=== PATIENT | male | born 1980 | race Caucasian/White ===

== ENCOUNTER → 2018-03-17 08:17 | Outpatient (CLI) | payer MEDICAID, SELFPAY ==
[2018-03-17 09:02] LABS: Abs Immature Grans 0.04 k/cumm (0.0-0.09); Absolute Basophil Count 0.03 k/cumm (0.0-0.2); Absolute Lymphocyte Count 2.23 k/cumm (1.2-3.4); Absolute Monocyte Count 0.67 k/cumm (0.11-0.7); Absolute Neutrophil Count 3.87 k/cumm (1.2-6.7); Basophils % 0.4; Eosinophils % 8.1; HCT 44.9 % (40.0-50.0); HGB 15.3 g/dL (13.5-17.5); Immature Grans % 0.5; Mean Corp. HGB Concentration 34.1 g/dL (32.0-36.0); Mean Corpuscular Hemoglobin 27.9 pg (27.0-33.0); Mean Corpuscular Volume 81.9 fL (80-95); Mean Platelet Volume 11.5 fL (8.0-11.0); Platelet Count 127 x1000/uL (130-400); RBC 5.48 m/cumm (4.50-6.00); RBC Distribution Width 13.6 % (11.8-14.1); White Blood Cell Count 7.44 k/cumm (4.4-10.8)
[2018-03-17 11:03] LABS: Anion Gap 11.8 mmol/L (3-11); BUN 9 mg/dL (7-18); CO2 25.2 mmol/L (21.0-32.0); CREATININE 0.91 mg/dL (0.70-1.30); Calcium 8.6 mg/dL (8.5-10.1); Chloride 106 mmol/L (98-107); Glucose 94 mg/dL (70-100); Potassium 4.1 mmol/L (3.5-5.1); Sodium 143 mmol/L (136-145); TSH (W/Ref FT4) 3.14 uIU/mL (0.358-3.74); Vitamin B12 523 pg/mL (193-986)
[2018-03-18 09:58] LABS: HIV-1/2 Ag & Ab Screen Negative (NEGAT)
[2018-03-18 10:40] LABS: Hepatitis C Ab w Rflx HCV PCR Negative (NEGAT)
== END ==
PROVIDERS: Nurse Practitioner Family; PCP Family Medicine; Visit Provider Family Medicine
DX: I11.0 Hypertensive heart disease with heart failure (principal); R73.09 Other abnormal glucose; E03.9 Hypothyroidism, unspecified; D69.6 Thrombocytopenia, unspecified; Z79.899 Other long term (current) drug therapy; Z11.4 Encounter for screening for human immunodeficiency virus [HIV]; Z11.59 Encounter for screening for other viral diseases
CPT/HCPCS: 36415; 80048; 86803; 87389; 82607; 84443; 85025

== ENCOUNTER 2018-04-19 01:39 | Outpatient (CLI) | payer MEDICAID, SELFPAY ==
[2018-04-19] MEDS: Inhaler, Assist Device 1 EACH MC (11:04)
[2018-04-19] MEDS: Albuterol HFA 18 GM 200 PUFF INH IH (11:05)
--- NOTE | 2018-04-19 11:11 | PFT_ITS ---
PULMONARY FUNCTION TEST REPORT DATE OF SERVICE: April 19, 2018 REQUESTING PROVIDER: Guille Garrett M.D. Spirometry shows no evidence of obstructive airways disease. There is some, but not significant, bronchodilator response. Lung volumes show no evidence of restriction. Diffusion capacity normal. Airways resistance normal. IMPRESSION: Overall normal pulmonary function study. There is some improvement after bronchodilator administration, but this is not considered significant. Clinical correlation recommended. CORY/gypsy SEE SCANNED DOCUMENT IN THE EMR FOR DATA AND GRAPHS
== END 2018-04-19 01:59 ==
PROVIDERS: PCP Family Medicine; Visit Provider Family Medicine
DX: R05 Cough (principal)
CPT/HCPCS: 94060; 94150; 94726; 94729

== ENCOUNTER 2019-05-09 15:20 | Outpatient (REF) | payer MEDICAID, SELFPAY ==
[2019-05-09 19:07] LABS: ALT 27 U/L (16-63); AST 19 U/L (15-37); Albumin 4.2 g/dL (3.4-5.0); Alkaline Phosphatase 88 U/L (46-116); Anion Gap 10.3 mmol/L (3-11); BUN 8 mg/dL (7-18); Bilirubin, Total 1.1 mg/dL (0.2-1.0); CO2 26.7 mmol/L (21.0-32.0); CREATININE 1.01 mg/dL (0.70-1.30); Calcium 8.8 mg/dL (8.5-10.1); Calculated LDL 66 mg/dL; Chloride 104 mmol/L (98-107); Cholesterol 126 mg/dL (50-200); Glucose 112 mg/dL (70-100); HDL Cholesterol 31 mg/dL (40-60); Potassium 3.8 mmol/L (3.5-5.1); Sodium 141 mmol/L (136-145); TSH (W/Ref FT4) 1.14 uIU/mL (0.36-3.74); Total Protein 6.8 g/dL (6.4-8.2); Triglyceride 149 mg/dL (30-150)
[2019-05-09 19:21] LABS: HCT 45.5 % (40.0-50.0); HGB 15.7 g/dL (13.5-17.5); Mean Corp. HGB Concentration 34.5 g/dL (32.0-36.0); Mean Corpuscular Volume 81.3 fL (80-95); Mean Platelet Volume 11.1 fL (8.0-11.0); Platelet Count 170 x1000/uL (130-400); RBC Distribution Width 13.8 % (11.8-14.1); White Blood Cell Count 7.06 k/cumm (4.4-10.8)
== END 2019-05-09 15:40 ==
LOC: NCHCN 15:20
PROVIDERS: PCP Family Medicine; Visit Provider Family Medicine
DX: E03.9 Hypothyroidism, unspecified (principal); D69.6 Thrombocytopenia, unspecified; I10 Essential (primary) hypertension; R73.09 Other abnormal glucose; E78.5 Hyperlipidemia, unspecified
CPT/HCPCS: 80053; 80061; 85027; 84443

== ENCOUNTER 2019-11-02 00:44 | Outpatient (CLI) | payer MEDICAID, SELFPAY ==
--- NOTE | 2019-11-02 13:19 | DI.RAD_ITS ---
EXAM: XR HUMERUS RT CLINICAL HISTORY: RT ARM PAIN,TENDERNESS MID UPPER ARM AFTER FALL ON ICE,M79.601. TECHNIQUE: 2D digital imaging was performed. COMPARISON: No exams were available for comparison FINDINGS: BONES: No acute fracture or old fracture is present. No bony destructive lesion is seen. Visualized p ortion of elbow and shoulder joints show mild degenerative changes. SOFT TISSUE: Normal. IMPRESSION: Unremarkable radiographs of the right humerus. DATA REPOSITORY: RADIATION DOSE DELIVERED:
== END 2019-11-02 01:04 ==
PROVIDERS: PCP Family Medicine; Visit Provider Family Medicine
DX: M79.621 Pain in right upper arm (principal)
CPT/HCPCS: 73060

== ENCOUNTER 2020-01-17 14:28 | Outpatient (CLI) | payer MEDICAID, SELFPAY ==
--- NOTE | 2020-01-17 13:25 | DI.RAD_ITS ---
EXAM: XR SHOULDER RT COMPLETE 2+V CLINICAL HISTORY: RIGHT SHOULDER PAIN. TECHNIQUE: 2D digital imaging was performed. COMPARISON: No exams were available for comparison FINDINGS: BONES: No acute fracture is present. No bony destructive lesion is seen. JOINTS: No dislocation present. Mild spurring at the glenoid. No significant AC joint spurring. SOFT TISSUE: Normal. IMPRESSION: Mild degenerative changes. DATA REPOSITORY: RADIATION DOSE DELIVERED:
== END 2020-01-17 14:48 ==
PROVIDERS: PCP Family Medicine; Referring Provider Family Medicine; Visit Provider Student in an Organized Health Care Education/Training Program
DX: M25.511 Pain in right shoulder (principal); M19.011 Primary osteoarthritis, right shoulder
CPT/HCPCS: 73030

== ENCOUNTER 2020-01-31 01:12 | Outpatient (CLI) | payer MEDICAID, SELFPAY ==
--- NOTE | 2020-01-31 14:30 | DI.MRI_ITS ---
EXAM: MR UPPER JOINT RT WO CLINICAL HISTORY: R SHOULDER PAIN, M75.51, bursitis, impingement syndrome, bicipital. TECHNIQUE: Multiplanar multisequence MRI was performed. COMPARISON: X-ray right shoulder 01/17/2020. FINDINGS: Examination technically limited due to patient body habitus. BONES: Mild hyperintense signal is seen in the subchondral bone in the lateral aspect of the humeral head which may represent a contusion. No evidence of an occult fracture. JOINTS: There is a small amount of fluid in the acromioclavicular joint. The glenohumeral joint is n ormal. TENDONS: Supraspinatus: There is hyperintense signal seen in the anterior aspect of the supraspinatus tendon c onsistent with a partial tear. Infraspinatus: Unremarkable. Subscapularis: There appears to be mild hyperintense signal seen in the superior aspect of the subsca pularis tendon suspicious for partial tear versus tendinosis. Teres Minor: Unremarkable. Biceps and Valencia: Hyperintense signal is seen in the biceps tendon which may represent tendinosis or partial tear. MUSCLES: There is very mild fatty atrophy of the teres minor muscle. The rotator cuff muscles otherw ise show normal signal and size. GLENOID LABRUM: Unremarkable on this noncontrast examination. SOFT TISSUES: Unremarkable. LIGAMENTS: Unremarkable. OTHER: Subacromial and subdeltoid bursae are unremarkable. IMPRESSION: 1. Partial tear of the anterior aspect of the supraspinatus tendon. 2. Partial tear versus tendinosis of the subscapularis and the biceps tendons. 3. Hyperintense signal in the subchondral bone in the lateral aspect of the humeral head which may re present a contusion. 4. Limited examination due to patient body habitus. DATA REPOSITORY:
== END 2020-01-31 01:32 ==
PROVIDERS: PCP Family Medicine; Visit Provider Student in an Organized Health Care Education/Training Program
DX: M25.511 Pain in right shoulder (principal); M75.101 Unspecified rotator cuff tear or rupture of right shoulder, not specified as traumatic; M75.81 Other shoulder lesions, right shoulder; M75.41 Impingement syndrome of right shoulder; M75.51 Bursitis of right shoulder
CPT/HCPCS: 73221

== ENCOUNTER 2020-03-09 12:35 | Outpatient (REF) | payer MEDICAID, SELFPAY ==
[2020-03-11 19:03] LABS: SARS-CoV-2 RNA Undetected (Undetected); SARS-CoV-2 Specimen Source Nasopharynx
== END 2020-03-09 12:55 ==
LOC: NCHCN 12:35
PROVIDERS: PCP Family Medicine; Visit Provider Nurse Practitioner Family
DX: Z11.59 Encounter for screening for other viral diseases (principal)
CPT/HCPCS: U0003

== ENCOUNTER 2020-03-28 03:40 | Outpatient (CLI) | payer MEDICAID, SELFPAY | END 2020-03-28 04:00 | PROVIDERS: PCP Family Medicine; Visit Provider Family Medicine | DX: R05 Cough (principal); R06.02 Shortness of breath ==

== ENCOUNTER 2020-05-22 07:42 | Outpatient (CLI) | payer MEDICAID, SELFPAY ==
[2020-05-24 02:09] LABS: COVID-19 RT-PCR Result NEGATIVE (Negative)
== END 2020-05-22 08:02 ==
PROVIDERS: PCP Family Medicine; Visit Provider Family Medicine
DX: Z11.59 Encounter for screening for other viral diseases (principal); Z01.811 Encounter for preprocedural respiratory examination
CPT/HCPCS: U0003

== ENCOUNTER 2020-05-24 12:56 | Outpatient (CLI) | payer MEDICAID, SELFPAY ==
[2020-05-24] MEDS: Inhaler, Assist Device 1 EACH MC (13:43)
[2020-05-24] MEDS: Albuterol HFA 18 GM 200 PUFF INH IH (13:43)
--- NOTE | 2020-05-28 09:27 | W.PFT ---
Date of service: 05/24/20 Time of Service: 01:01 Pulmonary Function Test Result Requesting Provider Guille Garrett Interpretation Spirometry: Is coming in this morning. Please have your office send us an official consult request. Thank you. Magalys Lung Volumes: Shows no evidence of restriction Diffusion Capacity: Normal Airway Pressure: Normal Impression Normal pulmonary function study, When compared to previous one from 04/19/2018, the patient has a 500 cc increase in FVC, FEV1 has increased by 200 cc, overall pulmonary function test has improved Clinical Correlation therefore is recommended.
== END 2020-05-24 13:16 ==
PROVIDERS: PCP Family Medicine; Visit Provider Family Medicine
DX: R05 Cough (principal); R06.02 Shortness of breath
CPT/HCPCS: 94060; 94726; 94729

== ENCOUNTER 2021-01-23 18:39 | Outpatient (REF) | payer MEDICAID, SELFPAY ==
[2021-01-23 20:23] LABS: HCT 46.2 % (40.0-50.0); HGB 15.3 g/dL (13.5-17.5); MCH 26.9 pg (27.0-33.0); MCHC 33.1 % (32.0-36.0); MCV 81.3 fL (80-95); MPV 11.8 fL (8.0-11.0); Platelet Count 127 10^3/uL (130-400); RBC 5.68 10^6/uL (4.36-5.78); RDW-SD 38.2 fL
[2021-01-23 20:39] LABS: ALT 23 U/L (16-63); AST 13 U/L (15-37); Albumin 4.2 g/dL (3.4-5.0); Alkaline Phosphatase 103 U/L (46-116); Anion Gap 11.9 mmol/L (3-11); BUN 9 mg/dL (7-18); Bilirubin, Total 0.9 mg/dL (0.2-1.0); CO2 24.1 mmol/L (21.0-32.0); CREATININE 1.1 mg/dL (0.70-1.30); Calcium 8.8 mg/dL (8.5-10.1); Chloride 107 mmol/L (98-107); Glucose 105 mg/dL (74-106); Potassium 4.1 mmol/L (3.5-5.1); Sodium 143 mmol/L (136-145); TSH (W/Ref FT4) 1.25 uIU/mL (0.36-3.74); Total Protein 6.6 g/dL (6.4-8.2)
== END 2021-01-23 18:40 | disposition home or self-care (01) ==
LOC: NCHCN 18:39
PROVIDERS: PCP Family Medicine; Visit Provider Family Medicine
DX: E03.9 Hypothyroidism, unspecified (principal); D69.6 Thrombocytopenia, unspecified; Z68.41 Body mass index [BMI] 40.0-44.9, adult; I10 Essential (primary) hypertension
CPT/HCPCS: 80053; 85027; 84443

== ENCOUNTER 2021-01-25 04:13 | Outpatient (CLI) | payer MEDICAID, SELFPAY ==
--- NOTE | 2021-01-25 | DI.RAD_ITS ---
Exam(s) XR HIP RT COMPLETE AP PELVIS EXAM: XR HIP RT COMPLETE AP PELVIS INDICATION: RT HIP PAIN, M25.551. COMPARISON: No exams were available for comparison TECHNIQUE: 2D digital imaging was performed. FINDINGS: Hip joint spaces are well maintained. There is spurring at acetabula bilaterally. The femoral heads appear intact. The visualized portions of the SI joints are unremarkable. IMPRESSION: Bilateral acetabular spurring. DATA REPOSITORY: RADIATION DOSE DELIVERED:
== END 2021-01-25 04:33 ==
PROVIDERS: PCP Family Medicine; Visit Provider Family Medicine
DX: M25.752 Osteophyte, left hip (principal); M25.751 Osteophyte, right hip
CPT/HCPCS: 73502

== ENCOUNTER 2021-12-10 09:50 | Outpatient (REF) | payer MEDICAID, SELFPAY ==
[2021-12-10 17:39] LABS: HCT 47.4 % (40.0-50.0); HGB 15.5 g/dL (13.5-17.5); MCH 26.5 pg (27.0-33.0); MCHC 32.7 % (32.0-36.0); MCV 81 fL (80-95); Platelet Count 61 10^3/uL (130-400); RBC 5.85 10^6/uL (4.36-5.78); RDW 13.2 % (11.8-14.1); RDW-SD 38.6 fL; WBC 8.14 10^3/uL (4.4-10.8)
[2021-12-10 19:56] LABS: ALT 29 U/L (16-63); AST 23 U/L (15-37); Albumin 4.3 g/dL (3.4-5.0); Alkaline Phosphatase 112 U/L (46-116); Anion Gap 10.9 mmol/L (3-11); BUN 7 mg/dL (7-18); Bilirubin, Total 1.6 mg/dL (0.2-1.0); CO2 24.1 mmol/L (21.0-32.0); Calcium 8.5 mg/dL (8.5-10.1); Chloride 103 mmol/L (98-107); Glucose 134 mg/dL (74-106); Potassium 3.6 mmol/L (3.5-5.1); Sodium 138 mmol/L (136-145); Total Protein 6.6 g/dL (6.4-8.2)
== END 2021-12-10 09:51 | disposition home or self-care (01) ==
LOC: NCHCN 09:50
PROVIDERS: PCP Family Medicine; Visit Provider Family Medicine
DX: R11.2 Nausea with vomiting, unspecified (principal)
CPT/HCPCS: 80053; 85027; 83735

== ENCOUNTER 2022-01-08 15:59 | Outpatient (REF) | payer MEDICAID, SELFPAY ==
[2022-01-08 21:14] LABS: Bilirubin, Direct 0.2 mg/dL (0.0-0.2)
== END 2022-01-08 16:00 | disposition home or self-care (01) ==
LOC: NCHCN 15:59
PROVIDERS: PCP Family Medicine; Visit Provider Family Medicine
DX: E80.6 Other disorders of bilirubin metabolism (principal)
CPT/HCPCS: 82247; 82248

== ENCOUNTER 2022-01-15 17:48 | Outpatient (REF) | payer MEDICAID, SELFPAY ==
[2022-01-18 18:54] LABS: Calprotectin <50.0 mcg/g
== END 2022-01-15 17:49 | disposition home or self-care (01) ==
LOC: NCHCN 17:48
PROVIDERS: PCP Family Medicine; Visit Provider Family Medicine
DX: K52.9 Noninfective gastroenteritis and colitis, unspecified (principal)
CPT/HCPCS: 87329; 83993

== ENCOUNTER → 2022-02-14 00:31 | Outpatient (CLI) | payer MEDICAID, SELFPAY ==
--- NOTE | 2022-02-14 | DI.US_ITS ---
Exam(s) US ABDOMEN EXAM: US ABDOMEN CLINICAL HISTORY: ELEVATED BILIRUBIN R17 NAUSEA LOW PLATELETS ? LIVER DISEASE OR LARGE SPLEEN TECHNIQUE: Ultrasound abdomen performed using standard protocol. COMPARISON: No exams were available for comparison FINDINGS: ABDOMINAL AORTA AND IVC: Visualized portions normal caliber. PANCREAS: Normal where visualized. LIVER: There is diffuse increased echogenicity of the liver consistent with fatty infiltration. Hepa tic evaluation is limited by patient body habitus. Hepatopedal flow in the Portal Vein. GALLBLADDER:Multiple stones are present. No evidence of wall thickening. No pericholecystic fluid id entified. BILIARY SYSTEM: Common bile duct measures < 7 mm. No intrahepatic biliary ductal dilation. KRISHNA'S SIGN: Negative. KIDNEYS: Kidneys are symmetric in size. No evidence of renal calculi. No evidence of hydronephrosis. No renal mass or cyst identified. SPLEEN: The spleen measures 14.4 cm. ASCITES: None seen. IMPRESSION: 1. Hepatic steatosis. 2. Cholelithiasis. No findings of acute cholecystitis. 3. Mild splenomegaly. DATA REPOSITORY:
== END ==
PROVIDERS: PCP Family Medicine; Visit Provider Family Medicine
DX: K76.0 Fatty (change of) liver, not elsewhere classified; K80.20 Calculus of gallbladder without cholecystitis without obstruction; R16.1 Splenomegaly, not elsewhere classified; D69.6 Thrombocytopenia, unspecified
CPT/HCPCS: 76700

== ENCOUNTER 2022-04-29 03:05 | Outpatient (CLI) | payer MEDICAID, SELFPAY ==
[2022-04-29 15:47] LABS: HCT 45.5 % (40.0-50.0); HGB 15.1 g/dL (13.5-17.5); MCH 26.1 pg (27.0-33.0); MCHC 33.2 % (32.0-36.0); MCV 79 fL (80-95); MPV 10.9 fL (8.0-11.0); Platelet Count 116 10^3/uL (130-400); RBC 5.78 10^6/uL (4.36-5.78); RDW 13.2 % (11.8-14.1); RDW-SD 37.7 fL; WBC 8.34 10^3/uL (4.4-10.8)
[2022-04-29 17:02] LABS: Absolute Neutrophil Count 4.84 10^3/uL (1.2-6.7)
[2022-04-29 17:03] LABS: Absolute Lymphocyte Count 2.67 10^3/uL (1.2-3.4); Absolute Monocyte Count 0.67 10^3/uL (0.1-0.8); Atypical Lymphocytes % 1; Diff Comment Manual Differential; Metamyelocytes % 1; RBC Morphology Normal
== END 2022-04-29 03:06 | disposition home or self-care (01) ==
LOC: LBO 03:06
PROVIDERS: PCP Family Medicine; Visit Provider Internal Medicine
DX: D69.3 Immune thrombocytopenic purpura (principal)
CPT/HCPCS: 36415; 85025

== ENCOUNTER 2022-08-01 22:24 | Emergency (ER) | payer MEDICAID, SELFPAY ==
--- OUTSIDE RECORDS SUMMARY | 2022-08-01 22:31 | XMS_ITS ---
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 35353176 skin Problem Obese abdomen E65 Active 194258 007 Problem Roque's esophagus K22.70 Active 747266303 without dysplasia Problem Gastroesophageal K21.9 Active 235 826933 reflux disease, unspecified whether esophagitis present Problem Dyspepsia R10.13 Active 010512083 Problem Gastric polyp K31.7 Active 842543 05 Problem Spondylosis of M47.816 Active 00919 000 lumbar region without myelopathy or radiculopathy Problem Lumbar spondylosis M47.816 Active ALLERGIES No Known Allergies ENCOUNTERS Encounter Location Date Diagnosis [facility] [address] [place] [address] Jan, Pyrosis R12 ; [address]yspe[address] R10.13 ; Vomitin g without [place], [place] nausea, unspecif ied [id number] vomiting type R1 1.11 ; Gastroesophageal reflux disease, unspeci fied whether esophagi tis present K21.9 ; Roque's esophagus withou t dysplasia K22.70 ; Diarrhea, unspec ified type R19.7 and Melena K92.1 [facility] [address] December, Road [place], [place] [id number] [address] Apr, Lumbar spon dylosis M47.[address] [place], [place] and Spondylos is of lumbar [id number] region without m yelopathy or radiculopathy M47.[address] Apr, [address] [place], [place] [id number] [address] Apr, Maggie mbar spondylosis M47.[address] and Spondylosis of lumbar [place], [place] region without m yelopathy [id number] or radiculopathy M47.[address] Apr, [address] [place], [place] [id number] [address] Mar, Lumbar spon dylosis M47.[address] [place], [place] and Spondylos is of lumbar [id number] region without m yelopathy or radiculopathy M47.[address] Jan, [address] [place], [place] [id number] [address] Jan, Maggie mbar spondylosis M47.[address] and Spondylosis of lumbar [place], [place] region without m yelopathy [id number] or radiculopathy M47.[address] Sep, [address] [place], [place] [id number] [facility] [address] [place] [address] Aug, Gastric polyp K31.[address] [place] [id number] [facility] [address] [place] [address] Jul, Road [address] [place] [id number] [facility] [address] Jun, [address] [place] [id number] [facility] [address] [place] [address] Jan, Road [address] [place] [id number] Jan, Gastric carolynn yp K31.[address] [place] Dyspepsia R10 .13 [id number] [facility] [address] [place] [address] December, Road [address] [place] [id number] [facility] [address] [place] [address] December, Dyspepsia R10 .[address] abdomen E65 [place], [place] [id number] [facility] [address] [facility] 10 Dec, [address] [place], [place] [id number] [address] Aug, Hypertrophi c scar of skin [facility], [address] [facility] [address] [place], [place] [id number] [address] Jul, Neoplasm of unspecified [facility], [address] godfrey ure of bone, [facility] [address] [facility] tissue, and skin 239.2 [place], [place] [id number] [address] Jul, [facility], [address] [facility] [address] [place], [place] [id number] IMMUNIZATIONS Vaccine Route Administration Date Status Td -Adult Unknown Apr 12, 2018 Administered Tdap - Adult Unknown Aug 22, 2008 Administered JOSSELYN - Flu VACC 6 MONTHS > Unknown Jun 21, 2015 Admini stered Tdap - Adult Unknown Aug 22, 2008 Administered SOCIAL HISTORY Never Assessed REASON FOR REFERRAL FUNCTIONAL STATUS PLAN OF CARE Activity Details Follow Up 2 Weeks after EGD and colono scopy Reason:follow up EGD and colonosocopy Future/Pending Procedure EGD [id number] Future/Pending Procedure COLONOSCOPY AND BIOPSY 701 VITAL SIGNS Height 70 in 2022-01-31 Height 70 in 2020-01-25 Height 70 in 2018-09-02 Height 70 in 2016-12-26 Height 70 in 2014-08-14 Weight 338 lbs 2022-01-31 Weight 331 lb 6 oz lbs 2020-01-25 Weight 330 lb 6 oz lbs 2018-09-02 Weight 351 lbs 2016-12-26 Weight 358 lbs 2014-08-14 Temperature 96.5 degrees Fahrenheit 2022-01-31 Heart Rate 112 /min 2022-01-31 Heart Rate 76 /min 2020-01-25 Heart Rate 85 /min 2018-09-02 Heart Rate 70 /min 2016-12-26 Oximetry 98 2022-01-31 Oximetry 97 2020-01-25 Oximetry 96 2018-09-02 Respiratory Rate 16 /min 2016-12-26 BMI 48.49 kg/m2 2022-01-31 BMI 47.54 kg/m2 2020-01-25 BMI 47.40 kg/m2 2018-09-02 BMI 50.36 kg/m2 2016-12-26 BMI 51.36 kg/m2 2014-08-14 Blood pressure systolic 140 mm Hg 2022-01-31 Blood pressure diastolic 86 mm Hg 2022-01-31 MEDICATIONS Medication Instructions Dosage Frequency Start End Duration Statu s Date Date Vraylar 6 MG Orally Once a 1 capsule 24h Unk nown day Benztropine Orally Twice a 1 tablet at 12h U nknown Mesylate 1 MG day bedtime Triamcinolone Externally Two 1 application Unknown Acetonide 0.5 % times a Week Cyclobenzaprine Orally Once a 1 tablet at 24h 30 day (s) Unknown HCl 10 MG day bedtime as needed Fluticasone Nasally Once a 1 spray in 24h 30 day(s) Unknown Propionate 50 day each nostril MCG/ACT Protonix 40 MG Orally twice a 1 tablet 12h U nknown day Nystatin 782763 Externally 1 application 12h Unknown UNIT/GM Twice a day Haloperidol 20 MG Orally Once a 0.5 tablet 24h 30 da y(s) Unknown day hydrOXYzine HCl as directed Unkn own 10 MG ZyrTEC Allergy 10 Orally Once a 1 tablet 24h 30 day( s) Unknown MG day Losartan Orally Once a 1 tablet 24h Unknown Potassium 25 MG day Simvastatin 20 MG Orally Once a 1 tablet in 24h Unknown day the evening MiraLax Orally as 1 packet Unknown needed mixed with 8 ounces of fluid Levothyroxine Orally Once a 1 tablet on 24h Unknown Sodium 50 MCG day an empty stomach in the morning Psyllium Fiber Orally Three 2 capsules 8h 30 day(s) Unknown 0.52 GM times a day with 8 ounces of liquid Symbicort 160-4.5 Inhalation 2 puffs 12h Unk nown MCG/ACT Twice a day Dexilant 60 MG Orally Once a 1 capsule 24h U nknown day ProAir HFA 108 Inhalation 1 puff as 4h Unkn own (90 Base) MCG/ACT every 4 hrs needed Haloperidol 5 MG Orally 5mg at 1 tablet Unknown noon, 25 mg at night Valsartan 160 MG Orally Once a 1 tablet 24h 30 day(s ) Unknown day Betamethasone Externally 1 application 24h U nknown Dipropionate 0.05 Once a day % Senexon-S 8.6-50 Orally Once a 1 tablet in 24h 30 da y(s) Unknown MG day the evening as needed PROCEDURES Procedure Date Ordered Result Body Site SHAVE TRUNK/EXT 0.6-1.0CM Jul 31, 2014 EGD WITH BIOPSYS January 08, 2017 ESOPHAGOGASTRODUODENOS Sep 20, 2018 EGD 2016-12-26 N/A RESULTS Name Result Date Reference Range CBC, WITH AUTO DIFF 2016-12-26 WBC 8.5 4.8-10.8 RBC 5.64 4.70-6.10 HGB 15.6 14.0-18.0 HCT 45.6 42.0-52.0 MCV 80.9 80.0-94.0 MCH 27.7 27.0-31.0 MCHC 34.2 32.0-37.0 RDW-CV 13.9 11.5-14.5 PLT 94 130-400 MPV 12.3 7.4-10.4 NE% 62.9 42.2-75.2 LY% 23.1 20.5-51.1 MO% 7.5 1.7-9.3 EO% 5.6 0.9-2.9 BA% 0.4 0.0-0.8 NE# 5.3 1.4-6.5 LY# 2.0 1.2-3.4 MO# 0.6 0.1-0.6 EO# 0.5 0.0-0.2 BA# 0.0 0.0-0.2 SMEAR COMMENT SEE COMMENTS SEE COMMENTS CELIAC DISEASE PANEL (celiac) ([id number]) 2016-12-02 6 Endomysial Antibody IgA Negative Negative t-Transglutaminase (tTG) IgA <2 0-3 Immunoglobulin A, Qn, Serum 28 90-3 86 COMPREHENSIVE METABOLIC PROFILE 2016-12-26 SODIUM 137 136-145 POTASSIUM 4.1 3.5-5.1 CHLORIDE 102 98-111 CO2 24 22-32 CALCIUM 9.2 8.9-10.3 BUN 10 8-26 CREATININE 0.80 0.61-1.24 TOTAL BILIRUBIN 0.8 0.3-1.2 TOTAL PROTEIN 7.0 6.5-8.1 ALBUMIN 4.7 3.5-5.0 ALKALINE PHOS 93 38-130 AST 20 15-41 ALT 22 17-63 A/GAP 11.0 3.0-12.0 B/CR 12.5 8.0-20.0 OSMOLARITY 273 275-295 GLOBULIN 2.3 2.3-3.5 A/G 2.0 1.0-2.5 LIPASE 2016-12-26 LIPASE 22 18-51 REASON FOR VISIT [facility]/EGD, GI- [facility]O EGD 2 WK F/U, GI- COLO EGD, GI-GERD, EGD, GI- GERD, discuss EGD, [facility]- L345 MBB , Appointment time adjustment, [facility] - 4 WEEK F/UP, ORDER NEEDED , [facility]- Bilateral L345 MBB , PROCEDURE SCHEDULE02/08 , [facility]- NEW PATIENT, [facility]- DDD, GI-EGD, GI gastric polyp, was found during his EGD with Dr Yung. here for f/u, GI gastric polyp r/s ill, ? instructions for tomorrow's appt, GIgastric polyp, pre-loading, biopsy results, dyspepsia, EGD, GI gerd, abd pain x 1 yr, not getting better, dry heaves, pre load, ENT lesion 2 week path results left anterior chest, ENT MOLD CHANGER lesion on chest, chart entry Insurance Providers [facility] Member Patient Patient Patient Patient Patient Subscriber Subscriber Subscriber Group Insurance Plan Plan Plan Plan ID Relationship Address Phone Name Date of ID Name Date of No Type Insurance Insurance Insurance Coverage to Subscriber Address Phone Name Dates [facility] [phone] [place] self Terry [id number] MEDICAID [place] 06 MEDICAID [facility] [id number] [facility] [facility] [address] [facility] - self Terry 1980 [address] [facility] DO Counts include 234 beds at the [facility] XAVIER (Write [place]DRO (Write Off) [place] [address] Off)
--- OUTSIDE RECORDS SUMMARY | 2022-08-01 22:31 | XMS_ITS | Continuity of Care Document ---
:1980 Author Organization [facility] e Address [address] [place] [address] Care Team Providers Name Role Phone MARV URBAN Primary Care Physician Encounter LTTL_IA FIN NBR [id number] Date(s): 06/02/22 - 06/02/[address] [address] Encounter Diagnosis Roque's esophagus (Discharge Diagnosis) - 06/02/22 Diarrhea (Discharge Diagnosis) - 06/02/22 Discharge Disposition: Home f/u External Provider Attending Physician: David Reardon MD Admitting Physician: David Reardon MD Allergies, Adverse Reactions, Alerts No Known Allergies Assessment and Plan [facility] Comprehensive LC 06/02/22 Functional Status 06/02/22 Other exposure to Infectious Disease None Medications benztropine 1 mg oral tablet 1 mg = 1 tab, Oral, BID, 1 Unknown, 0 Refill(s) Start Date: 05/01/22 Status: Orderedcyclobenzaprine 10 mg oral tablet 10 mg = 1 tab, Oral, BID, 1 Unknown, 0 Refill(s) Start Date: 05/01/22 Status: Orderedfluticasone 50 mcg/inh nasal spray 50 mcg, Subacromial, Daily, PRN congestion, 1 Unknown, 0 Refill(s) Start Date: 05/01/22 Status: Orderedhaloperidol 20 mg oral tablet 0.5 Unknown, 0 Refill(s) Start Date: 05/01/22 Status: OrderedhydrOXYzine hydrochloride 10 mg oral tablet 10 mg = 1 tab, Oral, TID, PRN as needed for anxiety, 0 Refill(s) Start Date: 05/01/22 Status: Orderedlevothyroxine 50 mcg (0.05 mg) oral tablet 50 mcg = 1 tab, Oral, Daily, 0 Refill(s) Start Date: 05/01/22 Status: OrderedMiraLax PRN constipation, 1 Unknown, 0 Refill(s) Start Date: 05/01/22 Status: Orderednystatin 100,000 units/mL oral suspension BID, 1 Unknown, 0 Refill(s) Start Date: 05/01/22 Status: OrderedProAir HFA 90 mcg/inh inhalation aerosol 2 puffs, Inhale, every 6 hr, PRN as needed for wheezing, 1 Unknown, 0 Refill(s) Start Date: 05/01/22 Status: OrderedProtonix 40 mg oral delayed release tablet 40 mg = 1 tab, Oral, BID, 1 Unknown, 0 Refill(s) Start Date: 05/01/22 Status: Orderedpsyllium TID, 2 Unknown, 0 Refill(s) Start Date: 05/01/22 Status: OrderedSenexon-S 50 mg-8.6 mg oral tablet 1 Unknown, 0 Refill(s) Start Date: 05/01/22 Status: Orderedsimvastatin 20 mg oral tablet 20 mg = 1 tab, Oral, every night at bedtime, 1 Unknown, 0 Refill(s) Start Date: 05/01/22 Status: OrderedSymbicort 160 mcg-4.5 mcg/inh inhalation aerosol 2 puffs, Inhale, BID, PRN wheezing, 2 Unknown, 0 Refill(s) Start Date: 05/01/22 Status: Orderedtriamcinolone 0.5% topical cream 1 Unknown, 0 Refill(s) Start Date: 05/01/22 Status: Orderedvalsartan 160 mg oral tablet 160 mg = 1 tab, Oral, Daily, 1 Unknown, 0 Refill(s) Start Date: 05/01/22 Status: OrderedVraylar 6 mg oral capsule 6 mg = 1 cap, Oral, Daily, 1 Unknown, 0 Refill(s) Start Date: 05/01/22 Status: Ordered Problem List Condition Confirmation Course Effective Dates Status Health I nformant Status Arthritis Confirmed Active Back pain Confirmed Active Roque's esophagus Confirmed Active Degenerative disc Confirmed Active disease Developmental delay Confirmed Active Diarrhea Confirmed Active Gastric polyp Confirmed Active Gastritis Confirmed Active Gastroesophageal Confirmed Active reflux disease Hemorrhoid Confirmed Active HLD - Hyperlipidemia Confirmed Active HTN - Hypertension Confirmed Active Hypertrophic scar Confirmed Active Indigestion Confirmed Active Lumbar spondylosis Confirmed Active Neoplastic disease Confirmed Active Obese abdomen Confirmed Active Schizoaffective Confirmed Active disorder Sleep apnea1 Confirmed Active Vomit2 Confirmed Active 1no qtdv1lsvy mornings per mom Procedures Procedure Date Related Diagnosis Body Site Status EGD AND COLONOSCOPY WITH BIOPSY1 06/02/22 Completed Colonoscopy Completed Cystoscopy Completed Upper gastrointestinal endoscopy Completed Urodynamics Completed Wrist repair Completed 1auto-populated from documented surgical case Vital Signs Most recent to oldest [Reference Range]: 1 2 Temperature Temporal Artery [36-38 Deg C] 36.5 Deg C (06/02/22 3:58 PM) Peripheral Pulse Rate [60-100 bpm] 74 bpm 73 bp m (06/02/22 4:00 PM) (06/02/22 3:58 PM) Blood Pressure [90-140/60-90 mmHg] 100/77 mmHg 104/7 8 mmHg (06/02/22 4:00 PM) (06/02/22 3:58 PM) Mean Arterial Pressure, Cuff [65-140 mmHg] 85 mmHg (06/02/22 4:00 PM) Mean Arterial Pressure Cuff 86 mmHg 86 mmHg (06/02/22 4:00 PM) (06/02/22 3:58 PM) Weight 150.000 kg (05/30/22 10:22 AM) Weight Dosing 150.000 kg (05/30/22 10:22 AM) Height 190.000 cm (05/30/22 10:22 AM) Height/Length Dosing 190.000 cm (05/30/22 10:22 AM) Social History Social History Type Response Tobacco Never tobacco user Tobacco U se:. Sex Hospital Discharge Instructions Patient Xifninnwa40/31/2022 15:01:57Upper Endoscopy, Adult, Care AfterUpper Endoscopy, Adult, Care After This sheet gives you information about how to care for yourself after your procedure. Your health care provider may also give you more specific instructions. If you have problems or questions, contact your health care provider. What can I expect after the procedure? After the procedure, it is common to have: ??? A sore throat. ??? Mild stomach pain or discomfort. ??? Bloating. ??? Nausea. Follow these instructions at home: ??? Follow instructions from your health care provider about what to eat or drink after your procedure. ??? Return to your normal activities as told by your health care provider. Ask your health care provider what activities are safe for you. ??? Take uivl-jin-jczuhsp and prescription medicines only as told by your health care provider. ??? If you were given a sedative during the procedure, it can affect you for several hours. Do not drive or operate machinery until your health care provider says that it is safe. ??? Keep all follow-up visits as told by your health care provider. This is important. Contact a health care provider if you have: ??? A sore throat that lasts longer than one day. ??? Trouble swallowing. Get help right away if: ??? You vomit blood or your vomit looks like coffee grounds. ??? You have: ??? A fever. ??? Bloody, black, or tarry stools. ??? A severe sore throat or you cannot swallow. ??? Difficulty breathing. ??? Severe pain in your chest or abdomen. Summary ??? After the procedure, it is common to have a sore throat, mild stomach discomfort, bloating, and nausea. ??? If you were given a sedative during the procedure, it can affect you for several hours. Do not drive or operate machinery until your health care provider says that it is safe. ??? Follow instructions from your health care provider about what to eat or drink after your procedure. ??? Return to your normal activities as told by your health care provider. This information is not intended to replace advice given to you by your health care provider. Make sure you discuss any questions you have with your health care provider. Document Revised: 07/17/2020 Document Reviewed: 12/20/2018 [employer] Patient Education ?? 2021 [employer] 06/02/2022 15:01:55DiverticulosisDiverticulosis Diverticulosis is a condition that develops when small pouches (diverticula) form in the wall of thelarge intestine (colon). The colon is where water is absorbed and stool (feces) is formed. The pouches form when the inside layer of the colon pushes through weak spots in the outer layers of the colon. You may have a few pouches or many of them. The pouches usually do not cause problems unless they become inflamed or infected. When this happens, the condition is called diverticulitis. What are the causes? The cause of this condition is not known. What increases the risk? The following factors may make you more likely to develop this condition: ??? Being older than age 60. Your risk for this condition increases with age. Diverticulosis is rareamong people younger than age 30. By age 80, many people have it. ??? Eating a low-fiber diet. ??? Having frequent constipation. ??? Being overweight. ??? Not getting enough exercise. ??? Smoking. ??? Taking eqgr-nbh-bxssarn pain medicines, like aspirin and ibuprofen. ??? Having a family history of diverticulosis. What are the signs or symptoms? In most people, there are no symptoms of this condition. If you do have symptoms, they may include: ??? Bloating. ??? Cramps in the abdomen. ??? Constipation or diarrhea. ??? Pain in the lower left side of the abdomen. How is this diagnosed? Because diverticulosis usually has no symptoms, it is most often diagnosed during an exam for other colon problems. The condition may be diagnosed by: ??? Using a flexible scope to examine the colon (colonoscopy). ??? Taking an X-ray of the colon after dye has been put into the colon (barium enema). ??? Having a CT scan. How is this treated? You may not need treatment for this condition. Your health care provider may recommend treatment to prevent problems. You may need treatment if you have symptoms or if you previously had diverticulitis. Treatment may include: ??? Eating a high-fiber diet. ??? Taking a fiber supplement. ??? Taking a live bacteria supplement (probiotic). ??? Taking medicine to relax your colon. Follow these instructions at home: Medicines ??? Take hmtb-bet-yokynjd and prescription medicines only as told by your health care provider. ??? If told by your health care provider, take a fiber supplement or probiotic. Constipation prevention Your condition may cause constipation. To prevent or treat constipation, you may need to: ??? Drink enough fluid to keep your urine pale yellow. ??? Take jucg-vuw-ehyxzgu or prescription medicines. ??? Eat foods that are high in fiber, such as beans, whole grains, and fresh fruits and vegetables. ??? Limit foods that are high in fat and processed sugars, such as fried or sweet foods. General instructions ??? Try not to strain when you have a bowel movement. ??? Keep all follow-up visits as told by your health care provider. This is important. Contact a health care provider if you: ??? Have pain in your abdomen. ??? Have bloating. ??? Have cramps. ??? Have not had a bowel movement in 3 days. Get help right away if: ??? Your pain gets worse. ??? Your bloating becomes very bad. ??? You have a fever or chills, and your symptoms suddenly get worse. ??? You vomit. ??? You have bowel movements that are bloody or black. ??? You have bleeding from your rectum. Summary ??? Diverticulosis is a condition that develops when small pouches (diverticula) form in the wall ofthe large intestine (colon). ??? You may have a few pouches or many of them. ??? This condition is most often diagnosed during an exam for other colon problems. ??? Treatment may include increasing the fiber in your diet, taking supplements, or taking medicines. This information is not intended to replace advice given to you by your health care provider. Make sure you discuss any questions you have with your health care provider. Document Revised: 02/16/2020 Document Reviewed: 02/16/2020 [employer] Patient Education ?? 2021 [employer]. 06/02/2022 15:01:54Colonoscopy, Adult, Care AfterColonoscopy, Adult, Care After This sheet gives you information about how to care for yourself after your procedure. Your health care provider may also give you more specific instructions. If you have problems or questions, contact your health care provider. What can I expect after the procedure? After the procedure, it is common to have: ??? A small amount of blood in your stool for 24 hours after the procedure. ??? Some gas. ??? Mild cramping or bloating of your abdomen. Follow these instructions at home: Eating and drinking ??? Drink enough fluid to keep your urine pale yellow. ??? Follow instructions from your health care provider about eating or drinking restrictions. ??? Resume your normal diet as instructed by your health care provider. Avoid heavy or fried foods that are hard to digest. Activity ??? Rest as told by your health care provider. ??? Avoid sitting for a long time without moving. Get up to take short walks every 1???2 hours. Thisis important to improve blood flow and breathing. Ask for help if you feel weak or unsteady. ??? Return to your normal activities as told by your health care provider. Ask your health care provider what activities are safe for you. Managing cramping and bloating ??? Try walking around when you have cramps or feel bloated. ??? Apply heat to your abdomen as told by your health care provider. Use the heat source that your health care provider recommends, such as a moist heat pack or a heating pad. ??? Place a towel between your skin and the heat source. ??? Leave the heat on for 20???30 minutes. ??? Remove the heat if your skin turns bright red. This is especially important if you are unable tofeel pain, heat, or cold. You may have a greater risk of getting burned. General instructions ??? If you were given a sedative during the procedure, it can affect you for several hours. Do not drive or operate machinery until your health care provider says that it is safe. ??? For the first 24 hours after the procedure: ??? Do not sign important documents. ??? Do not drink alcohol. ??? Do your regular daily activities at a slower pace than normal. ??? Eat soft foods that are easy to digest. ??? Take kncd-gdd-cvzxbtj and prescription medicines only as told by your health care provider. ??? Keep all follow-up visits as told by your health care provider. This is important. Contact a health care provider if: ??? You have blood in your stool 2???3 days after the procedure. Get help right away if you have: ??? More than a small spotting of blood in your stool. ??? Large blood clots in your stool. ??? Swelling of your abdomen. ??? Nausea or vomiting. ??? A fever. ??? Increasing pain in your abdomen that is not relieved with medicine. Summary ??? After the procedure, it is common to have a small amount of blood in your stool. You may also have mild cramping and bloating of your abdomen. ??? If you were given a sedative during the procedure, it can affect you for several hours. Do not drive or operate machinery until your health care provider says that it is safe. ??? Get help right away if you have a lot of blood in your stool, nausea or vomiting, a fever, or increased pain in your abdomen. This information is not intended to replace advice given to you by your health care provider. Make sure you discuss any questions you have with your health care provider. Document Revised: 07/13/2020 Document Reviewed: 02/13/2020 [employer] Patient Education ?? 2021 [employer]. 06/02/2022 15:01:53Colon PolypsColon Polyps Colon polyps are tissue growths inside the colon, which is part of the large intestine. They are oneof the types of polyps that can grow in the body. A polyp may be a round bump or a mushroom-shaped growth. You could have one polyp or more than one. Most colon polyps are noncancerous (benign). However, some colon polyps can become cancerous over time. Finding and removing the polyps early can help prevent this. What are the causes? The exact cause of colon polyps is not known. What increases the risk? The following factors may make you more likely to develop this condition: ??? Having a family history of colorectal cancer or colon polyps. ??? Being older than 45 years of age. ??? Being younger than 45 years of age and having a significant family history of colorectal cancer or colon polyps or a genetic condition that puts you at higher risk of getting colon polyps. ??? Having inflammatory bowel disease, such as ulcerative colitis or Crohn's disease. ??? Having certain conditions passed from parent to child (hereditary conditions), such as: ??? Familial adenomatous polyposis (FAP). ??? Perrin syndrome. ??? Turcot syndrome. ??? Peutz???Jeghers syndrome. ??? MUTYH-associated polyposis (MAP). ??? Being overweight. ??? Certain lifestyle factors. These include smoking cigarettes, drinking too much alcohol, not getting enough exercise, and eating a diet that is high in fat and red meat and low in fiber. ??? Having had childhood cancer that was treated with radiation of the abdomen. What are the signs or symptoms? Many times, there are no symptoms. If you have symptoms, they may include: ??? Blood coming from the rectum during a bowel movement. ??? Blood in the stool (feces). The blood may be bright red or very dark in color. ??? Pain in the abdomen. ??? A change in bowel habits, such as constipation or diarrhea. How is this diagnosed? This condition is diagnosed with a colonoscopy. This is a procedure in which a lighted, flexible scope is inserted into the opening between the buttocks (anus) and then passed into the colon to examinethe area. Polyps are sometimes found when a colonoscopy is done as part of routine cancer screening tests. How is this treated? This condition is treated by removing any polyps that are found. Most polyps can be removed during acolonoscopy. Those polyps will then be tested for cancer. Additional treatment may be needed depending on the results of testing. Follow these instructions at home: Eating and drinking ??? Eat foods that are high in fiber, such as fruits, vegetables, and whole grains. ??? Eat foods that are high in calcium and vitamin D, such as milk, cheese, yogurt, eggs, liver, fish, and broccoli. ??? Limit foods that are high in fat, such as fried foods and desserts. ??? Limit the amount of red meat, precooked or cured meat, or other processed meat that you eat, such as hot dogs, sausages, benites, or meat loaves. ??? Limit sugary drinks. Lifestyle ??? Maintain a healthy weight, or lose weight if recommended by your health care provider. ??? Exercise every day or as told by your health care provider. ??? Do not use any products that contain nicotine or tobacco, such as cigarettes, e-cigarettes, and chewing tobacco. If you need help quitting, ask your health care provider. ??? Do not drink alcohol if: ??? Your health care provider tells you not to drink. ??? You are , may be , or are planning to become . ??? If you drink alcohol: ??? Limit how much you use to: ??? 0???1 drink a day for women. ??? 0???2 drinks a day for men. ??? Know how much alcohol is in your drink. In the [place] one drink equals one 12 oz bottle of beer (355 mL), one 5 oz glass of wine (148 mL), or one 1?? oz glass of hard liquor (44 mL). General instructions ??? Take bwoy-vnt-otarycm and prescription medicines only as told by your health care provider. ??? Keep all follow-up visits. This is important. This includes having regularly scheduled colonoscopies. Talk to your health care provider about when you need a colonoscopy. Contact a health care provider if: ??? You have new or worsening bleeding during a bowel movement. ??? You have new or increased blood in your stool. ??? You have a change in bowel habits. ??? You lose weight for no known reason. Summary ??? Colon polyps are tissue growths inside the colon, which is part of the large intestine. They areone type of polyp that can grow in the body. ??? Most colon polyps are noncancerous (benign), but some can become cancerous over time. ??? This condition is diagnosed with a colonoscopy. ??? This condition is treated by removing any polyps that are found. Most polyps can be removed during a colonoscopy. This information is not intended to replace advice given to you by your health care provider. Make sure you discuss any questions you have with your health care provider. Document Revised: 11/07/2020 Document Reviewed: 11/07/2020 [employer] Patient Education ?? 2021 [employer] Follow Up Care05/16/2022 07:51:20With:Anay Rubio APRN Address: [address] [place] [id number] When:1 [facility] Patient Care team information PersonnelName: MARV URBAN Address: Address: [address] [place] [id number]
[2022-08-01 22:33] VITALS: BP 124/99; PULSE 104; RESP 19; TEMP 36.4; O2SAT 96
--- NOTE | 2022-08-01 23:28 | ED.GENADUL_ITS ---
Discharge Plan Disposition Patient Disposition: Home Condition: Stable Discharge Details Clinical Impression: Hallucinations, Abrasion of scrotum Primary Care Provider: Guille Garrtet ED Provider: Lucio Davenport Home Meds and New Rx's Prescriptions: New bacitracin 500 unit/gram ointment 1 applic topical TID Qty: 30 0RF Continued nystatin 100,000 unit/gram Cream 1 applic TOPICAL BID PRN benztropine 1 mg Tablet 1 mg PO BID albuterol sulfate [ProAir HFA] 90 mcg/actuation Hfa Aerosol Inhaler 2 puff INHALATION Q4H PRN valsartan 160 mg Tablet 160 mg PO DAILY Vraylar 6 mg Capsule 6 mg PO DAILY polyethylene glycol 3350 [Miralax] 17 GM powder in packet 17 gm PO DAILY PRN betamethasone, augmented 50 GM cream 50 gm Topical PRN PRN tizanidine 2 MG capsule 2 mg PO Q8H PRN simvastatin 10 MG tablet 20 mg PO QPM fluoxetine 20 mg capsule 20 cap PO DAILY Label Comments: TAKE ONE CAPSULE BY MOUTH EVERY MORNING, NEED APPOINTMENT FOR FURTHER REFILLS pantoprazole 40 mg tablet,delayed release (DR/EC) 40 tab PO DAILY Label Comments: TAKE ONE TABLET BY MOUTH EVERY DAY cetirizine 10 mg Tablet 10 mg PO DAILY PRN metformin 500 MG tablet 500 mg PO BID levothyroxine 50 MCG tablet 50 mcg PO DAILY haloperidol 20 MG tablet 20 mg PO HS docusate sodium [Colace] 100 MG capsule 100 mg PO DAILY Discharge Instructions Instructions: Schizophrenia (ED), Abrasion (ED) Additional Instructions: Please apply antibiotic ointment to your scrotal abrasion 3 times a day for the next 1 week. Please follow-up with your psychiatrist. Call tomorrow to schedule timely follow-up. Please take your psychiatric medications as prescribed. Please contact your primary care physician to arrange follow-up. Return to the ER immediately for any worsening or new concerning symptoms. Referrals: [facility] [Outside] Guille Garrett [Primary Care Provider] - Medical Decision Making 0 -- 42-year-old male with a history of morbid obesity, hypertension, hyperlipidemia, GERD, diabetes, obstructive sleep apnea, hypothyroidism, schizophrenia and developmental delay who presents from home for auditory hallucinations for several years, getting progressively worse. Vitals reassuring. He appears comfortable and nontoxic. He is oriented x3. He denies homicidal or suicidal ideation. Considering his age and history, will obtain screening labs for medical clearance. We will call [facility] for evaluation. 0100 -- Pt evaluated by Fariba with mental [facility] -- plan will be to seek inpatient voluntary admission. She reports that pt has not taken his meds for 2 weeks. Pt is unsure of his meds so we will need to reconcile these with his pharmacy. [facility] pharmacy will call in the am after they verify his meds with his pharmacy. 0800 --no events overnight. Case endorsed to Dr. Torres to continue to monitor while awaiting placement. Will need to order patient's regular meds once [facility] telemetry pharmacy can confirm his medication list. Medical Records Medical records reviewed: Yes I reviewed the patient's medical records. HPI General Mode of arrival: EMS . Date/Time Provider Initiated Documentation: 08/01/22 22:46 . Limitations to Documentation: no limitations . Information obtained by: patient . HPI Narrative: Patient is a 42-year-old male with a history of morbid obesity, hypertension, hyperlipidemia, diabetes, GERD, hypothyroidism, obstructive sleep apnea, schizophrenia and developmental delay who presents from home with a complaint of hearing voices which is getting progressively worse. Patient states he has been hearing voices since he was a little child. He states these voices are becoming more frequent. He states he has been hearing voices saying things that are sexual like telling him they are going to put their mouth around my thing . Patient denies any suicidal or homicidal ideation. He denies any alcohol or drug use. Patient states he has been in contact with [facility] human services but states have not been helpful. Related Data Home Medications Medication Instructions Recorded Confirmed simvastatin 10 mg tablet 20 mg PO QPM 08/09/13 08/02/22 docusate sodium 100 mg capsule 100 mg PO DAILY 07/31/16 08/02/22 (Colace) haloperidol 20 mg tablet 20 mg PO HS 07/31/16 08/02/22 levothyroxine 50 mcg tablet 50 mcg PO DAILY 07/31/16 08/02/22 metformin 500 mg tablet 500 mg PO BID 07/31/16 08/03/22 betamethasone, augmented 0.05 % 50 gm topical PRN PRN 03/10/17 08/03/22 topical cream polyethylene glycol 3350 17 gram 17 gm PO DAILY PRN 03/10/17 08/03/22 oral powder packet (Miralax) tizanidine 2 mg capsule 2 mg PO Q8H PRN 03/10/17 08/03/22 albuterol sulfate 90 mcg/actuation 2 puff inhalation Q4H PRN 12/09/19 08/03/22 aerosol inhaler (ProAir HFA) benztropine 1 mg tablet 1 mg PO BID 12/09/19 08/03/22 cariprazine 6 mg capsule (Vraylar) 6 mg PO DAILY 12/09/19 08/02/22 nystatin 100,000 unit/gram topical 1 applic topical BID PRN 12/09/19 08/03/22 cream valsartan 160 mg tablet 160 mg PO DAILY 12/09/19 08/02/22 fluoxetine 20 mg capsule 20 cap PO DAILY 08/02/22 08/02/22 pantoprazole 40 mg tablet,delayed 40 tab PO DAILY 08/02/22 08/02/22 release bacitracin 500 unit/gram topical 1 applic topical TID #30 grams 08/03/22 ointment cetirizine 10 mg tablet 10 mg PO DAILY PRN 08/03/22 08/03/22 Previous Rx's Medication Instructions Recorded bacitracin 500 unit/gram topical 1 applic topical TID #30 grams 08/03/22 ointment Allergies Allergy/AdvReac Type Severity Reaction Status Date / Time bee venom protein (honey bee) Allergy Severe Anaphylaxsi Verified 03/06/20 13:17 s hornet venom Allergy Severe Anaphylaxsi Verified 03/06/20 13:17 s General Stated Complaint: PsychEval KEVIN: 3 Review of Systems All systems reviewed & are unremarkable except as noted in HPI and below Constitutional Constitutional: Reports as per HPI, Denies chills and Denies fever(s) Eyes Eyes: Denies blurry vision ENT Ears, Nose, Mouth, and Throat: Denies dizziness, Denies sore throat and Denies throat swelling Cardiovascular Cardiovascular: Denies chest pain and Denies dyspnea Respiratory Respiratory: Denies cough and Denies dyspnea Gastrointestinal Gastrointestinal: Denies abdominal pain, Denies diarrhea and Denies vomiting Genitourinary Genitourinary: Denies hematuria and Denies dysuria Musculoskeletal Musculoskeletal: Denies back pain and Denies numbness Integumentary/Breasts Skin/Breast: Denies lesions and Denies rash Neurologic Neurologic: Denies dizziness, Denies localized weakness and Denies numbness Psychiatric Psychiatric: Reports auditory hallucinations Allergic/Immunologic Allergic/Immunologic: Denies throat swelling PFSH All Active Problems (Updated 08/03/22 @ 12:26 by Lucio Davenport MD) Hallucinations (Acute) Abrasion of scrotum (Acute) No-show for appointment (Acute) Bursitis of right shoulder (Acute) Impingement syndrome of right shoulder (Acute) Tendonitis of long head of biceps brachii of right shoulder (Acute) Medical History (Updated 08/03/22 @ 12:26 by Lucio Davenport MD) Chronic cough Chronic low back pain DDD (degenerative disc disease) Developmental delay, mild Diabetes GERD (gastroesophageal reflux disease) Hemorrhoids History of gastric polyp Hyperlipidemia Hypertension Hypothyroidism Keloid scar Morbid obesity Rectal bleeding Right arm pain Schizoaffective disorder Severe obstructive sleep apnea Shortness of breath Sinusitis Subclinical hypothyroidism Testicular pain, left Thrombocytopenia Tinea cruris Surgical History (Updated 12/14/19 @ 13:07 by Christine Mauricio) H/O endoscopy Social History (Updated 12/14/19 @ 13:08 by Christine Mauricio) Smoking/Tobacco Use Status: Never Smoking risk assessment performed?: Yes Alcohol Intake: never Drug use: Never Household members: family Housing: house Number of Children: 0 current occupation: Unemployed What type of physical activity do you participate in: walking, independent ambulation and bicycling Do you feel safe at home: Yes Do you feel safe in your relationship?: Yes Exam Const General: cooperative and no acute distress Nutritional Appearance: obese morbidly obese Orientation: alert, awake and oriented x3 HENMT Head: normal to inspection Ears: hearing grossly normal bilaterally and external ears normal Face and sinus: normal facial exam Mouth: oral mucosae normal Eyes General: appearance normal, both eyes and all related structures Pupils: PERRL EOM: EOM intact bilaterally Neck Neck: normal visual inspection and No submandibular swelling Lymphatic: no lymphadenopathy noted Chest Chest: normal inspection of the chest and no tenderness Resp Effort & Inspection: normal respiratory effort and able to speak in complete sentences Auscultation: clear to auscultation bilaterally Cardio Rate: regular rate Rhythm: regular rhythm GI Inspection: normal to inspection Palpation: soft, not firm, not rigid and nontender Auscultation: normal bowel sounds Skin General skin exam: no rashes or lesions noted Neuro General: patient alert, patient awake and patient oriented x3 Cognition: normal cognition Speech: speech normal Motor: muscle tone normal throughout Sensory Exam: no sensory deficits noted Extrem General: normal to inspection, full ROM, capillary refill normal, no calf tenderness bilaterally and no edema Psych Appearance: grossly normal Mental Status: mental status grossly normal Speech and Movement: speech and movement normal Affect: normal affect Course Vital Signs Vital signs: Vital Signs Temperature 97.5 F L 08/01/22 22:33 Pulse 104 H 08/01/22 22:33 Respiratory Rate 19 08/01/22 22:33 Blood Pressure 124/99 H 08/01/22 22:33 Pulse Oximetry 96 08/01/22 22:33 Temperature 97.5 F L 08/01/22 22:33 Temperature Source Tympanic 08/01/22 22:33 Pulse 104 H 08/01/22 22:33 Respiratory Rate 19 08/01/22 22:33 Respiratory Effort 08/01/22 22:35 Blood Pressure 124/99 H 08/01/22 22:33 Blood Pressure Position Sitting 08/01/22 22:33 Pulse Oximetry 96 08/01/22 22:33 Oxygen Delivery Method Room Air 08/01/22 22:33 Oxygen Flow Rate 0 08/01/22 22:33 Pain Level 0 08/01/22 22:33 Sign Out Sign Out Data: Sign Out Comment: Auditory hallucinations. Voluntary. Medically cleared. Awaiting placement. Will need to reconcile medications with [facility] telemetry pharmacy and will need to order his regularly scheduled meds. Last updated by Zina Rizo DO at 08/02/22 02:32 Sign Out Comment: SI, voluntary, awaiting placement Last updated by Graham Torres MD at 08/02/22 20:53 Sign Out Comment: No issues overnight Last updated by Tony Orozco MD at 08/03/22 07:32
[2022-08-01 23:49] LABS: Source Nasal/Nares
[2022-08-02] LABS: Abs Immature Grans 0.04 10^3/uL (0.0-0.06); Absolute Basophil Count 0.03 10^3/uL (0.0-0.2); Absolute Eosinophil Count 0.16 10^3/uL (0.0-0.7); Absolute Lymphocyte Count 0.82 10^3/uL (1.2-3.4); Absolute Monocyte Count 0.71 10^3/uL (0.1-0.8); Absolute Neutrophil Count 4.88 10^3/uL (1.2-6.7); Basophils % 0.5; Eosinophils % 2.4; HCT 47.4 % (40.0-50.0); HGB 15.9 g/dL (13.5-17.5); Immature Grans % 0.6; Lymphocytes % 12.3; MCHC 33.5 % (32.0-36.0); MCV 78 fL (80-95); MPV 10.2 fL (8.0-11.0); Monocytes % 10.7; Neutrophils % 73.5; Platelet Count 142 10^3/uL (130-400); RBC 6.12 10^6/uL (4.36-5.78); RDW 12.9 % (11.8-14.1); RDW-SD 35.8 fL; WBC 6.64 10^3/uL (4.4-10.8)
[2022-08-02 00:14] LABS: Bilirubin Negative (Negative); Blood Negative (Negative); Clarity Clear (Clear); Glucose Negative (Negative); Leukocyte Esterase Negative (Negative); Nitrite Negative (Negative); Specific Gravity >= 1.030 (1.005-1.025); Urobilinogen 0.2 EU/dL (Up TO 0.2); pH 5.5 (5-8)
[2022-08-02 00:17] LABS: ALT 26 U/L (16-63); AST 23 U/L (15-37); Albumin 4.3 g/dL (3.4-5.0); Alkaline Phosphatase 120 U/L (46-116); Anion Gap 9.5 mmol/L (3-11); BUN 8 mg/dL (7-18); Bilirubin, Total 1.3 mg/dL (0.2-1.0); CO2 25.5 mmol/L (21.0-32.0); CREATININE 0.9 mg/dL (0.70-1.30); Calcium 8.7 mg/dL (8.5-10.1); Chloride 103 mmol/L (98-107); Estimated GFR 108.68 (mL/min/1.73m2); Glucose 115 mg/dL (74-106); Potassium 3.2 mmol/L (3.5-5.1); Sodium 138 mmol/L (136-145); Total Protein 7.2 g/dL (6.4-8.2)
[2022-08-02 00:19] LABS: COVID-19 PCR Negative (Negative)
[2022-08-02 00:22] LABS: ETHANOL BLOOD < 3.0 mg/dL (<10)
--- NOTE | 2022-08-02 00:23 | TELEP.MEDR_ITS ---
Date of service: 08/02/22 Time of Service: 00:23 Telepharmacy Home Med Rec Allergies Allergies: bee venom protein (honey bee) Allergy (Severe, Verified 03/06/20 13:17) Anaphylaxsis hornet venom Allergy (Severe, Verified 03/06/20 13:17) Anaphylaxsis Interview Person Interviewed: * none Additional Notes Additional Notes: * Called ER and was informed that the facility had provided the medication list to the ER staff, therefore they don't need telepharmacy to do a med rec. Recommended Changes Attestation: The home medication list is now updated to the best of my knowledge and is ready to be reconciled by the provider. Please contact the TelePharmacy Medication Reconciliation Pharmacist at for any questions.
[2022-08-02 00:29] LABS: Ketones Negative (Negative)
[2022-08-02 00:32] LABS: *AMPHETAMINES SCREEN URINE Negative (Negative); *BARBITURATES SCREEN URINE Negative (Negative); *BENZODIAZEPINES SCREEN URINE Negative (Negative); Cannabinoids THC Negative (Negative); Cocaine Screen,Urine Negative (Negative); METHADONE URINE SCREEN Negative (Negative); OPIATES URINE SCREEN Negative (Negative); Tricyclic Antidepressants Negative (Negative)
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
[2022-08-02] MEDS: Potassium Chloride 20 MEQ TABCR 40 MEQ PO (07:09)
--- NOTE | 2022-08-02 12:19 | CMSP_ITS ---
- If Service Date Differs Date of service: 08/02/22 Time of Service: 12:35 Care Management Safety Plan Status: Voluntary - Reason for Wait Reason for Wait: Inpatient Admission VOLUNTARY FOR INPATIENT PSYCHIATRIC STABILIZATION. Patient is appropriate in all interactions since arriving at [facility]; Pt has demonstrated appropriate coping and communication skills, has articulated his needs and concerns and is fully engaged during staff interactions. Terry is communicating the command voices telling him he is being threatened by staff, he has responded well to reassurance from manager decision support. He has slept [facility] harvest worker faxed result sheet to ED stating [facility] is the only facility currently reviewing referral; other facilities have declined. Medications appear to have been discontinued at [facility] due to patient not following up with medication appointments. CM advocated for home medications to be re-started. Terry and his mother are advocating for [facility] medication appointment as soon as possible; due to holiday weekend, scheduling reportedly unavailable until 08/05/22. CM notified [facility] ES Director, [facility] ED director, and [facility] TOLL GATE KEEPER of barriers to patient stabilization in community. Safety plan has been established with patient, and care team, to adhere to patient goals, identify restrictions based on behavioral status, address nutrition, and determine allowed personal belongings, tools for hygiene and personal care. Determine level of activity including ambulation, level of supervision, visitors, and determine privileges based on behaviors and level of engagement by pt. SAFETY PLAN: 1. Will remain on suicide precautions. In Paper Clothes 2. Will remain in room under direct supervision of one-on-one staff at all times provided by [employer]; [place], AIRCRAFT POWERPLANT REPAIRER ironworker. 3. May have paper cups, plates, finger foods as well as a cardboard spoon with which to eat meals. 4. Follow [facility] Management of the Admitted Behavioral Health Patient policy. 5. Comfort bath system only, shower permitted with escort at RN discretion. 6. No personal belongings-soft items permitted at RN discretion. 7. Visitors-limited to family at this time at RN discretion. 8. Activities: soft cart items approved per RN discretion, television available in Room 9 in the ED. 9. Bathroom privileges with escort in the ED, available in room without limitation on M/S. 10. Phone: contact limited to family at this time, via cordless phone at RN discretion. 11. Due to VOLUNTARY status, if patient wishes to leave [facility], staff will contact [facility] Crisis Screener ([phone]) and On-Call Prestidigitator ([phone]) as soon as possible. In the event of elopement, notify [facility] Police ([phone]). Patient is currently voluntarily at [facility] and seeking inpatient admission when a bed becomes available. [facility] Frontline After School Tutor will continue seeking placement. Please contact the [employer] Thread Laster Prestidigitator ([phone]) and [facility] After School Tutor ([phone]) for any needed changes in the Safety Plan. Safety plan has been provided to interdepartmental care team.
[2022-08-02 19:32] VITALS: BP 136/86; PULSE 98; TEMP 36.9; O2SAT 96
[2022-08-02] MEDS: Haloperidol 5 MG TAB PO (20:30)
[2022-08-02] MEDS: Docusate Sodium 100 MG CAP PO (20:57)
--- NOTE | 2022-08-02 22:48 | NUR.NOTE ---
Nursing Note: Spoke to pt mom who confirmed meds/doses. Pt states she does not know ALL of his meds as she only knows the ones that he has had refilled recently. Mother states there are some meds that he is prescribed but has not refilled and is therefore not taking. Confirmed meds updated in EMR.
[2022-08-03] MEDS: Mylanta Suspension 30 ML CUP PO (07:18)
[2022-08-03] MEDS: FLUoxetine 10 MG TAB 20 MG PO (08:38)
[2022-08-03] MEDS: Haloperidol 5 MG TAB PO (08:38)
[2022-08-03] MEDS: metFORMIN 500 MG TAB PO (08:38)
[2022-08-03] MEDS: Pantoprazole 40 MG TABCR PO (08:39)
[2022-08-03] MEDS: Benztropine 1 MG TAB PO (09:04)
--- NOTE | 2022-08-03 11:44 | TELEP.MEDREC ---
Date of service: 08/03/22 Time of Service: 11:44 Telepharmacy Home Med Rec Allergies Allergies: bee venom protein (honey bee) Allergy (Severe, Verified 03/06/20 13:17) Anaphylaxsis hornet venom Allergy (Severe, Verified 03/06/20 13:17) Anaphylaxsis Interview Person Interviewed: Claudia- patient's mother Quality Quality of Interview/Accuracy of Medication List: Poor Sources Sources used to compile medication list: [employer] Medication List and SureScripts Changes made to Home Medication List: ADDITIONS: none DELETIONS: Amitriptyline Symbicort Dexlansoprazole Flonase Hydroxyzine Senna Triamcinolone cream CHANGES: Benztropine 1mg PO BID Additional Notes Additional Notes: Patient did not know his medications, he suggested I call his mother (Claudia). Claudia reported she gave Terry's medication list to ED staff a day or two ago, however the list is currently no where to be found. Despite Claudia having a hard time hearing me over the phone, we did go over the list in Terry's chart, although she was not sure of the doses without the list Bentropine: patient has not taken in ~2 weeks. A follow up appointment is required to get a new Rx, but Claudia reports Terry has been sick, back and forth to various hospitals recently and has not been able to get to an appointment Metformin: Claudia reports that Terry is still taking this, however it is not listed in the dispense report/surescripts. When asked, Claudia reports this gets [facility] in [place]. I was not able to speak with anyone at [facility] to confirm (placed on hold > 30min) Recommended Changes Recommended Changes(reason for recommendation): none Attestation: The home medication list is now updated to the best of my knowledge and is ready to be reconciled by the provider. Please contact the TelePharmacy Medication Reconciliation Pharmacist at for any questions.
--- NOTE | 2022-08-03 12:25 | W.EDPROG ---
Date of service: 08/03/22 Time of Service: 12:32 Medical Decision Making Care was signed out by Dr. Orozco with plan to follow-up with [facility] human services regarding ongoing treatment plan. Patient remained stable during the morning. I spoke with crisis screener DATA PROCESSING AUDITOR who evaluated the patient today and recommends discharge with close outpatient follow-up. Patient was previously established with Dr. Clemente and has not had recent visit. He will be scheduled to follow-up this week per DATA PROCESSING AUDITOR. Patient is agreeable with this plan as is his mother. Safety care plan was established as part of discharge. Patient did have some bleeding while in the bathroom and noted that he had a small open wound posterior scrotum. I examined the wound with superintendent measurement nurse present. Superficial 1 cm skin ulceration noted posterior scrotum/perineum with no signs of infection. Plan to initiate prophylactic coverage with bacitracin. Patient was instructed to follow-up with his PCP regarding this wound. Sign Out Sign Out Data: Sign Out Comment: Auditory hallucinations. Voluntary. Medically cleared. Awaiting placement. Will need to reconcile medications with [facility] telemetry pharmacy and will need to order his regularly scheduled meds. Last updated by Zina Rizo DO at 08/02/22 02:32 Sign Out Comment: SI, voluntary, awaiting placement Last updated by Graham Torres MD at 08/02/22 20:53 Sign Out Comment: No issues overnight Last updated by Tony Orozco MD at 08/03/22 07:32 Discharge Plan Disposition Patient Disposition: Home Condition: Stable Discharge Details Clinical Impression: Hallucinations, Abrasion of scrotum Primary Care Provider: Guille Garrett ED Provider: Lucio Davenport Home Meds and New Rx's Prescriptions: New bacitracin 500 unit/gram ointment 1 applic topical TID Qty: 30 0RF Continued nystatin 100,000 unit/gram Cream 1 applic TOPICAL BID PRN benztropine 1 mg Tablet 1 mg PO BID albuterol sulfate [ProAir HFA] 90 mcg/actuation Hfa Aerosol Inhaler 2 puff INHALATION Q4H PRN valsartan 160 mg Tablet 160 mg PO DAILY Vraylar 6 mg Capsule 6 mg PO DAILY polyethylene glycol 3350 [Miralax] 17 GM powder in packet 17 gm PO DAILY PRN betamethasone, augmented 50 GM cream 50 gm Topical PRN PRN tizanidine 2 MG capsule 2 mg PO Q8H PRN simvastatin 10 MG tablet 20 mg PO QPM fluoxetine 20 mg capsule 20 cap PO DAILY Label Comments: TAKE ONE CAPSULE BY MOUTH EVERY MORNING, NEED APPOINTMENT FOR FURTHER REFILLS pantoprazole 40 mg tablet,delayed release (DR/EC) 40 tab PO DAILY Label Comments: TAKE ONE TABLET BY MOUTH EVERY DAY cetirizine 10 mg Tablet 10 mg PO DAILY PRN metformin 500 MG tablet 500 mg PO BID levothyroxine 50 MCG tablet 50 mcg PO DAILY haloperidol 20 MG tablet 20 mg PO HS docusate sodium [Colace] 100 MG capsule 100 mg PO DAILY Discharge Instructions Instructions: Schizophrenia (ED), Abrasion (ED) Additional Instructions: Please apply antibiotic ointment to your scrotal abrasion 3 times a day for the next 1 week. Please follow-up with your psychiatrist. Call tomorrow to schedule timely follow-up. Please take your psychiatric medications as prescribed. Please contact your primary care physician to arrange follow-up. Return to the ER immediately for any worsening or new concerning symptoms. Referrals: [facility] [Outside] Guille Garrett [Primary Care Provider] -
[2022-08-03 13:46] VITALS: BP 132/84; PULSE 84; RESP 18; O2SAT 95
== END 2022-08-03 15:21 | disposition home or self-care (01) ==
PROVIDERS: Physician Assistant; Emergency Provider Student in an Organized Health Care Education/Training Program; PCP Family Medicine
DX: R44.0 Auditory hallucinations (principal); S30.813A Abrasion of scrotum and testes, initial encounter; I10 Essential (primary) hypertension; E11.9 Type 2 diabetes mellitus without complications; E03.9 Hypothyroidism, unspecified; E66.01 Morbid (severe) obesity due to excess calories; Z20.822 Contact with and (suspected) exposure to COVID-19; Z79.84 Long term (current) use of oral hypoglycemic drugs; X58.XXXA Exposure to other specified factors, initial encounter
CPT/HCPCS: 36415; 80053; 80307; 87635; 99285; 80320; 81003; 85025

== ENCOUNTER 2022-10-15 02:57 | Outpatient (CLI) | payer MEDICAID, SELFPAY ==
[2022-10-15 16:27] LABS: Abs Immature Grans 0.29 10^3/uL (0.0-0.06); Absolute Eosinophil Count 0.47 10^3/uL (0.0-0.7); Absolute Neutrophil Count 14.65 10^3/uL (1.2-6.7); Basophils % 0.3; Eosinophils % 2.4; HCT 47.3 % (40.0-50.0); HGB 15.6 g/dL (13.5-17.5); Immature Grans % 1.5; Lymphocytes % 13.5; MCH 25.9 pg (27.0-33.0); MCV 78 fL (80-95); MPV 9.8 fL (8.0-11.0); Monocytes % 7.2; Neutrophils % 75.1; Platelet Count 219 10^3/uL (130-400); RBC 6.03 10^6/uL (4.36-5.78); RDW 13.8 % (11.8-14.1); RDW-SD 38.8 fL; WBC 19.51 10^3/uL (4.4-10.8)
[2022-10-15 16:28] LABS: Absolute Basophil Count 0.06 10^3/uL (0.0-0.2); Absolute Lymphocyte Count 2.63 10^3/uL (1.2-3.4)
== END 2022-10-15 02:58 | disposition home or self-care (01) ==
LOC: LBO 02:57
PROVIDERS: PCP Family Medicine; Visit Provider Internal Medicine
DX: D69.3 Immune thrombocytopenic purpura (principal)
CPT/HCPCS: 36415; 85025

== ENCOUNTER 2023-07-23 17:28 | Outpatient (REF) | payer MEDICAID, SELFPAY ==
[2023-07-23 18:26] LABS: Abs Immature Grans 0.02 10^3/uL (0.0-0.06); Absolute Basophil Count 0.03 10^3/uL (0.0-0.2); Absolute Eosinophil Count 0.26 10^3/uL (0.0-0.7); Absolute Lymphocyte Count 1.06 10^3/uL (1.2-3.4); Absolute Monocyte Count 0.65 10^3/uL (0.1-0.8); Absolute Neutrophil Count 4.47 10^3/uL (1.2-6.7); Basophils % 0.5; HCT 46.9 % (40.0-50.0); HGB 15.8 g/dL (13.5-17.5); Immature Grans % 0.3; Lymphocytes % 16.3; MCH 26.6 pg (27.0-33.0); MCHC 33.7 % (32.0-36.0); MCV 79 fL (80-95); MPV 10.7 fL (8.0-11.0); Neutrophils % 68.9; Platelet Count 197 10^3/uL (130-400); RBC 5.93 10^6/uL (4.36-5.78); RDW 12.7 % (11.8-14.1); RDW-SD 36.3 fL; WBC 6.49 10^3/uL (4.4-10.8)
[2023-07-23 18:52] LABS: Prothrombin Time 10.2 sec (9.1-11.1)
[2023-07-23 19:10] LABS: Hemoglobin A1C 5.5 % (<5.7)
[2023-07-23 19:28] LABS: ALT 43 U/L (16-63); AST 31 U/L (15-37); Albumin 4.3 g/dL (3.4-5.0); Alkaline Phosphatase 117 U/L (46-116); Anion Gap 10.6 mmol/L (3-11); BUN 9 mg/dL (7-18); Bilirubin, Total 0.8 mg/dL (0.2-1.0); CO2 24.4 mmol/L (21.0-32.0); Calcium 9.2 mg/dL (8.5-10.1); Calculated LDL 156 mg/dL (<100); Chloride 105 mmol/L (98-107); Cholesterol 220 mg/dL (<200); Estimated GFR 95.18 (mL/min/1.73m2); Glucose 93 mg/dL (74-106); HDL Cholesterol 35 mg/dL (40-60); Potassium 4.2 mmol/L (3.5-5.1); Sodium 140 mmol/L (136-145); Total Protein 6.7 g/dL (6.4-8.2); Triglyceride 147 mg/dL (<150)
== END 2023-07-23 17:29 | disposition home or self-care (01) ==
LOC: NCHCN 17:28
PROVIDERS: PCP Family Medicine; Visit Provider Family Medicine
DX: E03.9 Hypothyroidism, unspecified (principal); R73.03 Prediabetes; E78.5 Hyperlipidemia, unspecified; K74.60 Unspecified cirrhosis of liver
CPT/HCPCS: 80053; 80061; 83036; 84443; 85025; 85610

== ENCOUNTER → 2023-08-25 03:09 | Outpatient (CLI) | payer MEDICAID, SELFPAY ==
--- NOTE | 2023-08-25 | DI.US_ITS ---
Exam(s) US ABDOMEN LIMITED EXAM: US ABDOMEN LIMITED CLINICAL HISTORY: CIRRHOSIS OF LIVER,K74.60,HCC SCREENING TECHNIQUE: Ultrasound abdomen performed using standard protocol. COMPARISON: US US ABDOMEN from 02/14/2022 FINDINGS: PANCREAS: Normal where visualized. LIVER: There is increased echogenicity of the liver which also has a coarsened echotexture. There is limited visualization secondary to patient body habitus. Hepatopetal flow in the Portal Vein. The l iver measures in 15.2 cm length. GALLBLADDER:Cholelithiasis. No evidence of wall thickening. No pericholecystic fluid identified. BILIARY SYSTEM: Common bile duct measures < 7 mm. No intrahepatic biliary ductal dilation. KRISHNA'S SIGN: Negative. RIGHT KIDNEY: Kidney is normal in size. No evidence of renal calculi. No evidence of hydronephrosis. No renal mass or cyst identified. ASCITES: None seen. IMPRESSION: 1. Examination limited by patient body habitus. 2. Fatty infiltration of the liver. No discrete mass is seen. 3. Cholelithiasis. No biliary ductal dilatation. DATA REPOSITORY:
== END ==
PROVIDERS: PCP Family Medicine; Visit Provider Family Medicine
DX: K76.0 Fatty (change of) liver, not elsewhere classified (principal); K80.00 Calculus of gallbladder with acute cholecystitis without obstruction
CPT/HCPCS: 76705

== ENCOUNTER 2024-01-20 21:29 | Outpatient (REF) | payer MEDICAID, SELFPAY ==
[2024-01-17 13:21] LABS: HSV 1 DNA Result Negative (Negative); HSV 2 DNA Result Negative (Negative); Varicella Zoster DNA Result Positive ((See Note))
== END 2024-01-20 21:30 | disposition home or self-care (01) ==
LOC: LBN 21:29
PROVIDERS: PCP Family Medicine; Visit Provider Physician Assistant Medical
DX: R21 Rash and other nonspecific skin eruption (principal)
CPT/HCPCS: 87077; 87529; 87798; 87070; 87186; 87205

== ENCOUNTER 2024-11-11 16:18 | Outpatient (REF) | payer MEDICAID, SELFPAY ==
[2024-11-11 21:19] LABS: Abs Immature Grans 0.04 10^3/uL (0.0-0.06); Absolute Basophil Count 0.03 10^3/uL (0.0-0.2); Absolute Eosinophil Count 0.28 10^3/uL (0.0-0.7); Absolute Monocyte Count 0.57 10^3/uL (0.1-0.8); Absolute Neutrophil Count 4.46 10^3/uL (1.2-6.7); Basophils % 0.5 %; Eosinophils % 4.5 %; HCT 45.8 % (40.0-50.0); HGB 14.5 g/dL (13.5-17.5); Immature Grans % 0.6 %; Lymphocytes % 14.3 %; MCHC 31.7 % (32.0-36.0); MCV 79 fL (80-95); MPV 11.1 fL (8.0-11.0); Monocytes % 9.1 %; RBC 5.81 10^6/uL (4.36-5.78); RDW 13.9 % (11.8-14.1); RDW-SD 39.8 fL; WBC 6.28 10^3/uL (4.4-10.8)
[2024-11-11 21:30] LABS: Diff Comment Diff Reviewed; RBC Morphology Normal
[2024-11-11 21:31] LABS: Platelet Count 77 10^3/uL (130-400)
[2024-11-11 21:40] LABS: Hemoglobin A1C 6.3 % (<5.7)
[2024-11-11 22:03] LABS: ALT 24 U/L (16-63); AST 19 U/L (15-37); Alkaline Phosphatase 127 U/L (46-116); Anion Gap 10.4 mmol/L (3-11); BUN 12 mg/dL (7-18); Bilirubin, Total 0.5 mg/dL (0.2-1.0); CO2 26.6 mmol/L (21.0-32.0); CREATININE 0.9 mg/dL (0.70-1.30); Calcium 8.8 mg/dL (8.5-10.1); Calculated LDL 116 mg/dL (<100); Chloride 106 mmol/L (98-107); Cholesterol 196 mg/dL (<200); Estimated GFR 107.33 (mL/min/1.73m2); Glucose 172 mg/dL (74-106); HDL Cholesterol 33 mg/dL (>or=40); Potassium 4.3 mmol/L (3.5-5.1); Sodium 143 mmol/L (136-145); TSH 1.25 uIU/mL (0.36-3.74); Total Protein 6.3 g/dL (6.4-8.2); Triglyceride 239 mg/dL (<150)
[2024-11-11 22:27] LABS: FREE T4 0.91 ng/dL (0.76-1.46)
== END 2024-11-11 16:19 | disposition home or self-care (01) ==
LOC: NCHCN 16:18
PROVIDERS: PCP Family Medicine; Visit Provider Student in an Organized Health Care Education/Training Program
DX: R73.03 Prediabetes (principal); I10 Essential (primary) hypertension; E78.5 Hyperlipidemia, unspecified; E03.9 Hypothyroidism, unspecified; D69.6 Thrombocytopenia, unspecified
CPT/HCPCS: 80053; 80061; 83036; 84439; 84443; 85025

== ENCOUNTER 2025-01-31 17:37 | Outpatient (REF) | payer MEDICAID, SELFPAY ==
[2025-01-31 19:10] LABS: Abs Immature Grans 0.07 10^3/uL (0.0-0.06); HCT 47.6 % (40.0-50.0); HGB 15.7 g/dL (13.5-17.5); Immature Grans % 0.9 %; MCH 25.6 pg (27.0-33.0); MCHC 33.0 % (32.0-36.0); MCV 78 fL (80-95); MPV 11.2 fL (8.0-11.0); Platelet Count 61 10^3/uL (130-400); RBC 6.13 10^6/uL (4.36-5.78); RDW 14.2 % (11.8-14.1); RDW-SD 38.9 fL; WBC 7.91 10^3/uL (4.4-10.8)
[2025-01-31 19:14] LABS: ALT 31 U/L (16-63); AST 20 U/L (15-37); Albumin 4.4 g/dL (3.4-5.0); Alkaline Phosphatase 130 U/L (46-116); Anion Gap 10.4 mmol/L (3-11); BUN 11 mg/dL (7-18); Bilirubin, Total 1.0 mg/dL (0.2-1.0); CO2 24.6 mmol/L (21.0-32.0); Calcium 9.1 mg/dL (8.5-10.1); Chloride 105 mmol/L (98-107); Estimated GFR 107.33 (mL/min/1.73m2); Glucose 100 mg/dL (74-106); Magnesium 2.1 mg/dL (1.8-2.4); Potassium 4.3 mmol/L (3.5-5.1); Sodium 140 mmol/L (136-145); Total Protein 6.8 g/dL (6.4-8.2)
== END 2025-01-31 17:38 | disposition home or self-care (01) ==
LOC: NCHCN 17:37
PROVIDERS: PCP Family Medicine; Visit Provider Student in an Organized Health Care Education/Training Program
DX: R11.2 Nausea with vomiting, unspecified (principal)
CPT/HCPCS: 80053; 83735; 85025

== ENCOUNTER 2025-03-27 20:51 | Emergency (ER) | payer MEDICAID, SELFPAY ==
[2025-03-27] VITALS (10 sets, daily range): BP systolic 102–145; BP diastolic 57–103; PULSE 121–145; RESP 20–25; TEMP 36.7; O2SAT 95–98
--- NOTE | 2025-03-27 20:45 | RT.EKG_ITS ---
APPROVED REPORT Exam: Resting ECG Reason for Exam: tachycardia Patient Location: E HR:136 bpm ECG Measurements Heart Rate 136 AXIS NV 135 P 47 QRSd 87 QRS -3 QT 301 T 19 QTc 454 Conclusion Sinus tachycardia, rate [address] segment I, II, without elevation No STEMI No interval abnormalities No priors available for comparison
[2025-03-27] MEDS: Normal Saline - Diluent 50 ML VIAL IJ (21:28)
[2025-03-27] MEDS: Normal Saline Flush 10 ML SYR IVP (21:28)
[2025-03-27] MEDS: Omnipaque 350 MG/ML 100 ML BTL IJ (21:28)
[2025-03-27 21:44] LABS: Abs Immature Grans 0.18 10^3/uL (0.0-0.06); HCT 40.1 % (40.0-50.0); HGB 13.3 g/dL (13.5-17.5); Immature Grans % 1.2 %; MCH 26.5 pg (27.0-33.0); MCHC 33.2 % (32.0-36.0); MCV 80 fL (80-95); MPV 10.4 fL (8.0-11.0); Platelet Count 196 10^3/uL (130-400); RBC 5.01 10^6/uL (4.36-5.78); RDW 14.6 % (11.8-14.1); RDW-SD 42.3 fL; WBC 14.92 10^3/uL (4.4-10.8)
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
[2025-03-27 22:07] LABS: ALT 26 U/L (16-63); AST 26 U/L (15-37); Albumin 4.1 g/dL (3.4-5.0); Alkaline Phosphatase 110 U/L (46-116); Anion Gap 16.4 mmol/L (3-11); BUN 12 mg/dL (7-18); Bilirubin, Total 1.5 mg/dL (0.2-1.0); CO2 19.6 mmol/L (21.0-32.0); Calcium 8.8 mg/dL (8.5-10.1); Chloride 104 mmol/L (98-107); Estimated GFR 68.61 (mL/min/1.73m2); Glucose 195 mg/dL (74-106); INR 1.1 (0.9-1.1); Lipase 15 U/L (<78); PTT Activated 22.1 sec (20.6-30.2); Potassium 3.7 mmol/L (3.5-5.1); Prothrombin Time 11.2 sec (9.1-11.1); Sodium 140 mmol/L (136-145); Total Protein 6.4 g/dL (6.4-8.2); Troponin I 4 ng/L (<or=76)
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
[2025-03-27] MEDS: oxyCODONE 5 MG TAB PO (23:01)
[2025-03-27] MEDS: Acetaminophen 500 MG TAB 1000 MG PO (23:01)
[2025-03-27] MEDS: Normal Saline 500 ML IV (23:17)
--- NOTE | 2025-03-28 00:12 | W.ED.FU ---
Date of service: 03/28/25 Time of Service: 00:12 Follow Up Plan: Spoke with Dr. Workman from [facility] heme/onc after patient had been discharged and left department. Dr. Workman states that patient is known to them and has had similar imaging findings in the past; they have been attempting to reach out to patient to arrange biopsy without success. They have a different phone number for patient contact than [facility] currently has listed in the chart; I provided the contact information we have and they will reach out him, also provided Dr. Workman with patient's CBC/dif/metabolic panel results. We will also pass this information regarding need for biopsy on to pt's PCP. I did not see or evaluate this patient while he was in the department.
[2025-03-28 00:29] VITALS: PULSE 121; O2SAT 97
== END 2025-03-28 00:29 | disposition home or self-care (01) ==
LOC: ER 23:06
PROVIDERS: Emergency Provider Physician Assistant; PCP Student in an Organized Health Care Education/Training Program
DX: S70.11XA Contusion of right thigh, initial encounter (principal); Y03.0XXA Assault by being hit or run over by motor vehicle, initial encounter; R16.1 Splenomegaly, not elsewhere classified; R59.1 Generalized enlarged lymph nodes
CPT/HCPCS: 99285; 99284; 73552; 73562; 74177; 80053; 83690; 86850; 86900; 86901; 93005; 96360; 70450; 71260; 72125; 73130; 80320; 83605; 84484; 85025; 85610; 85730; 86870; 93010; J3490

== ENCOUNTER 2025-04-17 16:31 | Outpatient (REF) | payer MEDICAID, SELFPAY ==
[2025-04-17 21:25] LABS: Abs Immature Grans 0.05 10^3/uL (0.0-0.06); HCT 35.5 % (40.0-50.0); HGB 11.1 g/dL (13.5-17.5); Immature Grans % 1.3 %; MCH 26.6 pg (27.0-33.0); MCHC 31.3 % (32.0-36.0); MCV 85 fL (80-95); MPV 10.0 fL (8.0-11.0); Platelet Count 179 10^3/uL (130-400); RBC 4.18 10^6/uL (4.36-5.78); RDW 15.1 % (11.8-14.1); RDW-SD 46.8 fL; WBC 3.84 10^3/uL (4.4-10.8)
[2025-04-17 21:34] LABS: ALT 18 U/L (16-63); AST 25 U/L (15-37); Albumin 3.7 g/dL (3.4-5.0); Alkaline Phosphatase 115 U/L (46-116); Anion Gap 11.6 mmol/L (3-11); BUN 11 mg/dL (7-18); Bilirubin, Total 1.9 mg/dL (0.2-1.0); CO2 24.4 mmol/L (21.0-32.0); Calcium 8.2 mg/dL (8.5-10.1); Chloride 101 mmol/L (98-107); Estimated GFR 94.00 (mL/min/1.73m2); Glucose 120 mg/dL (74-106); Potassium 3.9 mmol/L (3.5-5.1); Sodium 137 mmol/L (136-145); Total Protein 5.7 g/dL (6.4-8.2)
== END 2025-04-17 16:32 | disposition home or self-care (01) ==
LOC: NCHCN 16:31
PROVIDERS: PCP Student in an Organized Health Care Education/Training Program; Visit Provider Student in an Organized Health Care Education/Training Program
DX: R59.0 Localized enlarged lymph nodes (principal)
CPT/HCPCS: 80053; 85025

== ENCOUNTER 2025-05-04 12:10 | Emergency (ER) | payer MEDICAID, SELFPAY ==
[2025-05-04 12:16] VITALS: BP 154/108; PULSE 124; RESP 18; TEMP 36.8; O2SAT 94
--- NOTE | 2025-05-04 13:00 | RT.EKG_ITS ---
APPROVED REPORT Exam: Resting ECG Reason for Exam: epigastric pain Patient Location: E HR:100 bpm ECG Measurements Heart Rate 100 AXIS TN 143 P 36 QRSd 89 QRS 13 QT 344 T -6 QTc 444 Conclusion Sinus tachycardia...rate> 99
--- NOTE | 2025-05-04 13:02 | DI.CT_ITS ---
Exam(s) CT ABDOMEN PELVIS W EXAM: CT ABDOMEN PELVIS W CLINICAL HISTORY: epigastric pain. TECHNIQUE: Imaging Protocol: Axial computed tomography images with coronal and sagittal reformatted images were created and reviewed CONTRAST MATERIAL: Intravenous: Omnipaque-350 100cc Oral: None COMPARISON: CT CT CHEST/ABD/PEL W from 03/27/2025 FINDINGS: VISUALIZED LUNG BASES: The uppermost images of this abdominal study reveal small bilateral pleural effusions which were not previously present on CT scan of 03/27/2025.. ABDOMEN: There is now mild amount of ascites in the lower abdomen and dependent pelvis in this male patient, not previously present. LIVER: There are no focal hepatic lesions evident. No dilated intrahepatic ducts. GALLBLADDER/BILIARY: Cholelithiasis is again noted. The gallbladder wall is mildly indistinct but this may be due to some motion artifact here. The CBD is not dilated. PANCREAS: No evidence of distinct pancreatic mass nor dilatation of the pancreatic duct. LYMPH NODES:There is a large amount of retroperitoneal and bilateral para-aortic adenopathy, this also extending beyond the aortic bifurcation into the pelvis. There is also retrocrural adenopathy. The amount of adenopathy has further increased when compared to the CT scan of 03/27/2025. There is no inguinal adenopathy. SPLEEN: There is splenomegaly again noted. Size of the spleen has also slightly increased further when compared to 03/27/2025. There are no intrasplenic lesions evident. Splenic and portal veins are patent. ADRENALS: There are no significant adrenal masses. KIDNEYS:No cysts evident. No solid renal masses. No calculi nor hydronephrosis.. ABDOMINAL AORTA: Abdominal aorta is not enlarged. However, the abdominal aorta is encased by the gross abnormal lymphadenopathy, as is the aortic bifurcation. ABDOMINAL WALL: No evidence of significant anterior abdominal wall nor inguinal hernia. GI: There is no evidence of bowel obstruction, free air, nor abscess. PELVIS: GI: There is some dense material in the appendix and base of the cecum but no evidence of acute appendicitis.No evidence of sigmoid diverticulitis. LYMPH NODES: As above REPRODUCTIVE: Prostate not enlarged. URINARY BLADDER: No calculi nor obvious masses evident OSSEOUS: No fractures and no significant osseous lesions. IMPRESSION: 1. Compared to the prior CT scan of 03/27/2025 there is again noted abnormal gross retroperitoneal and para-aortic and intrapelvic adenopathy as well as splenomegaly. These findings have slightly further progressed when compared to the prior CT scan. Findings are highly suspicious for lymphoma. 2. There is small bilateral pleural effusions now evident as well as a small amount of ascites, both not previously present on 03/27/2025. 3. Cholelithiasis again noted without evidence of obvious acute cholecystitis. Findings called by myself to ER physician 05/04/2025 at 2:10 p.m. RADIATION DOSE DELIVERED: 2,081.61mGy.cm Total DLP DATA REPOSITORY: All CT scans at this facility are submitted to the National Radiology Data Registry (NRDR) Dose Index Registry (DIR) with the [employer] (ACR). RADIATION OPTIMIZATION: All CT scans at this facility use at least one of these dose optimization techniques: automated exposure control; mA and/or kV adjustment per patient size (includes targeted exams where dose is matched to clinical indication); or iterative reconstruction.
[2025-05-04 13:27] LABS: Abs Immature Grans 0.06 10^3/uL (0.0-0.06); HCT 38.9 % (40.0-50.0); HGB 12.3 g/dL (13.5-17.5); Immature Grans % 1.5 %; MCH 25.8 pg (27.0-33.0); MCHC 31.6 % (32.0-36.0); MCV 82 fL (80-95); MPV 10.3 fL (8.0-11.0); Platelet Count 189 10^3/uL (130-400); RBC 4.77 10^6/uL (4.36-5.78); RDW 14.3 % (11.8-14.1); RDW-SD 42.7 fL; WBC 3.95 10^3/uL (4.4-10.8)
[2025-05-04] MEDS: Omnipaque 350 MG/ML 100 ML BTL IJ (13:41)
[2025-05-04] MEDS: Normal Saline Flush 10 ML SYR IVP (13:41)
[2025-05-04] MEDS: Normal Saline - Diluent 50 ML VIAL IJ (13:42)
[2025-05-04 13:50] LABS: Lipase 19 U/L (<78); Troponin I 5 ng/L (<or=76)
[2025-05-04 14:24] LABS: Glucose Negative (Negative)
--- NOTE | 2025-05-04 14:36 | NUR.NOTE ---
Jesse Chang [phone] manager of case management; [facility] Nursing Note:
[2025-05-04 14:41] LABS: RBC Negative HPF (0-2); WBC Negative HPF (0-5)
[2025-05-04 14:42] LABS: C & S Indicated? No
[2025-05-04 14:59] LABS: INR 1.2 (0.9-1.1); Prothrombin Time 11.8 sec (9.1-11.1)
[2025-05-04 15:12] LABS: Troponin I 6 ng/L (<or=76)
--- NOTE | 2025-05-04 15:36 | CMPROGNOTE_ITS ---
Date of service: 05/04/25 Time of Service: 15:36 Care Management Progress Note Progress Note Text Progress Note Text: CM was consulted to meet with Terry in the ED regarding his housing status and recent diagnosis of lymphoma. Terry was lying in bed when CM met with him. He was alert and engaged well in conversation. He stated that he has been living in his car and staying at rest stops for about a year now, although he was housed using the [email or web address] voucher during winter months. He stated that he has support from [facility], and that his new pillowcase maker, Jesse Bernardo was here with him earlier and had to step out; he was agreeable to CM talking with Jesse about his plan of care. CM offered to send a referral to [facility] for additional community support/resources. CM later spoke with Jesse ([phone]), who stated that she Terry's new pillowcase maker, and is still gathering information about him in order to help support him. Jesse stated that Terry spoke to his sister, who stated that he can stay with her tonight, at least. Jesse reported that he also has a brother who is local, and she is working on getting a release of information so she can discuss care coordination with them both. CM informed Jesse of Terry's upcoming appt at [facility] on 05/08/25 at 13:30; CM suggested that someone support him with that appointment (either a professional or natural support), as he may have difficulty navigating [facility]'s campus, as well as processing all of the information he is provided at the appt. Jesse stated she will help to coordinate someone going with him, and she also reported that she would look into him going to the care bed, if it is available, for a short time. CM reached out to [facility] and provided additional info that was gathered after the referal was sent. CM will continue to follow. Social Determinants of Health Screening Will the Patient Participate in the Screening?: Unable to obtain
[2025-05-04 15:58] VITALS: BP 124/79; PULSE 101; RESP 16; O2SAT 94
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
== END 2025-05-04 16:00 | disposition home or self-care (01) ==
PROVIDERS: Emergency Provider Physician Assistant; PCP Student in an Organized Health Care Education/Training Program
DX: R59.1 Generalized enlarged lymph nodes; R18.8 Other ascites; R11.2 Nausea with vomiting, unspecified; X58.XXXA Exposure to other specified factors, initial encounter; S70.11XA Contusion of right thigh, initial encounter
CPT/HCPCS: 99284; 99285; 36415; 83690; 87040; 93005; 74177; 81003; 81015; 83605; 84484; 85025; 85610; 93010; J3490

== ENCOUNTER 2025-05-15 20:44 | Outpatient (REF) | payer MEDICAID, SELFPAY ==
[2025-05-15 18:53] LABS: COMMENT (LAB VIEW ONLY) 145.86 mg/dL; Microalb ug/mg Crea 53.2 ug/mg Cr
== END 2025-05-15 20:45 | disposition home or self-care (01) ==
LOC: NCHCN 20:44
PROVIDERS: PCP Student in an Organized Health Care Education/Training Program; Visit Provider Student in an Organized Health Care Education/Training Program
DX: I10 Essential (primary) hypertension (principal)
CPT/HCPCS: 82043; 82570

== ENCOUNTER 2025-07-12 15:37 | Inpatient (IN) | payer MEDICAID, SELFPAY ==
[2025-07-12] VITALS (48 sets, daily range): BP systolic 93–173; BP diastolic 57–138; PULSE 113–162; RESP 20–45; TEMP 36.8–37; O2SAT 88–99
--- NOTE | 2025-07-12 15:30 | RT.EKG_ITS ---
APPROVED REPORT Exam: Resting ECG Reason for Exam: SOB Patient Location: E HR:151 bpm ECG Measurements Heart Rate 151 AXIS UT 106 P 22 QRSd 85 QRS 13 QT 280 T 35 QTc 445 Conclusion Sinus tachycardia...rate> 99 Low voltage, precordial leads...precordial leads <1.0mV No Occlusion NE
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
--- NOTE | 2025-07-12 16:00 | DI.RAD_ITS ---
Exam(s) XR PORTABLE CHEST AP EXAM: XR PORTABLE CHEST AP CLINICAL HISTORY: Shortness of breath TECHNIQUE: 2D digital imaging was performed. COMPARISON: CT CT CHEST/ABD/PEL W from 03/27/[address] ABDOMEN PELVIS W from 05/04/2025 US POCUS EXAM from 07/12/2025 FINDINGS: Exam is limited by patient body habitus and under penetration. LUNGS: There is a moderate to large size left pleural effusion. This has increased significantly when compared with prior abdomen pelvic CT. There is no visible right pleural effusion. The right lung appears clear. HEART: The heart is partially obscured by the pleural effusion. AORTA: Normal diameter. BONES: Unremarkable for age. Soft tissues: Unremarkable. IMPRESSION: Moderate to large size left pleural effusion. DATA REPOSITORY: RADIATION DOSE DELIVERED:
--- NOTE | 2025-07-12 16:15 | DI.CT_ITS ---
Exam(s) CT CHEST PE ABD PELVIS W EXAM: CT CHEST PE ABD PELVIS W CLINICAL HISTORY: SOB w/left. TECHNIQUE: Imaging Protocol: Axial computed tomography images with coronal and sagittal reformatted images were created and reviewed. Computer aided detection (CAD) was utilized. CONTRAST MATERIAL: Intravenous: Omnipaque 350 Contrast volume:100 ml Oral: no COMPARISON: CT CT CHEST/ABD/PEL W from 03/27/[address] ABDOMEN PELVIS W from 05/04/2025 CR XR PORTABLE CHEST AP from 07/12/2025 FINDINGS: CHEST: Pulmonary parenchyma: Significant left lung atelectasis secondary to pleural effusion. Mild right basilar atelectasis. No dominant measurable mass or consolidation. Tracheobronchial tree: No bronchiectasis. No mucous plugging.No bronchial wall thickening. Pleura: Large left pleural effusion occupying approximately 2/3 of the chest volume. No pneumothorax. Small right pleural effusion. Both effusions have increased in size significantly since the prior scan. Mediastinum: Lymph nodes are again noted in the superior mediastinum, right paratracheal region, subcarinal region and in the anterior pericardial fat. There has been significant progression since the prior exam of March 27, 2025. Pulmonary arteries: No visible emboli. Cardiovascular: No pericardial effusion. Thoracic aorta non-dilated. Bones: Unremarkable for age. No lytic or blastic lesions. No compression fractures. Soft tissues: Unremarkable. ABDOMEN and PELVIS: The exam is limited by motion and patient body habitus. Liver: Normal density. No suspicious mass. Gallbladder and biliary tract: Gallstones are again noted no evidence of wall thickening. No biliary dilatation. Pancreas: Somewhat obscured by motion and adjacent adenopathy. No gross abnormality. Spleen: Normal. Kidneys: Normal size, contour and axis. No radiodense stones. No obstructive uropathy. No suspicious masses seen. Adrenal glands: No masses seen. Aorta: Abdominal portion non-dilated. Lymph nodes: There are multiple abnormally enlarged lymph nodes in the retroperitoneum in bilateral para-aortic region. The appear roughly similar in size. Soft tissues: Anasarca is now present. Bladder: Nearly empty but unremarkable. Bowel: No obstruction or bowel wall thickening. Normal quantity of stool. Peritoneal cavity: Arm the amount of ascites has significantly enlarged compared with the prior exam, now is seen around the liver extending along the paracolic gutters into the pelvis. Previously there is a small amount of ascites in the pelvis. No focal collection. No mesenteric inflammatory response. No free air. Bones: Degenerative changes in the spine. Mild scoliosis. Reproductive organs: Unremarkable for age. IMPRESSION: Large left and small right pleural effusion. Adjacent atelectasis. No evidence of pulmonary emboli. Significantly increased adenopathy in the chest. Increasing ascites in the abdomen and pelvis as well as anasarca. Stable significant retroperitoneal adenopathy. Findings called to Dr. Mae of the emergency department. RADIATION DOSE DELIVERED: Total DLP DATA REPOSITORY: All CT scans at this facility are submitted to the National Radiology Data Registry (NRDR) Dose Index Registry (DIR) with the [employer] (A[employer]). RADIATION OPTIMIZATION: All CT scans at this facility use at least one of these dose optimization techniques: automated exposure control; mA and/or kV adjustment per patient size (includes targeted exams where dose is matched to clinical indication); or iterative reconstruction.
[2025-07-12] MEDS: nitroGLYcerin 0.4 MG TAB SL ×2 (16:18→16:24)
[2025-07-12] MEDS: CEFEPIME 2 GM in Normal Saline 100 ML IVPB (16:22)
[2025-07-12 16:27] LABS: BE (Venous) -2 mmol/L (-2-3); HCO3 (Venous) 23 mmol/L (23-28); O2 Sat (Venous) 84 %; TCO2 (Venous) 21 mmol/L (24-29); pCO2 (Venous) 36 mmHg (41-51); pO2 (Venous) 50 mmHg
[2025-07-12 16:30] LABS: Abs Immature Grans 0.20 10^3/uL (0.0-0.06); HCT 30.8 % (40.0-50.0); HGB 9.7 g/dL (13.5-17.5); Immature Grans % 4.2 %; MCH 24.6 pg (27.0-33.0); MCHC 31.5 % (32.0-36.0); MCV 78 fL (80-95); MPV 9.3 fL (8.0-11.0); Platelet Count 243 10^3/uL (130-400); RBC 3.95 10^6/uL (4.36-5.78); RDW 19.2 % (11.8-14.1); RDW-SD 54.2 fL; WBC 4.79 10^3/uL (4.4-10.8)
[2025-07-12] MEDS: Normal Saline 500 ML IV ×2 (16:32→18:10)
[2025-07-12 16:45] LABS: INR 1.4 (0.9-1.1); Prothrombin Time 13.5 sec (9.1-11.1)
[2025-07-12 17:03] LABS: Creatine Kinase 28 U/L (46-171); Magnesium 1.6 mg/dL (1.6-2.6)
[2025-07-12 17:05] LABS: ALT 16 U/L (10-49); AST 49 U/L (<34); Albumin 3.3 g/dL (3.2-5.0); Alkaline Phosphatase 93 U/L (46-116); Anion Gap 16.9 mmol/L (3-11); BUN 17 mg/dL (9-23); Bilirubin, Total 1.9 mg/dL (0.2-1.2); CO2 22.4 mmol/L (20.0-31.0); Calcium 8.0 mg/dL (8.3-10.6); Chloride 94 mmol/L (98-107); Glucose 138 mg/dL (74-106); Potassium 4.0 mmol/L (3.5-5.1); Sodium 133 mmol/L (136-145); TSH (W/Ref FT4) 2.14 uIU/mL (0.55-4.78); Total Protein 5.1 g/dL (5.7-8.2)
[2025-07-12] MEDS: Normal Saline Flush 10 ML SYR IVP (17:08)
[2025-07-12] MEDS: Omnipaque 350 MG/ML 100 ML BTL IJ (17:08)
[2025-07-12] MEDS: Normal Saline - Diluent 50 ML VIAL IJ (17:08)
[2025-07-12 17:10] LABS: Troponin I < 3 ng/L (<54)
[2025-07-12] MEDS: VANCOMYCIN/WATER (PEG) 2 GM/400 ML BAG IVPB (17:34)
[2025-07-12 18:08] LABS: Troponin I 4 ng/L (<54)
[2025-07-12 18:23] LABS: COVID-19 PCR Negative (Negative); RSV PCR Negative (Negative)
[2025-07-12 19:07] LABS: Glucose Negative (Negative)
[2025-07-12 19:21] LABS: Lab Add On Test DONE
[2025-07-12 19:21] LABS: Lab Add On Test DONE
[2025-07-12 19:28] LABS: RBC 0-2 HPF (0-2); WBC 0-2 HPF (0-5)
[2025-07-12 19:29] LABS: C & S Indicated? No
[2025-07-12 19:33] LABS: Uric Acid 4.6 mg/dL (3.7-9.2)
[2025-07-12 19:35] LABS: LDH 350 U/L (120-246)
[2025-07-12 20:00] LABS: D-Dimer > 7500 ng/mlFEU (<500)
[2025-07-12 20:01] LABS: PTT Activated 37.3 sec (20.6-30.2)
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
[2025-07-12] MEDS: Haloperidol 5 MG TAB 20 MG PO (22:57)
[2025-07-12] MEDS: Senna TAB 1 TAB PO (22:57)
--- NOTE | 2025-07-12 23:16 | W.PC.ACHO ---
Registration Status: ADM CASSIE Primary Language: Preferred Language: Ukrainian ED Information & Data Chief Complaint GenMedical 07/12/25 15:40 Chief Complaint GenMedical 07/12/25 15:39 Triage Note Shortness of breath and 07/12/25 15:39 weakness for 2 weeks. Feels unsteady on his feet. Nausea and vomiting. No apparent cause to symptoms. Medical / Surgical History (Last Reviewed 12/14/19 @ 13:06 by Christine Mauricio) Sinusitis Right arm pain Chronic cough Keloid scar Tinea cruris Hemorrhoids Hypothyroidism GERD (gastroesophageal reflux disease) DDD (degenerative disc disease) Hypertension Testicular pain, left Rectal bleeding Thrombocytopenia Schizoaffective disorder Hyperlipidemia History of gastric polyp Developmental delay, mild Chronic low back pain Morbid obesity Diabetes Shortness of breath Severe obstructive sleep apnea Subclinical hypothyroidism (Last Updated 12/14/19 @ 13:07 by Christine Mauricio) H/O endoscopy Most Recent Vital Signs Temperature 36.8 C 07/12/25 21:45 Temperature Source Temporal Artery Scan 07/12/25 21:45 Pulse 125 H 07/12/25 21:01 Pulse 127 H 07/12/25 21:01 Respiratory Rate 30 H 07/12/25 21:01 Respiratory Effort Short of Breath 07/12/25 21:45 Respiratory Depth Normal 07/12/25 21:45 Respiratory Pattern Tachypnea 07/12/25 21:45 Blood Pressure 129/80 07/12/25 21:01 Blood Pressure Mean 92 07/12/25 21:01 Blood Pressure Position Sitting 07/12/25 15:39 Pulse Oximetry 96 07/12/25 21:45 Oxygen Delivery Method Nasal Cannula 07/12/25 21:45 Oxygen Flow Rate 4 07/12/25 21:45 Fraction of Inspired Oxygen (FIO2) 40 07/12/25 18:10 Allergies bee venom protein (honey bee) Allergy (Severe, Verified 07/12/25 15:41) Anaphylaxsis hornet venom Allergy (Severe, Verified 07/12/25 15:41) Anaphylaxsis Active Medications Generic Name Dose Route Start Last Admin Trade Name Freq PRN Reason Stop Dose Admin Haloperidol 20 mg 07/12/25 22:30 07/12/25 22:57 Haloperidol 5 Mg Tab PO 20 mg HS GLORIA Administration Iohexol 100 ml 07/12/25 17:00 07/12/25 17:08 Omnipaque 350 Mg/Ml 100 Ml Btl IJ 08/11/25 23:59 100 ml DIRECTED GLORIA Administration Sodium Chloride 0 ml 07/12/25 16:47 07/12/25 17:08 Normal Saline Flush 10 Ml Syr IVP 10 ml PRN PRN Administration Sodium Chloride 50 ml 07/12/25 17:00 07/12/25 17:08 Normal Saline - Diluent 50 Ml Vial IJ 50 ml DIRECTED GLORIA Administration IV IV Catheter Type [Left Forearm Diffusics ] IV Catheter Type [Right Wrist] Saline Lock IV Catheter Type [Right Saline Lock Antecubital] IV Catheter Gauge [Left 20 Forearm] IV Catheter Gauge [Right Wrist 20 ] IV Catheter Gauge [Right 18 Antecubital] Diet Orders Category Date Time Status Heart Healthy Eating [DIET] Nutrition 07/13/25 Breakfast Ordered Diagnostics 07/12/25 07/12/25 07/12/25 Range/Units 21:04 19:23 19:08 WBC (4.4-10.8) 10^3/uL RBC (4.36-5.78) 10^6/uL Hgb (13.5-17.5) g/dL Hct (40.0-50.0) % MCV (80-95) fL MCH (27.0-33.0) pg MCHC (32.0-36.0) % RDW (11.8-14.1) % Plt Count (130-400) 10^3/uL MPV (8.0-11.0) fL Immature Gran % % Neutrophils % % Lymphocytes % % Monocytes % % Eosinophils % % Basophils % % Nucleated RBC % (0.0-0.3) % Absolute Neutrophils (1.2-6.7) 10^3/uL Absolute Lymphocytes (1.2-3.4) 10^3/uL Absolute Monocytes (0.1-0.8) 10^3/uL Absolute Eosinophils (0.0-0.7) 10^3/uL Absolute Basophils (0.0-0.2) 10^3/uL PT (9.1-11.1) sec INR (0.9-1.1) APTT 37.3 H (20.6-30.2) sec Fibrinogen Pending D-Dimer > 7500 H (<500) ng/mlFEU VBG pH (7.31-7.41) VBG pCO2 (41-51) mmHg VBG pO2 mmHg VBG HCO3 (23-28) mmol/L VBG Total CO2 (24-29) mmol/L VBG O2 Saturation % VBG Base Excess (-2-3) mmol/L VBG Lactate 5.1 H* (<or=2.0) mmol/L Sodium (136-145) mmol/L Potassium (3.5-5.1) mmol/L Chloride (98-107) mmol/L Carbon Dioxide (20.0-31.0) mmol/L Anion Gap (3-11) mmol/L BUN (9-23) mg/dL Creatinine (0.73-1.18) mg/dL Est GFR (CKD-EPI 2020) (mL/min/1.73m2) Glucose (74-106) mg/dL Uric Acid (3.7-9.2) mg/dL Calcium (8.3-10.6) mg/dL Magnesium (1.6-2.6) mg/dL Total Bilirubin (0.2-1.2) mg/dL AST (<34) U/L ALT (10-49) U/L Alkaline Phosphatase (46-116) U/L Lactate Dehydrogenase (120-246) U/L Creatine Kinase (46-171) U/L Troponin I (<54) ng/L NT-Pro-B Natriuret Pep (<300) pg/mL Total Protein (5.7-8.2) g/dL Albumin (3.2-5.0) g/dL TSH (0.55-4.78) uIU/mL Urine Color (Yellow) Urine Clarity (Clear) Urine pH (5-8) Ur Specific [place] (1.005-1.025) Urine Protein (Neg-Trace) mg/dL Urine Ketones (Negative) mg/dL Urine Blood (Negative) Urine Nitrite (Negative) Urine Bilirubin (Negative) Urine Urobilinogen (Up to 0.2) mg/dL Ur Leukocyte Esterase (Negative) Urine RBC (0-2) HPF Urine WBC (0-5) HPF Ur Epithelial Cells (Negative) HPF Urine Crystals (Negative) HPF Urine Bacteria (Negative) HPF Urine Casts (Negative) LPF Urine Mucus (Negative) Urine Other (Negative) Ur Culture Indicated? Urine Glucose (Negative) mg/dL COVID-19 Source SARS-CoV-2 (PCR) (Negative) Influenza Type A (PCR) (Negative) Influenza Type B (PCR) (Negative) RSV (PCR) (Negative) Add-On Test Request DONE ABO/Rh Antibody Screen 07/12/25 07/12/25 07/12/25 Range/Units 19:07 18:50 17:25 WBC (4.4-10.8) 10^3/uL RBC (4.36-5.78) 10^6/uL Hgb (13.5-17.5) g/dL Hct (40.0-50.0) % MCV (80-95) fL MCH (27.0-33.0) pg MCHC (32.0-36.0) % RDW (11.8-14.1) % Plt Count (130-400) 10^3/uL MPV (8.0-11.0) fL Immature Gran % % Neutrophils % % Lymphocytes % % Monocytes % % Eosinophils % % Basophils % % Nucleated RBC % (0.0-0.3) % Absolute Neutrophils (1.2-6.7) 10^3/uL Absolute Lymphocytes (1.2-3.4) 10^3/uL Absolute Monocytes (0.1-0.8) 10^3/uL Absolute Eosinophils (0.0-0.7) 10^3/uL Absolute Basophils (0.0-0.2) 10^3/uL PT (9.1-11.1) sec INR (0.9-1.1) APTT (20.6-30.2) sec Fibrinogen D-Dimer (<500) ng/mlFEU VBG pH (7.31-7.41) VBG pCO2 (41-51) mmHg VBG pO2 mmHg VBG HCO3 (23-28) mmol/L VBG Total CO2 (24-29) mmol/L VBG O2 Saturation % VBG Base Excess (-2-3) mmol/L VBG Lactate 5.4 H* 7.1 H* (<or=2.0) mmol/L Sodium (136-145) mmol/L Potassium (3.5-5.1) mmol/L Chloride (98-107) mmol/L Carbon Dioxide (20.0-31.0) mmol/L Anion Gap (3-11) mmol/L BUN (9-23) mg/dL Creatinine (0.73-1.18) mg/dL Est GFR (CKD-EPI 2020) (mL/min/1.73m2) Glucose (74-106) mg/dL Uric Acid (3.7-9.2) mg/dL Calcium (8.3-10.6) mg/dL Magnesium (1.6-2.6) mg/dL Total Bilirubin (0.2-1.2) mg/dL AST (<34) U/L ALT (10-49) U/L Alkaline Phosphatase (46-116) U/L Lactate Dehydrogenase (120-246) U/L Creatine Kinase (46-171) U/L Troponin I 4 (<54) ng/L NT-Pro-B Natriuret Pep (<300) pg/mL Total Protein (5.7-8.2) g/dL Albumin (3.2-5.0) g/dL TSH (0.55-4.78) uIU/mL Urine Color Yellow (Yellow) Urine Clarity Clear (Clear) Urine pH 6.0 (5-8) Ur Specific [place] <= 1.005 (1.005-1.025) Urine Protein >=300 H (Neg-Trace) mg/dL Urine Ketones Negative (Negative) mg/dL Urine Blood Trace-intact H (Negative) Urine Nitrite Negative (Negative) Urine Bilirubin Negative (Negative) Urine Urobilinogen 1.0 H (Up to 0.2) mg/dL Ur Leukocyte Esterase Negative (Negative) Urine RBC 0-2 (0-2) HPF Urine WBC 0-2 (0-5) HPF Ur Epithelial Cells Rare (Negative) HPF Urine Crystals Negative (Negative) HPF Urine Bacteria Few (Negative) HPF Urine Casts 3-5 Fine Granular (Negative) LPF Urine Mucus Negative (Negative) Urine Other Rare Transitional (Negative) Ur Culture Indicated? No Urine Glucose Negative (Negative) mg/dL COVID-19 Source SARS-CoV-2 (PCR) (Negative) Influenza Type A (PCR) (Negative) Influenza Type B (PCR) (Negative) RSV (PCR) (Negative) Add-On Test Request DONE ABO/Rh Antibody Screen 07/12/25 07/12/25 07/12/25 Range/Units 17:23 16:28 16:00 WBC (4.4-10.8) 10^3/uL RBC (4.36-5.78) 10^6/uL Hgb (13.5-17.5) g/dL Hct (40.0-50.0) % MCV (80-95) fL MCH (27.0-33.0) pg MCHC (32.0-36.0) % RDW (11.8-14.1) % Plt Count (130-400) 10^3/uL MPV (8.0-11.0) fL Immature Gran % % Neutrophils % % Lymphocytes % % Monocytes % % Eosinophils % % Basophils % % Nucleated RBC % (0.0-0.3) % Absolute Neutrophils (1.2-6.7) 10^3/uL Absolute Lymphocytes (1.2-3.4) 10^3/uL Absolute Monocytes (0.1-0.8) 10^3/uL Absolute Eosinophils (0.0-0.7) 10^3/uL Absolute Basophils (0.0-0.2) 10^3/uL PT (9.1-11.1) sec INR (0.9-1.1) APTT (20.6-30.2) sec Fibrinogen D-Dimer (<500) ng/mlFEU VBG pH 7.41 (7.31-7.41) VBG pCO2 36 L (41-51) mmHg VBG pO2 50 mmHg VBG HCO3 23 (23-28) mmol/L VBG Total CO2 21 L (24-29) mmol/L VBG O2 Saturation 84 % VBG Base Excess -2 (-2-3) mmol/L VBG Lactate 9.1 H* (<or=2.0) mmol/L Sodium (136-145) mmol/L Potassium (3.5-5.1) mmol/L Chloride (98-107) mmol/L Carbon Dioxide (20.0-31.0) mmol/L Anion Gap (3-11) mmol/L BUN (9-23) mg/dL Creatinine (0.73-1.18) mg/dL Est GFR (CKD-EPI 2020) (mL/min/1.73m2) Glucose (74-106) mg/dL Uric Acid (3.7-9.2) mg/dL Calcium (8.3-10.6) mg/dL Magnesium (1.6-2.6) mg/dL Total Bilirubin (0.2-1.2) mg/dL AST (<34) U/L ALT (10-49) U/L Alkaline Phosphatase (46-116) U/L Lactate Dehydrogenase (120-246) U/L Creatine Kinase (46-171) U/L Troponin I (<54) ng/L NT-Pro-B Natriuret Pep (<300) pg/mL Total Protein (5.7-8.2) g/dL Albumin (3.2-5.0) g/dL TSH (0.55-4.78) uIU/mL Urine Color (Yellow) Urine Clarity (Clear) Urine pH (5-8) Ur Specific [place] (1.005-1.025) Urine Protein (Neg-Trace) mg/dL Urine Ketones (Negative) mg/dL Urine Blood (Negative) Urine Nitrite (Negative) Urine Bilirubin (Negative) Urine Urobilinogen (Up to 0.2) mg/dL Ur Leukocyte Esterase (Negative) Urine RBC (0-2) HPF Urine WBC (0-5) HPF Ur Epithelial Cells (Negative) HPF Urine Crystals (Negative) HPF Urine Bacteria (Negative) HPF Urine Casts (Negative) LPF Urine Mucus (Negative) Urine Other (Negative) Ur Culture Indicated? Urine Glucose (Negative) mg/dL COVID-19 Source Nasopharynx SARS-CoV-2 (PCR) Negative (Negative) Influenza Type A (PCR) Negative (Negative) Influenza Type B (PCR) Negative (Negative) RSV (PCR) Negative (Negative) Add-On Test Request ABO/Rh Pending Antibody Screen Pending 07/12/25 Range/Units 15:55 WBC 4.79 (4.4-10.8) 10^3/uL RBC 3.95 L (4.36-5.78) 10^6/uL Hgb 9.7 L (13.5-17.5) g/dL Hct 30.8 L (40.0-50.0) % MCV 78 L (80-95) fL MCH 24.6 L (27.0-33.0) pg MCHC 31.5 L (32.0-36.0) % RDW 19.2 H (11.8-14.1) % Plt Count 243 (130-400) 10^3/uL MPV 9.3 (8.0-11.0) fL Immature Gran % 4.2 % Neutrophils % 77.9 % Lymphocytes % 5.6 % Monocytes % 11.7 % Eosinophils % 0.0 % Basophils % 0.6 % Nucleated RBC % 0.0 (0.0-0.3) % Absolute Neutrophils 3.73 (1.2-6.7) 10^3/uL Absolute Lymphocytes 0.27 L (1.2-3.4) 10^3/uL Absolute Monocytes 0.56 (0.1-0.8) 10^3/uL Absolute Eosinophils 0.00 (0.0-0.7) 10^3/uL Absolute Basophils 0.03 (0.0-0.2) 10^3/uL PT 13.5 H (9.1-11.1) sec INR 1.4 H (0.9-1.1) APTT (20.6-30.2) sec Fibrinogen D-Dimer (<500) ng/mlFEU VBG pH (7.31-7.41) VBG pCO2 (41-51) mmHg VBG pO2 mmHg VBG HCO3 (23-28) mmol/L VBG Total CO2 (24-29) mmol/L VBG O2 Saturation % VBG Base Excess (-2-3) mmol/L VBG Lactate (<or=2.0) mmol/L Sodium 133 L (136-145) mmol/L Potassium 4.0 (3.5-5.1) mmol/L Chloride 94 L (98-107) mmol/L Carbon Dioxide 22.4 (20.0-31.0) mmol/L Anion Gap 16.9 H (3-11) mmol/L BUN 17 (9-23) mg/dL Creatinine 0.88 (0.73-1.18) mg/dL Est GFR (CKD-EPI 2020) 93.11 (mL/min/1.73m2) Glucose 138 H (74-106) mg/dL Uric Acid 4.6 (3.7-9.2) mg/dL Calcium 8.0 L (8.3-10.6) mg/dL Magnesium 1.6 (1.6-2.6) mg/dL Total Bilirubin 1.9 H (0.2-1.2) mg/dL AST 49 H (<34) U/L ALT 16 (10-49) U/L Alkaline Phosphatase 93 (46-116) U/L Lactate Dehydrogenase 350 H (120-246) U/L Creatine Kinase 28 L (46-171) U/L Troponin I < 3 (<54) ng/L NT-Pro-B Natriuret Pep 114 (<300) pg/mL Total Protein 5.1 L (5.7-8.2) g/dL Albumin 3.3 (3.2-5.0) g/dL TSH 2.14 (0.55-4.78) uIU/mL Urine Color (Yellow) Urine Clarity (Clear) Urine pH (5-8) Ur Specific [place] (1.005-1.025) Urine Protein (Neg-Trace) mg/dL Urine Ketones (Negative) mg/dL Urine Blood (Negative) Urine Nitrite (Negative) Urine Bilirubin (Negative) Urine Urobilinogen (Up to 0.2) mg/dL Ur Leukocyte Esterase (Negative) Urine RBC (0-2) HPF Urine WBC (0-5) HPF Ur Epithelial Cells (Negative) HPF Urine Crystals (Negative) HPF Urine Bacteria (Negative) HPF Urine Casts (Negative) LPF Urine Mucus (Negative) Urine Other (Negative) Ur Culture Indicated? Urine Glucose (Negative) mg/dL COVID-19 Source SARS-CoV-2 (PCR) (Negative) Influenza Type A (PCR) (Negative) Influenza Type B (PCR) (Negative) RSV (PCR) (Negative) Add-On Test Request ABO/Rh Antibody Screen 07/12/25 16:28 Blood Culture - Pending Blood 07/12/25 15:55 Blood Culture - Pending Blood [id number] Documentation Fingerstick Glucose Start: 07/12/25 21:47 Freq: Status: Active Protocol: Activity Type Activity Date Activity User E-sign Co-sign Detail Recorded Client Recorded Date Recorded By Document 07/12/25 21:46 BKG DAEMON(10) [id number] 07/12/25 21:47 BKG DAEMON(10) Intake and Output - 24 Hour Total 07/12/25 15:37 thru 07/12/25 22:15 Intake Total 1546.667 Balance 1546.667 Weight 142.5 kg Intake: IV 1546.667 Other: Comment Occasional hesitancy Falls Risk Assessment History of Falls Previous History 07/12/25 21:45 Contributing Factors Medications 07/12/25 21:45 Ambulatory Aids Independent 07/12/25 21:45 Tubes/Lines With any additional score 07/12/25 21:45 Gait Evaluation No gait disturbance 07/12/25 21:45 Cognition No cognitive impairment 07/12/25 21:45 Fall Total Score 38 07/12/25 21:45 Level of Risk Moderate Risk 07/12/25 21:45 Problems (Last Reviewed 12/14/19 @ 13:06 by Christine Mauricio) Hyperbilirubinemia (Acute) Elevated INR (Acute) Acute lactic acidosis (Acute) Pleural effusion on left (Acute) Sinus tachycardia (Acute) Microcytic anemia (Acute) Left leg swelling (Acute) Mediastinal lymphadenopathy (Acute) Acute hypoxic respiratory failure (Acute) Attestation Statement: By documenting the first initial, last name, and credentials of the reporting nurse below, both parties acknowledge that all relevant information regarding the patient handoff has been communicated, and that all questions have been addressed to ensure continuity and safety of care. Additional Patient Information/Comments: Report Received From: Jolene Rodriguez RN
[2025-07-13] VITALS (24 sets, daily range): BP systolic 92–150; BP diastolic 61–132; PULSE 99–136; RESP 21–40; O2SAT 83–96
--- NOTE | 2025-07-13 | DI.US_ITS ---
Exam(s) US EXTREMITY VENOUS BI EXAM: US EXTREMITY VENOUS BI CLINICAL HISTORY: bilateral LE edema. TECHNIQUE: Bilateral lower extremity venous ultrasound performed using grayscale, color-flow, and spectral Doppler analysis. COMPARISON: No exams were available for comparison FINDINGS: The bilateral common femoral, femoral and popliteal veins demonstrate normal compressibility, augmentation, and color Doppler. The posterior tibial and peroneal veins are patent. There is subcutaneous edema in the lower leg bilaterally. IMPRESSION: Right: Negative for DVT Left: Negative for DVT DATA REPOSITORY:
[2025-07-13] MEDS: Allopurinol 300 MG TAB PO ×2 (00:58→20:39)
[2025-07-13] MEDS: LORazepam 1 MG TAB PO (00:58)
[2025-07-13] MEDS: Metoprolol 5 MG/5 ML VIAL IVP (05:33)
[2025-07-13] MEDS: Normal Saline Flush 10 ML SYR IVP (05:33)
[2025-07-13 07:07] LABS: Hemoglobin A1C 4.9 % (<5.7)
[2025-07-13] MEDS: Polyethylene Glycol 3350 17 GM PACKET PO (07:50)
[2025-07-13] MEDS: Docusate Sodium 100 MG CAP PO ×2 (07:50→20:41)
--- NOTE | 2025-07-13 07:55 | W.PULMCON ---
General Date Of Service Date of service: 07/13/25 Time of Service: 08:00 Requesting physician: Bolivar Dimas Reason for Consult: Pleural effusion Recommendations: Assessment: 1. Bilateral pleural effusions - has been present since his PET-CT last month at [facility]. Given underlying lymphoma, malignant effusion is a concern. Cardiogenic effusions are also possible. Unlikely infectious. S/P left thoracentesis with 1.8 L removed on 07/13. Pleural fluid analysis is pending 2. Acute hypoxemic respiratory failure - improved post-thoracentesis. On room air currently 3. Lymphoma - workup is ongoing. Recent bone marrow biopsy was suspicious for lymphoma. Had chest/abd/pelvic FDG avid lymph nodes on PET-CT in 06/2025 4. Mediastinal lymphadenopathy - likely related to underlying lymphoma Recommendations - follow up on pleural fluid analysis. Sent off for cytopathology, flow cytometry, cultures, and chemistries. There is a good chance his pleural effusion will re-accumulate. If so, may require repeat thoracentesis - recommend echo to evaluate cardiac function Assessment and Plan Assessment and plan (1) Bilateral pleural effusion: Status: Acute (2) Acute hypoxic respiratory failure: Status: Acute (3) Mediastinal lymphadenopathy: Status: Acute (4) Lymphoma: Status: Inactive History of Present Illness Narrative: Patient is a 45 yo with a history of schizoaffective disorder and lymphoma who was admitted on 07/12/25 for worsening dyspnea and acute hypoxemic respiratory failure He reported worsening dyspnea and LE swelling since 06/2025. CXR in the ED showed a large left pleural effusion. Was initially placed on BiPAP due to respiratory distress. Work of breathing improved and has been on 3-4 L O2 overnight. He denies significant cough or chest pain. Has dyspnea with mild exertion. Denied fevers. PET-CT at [facility] 06/23/25 noted moderate left and small right pleural effusions. Mutiple FDG avid lymph nodes were noted in the mediastinal, hilar, retroperitoneal, and iliac regions. He underwent bone marrow biopsy at [facility] on 07/05/25, which showed abnormal lymphohistiocytic aggregates, suspicious for lymphoma. ROS: 10 pt ROS negative except as above Sx: Tobacco use: none Alcohol use: none PFSH All Active Problems (Updated 07/13/25 @ 09:33 by Edwin Flanagan MD) Bilateral pleural effusion (Acute) Tumor lysis syndrome (Acute) Lower extremity edema (Acute) Hyperbilirubinemia (Acute) Elevated INR (Acute) Acute lactic acidosis (Acute) Pleural effusion on left (Acute) Sinus tachycardia (Acute) Microcytic anemia (Acute) Left leg swelling (Acute) Mediastinal lymphadenopathy (Acute) Acute hypoxic respiratory failure (Acute) No-show for appointment (Acute) Bursitis of right shoulder (Acute) Impingement syndrome of right shoulder (Acute) Tendonitis of long head of biceps brachii of right shoulder (Acute) Medical History (Updated 07/13/25 @ 09:33 by Edwin Flanagan MD) Sinusitis Right arm pain Chronic cough Keloid scar Tinea cruris Hemorrhoids Hypothyroidism GERD (gastroesophageal reflux disease) DDD (degenerative disc disease) Hypertension Testicular pain, left Rectal bleeding Thrombocytopenia Schizoaffective disorder Hyperlipidemia History of gastric polyp Developmental delay, mild Chronic low back pain Morbid obesity Diabetes Shortness of breath Severe obstructive sleep apnea Subclinical hypothyroidism Surgical History (Updated 12/14/19 @ 13:07 by Christine Mauricio) H/O endoscopy Social History (Updated 12/14/19 @ 13:08 by Christine Mauricio) Smoking/Tobacco Use Status: Never Smoking risk assessment performed?: Yes Alcohol Intake: never Drug use: Never Household members: family Housing: other Number of Children: 0 current occupation: Unemployed What type of physical activity do you participate in: walking, independent ambulation and bicycling Do you feel safe at home: Yes Do you feel safe in your relationship?: Yes Visit Medication and Allergies Active Medications Generic Name Dose Route Start Last Admin Trade Name Freq PRN Reason Stop Dose Admin Allopurinol 300 mg 07/13/25 20:00 Allopurinol 300 Mg Tab PO HS GLORIA Bisacodyl 10 mg 07/12/25 22:29 Bisacodyl 10 Mg Supp MO DAILY PRN PRN Docusate Sodium 100 mg 07/13/25 08:30 07/13/25 07:50 Docusate Sodium 100 Mg Cap PO 100 mg BID GLORIA Administration Haloperidol 20 mg 07/12/25 22:30 07/12/25 22:57 Haloperidol 5 Mg Tab PO 20 mg HS GLORIA Administration Polyethylene Glycol 17 gm 07/13/25 08:30 07/13/25 07:50 Polyethylene Glycol 3350 17 Gm Packet PO 17 gm BID GLORIA Administration Sennosides 1 tab 07/12/25 22:29 Senna Tab PO BID PRN PRN Sodium Chloride 0 ml 07/12/25 16:47 07/13/25 05:33 Normal Saline Flush 10 Ml Syr IVP 20 ml PRN PRN Administration Allergies bee venom protein (honey bee) Allergy (Severe, Verified 07/12/25 15:41) Anaphylaxsis hornet venom Allergy (Severe, Verified 07/12/25 15:41) Anaphylaxsis Exam Narrative Exam Narrative: General: alert, no acute distress Head: normocephalic ENT: no stridor, trachea midline CV: tachyardic, regular rhythm Respiratory: no wheezing, no crackles, no rhonchi, no prolonged expiration GI: abd soft, non-tender, non-distended Skin: no rashes Extremities: +2 edema, no digital clubbing Psych: normal affect Results Last Vital Signs Temp 36.8 C 07/12/25 21:45 Pulse 105 H 07/13/25 06:01 Resp 27 H 07/13/25 05:29 BP 108/71 07/13/25 06:01 Pulse Ox 94 07/13/25 06:01 Labs 07/12/25 15:55 07/12/25 15:55 Labs: Laboratory Results - last 24 hr 07/12/25 07/12/25 07/12/25 15:55 16:00 16:28 WBC 4.79 RBC 3.95 L Hgb 9.7 L Hct 30.8 L MCV 78 L MCH 24.6 L MCHC 31.5 L RDW 19.2 H Plt Count 243 MPV 9.3 Immature Gran % 4.2 Neutrophils % 77.9 Lymphocytes % 5.6 Monocytes % 11.7 Eosinophils % 0.0 Basophils % 0.6 Nucleated RBC % 0.0 Absolute Neutrophils 3.73 Absolute Lymphocytes 0.27 L Absolute Monocytes 0.56 Absolute Eosinophils 0.00 Absolute Basophils 0.03 PT 13.5 H INR 1.4 H APTT D-Dimer VBG pH 7.41 VBG pCO2 36 L VBG pO2 50 VBG HCO3 23 VBG Total CO2 21 L VBG O2 Saturation 84 VBG Base Excess -2 VBG Lactate 9.1 H* Sodium 133 L Potassium 4.0 Chloride 94 L Carbon Dioxide 22.4 Anion Gap 16.9 H BUN 17 Creatinine 0.88 Est GFR (CKD-EPI 2020) 93.11 Glucose 138 H Hemoglobin A1c Uric Acid 4.6 Calcium 8.0 L Phosphorus Magnesium 1.6 Total Bilirubin 1.9 H AST 49 H ALT 16 Alkaline Phosphatase 93 Lactate Dehydrogenase 350 H Creatine Kinase 28 L Troponin I < 3 NT-Pro-B Natriuret Pep 114 Total Protein 5.1 L Albumin 3.3 TSH 2.14 Urine Color Urine Clarity Urine pH Ur Specific [place] Urine Protein Urine Ketones Urine Blood Urine Nitrite Urine Bilirubin Urine Urobilinogen Ur Leukocyte Esterase Urine RBC Urine WBC Ur Epithelial Cells Urine Crystals Urine Bacteria Urine Casts Urine Mucus Urine Other Ur Culture Indicated? Urine Glucose COVID-19 Source SARS-CoV-2 (PCR) Influenza Type A (PCR) Influenza Type B (PCR) RSV (PCR) Add-On Test Request ABO/Rh A Positive Antibody Screen NEGATIVE 07/12/25 07/12/25 07/12/25 17:23 17:25 18:50 WBC RBC Hgb Hct MCV MCH MCHC RDW Plt Count MPV Immature Gran % Neutrophils % Lymphocytes % Monocytes % Eosinophils % Basophils % Nucleated RBC % Absolute Neutrophils Absolute Lymphocytes Absolute Monocytes Absolute Eosinophils Absolute Basophils PT INR APTT D-Dimer VBG pH VBG pCO2 VBG pO2 VBG HCO3 VBG Total CO2 VBG O2 Saturation VBG Base Excess VBG Lactate 7.1 H* 5.4 H* Sodium Potassium Chloride Carbon Dioxide Anion Gap BUN Creatinine Est GFR (CKD-EPI 2020) Glucose Hemoglobin A1c Uric Acid Calcium Phosphorus Magnesium Total Bilirubin AST ALT Alkaline Phosphatase Lactate Dehydrogenase Creatine Kinase Troponin I 4 NT-Pro-B Natriuret Pep Total Protein Albumin TSH Urine Color Yellow Urine Clarity Clear Urine pH 6.0 Ur Specific [place] <= 1.005 Urine Protein >=300 H Urine Ketones Negative Urine Blood Trace-intact H Urine Nitrite Negative Urine Bilirubin Negative Urine Urobilinogen 1.0 H Ur Leukocyte Esterase Negative Urine RBC 0-2 Urine WBC 0-2 Ur Epithelial Cells Rare Urine Crystals Negative Urine Bacteria Few Urine Casts 3-5 Fine Granular Urine Mucus Negative Urine Other Rare Transitional Ur Culture Indicated? No Urine Glucose Negative COVID-19 Source Nasopharynx SARS-CoV-2 (PCR) Negative Influenza Type A (PCR) Negative Influenza Type B (PCR) Negative RSV (PCR) Negative Add-On Test Request ABO/Rh Antibody Screen 07/12/25 07/12/25 07/12/25 19:07 19:08 19:23 WBC RBC Hgb Hct MCV MCH MCHC RDW Plt Count MPV Immature Gran % Neutrophils % Lymphocytes % Monocytes % Eosinophils % Basophils % Nucleated RBC % Absolute Neutrophils Absolute Lymphocytes Absolute Monocytes Absolute Eosinophils Absolute Basophils PT INR APTT 37.3 H D-Dimer > 7500 H VBG pH VBG pCO2 VBG pO2 VBG HCO3 VBG Total CO2 VBG O2 Saturation VBG Base Excess VBG Lactate Sodium Potassium Chloride Carbon Dioxide Anion Gap BUN Creatinine Est GFR (CKD-EPI 2020) Glucose Hemoglobin A1c Uric Acid Calcium Phosphorus Magnesium Total Bilirubin AST ALT Alkaline Phosphatase Lactate Dehydrogenase Creatine Kinase Troponin I NT-Pro-B Natriuret Pep Total Protein Albumin TSH Urine Color Urine Clarity Urine pH Ur Specific [place] Urine Protein Urine Ketones Urine Blood Urine Nitrite Urine Bilirubin Urine Urobilinogen Ur Leukocyte Esterase Urine RBC Urine WBC Ur Epithelial Cells Urine Crystals Urine Bacteria Urine Casts Urine Mucus Urine Other Ur Culture Indicated? Urine Glucose COVID-19 Source SARS-CoV-2 (PCR) Influenza Type A (PCR) Influenza Type B (PCR) RSV (PCR) Add-On Test Request DONE DONE ABO/Rh Antibody Screen 07/12/25 07/13/25 21:04 05:52 WBC RBC Hgb Hct MCV MCH MCHC RDW Plt Count MPV Immature Gran % Neutrophils % Lymphocytes % Monocytes % Eosinophils % Basophils % Nucleated RBC % Absolute Neutrophils Absolute Lymphocytes Absolute Monocytes Absolute Eosinophils Absolute Basophils PT INR APTT D-Dimer VBG pH VBG pCO2 VBG pO2 VBG HCO3 VBG Total CO2 VBG O2 Saturation VBG Base Excess VBG Lactate 5.1 H* Sodium Potassium Chloride Carbon Dioxide Anion Gap BUN Creatinine Est GFR (CKD-EPI 2020) Glucose Hemoglobin A1c 4.9 Uric Acid Calcium Phosphorus 4.1 Magnesium Total Bilirubin AST ALT Alkaline Phosphatase Lactate Dehydrogenase Creatine Kinase Troponin I NT-Pro-B Natriuret Pep Total Protein Albumin TSH Urine Color Urine Clarity Urine pH Ur Specific [place] Urine Protein Urine Ketones Urine Blood Urine Nitrite Urine Bilirubin Urine Urobilinogen Ur Leukocyte Esterase Urine RBC Urine WBC Ur Epithelial Cells Urine Crystals Urine Bacteria Urine Casts Urine Mucus Urine Other Ur Culture Indicated? Urine Glucose COVID-19 Source SARS-CoV-2 (PCR) Influenza Type A (PCR) Influenza Type B (PCR) RSV (PCR) Add-On Test Request ABO/Rh Antibody Screen Imaging Chest x-ray: report reviewed and image reviewed CT scan - chest: report reviewed and image reviewed
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
--- NOTE | 2025-07-13 08:30 | PAPNONF_PTH ---
PATIENT: Terry Figueroa LOC: U#:[id number] AGE/SX: 45/M ROOM: 211 RE07/12/[address]: Bolivar Dimas : 1980 BED: A DIS: 07/23/2025 SPEC #: [id number] RECD: 07/13/25 12:55 STATUS: DAVE RECamille #: [id number] MASSIMO: 07/13/25 08:[address]: Edwin Flanagan DEPT: [facility] Cytology RECD BY: Nadeen Mix ENTERED: 07/13/25 12:56 SP TYPE: GAGANDEEP LONGORIA DR: oBl[address] Tissues: 1 - BODY FLUID CYTO(NOT S/U/N/EM)[facility] Procedures: BODY FLUID CYTO(NOT SPU/UR/NIP/ENDOM)[facility] Comments: [id number] (FLOW CYTOMETRY [id number]- ) (REFRIGERATED)
--- NOTE | 2025-07-13 09:00 | DI.RAD_ITS ---
Exam(s) XR PORTABLE CHEST AP EXAM: XR PORTABLE CHEST AP CLINICAL HISTORY: post left thoracentesis TECHNIQUE: 2D digital imaging was performed. Portable semi upright COMPARISON: CR XR PORTABLE CHEST AP from 07/12/[address] CHEST PE ABD PELVIS W from 07/12/2025 FINDINGS: Exam is limited by under penetration, semi upright positioning and poor pulmonary inflation. LUNGS: There has been significant interval decrease in size of previously noted left pleural effusion, now small. There is no visible right pleural effusion. There are mildly increased densities at the left lung base consistent with atelectasis. HEART: Normal size. AORTA: Normal diameter. BONES: Unremarkable for age. Soft tissues: Unremarkable. IMPRESSION: No decreased size of left pleural effusion status post thoracentesis. No pneumothorax. DATA REPOSITORY: RADIATION DOSE DELIVERED:
--- NOTE | 2025-07-13 09:09 | W.PM.PROGNOT ---
Date of Service Date of service: 07/13/25 Time of Service: 09:00 Assessment and Plan Assessment and plan (1) Acute hypoxic respiratory failure: Status: Acute Assessment and plan: -Maintaining SpO2 93-94% on 2L NC -Chronic dyspnea with chronic cough per the medical record, L pleural effusion likely contributory -Dr Flanagan, pulmonology performed L sided thoracentesis 07/13, drained 2L glenna colored fluid. Pt tolerated procedure well (2) Pleural effusion on left: Status: Acute Assessment and plan: -Thoracentesis performed by Dr Flanagan (as noted above), fluid analysis results notable for moderate WBCs, no bacteria. -Very concerning for malignant effusion, though cardiogenic also in differential -echo ordered -[place]ed by [facility], currently being worked up for lymphoma, substantial mediastinal and retroperitoneal lymphadenopathy -VTE chemoprophylaxis held prior to thoracentesis, lovenox ordered (pt with high risk of VTE, Srikanth score 5) (3) Tumor lysis syndrome: Status: Acute Assessment and plan: -Dr Mae discussed case with Dr Infante, [facility] filler spreader on 07/12; she did not believe labs were clearly c/w TLS, recommended LDH, uric acid (if >4, allopurinol advised), and labs to r/o DIC -Elevated LDH 350. Uric acid 4.6, Allopurinol started 300 mg PO QHS (4) Acute lactic acidosis: Status: Acute Assessment and plan: -Severe lactic acidosis on presentation, improved with fluid resuscitation (9.1 >5.1) -Sepsis vs tumor lysis vs active malignancy -Antibiotics given in ED, will hold pending thoracentesis (5) Sinus tachycardia: Status: Acute Assessment and plan: -Tachycardic in the 120's - 140's on prior ED visits -Improving s/p thoracentesis, HR this AM in 140s and has decreased to 110s-130s -one time dose of metoprolol given to reduce rate for echo Home medication list not available but previously he was on haldol, one dose given 07/12. Pharmacy performing med reconcilitation -Some improvement with PO ativan 1 mg one time dose given 07/12 -Continue telemetry (6) Lower extremity edema: Status: Acute Assessment and plan: -Left significantly worse than right, concerning for VTE vs lymphatic obstruction -awaiting US BLE doppler in AM (7) Mediastinal lymphadenopathy: Status: Acute Assessment and plan: -Noted on imaging back to March 2025, currently being worked up at [facility] for probable lymphoma -Likely needing social support -Palliative care consult (8) Schizoaffective disorder: Assessment and plan: -Per medical record -Home medications not available - per patient he gets all of his meds from [facility], pharmacy performing med reconcilation (9) Diabetes: Assessment and plan: -history of T2DM, not currently on any medicaitons. A1C 4.9 performed 07/13 (10) Hypothyroidism: Assessment and plan: -Noted history, unclear if he is on any meds, waiting for med rec -TSH done in ED, unremarkable (11) Hypertension: Assessment and plan: -Noted history, unclear if he is on any meds, waiting for med rec -normotensive since admission, will continue to monitor (12) Hemorrhoids: Assessment and plan: -Patient reports that he defecates about once per week and has bleeding with defecation, has h/o hemorrhoids -Bowel regimen ordered -will continue to monitor for signs of active lower GI bleeding Subjective Subjective Interval history since last seen: No acute events overnight, Terry was able to be weaned off NC O2 with SpO2 maintained at 93-94%. Dr Flanagan performed L sided thoracentesis at 0845, drained approx 2 L dark glenna colored fluid. Terry reports his breathing is feeling more comfortable after the thoracentesis. Reports mild cough. Denies fever/chills, chest pain, sputum production, nausea/vomiting, change in bowel/bladder function. Exam Narrative Exam Narrative: General: alert, no acute distress Head: normocephalic ENT: no stridor, trachea midline CV: tachyardic, regular rhythm Respiratory: no wheezing, no crackles, no rhonchi, no prolonged expiration GI: abd soft, non-tender, non-distended Skin: no rashes Extremities: +2 edema, no digital clubbing Psych: normal affect Const General: cooperative, comfortable and not in acute distress Nutritional Appearance: obese Orientation: alert and oriented x3 Resp Effort & Inspection: normal respiratory effort and able to speak in complete sentences Auscultation: other (course lung sounds throughout, occasional cough) Cardio Rate: tachycardic Rhythm: regular rhythm Skin General skin exam: no rashes or lesions noted Trauma: no lacerations or abrasions Neuro General: patient alert, patient oriented x3, tone normal and moves all extremities Motor: muscle tone normal throughout Extrem General: edema (L>R Lower extremities, pitting) Objective Last Vital Signs Temp 98.2 F 07/12/25 21:45 Pulse 129 H 07/13/25 08:02 Resp 27 H 07/13/25 05:29 BP 143/113 H 07/13/25 08:02 Pulse Ox 93 07/13/25 08:55 Laboratory Results - last 24 hr 07/12/25 07/12/25 07/12/25 15:55 16:00 16:28 WBC 4.79 RBC 3.95 L Hgb 9.7 L Hct 30.8 L MCV 78 L MCH 24.6 L MCHC 31.5 L RDW 19.2 H Plt Count 243 MPV 9.3 Immature Gran % 4.2 Neutrophils % 77.9 Lymphocytes % 5.6 Monocytes % 11.7 Eosinophils % 0.0 Basophils % 0.6 Nucleated RBC % 0.0 Absolute Neutrophils 3.73 Absolute Lymphocytes 0.27 L Absolute Monocytes 0.56 Absolute Eosinophils 0.00 Absolute Basophils 0.03 PT 13.5 H INR 1.4 H APTT D-Dimer VBG pH 7.41 VBG pCO2 36 L VBG pO2 50 VBG HCO3 23 VBG Total CO2 21 L VBG O2 Saturation 84 VBG Base Excess -2 VBG Lactate 9.1 H* Sodium 133 L Potassium 4.0 Chloride 94 L Carbon Dioxide 22.4 Anion Gap 16.9 H BUN 17 Creatinine 0.88 Est GFR (CKD-EPI 2020) 93.11 Glucose 138 H Hemoglobin A1c Uric Acid 4.6 Calcium 8.0 L Phosphorus Magnesium 1.6 Total Bilirubin 1.9 H AST 49 H ALT 16 Alkaline Phosphatase 93 Lactate Dehydrogenase 350 H Creatine Kinase 28 L Troponin I < 3 NT-Pro-B Natriuret Pep 114 Total Protein 5.1 L Albumin 3.3 TSH 2.14 Urine Color Urine Clarity Urine pH Ur Specific Wayan Urine Protein Urine Ketones Urine Blood Urine Nitrite Urine Bilirubin Urine Urobilinogen Ur Leukocyte Esterase Urine RBC Urine WBC Ur Epithelial Cells Urine Crystals Urine Bacteria Urine Casts Urine Mucus Urine Other Ur Culture Indicated? Urine Glucose COVID-19 Source SARS-CoV-2 (PCR) Influenza Type A (PCR) Influenza Type B (PCR) RSV (PCR) Add-On Test Request ABO/Rh A Positive Antibody Screen NEGATIVE 07/12/25 07/12/25 07/12/25 17:23 17:25 18:50 WBC RBC Hgb Hct MCV MCH MCHC RDW Plt Count MPV Immature Gran % Neutrophils % Lymphocytes % Monocytes % Eosinophils % Basophils % Nucleated RBC % Absolute Neutrophils Absolute Lymphocytes Absolute Monocytes Absolute Eosinophils Absolute Basophils PT INR APTT D-Dimer VBG pH VBG pCO2 VBG pO2 VBG HCO3 VBG Total CO2 VBG O2 Saturation VBG Base Excess VBG Lactate 7.1 H* 5.4 H* Sodium Potassium Chloride Carbon Dioxide Anion Gap BUN Creatinine Est GFR (CKD-EPI 2020) Glucose Hemoglobin A1c Uric Acid Calcium Phosphorus Magnesium Total Bilirubin AST ALT Alkaline Phosphatase Lactate Dehydrogenase Creatine Kinase Troponin I 4 NT-Pro-B Natriuret Pep Total Protein Albumin TSH Urine Color Yellow Urine Clarity Clear Urine pH 6.0 Ur Specific Wayan <= 1.005 Urine Protein >=300 H Urine Ketones Negative Urine Blood Trace-intact H Urine Nitrite Negative Urine Bilirubin Negative Urine Urobilinogen 1.0 H Ur Leukocyte Esterase Negative Urine RBC 0-2 Urine WBC 0-2 Ur Epithelial Cells Rare Urine Crystals Negative Urine Bacteria Few Urine Casts 3-5 Fine Granular Urine Mucus Negative Urine Other Rare Transitional Ur Culture Indicated? No Urine Glucose Negative COVID-19 Source Nasopharynx SARS-CoV-2 (PCR) Negative Influenza Type A (PCR) Negative Influenza Type B (PCR) Negative RSV (PCR) Negative Add-On Test Request ABO/Rh Antibody Screen 07/12/25 07/12/25 07/12/25 19:07 19:08 19:23 WBC RBC Hgb Hct MCV MCH MCHC RDW Plt Count MPV Immature Gran % Neutrophils % Lymphocytes % Monocytes % Eosinophils % Basophils % Nucleated RBC % Absolute Neutrophils Absolute Lymphocytes Absolute Monocytes Absolute Eosinophils Absolute Basophils PT INR APTT 37.3 H D-Dimer > 7500 H VBG pH VBG pCO2 VBG pO2 VBG HCO3 VBG Total CO2 VBG O2 Saturation VBG Base Excess VBG Lactate Sodium Potassium Chloride Carbon Dioxide Anion Gap BUN Creatinine Est GFR (CKD-EPI 2020) Glucose Hemoglobin A1c Uric Acid Calcium Phosphorus Magnesium Total Bilirubin AST ALT Alkaline Phosphatase Lactate Dehydrogenase Creatine Kinase Troponin I NT-Pro-B Natriuret Pep Total Protein Albumin TSH Urine Color Urine Clarity Urine pH Ur Specific Wayan Urine Protein Urine Ketones Urine Blood Urine Nitrite Urine Bilirubin Urine Urobilinogen Ur Leukocyte Esterase Urine RBC Urine WBC Ur Epithelial Cells Urine Crystals Urine Bacteria Urine Casts Urine Mucus Urine Other Ur Culture Indicated? Urine Glucose COVID-19 Source SARS-CoV-2 (PCR) Influenza Type A (PCR) Influenza Type B (PCR) RSV (PCR) Add-On Test Request DONE DONE ABO/Rh Antibody Screen 07/12/25 07/13/25 21:04 05:52 WBC RBC Hgb Hct MCV MCH MCHC RDW Plt Count MPV Immature Gran % Neutrophils % Lymphocytes % Monocytes % Eosinophils % Basophils % Nucleated RBC % Absolute Neutrophils Absolute Lymphocytes Absolute Monocytes Absolute Eosinophils Absolute Basophils PT INR APTT D-Dimer VBG pH VBG pCO2 VBG pO2 VBG HCO3 VBG Total CO2 VBG O2 Saturation VBG Base Excess VBG Lactate 5.1 H* Sodium Potassium Chloride Carbon Dioxide Anion Gap BUN Creatinine Est GFR (CKD-EPI 2020) Glucose Hemoglobin A1c 4.9 Uric Acid Calcium Phosphorus 4.1 Magnesium Total Bilirubin AST ALT Alkaline Phosphatase Lactate Dehydrogenase Creatine Kinase Troponin I NT-Pro-B Natriuret Pep Total Protein Albumin TSH Urine Color Urine Clarity Urine pH Ur Specific Wayan Urine Protein Urine Ketones Urine Blood Urine Nitrite Urine Bilirubin Urine Urobilinogen Ur Leukocyte Esterase Urine RBC Urine WBC Ur Epithelial Cells Urine Crystals Urine Bacteria Urine Casts Urine Mucus Urine Other Ur Culture Indicated? Urine Glucose COVID-19 Source SARS-CoV-2 (PCR) Influenza Type A (PCR) Influenza Type B (PCR) RSV (PCR) Add-On Test Request ABO/Rh Antibody Screen VTE Prohylaxis Risk Level: Moderate/High Risk Contraindications: Active bleed/high bleed risk (thoracentesis likely in the morning) Prophylaxis: Mechanical Time Spent with Patient Time Spent with Patient: >50 minutes Time was spent: preparing to see the patient(eg.review tests), obtaining and/or reviewing separately otained hiistory, ordering medications,tests, procedures, referring, communicating with other health manager wound care, indepentently interpreting results, counseling the patient and care coordination
--- NOTE | 2025-07-13 09:24 | W.PM.OP ---
Operative Note Operative Note PRE-OP DIAGNOSIS: Pleural effusion PROCEDURE: Left thoracentesis SURGEON: Edwin Flanagan ANESTHESIA TYPE: Local By Surgeon ESTIMATED BLOOD LOSS: 2 (ml) PATHOLOGY: other COMPLICATIONS: None Indications: Dysppnea, large left pleural effusion Procedure Description: The procedure risks, benefits, and alternatives were discussed with Mr. Figueroa, who understood and informed consent was obtained. Laboratory studies and radiographs were reviewed. A time-out was performed.? Bedside ultrasound was used to identify an appropriate site for thoracentesis.? The site was marked on the left postero-lateral chest wall.? Sterile technique was used throughout the procedure.? The site was cleaned and draped in a sterile fashion.? Using a 10 cc syringe and 22 Ga needle, the skin and tract to the pleural cavity were anesthetized with 10 mL of 1% lidocaine.? Pleural fluid was obtained in the 10 cc syringe without difficulty. ?A small 2-3 mm skin incision was made at the marked site.? An 8 Fr catheter over a needle was advanced until positive fluid return.? The catheter was then advanced into the pleural space and the needle was removed.? Pleural fluid was drained without difficulty.? Post-procedure bedside ultrasound demonstrated good lung sliding.? There was a small amount of residual fluid remaining. 1800 mL of glenna, hazy pleural fluid were removed. Samples were sent for chemistries, cell count, bacterial/fungal/afb cultures, flow cytometry and cytopathology. Follow-up: A chest radiograph was ordered and is pending Follow-up on pleural fluid analysis Date of Procedure: 07/13/25 POCUS Pulmonology Limited thoracic lung Exam DATE OF EXAM: 07/13/25 TIME OF EXAM: 08:18 PROVIDER THAT PERFORMED THE STUDY: Edwin Flanagan IS THIS A REPEAT STUDY: No REASON FOR EXAM: Pleural Effusion Visualized structures: left lateral and left posterior PERTINENT FINDINGS/IMPRESSION: Present Left pleural effusion Exam complete
[2025-07-13] MEDS: Enoxaparin 40 MG/0.4 ML SYR SC (09:57)
[2025-07-13] MEDS: Metoprolol 25 MG TAB PO (11:36)
[2025-07-13] MEDS: FLUoxetine 20 MG CAP 40 MG PO (11:47)
[2025-07-13 12:05] LABS: Polynuclear Cells 19 %
[2025-07-13] MEDS: HALOPERIDOL DECANOATE 100 MG/1 ML IM (12:16)
--- NOTE | 2025-07-13 12:20 | PHACLINREV_ITS ---
Pharmacy Admission Review Admission Clinical Review Admission Pharmacy Review: Bilateral pleural effusion (Acute) Tumor lysis syndrome (Acute) Lower extremity edema (Acute) Hyperbilirubinemia (Acute) Elevated INR (Acute) Acute lactic acidosis (Acute) Pleural effusion on left (Acute) Sinus tachycardia (Acute) Microcytic anemia (Acute) Left leg swelling (Acute) Mediastinal lymphadenopathy (Acute) Acute hypoxic respiratory failure (Acute) bee venom protein (honey bee) Allergy (Severe, Verified 07/12/25 15:41) Anaphylaxsis hornet venom Allergy (Severe, Verified 07/12/25 15:41) Anaphylaxsis Resuscitation Status Full Code Height 6 ft 4 in Weight 142.5 kg Comments Comments/Follow Ups: blood/pleural fluid cultures pending POD#0 Left thoracentesis Pharmacy Admission Review Renal Dosing Renal Dosing: BUN 17 mg/dL (9-23) 07/12/25 15:55 Creatinine 0.88 mg/dL (0.73-1.18) 07/12/25 15:55 Medications needing adjustments: Reviewed (CrCl 161 mL/min) List of meds needing interventions: Current medications are okay Anticoagulation Anticoagulation: Hgb 9.7 g/dL (13.5-17.5) L 07/12/25 15:55 Hct 30.8 % (40.0-50.0) L 07/12/25 15:55 Plt Count 243 10^3/uL (130-400) 07/12/25 15:55 INR 1.4 (0.9-1.1) H 07/12/25 15:55 Creatinine 0.88 mg/dL (0.73-1.18) 07/12/25 15:55 DVT Prophylaxis: Reviewed Medications: Enoxaparin (40mg daily) Relevant Labs Relevant Labs: Sodium 133 mmol/L (136-145) L 07/12/25 15:55 Potassium 4.0 mmol/L (3.5-5.1) 07/12/25 15:55 Chloride 94 mmol/L (98-107) L 07/12/25 15:55 Phosphorus 4.1 mg/dL (2.4-5.1) 07/13/25 05:52 Magnesium 1.6 mg/dL (1.6-2.6) 07/12/25 15:55 Electrolytes, C-Reactive P, ESR: Reviewed (A1c 4.9, no other new labs for today) Cardiac Review Cardiac Review: Troponin I 4 ng/L (<54) 07/12/25 17:25 NT-Pro-B Natriuret Pep 114 pg/mL (<300) 07/12/25 15:55 Blood Pressure : Heart Rate 116/94 : 115 1001 Blood Pressure : Heart Rate 119/94 : 124 0849 Blood Pressure : Heart Rate 143/113 : 129 0802 Blood Pressure : Heart Rate 108/71 : 105 0601 Blood Pressure : Heart Rate 120/82 : 118 0529 BP, HR, EF%: Reviewed (RR 27, Ox 91 and oxygen flow rate = 2) List meds needing interventions: Received metoprolol 5mg IVP at 0533 and 25mg PO at 1136 (now one orders) QTc Review QTc: Reviewed (445 from 07/12/25) IV to PO Switch IV Medications: Reviewed Home Meds Home Med List reviewed: Intervened Relevent Home Meds Not ordered & why?: Per patient gets medications through [facility]. Called [facility] employee to verify what pharmacy patient uses, per [facility] patient fills at [facility]. Called [facility] to fax over med list. Using [facility] med list updated home med list and made the following changes: removed: albuterol, bacitracin, betamethasone cream, Vraylar, levothyroxine, metformin, nystatin cream, simvastatin, tizanidine and valsartan changed: fluoxetine from 20mg to 40mg and haloperidol from 20mg daily to 1mg TID PRN added: haloperidol decanoate 100mg monthly injection (per med rec from pharmacy patient due today), paliperidone ER 3mg, ondansetron PRN and trazodone 200mg Informed provider of the above changes to home med list On home med list but not ordered: benztropine, cetirizine (PRN), docusate, ondansetron (PRN) and Miralax (PRN) Reached out to provider regarding benztropine. Per provider holding for now. Current Meds Current Medication Order Review: Intervened Comments: Discontinued haloperidol 20mg HS order (provider aware) - replaced with IM injection and PRN order from updated home med list Pharmacy Antibiotic Review Relevant Labs: Relevant Labs 07/12/25 15:55 Lactate Dehydrogenase 350 H Comments Comments/Follow Ups: blood/pleural fluid cultures pending POD#0 Left thoracentesis
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
[2025-07-13 17:08] LABS: Glucose, Fluid 94 mg/dL (See Note)
[2025-07-13 17:53] LABS: Fibrinogen 355 mg/dL (171-384)
[2025-07-13] MEDS: [UNRECOGNIZED DRUG - OTHER] 3 MG PO (20:39)
[2025-07-13] MEDS: traZODone 100 MG TAB 200 MG PO (20:41)
[2025-07-14] VITALS (31 sets, daily range): BP systolic 107–137; BP diastolic 87–115; PULSE 71–140; RESP 11–34; TEMP 37.2–38.8; O2SAT 78–96
[2025-07-14 06:29] LABS: Abs Immature Grans 0.18 10^3/uL (0.0-0.06); HCT 25.2 % (40.0-50.0); HGB 8.0 g/dL (13.5-17.5); MCH 24.7 pg (27.0-33.0); MCHC 31.7 % (32.0-36.0); MCV 78 fL (80-95); MPV 9.3 fL (8.0-11.0); Platelet Count 194 10^3/uL (130-400); RBC 3.24 10^6/uL (4.36-5.78); RDW 19.1 % (11.8-14.1); RDW-SD 53.9 fL; WBC 3.32 10^3/uL (4.4-10.8)
[2025-07-14 07:02] LABS: ALT 14 U/L (10-49); AST 45 U/L (<34); Albumin 2.9 g/dL (3.2-5.0); Alkaline Phosphatase 78 U/L (46-116); Anion Gap 10.6 mmol/L (3-11); BUN 15 mg/dL (9-23); Bilirubin, Total 1.4 mg/dL (0.2-1.2); CO2 28.0 mmol/L (20.0-31.0); Calcium 8.0 mg/dL (8.3-10.6); Chloride 95 mmol/L (98-107); Glucose 93 mg/dL (74-106); Magnesium 1.6 mg/dL (1.6-2.6); Potassium 4.0 mmol/L (3.5-5.1); Sodium 134 mmol/L (136-145); Total Protein 4.4 g/dL (5.7-8.2)
[2025-07-14 07:35] LABS: Anisocytosis 2+; Hypochromasia 1+; Immature Grans % 0.0 %; Microcytosis 2+
[2025-07-14 07:36] LABS: Polychromasia Present
--- NOTE | 2025-07-14 07:36 | PGE_ITS ---
Date of Service Date of service: 07/14/25 Time of Service: 16:23 Assessment and Plan Assessment and plan (1) Acute hypoxic respiratory failure: Status: Acute Assessment and plan: -Maintaining SpO2 93-94% on 2L NC -Chronic dyspnea with chronic cough per the medical record, L pleural effusion likely contributory -Dr Flanagan, pulmonology performed L sided thoracentesis 07/13, drained 2L glenna colored fluid. Pt tolerated procedure well (2) Pleural effusion on left: Status: Acute Assessment and plan: -Thoracentesis performed by Dr Flanagan (as noted above), fluid analysis results notable for moderate WBCs, no bacteria. Still awaiting protein and LDH results -Very concerning for malignant effusion, though cardiogenic also in differential -echo ordered -Followed by [facility], currently being worked up for lymphoma, substantial mediastinal and retroperitoneal lymphadenopathy -VTE chemoprophylaxis held prior to thoracentesis, lovenox ordered (pt with high risk of VTE, Srikanth score 5) (3) Tumor lysis syndrome: Status: Acute Assessment and plan: -Dr Mae discussed case with Dr Infante, [facility] sueding and buffing machine operator on 07/12; she did not believe labs were clearly c/w TLS, recommended LDH, uric acid (if >4, allopurinol advised), and labs to r/o DIC -Elevated LDH 350. Uric acid 4.6, Allopurinol started 300 mg PO QHS (4) Acute lactic acidosis: Status: Acute Assessment and plan: -Severe lactic acidosis on presentation, improved with fluid resuscitation (9.1 >5.1) -Sepsis vs tumor lysis vs active malignancy -Antibiotics given in ED, will hold pending thoracentesis (5) Sinus tachycardia: Status: Acute Assessment and plan: -Tachycardic in the 120's - 140's on prior ED visits -continues to remain tachycardic with HR 120s-130s at rest, up to 160s with movement -metoprolol 25 mg PO BID for rate control -echo ordered, waiting for rate control to perform Home medication list not available but previously he was on haldol, one dose given 07/12. Pharmacy performing med reconcilitation -Some improvement with PO ativan 1 mg one time dose given 07/12 -Continue telemetry (6) Lower extremity edema: Status: Acute Assessment and plan: -Left significantly worse than right, concerning for VTE vs lymphatic obstruction -US BLE doppler performed 07/13, no DVT (7) Mediastinal lymphadenopathy: Status: Acute Assessment and plan: -Noted on imaging back to March 2025, currently being worked up at [facility] for probable lymphoma -Likely needing social support -Palliative care consult (8) Schizoaffective disorder: Assessment and plan: -Per medical record -Home medications not available - per patient he gets all of his meds from [facility], pharmacy performing med reconcilation (9) Diabetes: Assessment and plan: -history of T2DM, not currently on any medicaitons. A1C 4.9 performed 07/13 (10) Hypothyroidism: Assessment and plan: -Noted history, unclear if he is on any meds, waiting for med rec -TSH done in ED, unremarkable (11) Hypertension: Assessment and plan: -Noted history, unclear if he is on any meds, waiting for med rec -normotensive since admission, will continue to monitor (12) Hemorrhoids: Assessment and plan: -Patient reports that he defecates about once per week and has bleeding with defecation, has h/o hemorrhoids -Bowel regimen ordered -will continue to monitor for signs of active lower GI bleeding Subjective Subjective Interval history since last seen: No acute events overnight. Terry reports he is feeling ok this morning, admits to a bit of a scratchy throat with some post-nasal drip. Denies difficulty swallowing, hoarse voice, chest pain, change in shortness of breath, n/v, abdominal pain, change in bowel or bladder function, leg pain or numbness. Exam Narrative Exam Narrative: General: alert, no acute distress Head: normocephalic ENT: no stridor, trachea midline CV: tachyardic, regular rhythm Respiratory: no wheezing, no crackles, no rhonchi, no prolonged expiration GI: abd soft, non-tender, non-distended Skin: no rashes Extremities: +2 edema, no digital clubbing Psych: normal affect Const General: cooperative, comfortable and not in acute distress Nutritional Appearance: obese Orientation: alert and oriented x3 HENMT Head: normal to inspection and atraumatic Ears: hearing grossly normal bilaterally General nose exam: external nose normal Face and sinus: normal facial exam Mouth: oral mucosae normal, lip normal, tongue normal, oropharynx normal, moist mucous membranes and no muffled voice Throat: posterior oropharynx normal, tonsils normal, uvula midline and postnasal drainage Resp Effort & Inspection: normal respiratory effort and able to speak in complete sentences Auscultation: clear to auscultation bilaterally and other Cardio Rate: tachycardic Rhythm: regular rhythm Skin General skin exam: no rashes or lesions noted Trauma: no lacerations or abrasions Neuro General: patient alert, patient oriented x3, tone normal and moves all extremities Motor: muscle tone normal throughout Extrem General: edema (L>R Lower extremities, pitting) Objective Last Vital Signs Temp 98.2 F 07/12/25 21:45 Pulse 116 H 07/14/25 06:00 Resp 28 H 07/14/25 06:00 BP 133/115 H 07/14/25 04:01 Pulse Ox 91 L 07/14/25 06:00 Laboratory Results - last 24 hr 07/12/25 07/13/25 07/14/25 19:23 08:30 05:30 Fibrinogen 355 Sodium 134 L Potassium 4.0 Chloride 95 L Carbon Dioxide 28.0 Anion Gap 10.6 BUN 15 Creatinine 0.72 L Est GFR (CKD-EPI 2020) 117.37 Glucose 93 Calcium 8.0 L Magnesium 1.6 Total Bilirubin 1.4 H AST 45 H ALT 14 Alkaline Phosphatase 78 Total Protein 4.4 L Albumin 2.9 L Fluid Source Pleural Fluid Color Other Fluid Clarity Cloudy Fluid WBC 470 Fld Polynuclear WBCs % 19 Fluid Mononuclear Cell 81 Fluid Glucose 94 Path Cons Comment SEE COMMENT VTE Prohylaxis Risk Level: Moderate/High Risk Contraindications: Active bleed/high bleed risk (thoracentesis likely in the morning) Prophylaxis: Mechanical Time Spent with Patient Time Spent with Patient: >50 minutes Time was spent: preparing to see the patient(eg.review tests), obtaining and/or reviewing separately otained hiistory, ordering medications,tests, procedures, referring, communicating with other health care management assistant, indepentently interpreting results, counseling the patient and care coordination
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
[2025-07-14] MEDS: Docusate Sodium 100 MG CAP PO ×2 (09:14→20:30)
[2025-07-14] MEDS: Enoxaparin 40 MG/0.4 ML SYR SC (09:14)
[2025-07-14] MEDS: FLUoxetine 20 MG CAP 40 MG PO (09:14)
[2025-07-14] MEDS: Polyethylene Glycol 3350 17 GM PACKET PO ×2 (09:14→20:30)
[2025-07-14] MEDS: Normal Saline Flush 10 ML SYR IVP ×2 (09:15→22:21)
--- NOTE | 2025-07-14 10:30 | DI.US_ITS ---
APPROVED REPORT EXAM: Comprehensive 2D, Doppler, and color-flow Echocardiogram Patient Location: In-Patient Room/Bed: 219 Seat Cover Maker: Fransisco Sanchez RDCS (AE) Indications: Suspect lymphoma, bilateral LE edema Echo Enhancing Agent Indication: Endocardial border delineation Agent(s) / Amount(s) Used: Definity 2.0 cc Comments: Contrast study was performed with 1 IV injection of 2cc of diluted definity. Other Information Study Quality: Poor. Technically limited study due to body habitus, inability to position patient, elevated heart rate. Conclusion Technically difficult and suboptimal study Normal left ventricular wall thickness chamber size and systolic function. EF is 60%. Wall motion is grossly normal Normal right ventricular size and function Both atria are normal in size Within the limits of the study no significant valvular disease is identified Wall motion Left Ventricle The left ventricle is normal size. The left ventricular systolic function is normal. The left ventricular ejection fraction is within the normal range. There is normal left ventricular wall thickness. There is normal LV segmental wall motion. There is no ventricular septal defect visualized. LVEF is 60%. Right Ventricle The right ventricle is normal size. Right ventricular systolic function is grossly normal. Atria The left atrium size is normal. The right atrium size is normal. The interatrial septum is intact with no evidence for an atrial septal defect. Aortic Valve Aortic valve is grossly normal in structure. There is no aortic valvular stenosis. No aortic regurgitation is present. Mitral Valve The mitral valve is grossly normal in structure. No evidence of mitral valve stenosis. There is no mitral valve regurgitation noted. Tricuspid Valve The tricuspid valve is normal in structure. There is no tricuspid valve stenosis. Trace tricuspid regurgitation. Pulmonic Valve The pulmonary valve is grossly normal in structure. There is no pulmonic valvular stenosis. There is no pulmonic valvular regurgitation. Great Vessels Aortic root is mildly dilated. The ascending aorta is normal in size. The IVC was not visualized. Pericardium There is no pericardial effusion. 2D Dimensions IVSD d PLAX 0.80 cm M: 0.6-1.2 Ao Root d 3.81 cm M: 3.1 - 3.7 LVPW d PLAX 0.81 cm M: 0.6 - 1.2 Ao Asc Diam d 3.36 cm M: 2.6 - 3.4 LVID d PLAX 4.61 cm M: 4.2 - 5.8 LVDs 3.15 cm M: 2.5 - 4.0 LV EF Teichholz 59.7 % FS 31.64 % LV EDV (Teich) 97.9 mL LV ESV (Teich) 39.5 mL Stroke Vol Index (Teich) 21.80 LV Volumes - Method of Disks (Cohen's) Single Plane 2D LV Volumes Biplane 2D LV Volumes LV EDV A4C 71.5 mL LV EDV BP 78.68 mL M: 62 - 150 LV ESV A4C 29.5 mL LV ESV BP 33.7 mL LVEF(%) A4C 58.8 % LVEF(%) BP 57.19 % M: 52 - 72 LV EDV A2C 85.2 mL LV EDV BP Index 29.24 mL/m2 M: 34 - 74 LV ESV A2C 35.4 mL SV BP LVEF(%) A2C 58.4 % SV Index LA Volume LA Length A4C 4.3 cm LA Length A2C 4.2 cm LA Area A4C s 10.21 cm2 LA Area A2C s 11.17 cm2 LA Vol A4C A-L 20.76 mL LA Vol A2C A-L 25.24 mL LA Vol Biplane A-L 23.1 mL LA Vol/BSA A4C A-L LA Vol/BSA A2C A-L LA Vol/BSA BP A-L 8.6 mL/m2 LA Vol A4C MOD 19.0 mL LA Vol A2C MOD 24.5 mL LA Vol BP MOD 21.7 mL LV Diastology MV E' medial 0.139 (>0.07 m/s) MV E Vmax 0.76 (0.4-1.3 m/s) MV E/E' MED 5.51 (<14) MV A Vmax 0.85 (0.4-1.3 m/s) MV E' lateral 0.092 (>0.1 m/s) E/A Ratio 0.9 MV E/E' LAT 8.30 (<14) MV E' Average 0.115 m/s MV E/E'(average) 6.62 Aortic Valve AoV Vmax 1.34 m/s LVOT Vmax 1.15 m/s AoV Peak Grad 7.2 mmHg LVOT Peak Grad 5.3 mmHg AoV Area (Vmax) 3.75 cm2 LVOT VTI 0.168 m AoV VTI 0.195 m LVOT Mean Grad 3.2 mmHg AoV Mean Lalo. 0.90 m/s LVOT SV 73.12 mL AoV Mean Grad 3.7 mmHg LVOT Diam s 2.35 cm AoV Area (VTI) 3.75 cm2 AV Regurg Peak Gr. 7.19 mmHg Velocity Ratio 0.86 Pulmonary Valve RVOT Vmax 0.90 m/s RVOT Peak Gr. 3.3 mmHg RVOT VTI 0.101 m RVOT Mean Gr. 1.3 mmHg
[2025-07-14] MEDS: Metoprolol 25 MG TAB PO ×2 (11:48→20:30)
[2025-07-14] MEDS: Acetaminophen 325 MG TAB 650 MG PO (13:03)
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
[2025-07-14] MEDS: traZODone 100 MG TAB 200 MG PO (20:30)
[2025-07-14] MEDS: Allopurinol 300 MG TAB PO (20:30)
[2025-07-14] MEDS: [UNRECOGNIZED DRUG - OTHER] 3 MG PO (20:30)
[2025-07-15] VITALS (48 sets, daily range): BP systolic 109–129; BP diastolic 78–97; PULSE 83–119; RESP 14–40; TEMP 36.6–37.1; O2SAT 82–95
[2025-07-15 07:11] LABS: Abs Immature Grans 0.22 10^3/uL (0.0-0.06); HCT 27.6 % (40.0-50.0); HGB 8.8 g/dL (13.5-17.5); Immature Grans % 7.0 %; MCH 25.6 pg (27.0-33.0); MCHC 31.9 % (32.0-36.0); MCV 80 fL (80-95); MPV 9.6 fL (8.0-11.0); Platelet Count 218 10^3/uL (130-400); RBC 3.44 10^6/uL (4.36-5.78); RDW 19.5 % (11.8-14.1); RDW-SD 56.0 fL; WBC 3.14 10^3/uL (4.4-10.8)
[2025-07-15 07:24] LABS: ALT 16 U/L (10-49); AST 54 U/L (<34); Albumin 2.9 g/dL (3.2-5.0); Alkaline Phosphatase 83 U/L (46-116); Anion Gap 8.4 mmol/L (3-11); BUN 14 mg/dL (9-23); Bilirubin, Total 1.4 mg/dL (0.2-1.2); CO2 31.4 mmol/L (20.0-31.0); Calcium 8.4 mg/dL (8.3-10.6); Chloride 98 mmol/L (98-107); Glucose 78 mg/dL (74-106); Potassium 4.9 mmol/L (3.5-5.1); Sodium 138 mmol/L (136-145); Total Protein 4.5 g/dL (5.7-8.2)
[2025-07-15] MEDS: FLUoxetine 20 MG CAP 40 MG PO (07:47)
[2025-07-15] MEDS: Metoprolol 25 MG TAB PO (07:47)
[2025-07-15] MEDS: Enoxaparin 40 MG/0.4 ML SYR SC (07:47)
[2025-07-15] MEDS: Docusate Sodium 100 MG CAP PO ×2 (07:47→20:40)
[2025-07-15] MEDS: Polyethylene Glycol 3350 17 GM PACKET PO ×2 (07:47→21:15)
--- NOTE | 2025-07-15 10:26 | DI.RAD_ITS ---
Exam(s) XR PORTABLE CHEST AP EXAM: XR PORTABLE CHEST AP CLINICAL HISTORY: post thoracentesis, dyspneic TECHNIQUE: 2D digital imaging was performed. COMPARISON: CR XR PORTABLE CHEST AP from 07/12/2025 CR XR PORTABLE CHEST AP from 07/13/2025 FINDINGS: Limited exam due to patient body habitus and poor pulmonary inflation. Overlying monitoring leads. LUNGS: Increase in size of right pleural effusion. Status post left thoracentesis. Decrease in size of left pleural effusion. Significantly increased bibasilar densities compared to prior exams. Findings could represent pulmonary edema or basilar pneumonia in combination with atelectasis. HEART: Somewhat obscured due to expiratory changes. AORTA: Normal diameter. BONES: Unremarkable for age. Soft tissues: Unremarkable. IMPRESSION: Limited exam. Decreased size of left pleural effusion status post thoracentesis. New no pneumothorax. Increased size of right pleural effusion. Markedly increased bibasilar densities could not indicate combination of atelectasis and pulmonary edema or pneumonia. The preliminary [facility] report was reviewed. DATA REPOSITORY: RADIATION DOSE DELIVERED:
--- NOTE | 2025-07-15 10:36 | DI.[facility]_ITS ---
PROCEDURE INFORMATION: Exam: XR Chest Exam date and time: 07/15/2025 10:17 AM Age: 45 years old Clinical indication: Condition or disease; Other: Post thoracentesis, dyspneic TECHNIQUE: Imaging protocol: Radiologic exam of the chest. Views: 1 view. COMPARISON: CR XR PORTABLE CHEST AP 07/13/2025 9:15 AM FINDINGS: Lungs: There is poor ventilation of the lungs, accounting for mild diffuse increase in pulmonary parenchymal density. Pleural spaces: Small bilateral pleural effusions with bilateral lower lobe consolidation/collapse. Heart/Mediastinum: Unremarkable. No cardiomegaly. Bones/joints: Unremarkable. IMPRESSION: Bilateral pleural effusions with lower lobe consolidation/collapse, slightly increased on the right side. Dictated and Authenticated by: Joaquin Lin MD. Orderin Wing Lutz MD
[2025-07-15 11:16] LABS: Lactate Dehydrogenase (LD), BF 177 U/L
[2025-07-15 11:20] LABS: Protein,Total, BF 2.6 g/dL
--- NOTE | 2025-07-15 13:47 | PGE_ITS ---
Date of Service Date of service: 07/15/25 Time of Service: 08:00 Assessment and Plan Assessment and plan (1) Acute hypoxic respiratory failure: Status: Acute Assessment and plan: Hypoxemic while flat in bed to SpO2 mid-80's Otherwise SpO2 88-92 on NC 1-2L More comfortable after thoracentesis Likely will need O2 at discharge (2) Pleural effusion on left: Status: Acute Assessment and plan: Jul [address] Flanagan, pulmonology, 2L out with moderate WBCs, no bacteria Pleural fluid protein, LDH, cytology, cultures, pathology pending Given recent lymphoma diagnosis, likely malignant effusion, also consider cardiogenesis May need additional pleural drainage as fluid is likely to re-accumulate Echocardiogram done, suboptimal study, EF 60% [place]ed by [facility], currently being worked up for lymphoma, substantial mediastinal and retroperitoneal lymphadenopathy VTE chemoprophylaxis held prior to thoracentesis, lovenox ordered (pt with high risk of VTE, Srikanth score 5) Jul 15 CXR showing improvement in left effusion, larger right effusion, marked increase in bibasilar densities (3) Tumor lysis syndrome: Status: Acute Assessment and plan: -Dr Mae discussed case with Dr Infante, [facility] subassemblies wirer on 07/12; she did not believe labs were clearly c/w TLS, recommended LDH, uric acid (if >4, allopurinol advised), and labs to r/o DIC -Elevated LDH 350. Uric acid 4.6, Allopurinol started 300 mg PO QHS (4) Acute lactic acidosis: Status: Acute Assessment and plan: -Severe lactic acidosis on presentation, improved with fluid resuscitation (9.1 >5.1) -Sepsis vs tumor lysis vs active malignancy -Antibiotics given in ED, discontinued (5) Sinus tachycardia: Status: Acute Assessment and plan: -Tachycardic in the 120's - 140's on prior ED visits -continues to remain tachycardic with HR 120s-130s at rest, up to 160s with movement -metoprolol 25 mg PO BID for rate control, increased to 37.5 BID on Jul 15 -echo ordered, waiting for rate control to perform Home medication list not available but previously he was on haldol, one dose given 07/12. Pharmacy performing med reconcilitation -Some improvement with PO ativan 1 mg one time dose given 07/12 -Continue telemetry (6) Lower extremity edema: Status: Acute Assessment and plan: -Left significantly worse than right, concerning for VTE vs lymphatic obstruction -US BLE doppler performed 07/13, no DVT (7) Mediastinal lymphadenopathy: Status: Acute Assessment and plan: -Noted on imaging back to March 2025, currently being worked up at [facility] [place] probable [place] -Likely needing social support -Palliative care consult (8) Schizoaffective disorder: Assessment and plan: -Per medical record -Home medications not available - per patient he gets all of his meds from [facility], pharmacy performing med reconcilation (9) Diabetes: Assessment and plan: -history of T2DM, not currently on any medicaitons. A1C 4.9 performed 07/13 (10) Hypothyroidism: Assessment and plan: -Noted history, unclear if he is on any meds, waiting for med rec -TSH done in ED, unremarkable (11) Hypertension: Assessment and plan: -Noted history, unclear if he is on any meds, waiting for med rec -normotensive since admission, will continue to monitor (12) Hemorrhoids: Assessment and plan: -Patient reports that he defecates about once per week and has bleeding with defecation, has h/o hemorrhoids -Bowel regimen ordered -will continue to monitor for signs of active lower GI bleeding Subjective Subjective Interval history since last seen: Mr. Figueroa is up in a chair this morning. While lying flat, earlier, he was desatting into the mid 80's. The head of his bed is now elevated. Exam Narrative Exam Narrative: General: This is a pleasant, obese man in mild distress on bipap HEENT: Normocephalic, atraumatic CV: tachycardia, regular rhythm. BLE 2+ pitting edema to the knee Resp: Diminished bibasilar breath sounds, left worse than right. Dullness to percussion LLL. Thoracentesis site c/d/i. Abd: NTND +NBS MSK: voluntary motion x4 Neuro: awake, alert, no focal deficits Objective Last Vital Signs Temp 36.6 C 07/15/25 00:00 Pulse 106 H 07/15/25 11:00 Resp 36 H 07/15/25 11:00 BP 109/83 07/15/25 08:01 Pulse Ox 88 L 07/15/25 11:00 Laboratory Results - last 24 hr 07/15/25 05:53 WBC 3.14 L RBC 3.44 L Hgb 8.8 L Hct 27.6 L MCV 80 MCH 25.6 L MCHC 31.9 L RDW 19.5 H Plt Count 218 MPV 9.6 Immature Gran % 7.0 Neutrophils % 77.4 Lymphocytes % 7.3 Monocytes % 8.3 Eosinophils % 0.0 Basophils % 0.0 Nucleated RBC % 0.0 Absolute Neutrophils 2.43 Absolute Lymphocytes 0.23 L Absolute Monocytes 0.26 Absolute Eosinophils 0.00 Absolute Basophils 0.00 Sodium 138 Potassium 4.9 Chloride 98 Carbon Dioxide 31.4 H Anion Gap 8.4 BUN 14 Creatinine 0.68 L Est GFR (CKD-EPI 2020) 125.37 Glucose 78 Calcium 8.4 Total Bilirubin 1.4 H AST 54 H ALT 16 Alkaline Phosphatase 83 Total Protein 4.5 L Albumin 2.9 L VTE Prohylaxis Risk Level: Moderate/High Risk Contraindications: Active bleed/high bleed risk (thoracentesis likely in the morning) Prophylaxis: Mechanical Time Spent with Patient Time Spent with Patient: 25-34 minutes Time was spent: preparing to see the patient(eg.review tests), obtaining and/or reviewing separately otained hiistory, ordering medications,tests, procedures, referring, communicating with other health care giver, indepentently interpreting results, counseling the patient and care coordination
[2025-07-15] MEDS: Metoprolol 12.5 MG TAB PO (15:34)
[2025-07-15] MEDS: Metoprolol 25 MG TAB 37.5 MG PO (20:40)
[2025-07-15] MEDS: Allopurinol 300 MG TAB PO (20:40)
[2025-07-15] MEDS: traZODone 100 MG TAB 200 MG PO (20:41)
[2025-07-15] MEDS: [UNRECOGNIZED DRUG - OTHER] 3 MG PO (20:41)
[2025-07-16] VITALS (34 sets, daily range): BP systolic 77–138; BP diastolic 58–122; PULSE 79–123; RESP 22–32; TEMP 36.6–36.9; O2SAT 82–95
--- NOTE | 2025-07-16 | DI.RAD_ITS ---
Exam(s) XR CHEST 2V PA LATERAL EXAM: XR CHEST 2V PA LATERAL CLINICAL HISTORY: query status of effusions TECHNIQUE: 2D digital imaging was performed. Two views. COMPARISON: CR,XR XR PORTABLE CHEST AP from 07/15/2025 FINDINGS: HEART: Obscured by pleural effusions. Aorta: Not dilated. PULMONARY VASCULATURE: Normal. MEDIASTINUM: Partially obscured by pleural effusions. LUNGS: Bilateral infiltrates versus atelectasis are grossly stable. PLEURAL SPACE: Some interval increase in size of bilateral pleural effusions, moderate in size. BONE:Unremarkable for age. SOFT TISSUES: Unremarkable. IMPRESSION: Increased size of bilateral pleural effusions, moderate. The preliminary [facility] report was reviewed. DATA REPOSITORY: RADIATION DOSE DELIVERED:
[2025-07-16 06:52] LABS: Abs Immature Grans 0.17 10^3/uL (0.0-0.06); HCT 26.9 % (40.0-50.0); HGB 8.7 g/dL (13.5-17.5); Immature Grans % 5.0 %; MCH 25.5 pg (27.0-33.0); MCHC 32.3 % (32.0-36.0); MCV 79 fL (80-95); MPV 9.4 fL (8.0-11.0); Platelet Count 203 10^3/uL (130-400); RBC 3.41 10^6/uL (4.36-5.78); RDW 19.3 % (11.8-14.1); RDW-SD 55.0 fL; WBC 3.40 10^3/uL (4.4-10.8)
[2025-07-16] MEDS: Docusate Sodium 100 MG CAP PO ×2 (08:06→19:49)
[2025-07-16] MEDS: Polyethylene Glycol 3350 17 GM PACKET PO ×2 (08:06→19:49)
[2025-07-16] MEDS: Enoxaparin 40 MG/0.4 ML SYR SC (08:06)
[2025-07-16] MEDS: FLUoxetine 20 MG CAP 40 MG PO (08:06)
[2025-07-16] MEDS: Metoprolol 25 MG TAB 37.5 MG PO ×2 (08:07→19:49)
--- NOTE | 2025-07-16 17:05 | W.PM.PROGNOT ---
Date of Service Date of service: 07/16/25 Time of Service: 08:00 Assessment and Plan Assessment and plan (1) Acute hypoxic respiratory failure: Status: Acute Assessment and plan: Hypoxemic while flat in bed to SpO2 mid-80's Otherwise SpO2 88-92 on NC 1-2L More comfortable after thoracentesis Anticipating need for home O2 at discharge Repeat CXR Jul 16 evening Pulm update Jul 17 (2) Pleural effusion on left: Status: Acute Assessment and plan: Jul [address] Flanagan, pulmonology, 2L out with moderate WBCs, no bacteria Pleural fluid protein, LDH, cytology, cultures, pathology pending Given recent lymphoma diagnosis, likely malignant effusion, also consider cardiogenesis May need additional pleural drainage as fluid is likely to re-accumulate Echocardiogram done, suboptimal study, EF 60% Followed by [facility], currently being worked up for lymphoma, substantial mediastinal and retroperitoneal lymphadenopathy VTE chemoprophylaxis held prior to thoracentesis, lovenox ordered (pt with high risk of VTE, Srikanth score 5) Jul 15 CXR showing improvement in left effusion, larger right effusion, marked increase in bibasilar densities Jul 16 CXR pending. (3) Tumor lysis syndrome: Status: Acute Assessment and plan: -Dr Mae discussed case with Dr Infante, [facility] die sinking machine operator on 07/12; she did not believe labs were clearly c/w TLS, recommended LDH, uric acid (if >4, allopurinol advised), and labs to r/o DIC -Elevated LDH 350. Uric acid 4.6, Allopurinol started 300 mg PO QHS Jul 16: Repeat LDH & uric acid in the AM. (4) Acute lactic acidosis: Status: Acute Assessment and plan: -Severe lactic acidosis on presentation, improved with fluid resuscitation (9.1 >5.1) -Sepsis vs tumor lysis vs active malignancy -Antibiotics given in ED, discontinued (5) Sinus tachycardia: Status: Acute Assessment and plan: -Tachycardic in the 120's - 140's on prior ED visits -continues to remain tachycardic with HR 120s-130s at rest, up to 160s with movement -metoprolol 25 mg PO BID for rate control, increased to 37.5 BID on Jul 15 -echo ordered, waiting for rate control to perform Home medication list not available but previously he was on haldol, one dose given 07/12. Pharmacy performing med reconcilitation -Some improvement with PO ativan 1 mg one time dose given 07/12 Increased metoprolol to 37.5 BID Off telemetry, still monitoring SpO2 and HR (6) Lower extremity edema: Status: Acute Assessment and plan: -Left significantly worse than right, concerning for VTE vs lymphatic obstruction -US BLE doppler performed 07/13, no DVT (7) Mediastinal lymphadenopathy: Status: Acute Assessment and plan: -Noted on imaging back to March 2025, currently being worked up at [facility] for probable lymphoma -Likely needing social support -Palliative care consult (8) Schizoaffective disorder: Assessment and plan: -Per medical record -Home medications not available - per patient he gets all of his meds from [facility], pharmacy performing med reconcilation (9) Diabetes: Assessment and plan: -history of T2DM, not currently on any medicaitons. A1C 4.9 performed 07/13 (10) Hypothyroidism: Assessment and plan: -Noted history, unclear if he is on any meds, waiting for med rec -TSH done in ED, unremarkable (11) Hypertension: Assessment and plan: -Noted history, unclear if he is on any meds, waiting for med rec -normotensive since admission, will continue to monitor (12) Hemorrhoids: Assessment and plan: -Patient reports that he defecates about once per week and has bleeding with defecation, has h/o hemorrhoids -Bowel regimen ordered -will continue to monitor for signs of active lower GI bleeding Subjective Subjective Interval history since last seen: Mr. Figueroa is comfortable, up in a chair this morning. HR improved with medication changes. Maintaining adequate SpO2 on NC1-2L. Exam Narrative Exam Narrative: General: This is a pleasant, obese man in mild distress on bipap HEENT: Normocephalic, atraumatic CV: tachycardia, regular rhythm. BLE 2+ pitting edema to the knee Resp: Diminished bibasilar breath sounds, left worse than right. Dullness to percussion LLL. Thoracentesis site c/d/i. Abd: NTND +NBS MSK: voluntary motion x4 Neuro: awake, alert, no focal deficits Objective Last Vital Signs Temp 36.9 C 07/16/25 12:15 Pulse 97 H 07/16/25 14:32 Resp 24 07/16/25 09:30 BP 102/65 07/16/25 14:32 Pulse Ox 93 07/16/25 15:10 Laboratory Results - last 24 hr 07/16/25 05:22 WBC 3.40 L RBC 3.41 L Hgb 8.7 L Hct 26.9 L MCV 79 L MCH 25.5 L MCHC 32.3 RDW 19.3 H Plt Count 203 MPV 9.4 Immature Gran % 5.0 Neutrophils % 78.8 Lymphocytes % 6.8 Monocytes % 9.1 Eosinophils % 0.0 Basophils % 0.3 Nucleated RBC % 0.0 Absolute Neutrophils 2.68 Absolute Lymphocytes 0.23 L Absolute Monocytes 0.31 Absolute Eosinophils 0.00 Absolute Basophils 0.01 VTE Prohylaxis Risk Level: Moderate/High Risk Contraindications: Active bleed/high bleed risk (thoracentesis likely in the morning) Prophylaxis: Mechanical Time Spent with Patient Time Spent with Patient: 25-34 minutes Time was spent: preparing to see the patient(eg.review tests), obtaining and/or reviewing separately otained hiistory, ordering medications,tests, procedures, referring, communicating with other health hearing care practitioner, indepentently interpreting results, counseling the patient and care coordination
--- NOTE | 2025-07-16 18:09 | DI.VRAD_ITS ---
PROCEDURE INFORMATION: Exam: XR Chest Exam date and time: 07/16/2025 5:44 PM Age: 45 years old Clinical indication: Screening exam; Other screening; Query status of effusions TECHNIQUE: Imaging protocol: Radiologic exam of the chest. Views: 2 views. COMPARISON: CR XR PORTABLE CHEST AP 07/15/2025 10:17 AM FINDINGS: Lungs: There is streaky and platelike opacity in the mid lung zones. Atelectasis is suspected although infection would be difficult to exclude on such a background. Pleural spaces: Moderate-sized bilateral pleural effusions appear grossly stable compared with the prior exam from yesterday. No pneumothorax is seen. Heart/Mediastinum: The cardiac silhouette is largely obscured and not well evaluated but does not appear to be grossly enlarged. Bones/joints: The bony structures are largely obscured but appear grossly intact, as seen. Osteophytes are noted along the margin of the thoracic spine. IMPRESSION: Moderate-sized bilateral pleural effusions relatively stable compared with the prior exam from yesterday. Dictated and Authenticated by: Ezio Padron MD. Orderin Wing Lutz MD
[2025-07-16] MEDS: [UNRECOGNIZED DRUG - OTHER] 3 MG PO (19:48)
[2025-07-16] MEDS: traZODone 100 MG TAB 200 MG PO (19:49)
[2025-07-16] MEDS: Allopurinol 300 MG TAB PO (19:49)
[2025-07-17] VITALS (8 sets, daily range): BP systolic 101–126; BP diastolic 66–83; PULSE 94–113; RESP 16–20; TEMP 36.5–38.1; O2SAT 91–95
[2025-07-17] MEDS: Senna TAB 1 TAB PO (01:33)
[2025-07-17] MEDS: Acetaminophen 325 MG TAB 650 MG PO ×2 (01:33→20:17)
[2025-07-17] MEDS: Haloperidol 1 MG TAB PO (01:33)
[2025-07-17 06:58] LABS: Uric Acid 2.5 mg/dL (3.7-9.2)
[2025-07-17 07:00] LABS: LDH 303 U/L (120-246)
--- NOTE | 2025-07-17 08:28 | PDOC.CMPRO ---
Care Management Progress Note Progress Note Text Progress Note Text: Terry was awake and lying in bed when CM met with him to discuss current and ongoing discharge planning needs. Patient has complex medical issues in the setting of unstable housing and will require New home O2 upon discharge. PT consult is pending, recommendations to follow. In addition, CM spoke with Terry's Community CM, Lynn, at [facility], who reports that he is meeting with the housing board tomorrow at 9am on behalf of Terry. At this time it is unclear what specific issues will be addressed during the hearing. Following that meeting, Lynn is planning to reach out to [employer] to determine whether the patients housing voucher can be reinstated, however due to his complex medical needs Lynn expresses discomfort with him living alone in a hotel, especially with new home O2. Lynn's preference is for the patient to discharge to [facility] or the [facility], and is planning to outreach to these facilities to discuss his oncology needs assuming that cancer treatment will be a barrier to placement. Patient agrees with this plan, and signed the authorization to disclose health records forms sent over from [facility]. In addition, Lynn confirmed that [facility] has already been contracted to provide transportation to medical appointment for 1 year. Discharge Potential Discharge Needs: PCP F/U Appt Anticipated Barriers to Discharge: SDOH Patient/Family Education Needs: Review discharge instructions, discuss [facility] [employer] Transportation: Other Plan: PT consult is pending. Terry's discharge plan is unclear at this time. He has been staying at the [facility] with a voucher from [employer] for about the past year. He lost his housing when he became hospitalized. It is unknown if he will require transfer to a tertiary care center for further workup and treatment or if he will return to the community. CM will follow and continue to support discharge planning efforts. Social Determinants of Health Screening Will the Patient Participate in the Screening?: Unable to obtain Comments: Patient has some mild unreliability with history.
[2025-07-17] MEDS: Enoxaparin 40 MG/0.4 ML SYR SC (08:50)
[2025-07-17] MEDS: Docusate Sodium 100 MG CAP PO ×2 (08:50→20:17)
[2025-07-17] MEDS: Metoprolol 25 MG TAB 37.5 MG PO ×2 (08:50→20:18)
[2025-07-17] MEDS: Polyethylene Glycol 3350 17 GM PACKET PO ×2 (08:50→20:19)
[2025-07-17] MEDS: FLUoxetine 20 MG CAP 40 MG PO (08:51)
--- NOTE | 2025-07-17 09:47 | PGE_ITS ---
General Date Of Service Date of service: 07/13/25 Time of Service: 08:00 Requesting physician: Bolivar Dimas Reason for Consult: Pleural effusion Recommendations: Assessment: 1. Bilateral pleural effusions - present since his PET-CT in 06/2025 at [facility]. Given underlying lymphoma, malignant effusion is a concern. Cardiogenic effusions are also possible, although, echo was unremarkable Unlikely infectious. S/P left thoracentesis with 1.8 L removed on 07/13. Pleural fluid analysis is still pending. POCUS exam today showed moderate bilateral pleural effusions 2. Acute hypoxemic respiratory failure - improved post-thoracentesis. Intermittently on oxygen 3. Lymphoma - workup is ongoing. Recent bone marrow biopsy was suspicious for lymphoma. Had chest/abd/pelvic FDG avid lymph nodes on PET-CT in 06/2025 4. Mediastinal lymphadenopathy - likely related to underlying lymphoma Recommendations - follow up on pleural fluid analysis - given his intermittent hypoxia, discussed repeat thoracentesis. He declined this AM, but is willing to consider later in the day. Will visit with him later to re-evaluate Discussed with Dr. Dimas Subjective Note Note: Patient is a 45 yo with a history of schizoaffective disorder and lymphoma who was admitted on 07/12/25 for worsening dyspnea and acute hypoxemic respiratory failure He was admitted for worsening dyspnea and LE swelling since 06/2025. CXR in the ED showed a large left pleural effusion. Was initially placed on BiPAP due to respiratory distress. Thoracentesis was completed 07/13 with 1.8 L removed from the left pleural space. Fluid analysis is still pending. PET-CT at [facility] 06/23/25 noted moderate left and small right pleural effusions. Mutiple FDG avid lymph nodes were noted in the mediastinal, hilar, retroperitoneal, and iliac regions. He underwent bone marrow biopsy at [facility] on 07/05/25, which showed abnormal lymphohistiocytic aggregates, suspicious for lymphoma. This AM, he denies significant cough or chest pain. Had fevers on 07/14, but afebrile over the past few days. ROS: 6 pt ROS negative except as above Sx: Tobacco use: none Alcohol use: none Exam Narrative Exam Narrative: General: alert, no acute distress Head: normocephalic ENT: no stridor, trachea midline CV: tachyardic, regular rhythm Respiratory: no wheezing, no crackles, no rhonchi, no prolonged expiration GI: abd soft, non-tender, non-distended Skin: no rashes Extremities: +1 edema, no digital clubbing Psych: normal affect Objective Last Vital Signs Temp 36.6 C 07/17/25 08:16 Pulse 101 H 07/17/25 08:16 Resp 16 07/17/25 08:16 BP 110/81 07/17/25 08:16 Pulse Ox 93 07/17/25 08:16 Laboratory Results - last 24 hr 07/13/25 07/17/25 08:30 06:20 Uric Acid 2.5 L Lactate Dehydrogenase 303 H Fluid Type Pleural Fluid Total Protein 2.6 Fluid LDH 177 Results Medications Medications: Active Medications Generic Name Dose Route Start Last Admin Trade Name Freq PRN Reason Stop Dose Admin Acetaminophen 650 mg 07/14/25 12:16 07/17/25 01:33 Acetaminophen 325 Mg Tab PO 650 mg Q6H PRN PRN Administration Allopurinol 300 mg 07/13/25 20:00 07/16/25 19:49 Allopurinol 300 Mg Tab PO 300 mg HS GLORIA Administration Bisacodyl 10 mg 07/12/25 22:29 Bisacodyl 10 Mg Supp IA DAILY PRN PRN Docusate Sodium 100 mg 07/13/25 08:30 07/17/25 08:50 Docusate Sodium 100 Mg Cap PO 100 mg BID GLORIA Administration Enoxaparin Sodium 40 mg 07/13/25 09:50 07/17/25 08:50 Enoxaparin 40 Mg/0.4 Ml Syr SC 40 mg DAILY GLORIA Administration Fluoxetine HCl 40 mg 07/13/25 11:30 07/17/25 08:51 Fluoxetine 20 Mg Cap PO 40 mg DAILY GLORIA Administration Haloperidol 1 mg 07/13/25 11:31 07/17/25 01:33 Haloperidol 1 Mg Tab PO 1 mg TID PRN PRN Administration Metoprolol Tartrate 37.5 mg 07/15/25 20:00 07/17/25 08:50 Metoprolol 25 Mg Tab PO 37.5 mg BID GLORIA Administration Paliperidone 3 mg 07/13/25 20:00 07/16/25 19:48 Paliperidone E.R. 1.5 Mg Tab PO 3 mg HS GLORIA Administration Polyethylene Glycol 17 gm 07/13/25 08:30 07/17/25 08:50 Polyethylene Glycol 3350 17 Gm Packet PO 17 gm BID GLORIA Administration Sennosides 1 tab 07/12/25 22:29 07/17/25 01:33 Senna Tab PO 1 tab BID PRN PRN Administration Sodium Chloride 0 ml 07/12/25 16:47 07/14/25 22:21 Normal Saline Flush 10 Ml Syr IVP 10 ml PRN PRN Administration Trazodone HCl 200 mg 07/13/25 20:00 07/16/25 19:49 Trazodone 100 Mg Tab PO 200 mg HS GLORIA Administration Allergies bee venom protein (honey bee) Allergy (Severe, Verified 07/12/25 15:41) Anaphylaxsis hornet venom Allergy (Severe, Verified 07/12/25 15:41) Anaphylaxsis Labs 07/16/25 05:22 07/15/25 05:53 Labs: 07/12/25 16:28 Blood Blood Culture - Preliminary NO GROWTH 96 HOURS 07/12/25 15:55 Blood Blood Culture - Preliminary NO GROWTH 96 HOURS 07/13/25 08:30 Pleural - Left Body Fluid Culture - Preliminary 07/13/25 08:30 Pleural - Left Gram Stain - Final 07/13/25 08:30 Pleural - Left Anaerobic Culture - Preliminary Laboratory Tests Range/Units 07/12/25 07/12/25 07/12/25 15:55 16:00 16:28 WBC (4.4-10.8) 10^3/uL 4.79 RBC (4.36-5.78) 10^6/uL 3.95 L Hgb (13.5-17.5) g/dL 9.7 L Hct (40.0-50.0) % 30.8 L MCV (80-95) fL 78 L MCH (27.0-33.0) pg 24.6 L MCHC (32.0-36.0) % 31.5 L RDW (11.8-14.1) % 19.2 H Plt Count (130-400) 10^3/uL 243 MPV (8.0-11.0) fL 9.3 Immature Gran % % 4.2 Neutrophils % % 77.9 Band Neutrophils % % Lymphocytes % % 5.6 Atypical Lymphs % % Monocytes % % 11.7 Eosinophils % % 0.0 Basophils % % 0.6 Metamyelocytes % Myelocytes % Nucleated RBC % (0.0-0.3) % 0.0 Absolute Neutrophils (1.2-6.7) 10^3/uL 3.73 Absolute Lymphocytes (1.2-3.4) 10^3/uL 0.27 L Absolute Monocytes (0.1-0.8) 10^3/uL 0.56 Absolute Eosinophils (0.0-0.7) 10^3/uL 0.00 Absolute Basophils (0.0-0.2) 10^3/uL 0.03 RBC Morphology Polychromasia Hypochromasia Anisocytosis Microcytosis PT (9.1-11.1) sec 13.5 H INR (0.9-1.1) 1.4 H APTT (20.6-30.2) sec Fibrinogen (171-384) mg/dL D-Dimer (<500) ng/mlFEU VBG pH (7.31-7.41) 7.41 VBG pCO2 (41-51) mmHg 36 L VBG pO2 mmHg 50 VBG HCO3 (23-28) mmol/L 23 VBG Total CO2 (24-29) mmol/L 21 L VBG O2 Saturation % 84 VBG Base Excess (-2-3) mmol/L -2 VBG Lactate (<or=2.0) mmol/L 9.1 H* Sodium (136-145) mmol/L 133 L Potassium (3.5-5.1) mmol/L 4.0 Chloride (98-107) mmol/L 94 L Carbon Dioxide (20.0-31.0) mmol/L 22.4 Anion Gap (3-11) mmol/L 16.9 H BUN (9-23) mg/dL 17 Creatinine (0.73-1.18) mg/dL 0.88 Est GFR (CKD-EPI 2020) (mL/min/1.73m2) 93.11 Glucose (74-106) mg/dL 138 H Hemoglobin A1c (<5.7) % Uric Acid (3.7-9.2) mg/dL 4.6 Calcium (8.3-10.6) mg/dL 8.0 L Phosphorus (2.4-5.1) mg/dL Magnesium (1.6-2.6) mg/dL 1.6 Total Bilirubin (0.2-1.2) mg/dL 1.9 H AST (<34) U/L 49 H ALT (10-49) U/L 16 Alkaline Phosphatase (46-116) U/L 93 Lactate Dehydrogenase (120-246) U/L 350 H Creatine Kinase (46-171) U/L 28 L Troponin I (<54) ng/L < 3 NT-Pro-B Natriuret Pep (<300) pg/mL 114 Total Protein (5.7-8.2) g/dL 5.1 L Albumin (3.2-5.0) g/dL 3.3 TSH (0.55-4.78) uIU/mL 2.14 Urine Color (Yellow) Urine Clarity (Clear) Urine pH (5-8) Ur Specific [place] (1.005-1.025) Urine Protein (Neg-Trace) mg/dL Urine Ketones (Negative) mg/dL Urine Blood (Negative) Urine Nitrite (Negative) Urine Bilirubin (Negative) Urine Urobilinogen (Up to 0.2) mg/dL Ur Leukocyte Esterase (Negative) Urine RBC (0-2) HPF Urine WBC (0-5) HPF Ur Epithelial Cells (Negative) HPF Urine Crystals (Negative) HPF Urine Bacteria (Negative) HPF Urine Casts (Negative) LPF Urine Mucus (Negative) Urine Other (Negative) Ur Culture Indicated? Urine Glucose (Negative) mg/dL Fluid Type Fluid Source Fluid Color Fluid Clarity Fluid WBC (0) uL Fld Polynuclear WBCs % % Fluid Mononuclear Cell % Fluid Glucose (See Note) mg/dL Fluid Total Protein g/dL Fluid LDH U/L COVID-19 Source SARS-CoV-2 (PCR) (Negative) Influenza Type A (PCR) (Negative) Influenza Type B (PCR) (Negative) RSV (PCR) (Negative) Path Cons Comment Add-On Test Request ABO/Rh A Positive Antibody Screen NEGATIVE Range/Units 07/12/25 07/12/25 07/12/25 17:23 17:25 18:50 WBC (4.4-10.8) 10^3/uL RBC (4.36-5.78) 10^6/uL Hgb (13.5-17.5) g/dL Hct (40.0-50.0) % MCV (80-95) fL MCH (27.0-33.0) pg MCHC (32.0-36.0) % RDW (11.8-14.1) % Plt Count (130-400) 10^3/uL MPV (8.0-11.0) fL Immature Gran % % Neutrophils % % Band Neutrophils % % Lymphocytes % % Atypical Lymphs % % Monocytes % % Eosinophils % % Basophils % % Metamyelocytes % Myelocytes % Nucleated RBC % (0.0-0.3) % Absolute Neutrophils (1.2-6.7) 10^3/uL Absolute Lymphocytes (1.2-3.4) 10^3/uL Absolute Monocytes (0.1-0.8) 10^3/uL Absolute Eosinophils (0.0-0.7) 10^3/uL Absolute Basophils (0.0-0.2) 10^3/uL RBC Morphology Polychromasia Hypochromasia Anisocytosis Microcytosis PT (9.1-11.1) sec INR (0.9-1.1) APTT (20.6-30.2) sec Fibrinogen (171-384) mg/dL D-Dimer (<500) ng/mlFEU VBG pH (7.31-7.41) VBG pCO2 (41-51) mmHg VBG pO2 mmHg VBG HCO3 (23-28) mmol/L VBG Total CO2 (24-29) mmol/L VBG O2 Saturation % VBG Base Excess (-2-3) mmol/L VBG Lactate (<or=2.0) mmol/L 7.1 H* 5.4 H* Sodium (136-145) mmol/L Potassium (3.5-5.1) mmol/L Chloride (98-107) mmol/L Carbon Dioxide (20.0-31.0) mmol/L Anion Gap (3-11) mmol/L BUN (9-23) mg/dL Creatinine (0.73-1.18) mg/dL Est GFR (CKD-EPI 2020) (mL/min/1.73m2) Glucose (74-106) mg/dL Hemoglobin A1c (<5.7) % Uric Acid (3.7-9.2) mg/dL Calcium (8.3-10.6) mg/dL Phosphorus (2.4-5.1) mg/dL Magnesium (1.6-2.6) mg/dL Total Bilirubin (0.2-1.2) mg/dL AST (<34) U/L ALT (10-49) U/L Alkaline Phosphatase (46-116) U/L Lactate Dehydrogenase (120-246) U/L Creatine Kinase (46-171) U/L Troponin I (<54) ng/L 4 NT-Pro-B Natriuret Pep (<300) pg/mL Total Protein (5.7-8.2) g/dL Albumin (3.2-5.0) g/dL TSH (0.55-4.78) uIU/mL Urine Color (Yellow) Yellow Urine Clarity (Clear) Clear Urine pH (5-8) 6.0 Ur Specific [place] (1.005-1.025) <= 1.005 Urine Protein (Neg-Trace) mg/dL >=300 H Urine Ketones (Negative) mg/dL Negative Urine Blood (Negative) Trace-intact H Urine Nitrite (Negative) Negative Urine Bilirubin (Negative) Negative Urine Urobilinogen (Up to 0.2) mg/dL 1.0 H Ur Leukocyte Esterase (Negative) Negative Urine RBC (0-2) HPF 0-2 Urine WBC (0-5) HPF 0-2 Ur Epithelial Cells (Negative) HPF Rare Urine Crystals (Negative) HPF Negative Urine Bacteria (Negative) HPF Few Urine Casts (Negative) LPF 3-5 Fine Granular Urine Mucus (Negative) Negative Urine Other (Negative) Rare Transitional Ur Culture Indicated? No Urine Glucose (Negative) mg/dL Negative Fluid Type Fluid Source Fluid Color Fluid Clarity Fluid WBC (0) uL Fld Polynuclear WBCs % % Fluid Mononuclear Cell % Fluid Glucose (See Note) mg/dL Fluid Total Protein g/dL Fluid LDH U/L COVID-19 Source Nasopharynx SARS-CoV-2 (PCR) (Negative) Negative Influenza Type A (PCR) (Negative) Negative Influenza Type B (PCR) (Negative) Negative RSV (PCR) (Negative) Negative Path Cons Comment Add-On Test Request ABO/Rh Antibody Screen Range/Units 07/12/25 07/12/25 07/12/25 19:07 19:08 19:23 WBC (4.4-10.8) 10^3/uL RBC (4.36-5.78) 10^6/uL Hgb (13.5-17.5) g/dL Hct (40.0-50.0) % MCV (80-95) fL MCH (27.0-33.0) pg MCHC (32.0-36.0) % RDW (11.8-14.1) % Plt Count (130-400) 10^3/uL MPV (8.0-11.0) fL Immature Gran % % Neutrophils % % Band Neutrophils % % Lymphocytes % % Atypical Lymphs % % Monocytes % % Eosinophils % % Basophils % % Metamyelocytes % Myelocytes % Nucleated RBC % (0.0-0.3) % Absolute Neutrophils (1.2-6.7) 10^3/uL Absolute Lymphocytes (1.2-3.4) 10^3/uL Absolute Monocytes (0.1-0.8) 10^3/uL Absolute Eosinophils (0.0-0.7) 10^3/uL Absolute Basophils (0.0-0.2) 10^3/uL RBC Morphology Polychromasia Hypochromasia Anisocytosis Microcytosis PT (9.1-11.1) sec INR (0.9-1.1) APTT (20.6-30.2) sec 37.3 H Fibrinogen (171-384) mg/dL 355 D-Dimer (<500) ng/mlFEU > 7500 H VBG pH (7.31-7.41) VBG pCO2 (41-51) mmHg VBG pO2 mmHg VBG HCO3 (23-28) mmol/L VBG Total CO2 (24-29) mmol/L VBG O2 Saturation % VBG Base Excess (-2-3) mmol/L VBG Lactate (<or=2.0) mmol/L Sodium (136-145) mmol/L Potassium (3.5-5.1) mmol/L Chloride (98-107) mmol/L Carbon Dioxide (20.0-31.0) mmol/L Anion Gap (3-11) mmol/L BUN (9-23) mg/dL Creatinine (0.73-1.18) mg/dL Est GFR (CKD-EPI 2020) (mL/min/1.73m2) Glucose (74-106) mg/dL Hemoglobin A1c (<5.7) % Uric Acid (3.7-9.2) mg/dL Calcium (8.3-10.6) mg/dL Phosphorus (2.4-5.1) mg/dL Magnesium (1.6-2.6) mg/dL Total Bilirubin (0.2-1.2) mg/dL AST (<34) U/L ALT (10-49) U/L Alkaline Phosphatase (46-116) U/L Lactate Dehydrogenase (120-246) U/L Creatine Kinase (46-171) U/L Troponin I (<54) ng/L NT-Pro-B Natriuret Pep (<300) pg/mL Total Protein (5.7-8.2) g/dL Albumin (3.2-5.0) g/dL TSH (0.55-4.78) uIU/mL Urine Color (Yellow) Urine Clarity (Clear) Urine pH (5-8) Ur Specific [place] (1.005-1.025) Urine Protein (Neg-Trace) mg/dL Urine Ketones (Negative) mg/dL Urine Blood (Negative) Urine Nitrite (Negative) Urine Bilirubin (Negative) Urine Urobilinogen (Up to 0.2) mg/dL Ur Leukocyte Esterase (Negative) Urine RBC (0-2) HPF Urine WBC (0-5) HPF Ur Epithelial Cells (Negative) HPF Urine Crystals (Negative) HPF Urine Bacteria (Negative) HPF Urine Casts (Negative) LPF Urine Mucus (Negative) Urine Other (Negative) Ur Culture Indicated? Urine Glucose (Negative) mg/dL Fluid Type Fluid Source Fluid Color Fluid Clarity Fluid WBC (0) uL Fld Polynuclear WBCs % % Fluid Mononuclear Cell % Fluid Glucose (See Note) mg/dL Fluid Total Protein g/dL Fluid LDH U/L COVID-19 Source SARS-CoV-2 (PCR) (Negative) Influenza Type A (PCR) (Negative) Influenza Type B (PCR) (Negative) RSV (PCR) (Negative) Path Cons Comment Add-On Test Request DONE DONE ABO/Rh Antibody Screen Range/Units 07/12/25 07/13/25 07/13/25 21:04 05:52 08:30 WBC (4.4-10.8) 10^3/uL RBC (4.36-5.78) 10^6/uL Hgb (13.5-17.5) g/dL Hct (40.0-50.0) % MCV (80-95) fL MCH (27.0-33.0) pg MCHC (32.0-36.0) % RDW (11.8-14.1) % Plt Count (130-400) 10^3/uL MPV (8.0-11.0) fL Immature Gran % % Neutrophils % % Band Neutrophils % % Lymphocytes % % Atypical Lymphs % % Monocytes % % Eosinophils % % Basophils % % Metamyelocytes % Myelocytes % Nucleated RBC % (0.0-0.3) % Absolute Neutrophils (1.2-6.7) 10^3/uL Absolute Lymphocytes (1.2-3.4) 10^3/uL Absolute Monocytes (0.1-0.8) 10^3/uL Absolute Eosinophils (0.0-0.7) 10^3/uL Absolute Basophils (0.0-0.2) 10^3/uL RBC Morphology Polychromasia Hypochromasia Anisocytosis Microcytosis PT (9.1-11.1) sec INR (0.9-1.1) APTT (20.6-30.2) sec Fibrinogen (171-384) mg/dL D-Dimer (<500) ng/mlFEU VBG pH (7.31-7.41) VBG pCO2 (41-51) mmHg VBG pO2 mmHg VBG HCO3 (23-28) mmol/L VBG Total CO2 (24-29) mmol/L VBG O2 Saturation % VBG Base Excess (-2-3) mmol/L VBG Lactate (<or=2.0) mmol/L 5.1 H* Sodium (136-145) mmol/L Potassium (3.5-5.1) mmol/L Chloride (98-107) mmol/L Carbon Dioxide (20.0-31.0) mmol/L Anion Gap (3-11) mmol/L BUN (9-23) mg/dL Creatinine (0.73-1.18) mg/dL Est GFR (CKD-EPI 2020) (mL/min/1.73m2) Glucose (74-106) mg/dL Hemoglobin A1c (<5.7) % 4.9 Uric Acid (3.7-9.2) mg/dL Calcium (8.3-10.6) mg/dL Phosphorus (2.4-5.1) mg/dL 4.1 Magnesium (1.6-2.6) mg/dL Total Bilirubin (0.2-1.2) mg/dL AST (<34) U/L ALT (10-49) U/L Alkaline Phosphatase (46-116) U/L Lactate Dehydrogenase (120-246) U/L Creatine Kinase (46-171) U/L Troponin I (<54) ng/L NT-Pro-B Natriuret Pep (<300) pg/mL Total Protein (5.7-8.2) g/dL Albumin (3.2-5.0) g/dL TSH (0.55-4.78) uIU/mL Urine Color (Yellow) Urine Clarity (Clear) Urine pH (5-8) Ur Specific [place] (1.005-1.025) Urine Protein (Neg-Trace) mg/dL Urine Ketones (Negative) mg/dL Urine Blood (Negative) Urine Nitrite (Negative) Urine Bilirubin (Negative) Urine Urobilinogen (Up to 0.2) mg/dL Ur Leukocyte Esterase (Negative) Urine RBC (0-2) HPF Urine WBC (0-5) HPF Ur Epithelial Cells (Negative) HPF Urine Crystals (Negative) HPF Urine Bacteria (Negative) HPF Urine Casts (Negative) LPF Urine Mucus (Negative) Urine Other (Negative) Ur Culture Indicated? Urine Glucose (Negative) mg/dL Fluid Type Pleural Fluid Source Pleural Fluid Color Other Fluid Clarity Cloudy Fluid WBC (0) uL 470 Fld Polynuclear WBCs % % 19 Fluid Mononuclear Cell % 81 Fluid Glucose (See Note) mg/dL 94 Fluid Total Protein g/dL 2.6 Fluid LDH U/L 177 COVID-19 Source SARS-CoV-2 (PCR) (Negative) Influenza Type A (PCR) (Negative) Influenza Type B (PCR) (Negative) RSV (PCR) (Negative) Path Cons Comment SEE COMMENT Add-On Test Request ABO/Rh Antibody Screen Range/Units 07/14/25 07/15/25 07/16/25 05:30 05:53 05:22 WBC (4.4-10.8) 10^3/uL 3.32 L 3.14 L 3.40 L RBC (4.36-5.78) 10^6/uL 3.24 L 3.44 L 3.41 L Hgb (13.5-17.5) g/dL 8.0 L 8.8 L 8.7 L Hct (40.0-50.0) % 25.2 L 27.6 L 26.9 L MCV (80-95) fL 78 L 80 79 L MCH (27.0-33.0) pg 24.7 L 25.6 L 25.5 L MCHC (32.0-36.0) % 31.7 L 31.9 L 32.3 RDW (11.8-14.1) % 19.1 H 19.5 H 19.3 H Plt Count (130-400) 10^3/uL 194 218 203 MPV (8.0-11.0) fL 9.3 9.6 9.4 Immature Gran % % 0.0 7.0 5.0 Neutrophils % % 70.0 77.4 78.8 Band Neutrophils % % 5 Lymphocytes % % 4.0 7.3 6.8 Atypical Lymphs % % 4 Monocytes % % 13.0 8.3 9.1 Eosinophils % % 0.0 0.0 0.0 Basophils % % 0.0 0.0 0.3 Metamyelocytes % 3 Myelocytes % 1 Nucleated RBC % (0.0-0.3) % 0.0 0.0 0.0 Absolute Neutrophils (1.2-6.7) 10^3/uL 2.49 2.43 2.68 Absolute Lymphocytes (1.2-3.4) 10^3/uL 0.27 L 0.23 L 0.23 L Absolute Monocytes (0.1-0.8) 10^3/uL 0.43 0.26 0.31 Absolute Eosinophils (0.0-0.7) 10^3/uL 0.00 0.00 0.00 Absolute Basophils (0.0-0.2) 10^3/uL 0.00 0.00 0.01 RBC Morphology See Below Polychromasia Present Hypochromasia 1+ Anisocytosis 2+ Microcytosis 2+ PT (9.1-11.1) sec INR (0.9-1.1) APTT (20.6-30.2) sec Fibrinogen (171-384) mg/dL D-Dimer (<500) ng/mlFEU VBG pH (7.31-7.41) VBG pCO2 (41-51) mmHg VBG pO2 mmHg VBG HCO3 (23-28) mmol/L VBG Total CO2 (24-29) mmol/L VBG O2 Saturation % VBG Base Excess (-2-3) mmol/L VBG Lactate (<or=2.0) mmol/L Sodium (136-145) mmol/L 134 L 138 Potassium (3.5-5.1) mmol/L 4.0 4.9 Chloride (98-107) mmol/L 95 L 98 Carbon Dioxide (20.0-31.0) mmol/L 28.0 31.4 H Anion Gap (3-11) mmol/L 10.6 8.4 BUN (9-23) mg/dL 15 14 Creatinine (0.73-1.18) mg/dL 0.72 L 0.68 L Est GFR (CKD-EPI 2020) (mL/min/1.73m2) 117.37 125.37 Glucose (74-106) mg/dL 93 78 Hemoglobin A1c (<5.7) % Uric Acid (3.7-9.2) mg/dL Calcium (8.3-10.6) mg/dL 8.0 L 8.4 Phosphorus (2.4-5.1) mg/dL Magnesium (1.6-2.6) mg/dL 1.6 Total Bilirubin (0.2-1.2) mg/dL 1.4 H 1.4 H AST (<34) U/L 45 H 54 H ALT (10-49) U/L 14 16 Alkaline Phosphatase (46-116) U/L 78 83 Lactate Dehydrogenase (120-246) U/L Creatine Kinase (46-171) U/L Troponin I (<54) ng/L NT-Pro-B Natriuret Pep (<300) pg/mL Total Protein (5.7-8.2) g/dL 4.4 L 4.5 L Albumin (3.2-5.0) g/dL 2.9 L 2.9 L TSH (0.55-4.78) uIU/mL Urine Color (Yellow) Urine Clarity (Clear) Urine pH (5-8) Ur Specific [place] (1.005-1.025) Urine Protein (Neg-Trace) mg/dL Urine Ketones (Negative) mg/dL Urine Blood (Negative) Urine Nitrite (Negative) Urine Bilirubin (Negative) Urine Urobilinogen (Up to 0.2) mg/dL Ur Leukocyte Esterase (Negative) Urine RBC (0-2) HPF Urine WBC (0-5) HPF Ur Epithelial Cells (Negative) HPF Urine Crystals (Negative) HPF Urine Bacteria (Negative) HPF Urine Casts (Negative) LPF Urine Mucus (Negative) Urine Other (Negative) Ur Culture Indicated? Urine Glucose (Negative) mg/dL Fluid Type Fluid Source Fluid Color Fluid Clarity Fluid WBC (0) uL Fld Polynuclear WBCs % % Fluid Mononuclear Cell % Fluid Glucose (See Note) mg/dL Fluid Total Protein g/dL Fluid LDH U/L COVID-19 Source SARS-CoV-2 (PCR) (Negative) Influenza Type A (PCR) (Negative) Influenza Type B (PCR) (Negative) RSV (PCR) (Negative) Path Cons Comment Add-On Test Request ABO/Rh Antibody Screen Range/Units 07/17/25 06:20 WBC (4.4-10.8) 10^3/uL RBC (4.36-5.78) 10^6/uL Hgb (13.5-17.5) g/dL Hct (40.0-50.0) % MCV (80-95) fL MCH (27.0-33.0) pg MCHC (32.0-36.0) % RDW (11.8-14.1) % Plt Count (130-400) 10^3/uL MPV (8.0-11.0) fL Immature Gran % % Neutrophils % % Band Neutrophils % % Lymphocytes % % Atypical Lymphs % % Monocytes % % Eosinophils % % Basophils % % Metamyelocytes % Myelocytes % Nucleated RBC % (0.0-0.3) % Absolute Neutrophils (1.2-6.7) 10^3/uL Absolute Lymphocytes (1.2-3.4) 10^3/uL Absolute Monocytes (0.1-0.8) 10^3/uL Absolute Eosinophils (0.0-0.7) 10^3/uL Absolute Basophils (0.0-0.2) 10^3/uL RBC Morphology Polychromasia Hypochromasia Anisocytosis Microcytosis PT (9.1-11.1) sec INR (0.9-1.1) APTT (20.6-30.2) sec Fibrinogen (171-384) mg/dL D-Dimer (<500) ng/mlFEU VBG pH (7.31-7.41) VBG pCO2 (41-51) mmHg VBG pO2 mmHg VBG HCO3 (23-28) mmol/L VBG Total CO2 (24-29) mmol/L VBG O2 Saturation % VBG Base Excess (-2-3) mmol/L VBG Lactate (<or=2.0) mmol/L Sodium (136-145) mmol/L Potassium (3.5-5.1) mmol/L Chloride (98-107) mmol/L Carbon Dioxide (20.0-31.0) mmol/L Anion Gap (3-11) mmol/L BUN (9-23) mg/dL Creatinine (0.73-1.18) mg/dL Est GFR (CKD-EPI 2020) (mL/min/1.73m2) Glucose (74-106) mg/dL Hemoglobin A1c (<5.7) % Uric Acid (3.7-9.2) mg/dL 2.5 L Calcium (8.3-10.6) mg/dL Phosphorus (2.4-5.1) mg/dL Magnesium (1.6-2.6) mg/dL Total Bilirubin (0.2-1.2) mg/dL AST (<34) U/L ALT (10-49) U/L Alkaline Phosphatase (46-116) U/L Lactate Dehydrogenase (120-246) U/L 303 H Creatine Kinase (46-171) U/L Troponin I (<54) ng/L NT-Pro-B Natriuret Pep (<300) pg/mL Total Protein (5.7-8.2) g/dL Albumin (3.2-5.0) g/dL TSH (0.55-4.78) uIU/mL Urine Color (Yellow) Urine Clarity (Clear) Urine pH (5-8) Ur Specific [place] (1.005-1.025) Urine Protein (Neg-Trace) mg/dL Urine Ketones (Negative) mg/dL Urine Blood (Negative) Urine Nitrite (Negative) Urine Bilirubin (Negative) Urine Urobilinogen (Up to 0.2) mg/dL Ur Leukocyte Esterase (Negative) Urine RBC (0-2) HPF Urine WBC (0-5) HPF Ur Epithelial Cells (Negative) HPF Urine Crystals (Negative) HPF Urine Bacteria (Negative) HPF Urine Casts (Negative) LPF Urine Mucus (Negative) Urine Other (Negative) Ur Culture Indicated? Urine Glucose (Negative) mg/dL Fluid Type Fluid Source Fluid Color Fluid Clarity Fluid WBC (0) uL Fld Polynuclear WBCs % % Fluid Mononuclear Cell % Fluid Glucose (See Note) mg/dL Fluid Total Protein g/dL Fluid LDH U/L COVID-19 Source SARS-CoV-2 (PCR) (Negative) Influenza Type A (PCR) (Negative) Influenza Type B (PCR) (Negative) RSV (PCR) (Negative) Path Cons Comment Add-On Test Request ABO/Rh Antibody Screen Imaging Chest x-ray: report reviewed and image reviewed
--- NOTE | 2025-07-17 15:17 | PGE_ITS ---
Date of Service Date of service: 07/17/25 Time of Service: 08:00 Assessment and Plan Assessment and plan (1) Acute hypoxic respiratory failure: Status: Acute Assessment and plan: Hypoxemic while flat in bed to SpO2 mid-80's Otherwise SpO2 88-92 on NC 1-2L More comfortable after thoracentesis Anticipating need for home O2 at discharge Repeat CXR Jul 16 evening Pulm update Jul 17: patient would benefit from repeat thoracentesis but at this time he defers (2) Pleural effusion on left: Status: Acute Assessment and plan: Jul [address] Flanagan, pulmonology, 2L out with moderate WBCs, no bacteria Pleural fluid protein, LDH, cytology, cultures, pathology pending Given recent lymphoma diagnosis, likely malignant effusion, also consider cardiogenesis May need additional pleural drainage as fluid is likely to re-accumulate Echocardiogram done, suboptimal study, EF 60% Followed by [facility] [place], currently being worked up for lymphoma, substantial mediastinal and retroperitoneal lymphadenopathy VTE chemoprophylaxis held prior to thoracentesis, lovenox ordered (pt with high risk of VTE, Srikanth score 5) Jul 15 CXR showing improvement in left effusion, larger right effusion, marked increase in bibasilar densities Jul 16 CXR with worsening effusions. Will repeat CXR for Jul 18 (3) Tumor lysis syndrome: Status: Acute Assessment and plan: -Dr Mae discussed case with Dr Infante, [facility] mammalogist on 07/12; she did not believe labs were clearly c/w TLS, recommended LDH, uric acid (if >4, allopurinol advised), and labs to r/o DIC -Elevated LDH 350. Uric acid 4.6, Allopurinol started 300 mg PO QHS Jul 16: Repeat LDH & uric acid in the AM. Jul 17: LDH and uric acid lower. Continue allopurinol. (4) Acute lactic acidosis: Status: Resolved Assessment and plan: -Severe lactic acidosis on presentation, improved with fluid resuscitation (9.1 >5.1) -Sepsis vs tumor lysis vs active malignancy -Antibiotics given in ED, discontinued (5) Sinus tachycardia: Status: Acute Assessment and plan: -Tachycardic in the 120's - 140's on prior ED visits -continues to remain tachycardic with HR 120s-130s at rest, up to 160s with movement -metoprolol 25 mg PO BID for rate control, increased to 37.5 BID on Jul 15 -echo ordered, waiting for rate control to perform Home medication list not available but previously he was on haldol, one dose given 07/12. Pharmacy performing med reconcilitation -Some improvement with PO ativan 1 mg one time dose given 07/12 Increased metoprolol to 37.5 BID Off telemetry, still monitoring SpO2 and HR Jul 17: improved, HR < 110 today. Continue medical management. (6) Lower extremity edema: Status: Chronic Assessment and plan: -Left significantly worse than right, concerning for VTE vs lymphatic obstruction -US BLE doppler performed 07/13, no DVT (7) Mediastinal lymphadenopathy: Status: Chronic Assessment and plan: -Noted on imaging back to March 2025, currently being worked up at [facility] for probable lymphoma -Likely needing social support -Palliative care consult (8) Schizoaffective disorder: Assessment and plan: -Per medical record -Home medications not available - per patient he gets all of his meds from [facility], pharmacy performing med reconcilation (9) Diabetes: Assessment and plan: -history of T2DM, not currently on any medicaitons. A1C 4.9 performed 07/13 (10) Hypothyroidism: Assessment and plan: -Noted history, unclear if he is on any meds, waiting for med rec -TSH done in ED, unremarkable (11) Hypertension: Assessment and plan: -Noted history, unclear if he is on any meds, waiting for med rec -normotensive since admission, will continue to monitor (12) Hemorrhoids: Assessment and plan: -Patient reports that he defecates about once per week and has bleeding with defecation, has h/o hemorrhoids -Bowel regimen ordered -will continue to monitor for signs of active lower GI bleeding Subjective Subjective Interval history since last seen: Mr. Figueroa is comfortable, up in a chair. Continuing dyspnea. Exam Narrative Exam Narrative: General: This is a pleasant, obese man in mild distress on bipap HEENT: Normocephalic, atraumatic CV: tachycardia, regular rhythm. BLE 2+ pitting edema to the knee Resp: Diminished bibasilar breath sounds, left worse than right. Dullness to percussion LLL. Thoracentesis site c/d/i. Abd: NTND +NBS MSK: voluntary motion x4 Neuro: awake, alert, no focal deficits Objective Last Vital Signs Temp 36.8 C 07/17/25 15:10 Pulse 95 H 07/17/25 15:10 Resp 16 07/17/25 15:10 BP 109/66 07/17/25 15:10 Pulse Ox 91 L 07/17/25 15:10 Laboratory Results - last 24 hr 07/13/25 07/17/25 08:30 06:20 Uric Acid 2.5 L Lactate Dehydrogenase 303 H Fluid Type Pleural Fluid Total Protein 2.6 Fluid LDH 177 VTE Prohylaxis Risk Level: Moderate/High Risk Contraindications: Active bleed/high bleed risk (thoracentesis likely in the morning) Prophylaxis: Mechanical Time Spent with Patient Time Spent with Patient: 25-34 minutes Time was spent: preparing to see the patient(eg.review tests), obtaining and/or reviewing separately otained hiistory, ordering medications,tests, procedures, referring, communicating with other health neonatal intensive care unit nurse, indepentently interpreting results, counseling the patient and care coordination
--- NOTE | 2025-07-17 15:18 | IN_ITS ---
PT Notes Visit Reasons: Failure to thrive Physical Therapy Inpatient Initial Evaluation Date: 07/17/2025 Referring Doctor: Bolivar Dimas MD PT Orders: PT CONSULT: Safety COnsult for D/C Precautions: Fall. Standard. Activity as tolerated. Patient Profile/Admitting Diagnosis: Miriam is a 45-year-old male patient who presented to the ED due to worsening dyspnea and LE swelling with fever that started on 07/14/2025. Patient is admitted to acute level of care for management of moderate B pleural effusion S/P thoracentesis with 1.8 L of fluid removed on 07/13/2025, acute hypoxemic respiratory failure, lymphoma, mediastinal lymphadenopathy, and sinus tachycardia. PMHx: Refer Below All Active Problems (Updated 07/13/25 @ 00:40 by Bolivar Dimas MD) Tumor lysis syndrome (Acute) Lower extremity edema (Acute) Hyperbilirubinemia (Acute) Elevated INR (Acute) Acute lactic acidosis (Acute) Pleural effusion on left (Acute) Sinus tachycardia (Acute) Microcytic anemia (Acute) Left leg swelling (Acute) Mediastinal lymphadenopathy (Acute) Acute hypoxic respiratory failure (Acute) No-show for appointment (Acute) Bursitis of right shoulder (Acute) Impingement syndrome of right shoulder (Acute) Tendonitis of long head of biceps brachii of right shoulder (Acute) Medical History (Updated 07/13/25 @ 00:40 by Bolivar Dimas MD) Sinusitis Right arm pain Chronic cough Keloid scar Tinea cruris Hemorrhoids Hypothyroidism GERD (gastroesophageal reflux disease) DDD (degenerative disc disease) Hypertension Testicular pain, left Rectal bleeding Thrombocytopenia Schizoaffective disorder Hyperlipidemia History of gastric polyp Developmental delay, mild Chronic low back pain Morbid obesity Diabetes Shortness of breath Severe obstructive sleep apnea Subclinical hypothyroidism Surgical History (Updated 12/14/19 @ 13:07 by Christine Mauricio) H/O endoscopy Social History/Home Situation: Temporarily experiencing homelessness. Lived with sister in a local hotel here in town for a year now. Equipment Owned/DME: None Subjective: Agreeable to consult. Denied headache, chest pain, shortness of breath, and lightheadedness throughout session. Objective: General Observation: Resting in bed. O2 supp via NC. Swelling in B legs and feet. Mental Status: Alert and oriented as to person, place, time, and purpose. Able to pay attention, focus, and respond appropriately. Pain: None reported Vital Signs: Closely monitored by nursing staff ROM: Right Upper Extremity: Shoulder Flexion WFL. Shoulder abduction WFL. Elbow flexion WFL. Wrist flexion WFL. Functional opening and closing of hand WFL. Left Upper Extremity: Shoulder Flexion WFL. Shoulder abduction WFL. Elbow flexion WFL. Wrist flexion WFL. Functional opening and closing of hand WFL. Right Lower Extremity: Hip flexion WFL. Hip abduction WFL. Knee flexion WFL. Ankle dorsiflexion WFL. Ankle plantarflexion WFL. Left Lower Extremity: Hip flexion WFL. Hip abduction WFL. Knee flexion WFL. Ankle dorsiflexion WFL. Ankle plantarflexion WFL. Strength: Right Upper Extremity: Shoulder flexors 4/5. Shoulder abductors 4/5. Elbow flexors 5/5. Elbow extensors 5/5. Caretaker Grounds strong. Left Upper Extremity: Shoulder flexors 4/5. Shoulder abductors 4/5. Elbow flexors 5/5. Elbow extensors 5/5. Caretaker Grounds strong. Right Lower Extremity: Hip flexors 4/5. Hip abductors 4/5. Knee flexors 5/5. Knee extensors 5/5. Ankle dorsiflexors 4/5. Ankle plantarflexors 4/5. Left Lower Extremity: Hip flexors 4/5. Hip abductors 4/5. Knee flexors 5/5. Knee extensors 5/5. Ankle dorsiflexors 4/5. Ankle plantarflexors 4/5. Bed Mobility/Transfers: Rolling independent Supine to sit independent Sit to supine independent Sit to stand independent Stand to sit independent Gait: 300 feet without an assstive device. Supervision only. 0.5 L of O2/minute via NC. Balance: Static Sitting: Normal Dynamic Sitting: Normal Static Standing: Good Dynamic Standing: Good Special Tests: Mobility Limitations Standardized Measure [facility] AM-PAC 6 clicks Basic Mobility Inpatient Short Form: Raw Score: 23 CMS Score: 11% deficit Informed Consent/Education: Patient was instructed in purpose of PT consult and was agreebale to mobility assessment and PT plan of care. Assessment: Patient presents with clinical signs and symptoms consistent with current/admitting diagnoses that have resulted to mobility limitations as demonstrated by the following impairment level findings: 1. Minimal shortness of breath 2. Acute swelling in B legs and feet Impairments are contributing to the following functional limitations: 1. Increased completion time for mobility ADL performance Patient is [place] 76130 low complexity based on the following: History: 45-year-old male with past medical history as indicated above Examination: Demonstrable impairment in strength, balance, and mobility level with underlying impairments and functional limitations as exhibited above as well as deficit score of 23% utilizing the [facility] Mobility Inpatient Short Form Presentation: Evolving Decision Makin low complexity Goals: After 1-2 sessions 1. Patient will be independent with level surface ambulation using no assistive device. 2. Patient will be independent with HEP performance to maintain independent functional level. Plan of Care/Treatment Plan: Patient will be seen 1-2 more sessions for HEP instruction and stairs training. DISCHARGE RECOMMENDATIONS: Home with no services. No equipment needs. TREATMENT CODE/TIME: 27652 x 27 minutes for 1 unit (15:18-15:55). Thank you for the opportunity to participate in the care of this patient. Wendy Montano PT, DPT, CLT [facility] [place], [place]
--- NOTE | 2025-07-17 17:46 | W.PC.ACHO ---
Registration Status: ADM IN Primary Language: Preferred Language: Danish ED Information & Data Chief Complaint GenMedical 07/12/25 15:40 Chief Complaint GenMedical 07/12/25 15:39 Triage Note Shortness of breath and 07/12/25 15:39 weakness for 2 weeks. Feels unsteady on his feet. Nausea and vomiting. No apparent cause to symptoms. Medical / Surgical History (Last Reviewed 12/14/19 @ 13:06 by Christine Mauricio) Sinusitis Right arm pain Chronic cough Keloid scar Tinea cruris Hemorrhoids Hypothyroidism GERD (gastroesophageal reflux disease) DDD (degenerative disc disease) Hypertension Testicular pain, left Rectal bleeding Thrombocytopenia Schizoaffective disorder Hyperlipidemia History of gastric polyp Developmental delay, mild Chronic low back pain Morbid obesity Diabetes Shortness of breath Severe obstructive sleep apnea Subclinical hypothyroidism (Last Updated 12/14/19 @ 13:07 by Christine Mauricio) H/O endoscopy Most Recent Vital Signs Temperature 36.8 C 07/17/25 15:10 Temperature Source Temporal Artery Scan 07/17/25 15:10 Pulse 95 H 07/17/25 15:10 Pulse Rhythm Regular 07/16/25 19:23 Pulse 94 H 07/17/25 00:30 Respiratory Rate 16 07/17/25 15:10 Respiratory Effort Short of Breath, Incrsd Work of Breathing 07/16/25 19:23 Respiratory Depth Shallow 07/16/25 19:23 Respiratory Pattern Tachypnea 07/16/25 19:23 Blood Pressure 109/66 07/17/25 15:10 Blood Pressure Mean 80 07/17/25 15:10 Blood Pressure Position Sitting 07/12/25 15:39 Pulse Oximetry 91 L 07/17/25 15:10 Oxygen Delivery Method Room Air 07/17/25 15:10 Oxygen Flow Rate 0 07/17/25 15:10 Fraction of Inspired Oxygen (FIO2) 30 07/16/25 07:50 Pain Level 0 07/17/25 15:10 Comment pt asleep at this time 07/16/25 23:32 Allergies bee venom protein (honey bee) Allergy (Severe, Verified 07/12/25 15:41) Anaphylaxsis hornet venom Allergy (Severe, Verified 07/12/25 15:41) Anaphylaxsis Active Medications Generic Name Dose Route Start Last Admin Trade Name Freq PRN Reason Stop Dose Admin Acetaminophen 650 mg 07/14/25 12:16 07/17/25 01:33 Acetaminophen 325 Mg Tab PO 650 mg Q6H PRN PRN Administration Allopurinol 300 mg 07/13/25 20:00 07/16/25 19:49 Allopurinol 300 Mg Tab PO 300 mg HS GLORIA Administration Docusate Sodium 100 mg 07/13/25 08:30 07/17/25 08:50 Docusate Sodium 100 Mg Cap PO 100 mg BID GLORIA Administration Enoxaparin Sodium 40 mg 07/13/25 09:50 07/17/25 08:50 Enoxaparin 40 Mg/0.4 Ml Syr SC 40 mg DAILY GLORIA Administration Fluoxetine HCl 40 mg 07/13/25 11:30 07/17/25 08:51 Fluoxetine 20 Mg Cap PO 40 mg DAILY GLORIA Administration Haloperidol 1 mg 07/13/25 11:31 07/17/25 01:33 Haloperidol 1 Mg Tab PO 1 mg TID PRN PRN Administration Metoprolol Tartrate 37.5 mg 07/15/25 20:00 07/17/25 08:50 Metoprolol 25 Mg Tab PO 37.5 mg BID GLORIA Administration Paliperidone 3 mg 07/13/25 20:00 07/16/25 19:48 Paliperidone E.R. 1.5 Mg Tab PO 3 mg HS GLORIA Administration Polyethylene Glycol 17 gm 07/13/25 08:30 07/17/25 08:50 Polyethylene Glycol 3350 17 Gm Packet PO 17 gm BID GLORIA Administration Sennosides 1 tab 07/12/25 22:29 07/17/25 01:33 Senna Tab PO 1 tab BID PRN PRN Administration Sodium Chloride 0 ml 07/12/25 16:47 07/14/25 22:21 Normal Saline Flush 10 Ml Syr IVP 10 ml PRN PRN Administration Trazodone HCl 200 mg 07/13/25 20:00 07/16/25 19:49 Trazodone 100 Mg Tab PO 200 mg HS GLORIA Administration IV IV Catheter Type [Left Forearm Saline Lock ] IV Catheter Type [Right Wrist] Saline Lock IV Catheter Type [Right Saline Lock Antecubital] IV Catheter Gauge [Left 20 Forearm] IV Catheter Gauge [Right Wrist 20 ] IV Catheter Gauge [Right 20 Antecubital] Diagnostics 07/17/25 07/13/25 Range/Units 06:20 08:30 Uric Acid 2.5 L (3.7-9.2) mg/dL Lactate Dehydrogenase 303 H (120-246) U/L Fluid Type Pleural Fluid Total Protein 2.6 g/dL Fluid LDH 177 U/L 07/13/25 08:30 Anaerobic Culture - Preliminary Pleural - Left 07/13/25 08:30 Body Fluid Culture - Preliminary Pleural - Left Gram Stain - Final 07/12/25 16:28 Blood Culture - Preliminary Blood NO GROWTH 96 HOURS 07/12/25 15:55 Blood Culture - Preliminary Blood NO GROWTH 96 HOURS [id number] Documentation Fingerstick Glucose Start: 07/12/25 21:47 Freq: Status: Cancelled Protocol: Activity Type Activity Date Activity User E-sign Co-sign Detail Recorded Client Recorded Date Recorded By Document 07/12/25 21:46 BKG DAEMON(3) [id number] 07/12/25 21:47 BKG DAEMON(4) Intake and Output - 24 Hour Total 07/12/25 15:37 thru 07/17/25 13:07 Intake Total 8396.667 Output Total 4535 Balance 3861.667 Weight 143.6 kg Intake: IV 1546.667 Oral 6850 Output: Urine 4535 Other: Urine Color Yellow Urine Appearance Clear Urine Odor Normal Comment pt voided on the floor/trash can Stool Size Small Stool Characteristics Soft Formed Falls Risk Assessment History of Falls Admit Due to Fall 07/16/25 19:23 Contributing Factors Confusion,Unstable, 07/16/25 19:23 Incontinence Ambulatory Aids Independent 07/16/25 19:23 Tubes/Lines None 07/16/25 19:23 Gait Evaluation W/any additional score 07/16/25 19:23 Cognition No cognitive impairment 07/16/25 19:23 Fall Total Score 54 07/16/25 19:23 Level of Risk High Risk 07/16/25 19:23 Problems (Last Reviewed 12/14/19 @ 13:06 by Christine Mauricio) Bilateral pleural effusion (Acute) Tumor lysis syndrome (Acute) Lower extremity edema (Acute) Hyperbilirubinemia (Acute) Elevated INR (Acute) Acute lactic acidosis (Acute) Pleural effusion on left (Acute) Sinus tachycardia (Acute) Microcytic anemia (Acute) Left leg swelling (Acute) Mediastinal lymphadenopathy (Acute) Acute hypoxic respiratory failure (Acute) Attestation Statement: By documenting the first initial, last name, and credentials of the reporting nurse below, both parties acknowledge that all relevant information regarding the patient handoff has been communicated, and that all questions have been addressed to ensure continuity and safety of care. Additional Patient Information/Comments: Report Received From: received report and started care in ICU. pt and this RN moved to [place] together
[2025-07-17] MEDS: [UNRECOGNIZED DRUG - OTHER] 3 MG PO (20:16)
[2025-07-17] MEDS: traZODone 100 MG TAB 200 MG PO (20:16)
[2025-07-17] MEDS: Allopurinol 300 MG TAB PO (20:18)
[2025-07-17] MEDS: Normal Saline Flush 10 ML SYR IVP (20:20)
[2025-07-18] VITALS (11 sets, daily range): BP systolic 104–114; BP diastolic 73–87; PULSE 98–107; RESP 18–20; TEMP 36.9–38.3; O2SAT 64–95
--- NOTE | 2025-07-18 | DI.RAD_ITS ---
Exam(s) XR PORTABLE CHEST AP EXAM: XR PORTABLE CHEST AP CLINICAL HISTORY: post-thoracentesis on left TECHNIQUE: 2D digital imaging was performed of the chest. One image was obtained. An AP view was obtained. COMPARISON: CR,XR XR PORTABLE CHEST AP from 07/15/2025 CR,XR XR CHEST 2V PA LATERAL from 07/16/2025 FINDINGS: MEDIASTINUM: Normal. HEART: Cardiomegaly. PULMONARY VASCULATURE: Normal. LUNGS: The bilateral infiltrates show some improvement compared to the prior examination. PLEURAL SPACE: There is again seen a right pleural effusion. No significant left pleural effusion is seen. There is no pneumothorax. BONE:Within normal limits for the patient's age. OTHER FINDINGS:Normal. IMPRESSION: Overall, there has been an improvement in the appearance of the chest x-ray, specifically concerning the pulmonary infiltrates and the left pleural effusion. DATA REPOSITORY: RADIATION DOSE DELIVERED:
--- NOTE | 2025-07-18 06:31 | PGE_ITS ---
Assessment and Plan Assessment and plan (1) Acute hypoxic respiratory failure: Status: Acute (2) Bilateral pleural effusion: Status: Acute (3) Mediastinal lymphadenopathy: Status: Chronic General Date Of Service Date of service: 07/18/25 Time of Service: 07:45 Requesting physician: Bolivar Dimas Reason for Consult: Pleural effusion Recommendations: Assessment: 1. Bilateral pleural effusions - present since his PET-CT in 06/2025 at [facility] [place]. Given underlying lymphoma, malignant effusion is a concern. Cardiogenic effusions are also possible, although, echo was unremarkable Unlikely infectious. S/P left thoracentesis with 1.8 L removed on 07/13 and 1.6 L removed on 07/18. Pleural fluid analysis showed a borderline exudate (protein ratio > 0.5). LDH pleural fluid was only 177. 2. Acute hypoxemic respiratory failure - improved post-thoracentesis. Intermittently on oxygen 3. Lymphoma - workup is ongoing. Recent bone marrow biopsy was suspicious for lymphoma. Had chest/abd/pelvic FDG avid lymph nodes on PET-CT in 06/2025. Pleural fluid cytopathology is pending 4. Mediastinal lymphadenopathy - likely related to underlying lymphoma Recommendations - follow up on pleural fluid flow cytometry and cytopathology - given borderline exudative analysis in the pleural fluid and hypervolemia on exam, will give lasix 40 mg IV BID today - BMP in the AM Discussed with Dr. Dimas Subjective Note Note: Patient is a 45 yo with a history of schizoaffective disorder and lymphoma who was admitted on 07/12/25 for worsening dyspnea and acute hypoxemic respiratory failure He was admitted for worsening dyspnea and LE swelling since 06/2025. CXR in the ED showed a large left pleural effusion. Was initially placed on BiPAP due to respiratory distress. Thoracentesis was completed 07/13 with 1.8 L removed from the left pleural space. Fluid analysis showed a borderline exudate. Repeat left thoracentesis was completed on 07/18 with 1.6 L removed PET-CT at [facility] 06/23/25 noted moderate left and small right pleural effusions. Mutiple FDG avid lymph nodes were noted in the mediastinal, hilar, retroperitoneal, and iliac regions. He underwent bone marrow biopsy at [facility] on 07/05/25, which showed abnormal lymphohistiocytic aggregates, suspicious for lymphoma. He has intermittently been on oxygen. Did well most of the night without O2. Denied cough, chest pain, or dyspnea at rest. ROS: 6 pt ROS negative except as above Sx: Tobacco use: none Alcohol use: none Exam Narrative Exam Narrative: General: alert, no acute distress Head: normocephalic ENT: no stridor, trachea midline CV: tachyardic, regular rhythm Respiratory: no wheezing, no crackles, no rhonchi, no prolonged expiration GI: abd soft, non-tender, non-distended Skin: no rashes Extremities: +2 edema, no digital clubbing Psych: flat affect Objective Last Vital Signs Temp 37.2 C 07/18/25 03:58 Pulse 113 H 07/17/25 20:05 Resp 20 07/17/25 20:05 BP 126/83 07/17/25 20:05 Pulse Ox 94 07/18/25 03:58 Laboratory Results - last 24 hr 07/13/25 07/17/25 08:30 06:20 Uric Acid 2.5 L Lactate Dehydrogenase 303 H Fluid Type Pleural Fluid Total Protein 2.6 Fluid LDH 177 Results Medications Medications: Active Medications Generic Name Dose Route Start Last Admin Trade Name Freq PRN Reason Stop Dose Admin Acetaminophen 650 mg 07/14/25 12:16 07/17/25 20:17 Acetaminophen 325 Mg Tab PO 650 mg Q6H PRN PRN Administration Allopurinol 300 mg 07/13/25 20:00 07/17/25 20:18 Allopurinol 300 Mg Tab PO 300 mg HS GLORIA Administration Bisacodyl 10 mg 07/12/25 22:29 Bisacodyl 10 Mg Supp AK DAILY PRN PRN Docusate Sodium 100 mg 07/13/25 08:30 07/17/25 20:17 Docusate Sodium 100 Mg Cap PO 100 mg BID GLORIA Administration Enoxaparin Sodium 40 mg 07/13/25 09:50 07/17/25 08:50 Enoxaparin 40 Mg/0.4 Ml Syr SC 40 mg DAILY GLORIA Administration Fluoxetine HCl 40 mg 07/13/25 11:30 07/17/25 08:51 Fluoxetine 20 Mg Cap PO 40 mg DAILY GLORIA Administration Haloperidol 1 mg 07/13/25 11:31 07/17/25 01:33 Haloperidol 1 Mg Tab PO 1 mg TID PRN PRN Administration Metoprolol Tartrate 37.5 mg 07/15/25 20:00 07/17/25 20:18 Metoprolol 25 Mg Tab PO 37.5 mg BID GLORIA Administration Paliperidone 3 mg 07/13/25 20:00 07/17/25 20:16 Paliperidone E.R. 1.5 Mg Tab PO 3 mg HS GLORIA Administration Polyethylene Glycol 17 gm 07/13/25 08:30 07/17/25 20:19 Polyethylene Glycol 3350 17 Gm Packet PO 17 gm BID GLORIA Administration Sennosides 1 tab 07/12/25 22:29 07/17/25 01:33 Senna Tab PO 1 tab BID PRN PRN Administration Sodium Chloride 0 ml 07/12/25 16:47 07/17/25 20:20 Normal Saline Flush 10 Ml Syr IVP 40 ml PRN PRN Administration Trazodone HCl 200 mg 07/13/25 20:00 07/17/25 20:16 Trazodone 100 Mg Tab PO 200 mg HS GLORIA Administration Allergies bee venom protein (honey bee) Allergy (Severe, Verified 07/12/25 15:41) Anaphylaxsis hornet venom Allergy (Severe, Verified 07/12/25 15:41) Anaphylaxsis Labs 07/16/25 05:22 07/15/25 05:53 Labs: 07/12/25 16:28 Blood Blood Culture - Final NO GROWTH 120 HOURS 07/12/25 15:55 Blood Blood Culture - Final NO GROWTH 120 HOURS 07/13/25 08:30 Pleural - Left Anaerobic Culture - Preliminary 07/13/25 08:30 Pleural - Left Body Fluid Culture - Preliminary 07/13/25 08:30 Pleural - Left Gram Stain - Final Laboratory Tests Range/Units 07/12/25 07/12/25 07/12/25 15:55 16:00 16:28 WBC (4.4-10.8) 10^3/uL 4.79 RBC (4.36-5.78) 10^6/uL 3.95 L Hgb (13.5-17.5) g/dL 9.7 L Hct (40.0-50.0) % 30.8 L MCV (80-95) fL 78 L MCH (27.0-33.0) pg 24.6 L MCHC (32.0-36.0) % 31.5 L RDW (11.8-14.1) % 19.2 H Plt Count (130-400) 10^3/uL 243 MPV (8.0-11.0) fL 9.3 Immature Gran % % 4.2 Neutrophils % % 77.9 Band Neutrophils % % Lymphocytes % % 5.6 Atypical Lymphs % % Monocytes % % 11.7 Eosinophils % % 0.0 Basophils % % 0.6 Metamyelocytes % Myelocytes % Nucleated RBC % (0.0-0.3) % 0.0 Absolute Neutrophils (1.2-6.7) 10^3/uL 3.73 Absolute Lymphocytes (1.2-3.4) 10^3/uL 0.27 L Absolute Monocytes (0.1-0.8) 10^3/uL 0.56 Absolute Eosinophils (0.0-0.7) 10^3/uL 0.00 Absolute Basophils (0.0-0.2) 10^3/uL 0.03 RBC Morphology Polychromasia Hypochromasia Anisocytosis Microcytosis PT (9.1-11.1) sec 13.5 H INR (0.9-1.1) 1.4 H APTT (20.6-30.2) sec Fibrinogen (171-384) mg/dL D-Dimer (<500) ng/mlFEU VBG pH (7.31-7.41) 7.41 VBG pCO2 (41-51) mmHg 36 L VBG pO2 mmHg 50 VBG HCO3 (23-28) mmol/L 23 VBG Total CO2 (24-29) mmol/L 21 L VBG O2 Saturation % 84 VBG Base Excess (-2-3) mmol/L -2 VBG Lactate (<or=2.0) mmol/L 9.1 H* Sodium (136-145) mmol/L 133 L Potassium (3.5-5.1) mmol/L 4.0 Chloride (98-107) mmol/L 94 L Carbon Dioxide (20.0-31.0) mmol/L 22.4 Anion Gap (3-11) mmol/L 16.9 H BUN (9-23) mg/dL 17 Creatinine (0.73-1.18) mg/dL 0.88 Est GFR (CKD-EPI 2020) (mL/min/1.73m2) 93.11 Glucose (74-106) mg/dL 138 H Hemoglobin A1c (<5.7) % Uric Acid (3.7-9.2) mg/dL 4.6 Calcium (8.3-10.6) mg/dL 8.0 L Phosphorus (2.4-5.1) mg/dL Magnesium (1.6-2.6) mg/dL 1.6 Total Bilirubin (0.2-1.2) mg/dL 1.9 H AST (<34) U/L 49 H ALT (10-49) U/L 16 Alkaline Phosphatase (46-116) U/L 93 Lactate Dehydrogenase (120-246) U/L 350 H Creatine Kinase (46-171) U/L 28 L Troponin I (<54) ng/L < 3 NT-Pro-B Natriuret Pep (<300) pg/mL 114 Total Protein (5.7-8.2) g/dL 5.1 L Albumin (3.2-5.0) g/dL 3.3 TSH (0.55-4.78) uIU/mL 2.14 Urine Color (Yellow) Urine Clarity (Clear) Urine pH (5-8) Ur Specific [place] (1.005-1.025) Urine Protein (Neg-Trace) mg/dL Urine Ketones (Negative) mg/dL Urine Blood (Negative) Urine Nitrite (Negative) Urine Bilirubin (Negative) Urine Urobilinogen (Up to 0.2) mg/dL Ur Leukocyte Esterase (Negative) Urine RBC (0-2) HPF Urine WBC (0-5) HPF Ur Epithelial Cells (Negative) HPF Urine Crystals (Negative) HPF Urine Bacteria (Negative) HPF Urine Casts (Negative) LPF Urine Mucus (Negative) Urine Other (Negative) Ur Culture Indicated? Urine Glucose (Negative) mg/dL Fluid Type Fluid Source Fluid Color Fluid Clarity Fluid WBC (0) uL Fld Polynuclear WBCs % % Fluid Mononuclear Cell % Fluid Glucose (See Note) mg/dL Fluid Total Protein g/dL Fluid LDH U/L COVID-19 Source SARS-CoV-2 (PCR) (Negative) Influenza Type A (PCR) (Negative) Influenza Type B (PCR) (Negative) RSV (PCR) (Negative) Path Cons Comment Add-On Test Request ABO/Rh A Positive Antibody Screen NEGATIVE Range/Units 07/12/25 07/12/25 07/12/25 17:23 17:25 18:50 WBC (4.4-10.8) 10^3/uL RBC (4.36-5.78) 10^6/uL Hgb (13.5-17.5) g/dL Hct (40.0-50.0) % MCV (80-95) fL MCH (27.0-33.0) pg MCHC (32.0-36.0) % RDW (11.8-14.1) % Plt Count (130-400) 10^3/uL MPV (8.0-11.0) fL Immature Gran % % Neutrophils % % Band Neutrophils % % Lymphocytes % % Atypical Lymphs % % Monocytes % % Eosinophils % % Basophils % % Metamyelocytes % Myelocytes % Nucleated RBC % (0.0-0.3) % Absolute Neutrophils (1.2-6.7) 10^3/uL Absolute Lymphocytes (1.2-3.4) 10^3/uL Absolute Monocytes (0.1-0.8) 10^3/uL Absolute Eosinophils (0.0-0.7) 10^3/uL Absolute Basophils (0.0-0.2) 10^3/uL RBC Morphology Polychromasia Hypochromasia Anisocytosis Microcytosis PT (9.1-11.1) sec INR (0.9-1.1) APTT (20.6-30.2) sec Fibrinogen (171-384) mg/dL D-Dimer (<500) ng/mlFEU VBG pH (7.31-7.41) VBG pCO2 (41-51) mmHg VBG pO2 mmHg VBG HCO3 (23-28) mmol/L VBG Total CO2 (24-29) mmol/L VBG O2 Saturation % VBG Base Excess (-2-3) mmol/L VBG Lactate (<or=2.0) mmol/L 7.1 H* 5.4 H* Sodium (136-145) mmol/L Potassium (3.5-5.1) mmol/L Chloride (98-107) mmol/L Carbon Dioxide (20.0-31.0) mmol/L Anion Gap (3-11) mmol/L BUN (9-23) mg/dL Creatinine (0.73-1.18) mg/dL Est GFR (CKD-EPI 2020) (mL/min/1.73m2) Glucose (74-106) mg/dL Hemoglobin A1c (<5.7) % Uric Acid (3.7-9.2) mg/dL Calcium (8.3-10.6) mg/dL Phosphorus (2.4-5.1) mg/dL Magnesium (1.6-2.6) mg/dL Total Bilirubin (0.2-1.2) mg/dL AST (<34) U/L ALT (10-49) U/L Alkaline Phosphatase (46-116) U/L Lactate Dehydrogenase (120-246) U/L Creatine Kinase (46-171) U/L Troponin I (<54) ng/L 4 NT-Pro-B Natriuret Pep (<300) pg/mL Total Protein (5.7-8.2) g/dL Albumin (3.2-5.0) g/dL TSH (0.55-4.78) uIU/mL Urine Color (Yellow) Yellow Urine Clarity (Clear) Clear Urine pH (5-8) 6.0 Ur Specific [place] (1.005-1.025) <= 1.005 Urine Protein (Neg-Trace) mg/dL >=300 H Urine Ketones (Negative) mg/dL Negative Urine Blood (Negative) Trace-intact H Urine Nitrite (Negative) Negative Urine Bilirubin (Negative) Negative Urine Urobilinogen (Up to 0.2) mg/dL 1.0 H Ur Leukocyte Esterase (Negative) Negative Urine RBC (0-2) HPF 0-2 Urine WBC (0-5) HPF 0-2 Ur Epithelial Cells (Negative) HPF Rare Urine Crystals (Negative) HPF Negative Urine Bacteria (Negative) HPF Few Urine Casts (Negative) LPF 3-5 Fine Granular Urine Mucus (Negative) Negative Urine Other (Negative) Rare Transitional Ur Culture Indicated? No Urine Glucose (Negative) mg/dL Negative Fluid Type Fluid Source Fluid Color Fluid Clarity Fluid WBC (0) uL Fld Polynuclear WBCs % % Fluid Mononuclear Cell % Fluid Glucose (See Note) mg/dL Fluid Total Protein g/dL Fluid LDH U/L COVID-19 Source Nasopharynx SARS-CoV-2 (PCR) (Negative) Negative Influenza Type A (PCR) (Negative) Negative Influenza Type B (PCR) (Negative) Negative RSV (PCR) (Negative) Negative Path Cons Comment Add-On Test Request ABO/Rh Antibody Screen Range/Units 07/12/25 07/12/25 07/12/25 19:07 19:08 19:23 WBC (4.4-10.8) 10^3/uL RBC (4.36-5.78) 10^6/uL Hgb (13.5-17.5) g/dL Hct (40.0-50.0) % MCV (80-95) fL MCH (27.0-33.0) pg MCHC (32.0-36.0) % RDW (11.8-14.1) % Plt Count (130-400) 10^3/uL MPV (8.0-11.0) fL Immature Gran % % Neutrophils % % Band Neutrophils % % Lymphocytes % % Atypical Lymphs % % Monocytes % % Eosinophils % % Basophils % % Metamyelocytes % Myelocytes % Nucleated RBC % (0.0-0.3) % Absolute Neutrophils (1.2-6.7) 10^3/uL Absolute Lymphocytes (1.2-3.4) 10^3/uL Absolute Monocytes (0.1-0.8) 10^3/uL Absolute Eosinophils (0.0-0.7) 10^3/uL Absolute Basophils (0.0-0.2) 10^3/uL RBC Morphology Polychromasia Hypochromasia Anisocytosis Microcytosis PT (9.1-11.1) sec INR (0.9-1.1) APTT (20.6-30.2) sec 37.3 H Fibrinogen (171-384) mg/dL 355 D-Dimer (<500) ng/mlFEU > 7500 H VBG pH (7.31-7.41) VBG pCO2 (41-51) mmHg VBG pO2 mmHg VBG HCO3 (23-28) mmol/L VBG Total CO2 (24-29) mmol/L VBG O2 Saturation % VBG Base Excess (-2-3) mmol/L VBG Lactate (<or=2.0) mmol/L Sodium (136-145) mmol/L Potassium (3.5-5.1) mmol/L Chloride (98-107) mmol/L Carbon Dioxide (20.0-31.0) mmol/L Anion Gap (3-11) mmol/L BUN (9-23) mg/dL Creatinine (0.73-1.18) mg/dL Est GFR (CKD-EPI 2020) (mL/min/1.73m2) Glucose (74-106) mg/dL Hemoglobin A1c (<5.7) % Uric Acid (3.7-9.2) mg/dL Calcium (8.3-10.6) mg/dL Phosphorus (2.4-5.1) mg/dL Magnesium (1.6-2.6) mg/dL Total Bilirubin (0.2-1.2) mg/dL AST (<34) U/L ALT (10-49) U/L Alkaline Phosphatase (46-116) U/L Lactate Dehydrogenase (120-246) U/L Creatine Kinase (46-171) U/L Troponin I (<54) ng/L NT-Pro-B Natriuret Pep (<300) pg/mL Total Protein (5.7-8.2) g/dL Albumin (3.2-5.0) g/dL TSH (0.55-4.78) uIU/mL Urine Color (Yellow) Urine Clarity (Clear) Urine pH (5-8) Ur Specific [place] (1.005-1.025) Urine Protein (Neg-Trace) mg/dL Urine Ketones (Negative) mg/dL Urine Blood (Negative) Urine Nitrite (Negative) Urine Bilirubin (Negative) Urine Urobilinogen (Up to 0.2) mg/dL Ur Leukocyte Esterase (Negative) Urine RBC (0-2) HPF Urine WBC (0-5) HPF Ur Epithelial Cells (Negative) HPF Urine Crystals (Negative) HPF Urine Bacteria (Negative) HPF Urine Casts (Negative) LPF Urine Mucus (Negative) Urine Other (Negative) Ur Culture Indicated? Urine Glucose (Negative) mg/dL Fluid Type Fluid Source Fluid Color Fluid Clarity Fluid WBC (0) uL Fld Polynuclear WBCs % % Fluid Mononuclear Cell % Fluid Glucose (See Note) mg/dL Fluid Total Protein g/dL Fluid LDH U/L COVID-19 Source SARS-CoV-2 (PCR) (Negative) Influenza Type A (PCR) (Negative) Influenza Type B (PCR) (Negative) RSV (PCR) (Negative) Path Cons Comment Add-On Test Request DONE DONE ABO/Rh Antibody Screen Range/Units 07/12/25 07/13/25 07/13/25 21:04 05:52 08:30 WBC (4.4-10.8) 10^3/uL RBC (4.36-5.78) 10^6/uL Hgb (13.5-17.5) g/dL Hct (40.0-50.0) % MCV (80-95) fL MCH (27.0-33.0) pg MCHC (32.0-36.0) % RDW (11.8-14.1) % Plt Count (130-400) 10^3/uL MPV (8.0-11.0) fL Immature Gran % % Neutrophils % % Band Neutrophils % % Lymphocytes % % Atypical Lymphs % % Monocytes % % Eosinophils % % Basophils % % Metamyelocytes % Myelocytes % Nucleated RBC % (0.0-0.3) % Absolute Neutrophils (1.2-6.7) 10^3/uL Absolute Lymphocytes (1.2-3.4) 10^3/uL Absolute Monocytes (0.1-0.8) 10^3/uL Absolute Eosinophils (0.0-0.7) 10^3/uL Absolute Basophils (0.0-0.2) 10^3/uL RBC Morphology Polychromasia Hypochromasia Anisocytosis Microcytosis PT (9.1-11.1) sec INR (0.9-1.1) APTT (20.6-30.2) sec Fibrinogen (171-384) mg/dL D-Dimer (<500) ng/mlFEU VBG pH (7.31-7.41) VBG pCO2 (41-51) mmHg VBG pO2 mmHg VBG HCO3 (23-28) mmol/L VBG Total CO2 (24-29) mmol/L VBG O2 Saturation % VBG Base Excess (-2-3) mmol/L VBG Lactate (<or=2.0) mmol/L 5.1 H* Sodium (136-145) mmol/L Potassium (3.5-5.1) mmol/L Chloride (98-107) mmol/L Carbon Dioxide (20.0-31.0) mmol/L Anion Gap (3-11) mmol/L BUN (9-23) mg/dL Creatinine (0.73-1.18) mg/dL Est GFR (CKD-EPI 2020) (mL/min/1.73m2) Glucose (74-106) mg/dL Hemoglobin A1c (<5.7) % 4.9 Uric Acid (3.7-9.2) mg/dL Calcium (8.3-10.6) mg/dL Phosphorus (2.4-5.1) mg/dL 4.1 Magnesium (1.6-2.6) mg/dL Total Bilirubin (0.2-1.2) mg/dL AST (<34) U/L ALT (10-49) U/L Alkaline Phosphatase (46-116) U/L Lactate Dehydrogenase (120-246) U/L Creatine Kinase (46-171) U/L Troponin I (<54) ng/L NT-Pro-B Natriuret Pep (<300) pg/mL Total Protein (5.7-8.2) g/dL Albumin (3.2-5.0) g/dL TSH (0.55-4.78) uIU/mL Urine Color (Yellow) Urine Clarity (Clear) Urine pH (5-8) Ur Specific [place] (1.005-1.025) Urine Protein (Neg-Trace) mg/dL Urine Ketones (Negative) mg/dL Urine Blood (Negative) Urine Nitrite (Negative) Urine Bilirubin (Negative) Urine Urobilinogen (Up to 0.2) mg/dL Ur Leukocyte Esterase (Negative) Urine RBC (0-2) HPF Urine WBC (0-5) HPF Ur Epithelial Cells (Negative) HPF Urine Crystals (Negative) HPF Urine Bacteria (Negative) HPF Urine Casts (Negative) LPF Urine Mucus (Negative) Urine Other (Negative) Ur Culture Indicated? Urine Glucose (Negative) mg/dL Fluid Type Pleural Fluid Source Pleural Fluid Color Other Fluid Clarity Cloudy Fluid WBC (0) uL 470 Fld Polynuclear WBCs % % 19 Fluid Mononuclear Cell % 81 Fluid Glucose (See Note) mg/dL 94 Fluid Total Protein g/dL 2.6 Fluid LDH U/L 177 COVID-19 Source SARS-CoV-2 (PCR) (Negative) Influenza Type A (PCR) (Negative) Influenza Type B (PCR) (Negative) RSV (PCR) (Negative) Path Cons Comment SEE COMMENT Add-On Test Request ABO/Rh Antibody Screen Range/Units 07/14/25 07/15/25 07/16/25 05:30 05:53 05:22 WBC (4.4-10.8) 10^3/uL 3.32 L 3.14 L 3.40 L RBC (4.36-5.78) 10^6/uL 3.24 L 3.44 L 3.41 L Hgb (13.5-17.5) g/dL 8.0 L 8.8 L 8.7 L Hct (40.0-50.0) % 25.2 L 27.6 L 26.9 L MCV (80-95) fL 78 L 80 79 L MCH (27.0-33.0) pg 24.7 L 25.6 L 25.5 L MCHC (32.0-36.0) % 31.7 L 31.9 L 32.3 RDW (11.8-14.1) % 19.1 H 19.5 H 19.3 H Plt Count (130-400) 10^3/uL 194 218 203 MPV (8.0-11.0) fL 9.3 9.6 9.4 Immature Gran % % 0.0 7.0 5.0 Neutrophils % % 70.0 77.4 78.8 Band Neutrophils % % 5 Lymphocytes % % 4.0 7.3 6.8 Atypical Lymphs % % 4 Monocytes % % 13.0 8.3 9.1 Eosinophils % % 0.0 0.0 0.0 Basophils % % 0.0 0.0 0.3 Metamyelocytes % 3 Myelocytes % 1 Nucleated RBC % (0.0-0.3) % 0.0 0.0 0.0 Absolute Neutrophils (1.2-6.7) 10^3/uL 2.49 2.43 2.68 Absolute Lymphocytes (1.2-3.4) 10^3/uL 0.27 L 0.23 L 0.23 L Absolute Monocytes (0.1-0.8) 10^3/uL 0.43 0.26 0.31 Absolute Eosinophils (0.0-0.7) 10^3/uL 0.00 0.00 0.00 Absolute Basophils (0.0-0.2) 10^3/uL 0.00 0.00 0.01 RBC Morphology See Below Polychromasia Present Hypochromasia 1+ Anisocytosis 2+ Microcytosis 2+ PT (9.1-11.1) sec INR (0.9-1.1) APTT (20.6-30.2) sec Fibrinogen (171-384) mg/dL D-Dimer (<500) ng/mlFEU VBG pH (7.31-7.41) VBG pCO2 (41-51) mmHg VBG pO2 mmHg VBG HCO3 (23-28) mmol/L VBG Total CO2 (24-29) mmol/L VBG O2 Saturation % VBG Base Excess (-2-3) mmol/L VBG Lactate (<or=2.0) mmol/L Sodium (136-145) mmol/L 134 L 138 Potassium (3.5-5.1) mmol/L 4.0 4.9 Chloride (98-107) mmol/L 95 L 98 Carbon Dioxide (20.0-31.0) mmol/L 28.0 31.4 H Anion Gap (3-11) mmol/L 10.6 8.4 BUN (9-23) mg/dL 15 14 Creatinine (0.73-1.18) mg/dL 0.72 L 0.68 L Est GFR (CKD-EPI 2020) (mL/min/1.73m2) 117.37 125.37 Glucose (74-106) mg/dL 93 78 Hemoglobin A1c (<5.7) % Uric Acid (3.7-9.2) mg/dL Calcium (8.3-10.6) mg/dL 8.0 L 8.4 Phosphorus (2.4-5.1) mg/dL Magnesium (1.6-2.6) mg/dL 1.6 Total Bilirubin (0.2-1.2) mg/dL 1.4 H 1.4 H AST (<34) U/L 45 H 54 H ALT (10-49) U/L 14 16 Alkaline Phosphatase (46-116) U/L 78 83 Lactate Dehydrogenase (120-246) U/L Creatine Kinase (46-171) U/L Troponin I (<54) ng/L NT-Pro-B Natriuret Pep (<300) pg/mL Total Protein (5.7-8.2) g/dL 4.4 L 4.5 L Albumin (3.2-5.0) g/dL 2.9 L 2.9 L TSH (0.55-4.78) uIU/mL Urine Color (Yellow) Urine Clarity (Clear) Urine pH (5-8) Ur Specific [place] (1.005-1.025) Urine Protein (Neg-Trace) mg/dL Urine Ketones (Negative) mg/dL Urine Blood (Negative) Urine Nitrite (Negative) Urine Bilirubin (Negative) Urine Urobilinogen (Up to 0.2) mg/dL Ur Leukocyte Esterase (Negative) Urine RBC (0-2) HPF Urine WBC (0-5) HPF Ur Epithelial Cells (Negative) HPF Urine Crystals (Negative) HPF Urine Bacteria (Negative) HPF Urine Casts (Negative) LPF Urine Mucus (Negative) Urine Other (Negative) Ur Culture Indicated? Urine Glucose (Negative) mg/dL Fluid Type Fluid Source Fluid Color Fluid Clarity Fluid WBC (0) uL Fld Polynuclear WBCs % % Fluid Mononuclear Cell % Fluid Glucose (See Note) mg/dL Fluid Total Protein g/dL Fluid LDH U/L COVID-19 Source SARS-CoV-2 (PCR) (Negative) Influenza Type A (PCR) (Negative) Influenza Type B (PCR) (Negative) RSV (PCR) (Negative) Path Cons Comment Add-On Test Request ABO/Rh Antibody Screen Range/Units 07/17/25 06:20 WBC (4.4-10.8) 10^3/uL RBC (4.36-5.78) 10^6/uL Hgb (13.5-17.5) g/dL Hct (40.0-50.0) % MCV (80-95) fL MCH (27.0-33.0) pg MCHC (32.0-36.0) % RDW (11.8-14.1) % Plt Count (130-400) 10^3/uL MPV (8.0-11.0) fL Immature Gran % % Neutrophils % % Band Neutrophils % % Lymphocytes % % Atypical Lymphs % % Monocytes % % Eosinophils % % Basophils % % Metamyelocytes % Myelocytes % Nucleated RBC % (0.0-0.3) % Absolute Neutrophils (1.2-6.7) 10^3/uL Absolute Lymphocytes (1.2-3.4) 10^3/uL Absolute Monocytes (0.1-0.8) 10^3/uL Absolute Eosinophils (0.0-0.7) 10^3/uL Absolute Basophils (0.0-0.2) 10^3/uL RBC Morphology Polychromasia Hypochromasia Anisocytosis Microcytosis PT (9.1-11.1) sec INR (0.9-1.1) APTT (20.6-30.2) sec Fibrinogen (171-384) mg/dL D-Dimer (<500) ng/mlFEU VBG pH (7.31-7.41) VBG pCO2 (41-51) mmHg VBG pO2 mmHg VBG HCO3 (23-28) mmol/L VBG Total CO2 (24-29) mmol/L VBG O2 Saturation % VBG Base Excess (-2-3) mmol/L VBG Lactate (<or=2.0) mmol/L Sodium (136-145) mmol/L Potassium (3.5-5.1) mmol/L Chloride (98-107) mmol/L Carbon Dioxide (20.0-31.0) mmol/L Anion Gap (3-11) mmol/L BUN (9-23) mg/dL Creatinine (0.73-1.18) mg/dL Est GFR (CKD-EPI 2020) (mL/min/1.73m2) Glucose (74-106) mg/dL Hemoglobin A1c (<5.7) % Uric Acid (3.7-9.2) mg/dL 2.5 L Calcium (8.3-10.6) mg/dL Phosphorus (2.4-5.1) mg/dL Magnesium (1.6-2.6) mg/dL Total Bilirubin (0.2-1.2) mg/dL AST (<34) U/L ALT (10-49) U/L Alkaline Phosphatase (46-116) U/L Lactate Dehydrogenase (120-246) U/L 303 H Creatine Kinase (46-171) U/L Troponin I (<54) ng/L NT-Pro-B Natriuret Pep (<300) pg/mL Total Protein (5.7-8.2) g/dL Albumin (3.2-5.0) g/dL TSH (0.55-4.78) uIU/mL Urine Color (Yellow) Urine Clarity (Clear) Urine pH (5-8) Ur Specific [place] (1.005-1.025) Urine Protein (Neg-Trace) mg/dL Urine Ketones (Negative) mg/dL Urine Blood (Negative) Urine Nitrite (Negative) Urine Bilirubin (Negative) Urine Urobilinogen (Up to 0.2) mg/dL Ur Leukocyte Esterase (Negative) Urine RBC (0-2) HPF Urine WBC (0-5) HPF Ur Epithelial Cells (Negative) HPF Urine Crystals (Negative) HPF Urine Bacteria (Negative) HPF Urine Casts (Negative) LPF Urine Mucus (Negative) Urine Other (Negative) Ur Culture Indicated? Urine Glucose (Negative) mg/dL Fluid Type Fluid Source Fluid Color Fluid Clarity Fluid WBC (0) uL Fld Polynuclear WBCs % % Fluid Mononuclear Cell % Fluid Glucose (See Note) mg/dL Fluid Total Protein g/dL Fluid LDH U/L COVID-19 Source SARS-CoV-2 (PCR) (Negative) Influenza Type A (PCR) (Negative) Influenza Type B (PCR) (Negative) RSV (PCR) (Negative) Path Cons Comment Add-On Test Request ABO/Rh Antibody Screen Imaging Chest x-ray: report reviewed and image reviewed
--- NOTE | 2025-07-18 07:21 | W.PM.OP ---
Operative Note Operative Note PRE-OP DIAGNOSIS: Pleural effusion PROCEDURE: Left thoracentesis SURGEON: Edwin Flanagan ANESTHESIA TYPE: Local By Surgeon ESTIMATED BLOOD LOSS: 2 (ml) PATHOLOGY: other Implants: Left thoracentesis Indications: Relief of large left pleural effusion Procedure Description: The procedure risks, benefits, and alternatives were discussed with Mr. Figueroa, who understood and informed consent was obtained. Laboratory studies and radiographs were reviewed. A time-out was performed.? Bedside ultrasound was used to identify an appropriate site for thoracentesis.? The site was marked on the left posterolateral chest wall.? Sterile technique was used throughout the procedure.? The site was cleaned and draped in a sterile fashion.? Using a 10 cc syringe and 22 Ga needle, the skin and tract to the pleural cavity were anesthetized with 10 mL of 1% lidocaine.? Pleural fluid was obtained in the 10 cc syringe without difficulty. ?A small 2-3 mm skin incision was made at the marked site.? An 8 Fr catheter over a needle was advanced until positive fluid return.? The catheter was then advanced into the pleural space and the needle was removed.? Pleural fluid was drained without difficulty.? Post-procedure bedside ultrasound demonstrated good lung sliding.? There was minimal residual fluid remaining. 1600 mL of glenna colored pleural fluid was removed. No samples were sent Follow-up: A chest radiograph was ordered and is pending Follow-up on prior pleural fluid analysis Date of Procedure: 07/18/25 POCUS Pulmonology Limited thoracic lung Exam DATE OF EXAM: 07/18/25 TIME OF EXAM: 07:00 PROVIDER THAT PERFORMED THE STUDY: Edwin Flanagan IS THIS A REPEAT STUDY: No REASON FOR EXAM: Pleural Effusion Visualized structures: right lateral, left lateral, right posterior and left posterior PERTINENT FINDINGS/IMPRESSION: Present Left pleural effusion and Right pleural effusion Exam complete
[2025-07-18] MEDS: Metoprolol 25 MG TAB 37.5 MG PO ×2 (09:25→20:44)
[2025-07-18] MEDS: Enoxaparin 40 MG/0.4 ML SYR SC (09:26)
[2025-07-18] MEDS: FLUoxetine 20 MG CAP 40 MG PO (09:26)
[2025-07-18] MEDS: Furosemide 40 MG/4 ML VIAL IVP ×2 (10:15→16:58)
[2025-07-18] MEDS: Normal Saline Flush 10 ML SYR IVP ×4 (10:15→20:45)
[2025-07-18] MEDS: Acetaminophen 325 MG TAB 650 MG PO (12:09)
--- NOTE | 2025-07-18 15:11 | PT.INTREAT ---
PT Notes Visit Reasons: Failure to thrive Date: 07/18/2025 PRECAUTIONS: Fall. standard Activity as tolerated. SUBJECTIVE: Pt in bed when approached for therapy this morning, pt agreed to participate with therapy intervention. OBJECTIVE: ? PAIN: denies VITALS: Monitored via telemetry Therapeutic Activities 06895: Direct one-on-one instruction in dynamic activities to improve functional performance. ?? BED MOBILITY/TRANSFERS? Rolling L/R: independent Supine-sit: ? independent? Sit-supine: ? ?independent ? Sit-stand: ? ?independent ? Stand-sit: ?? independent? Bed-Chair:? ?independent ? Chair-bed: independent Provided skilled cues and instruction on performance and technique throughout. Gait Training 81609: Direct one-on-one instruction and skilled instruction in: Movement sequencing Turning and movement with proper form Provided instruction in gait pattern Patient education regarding pacing and breathing techniques to maximize activity tolerance? GAIT? Assistive Device: ?? no AD ? Weight bearing: FWB Assist: ? ?supervision ? Distance:?? ?300' x2 ? Deviation: ? ?slow nancy speed, stoop forward posture ? STAIRS:? ?6 steps, x10 up/down, bilateral handrail, step over step pattern Supervision ? ASSESSMENT:?Pt tolerated activity well, required rest break in between distances covered to avoid fatigue. PLAN: Continue with balance training, global strengthening and general conditioning for improved safety, mobility and activity tolerance until pt is ready for DC. TREATMENT CODE/TIME: [id number] 30mins (12:30-1:00pm)
--- NOTE | 2025-07-18 15:20 | CMPROGNOTE_ITS ---
Date of service: 07/18/25 Time of Service: 15:21 Care Management Progress Note Progress Note Text Progress Note Text: Terry was lying in bed when CM met with him. He stated that he feels better today, and feels that he may be able to return to the community. Per MD, he is not medically ready at this time. Terry stated that his [facility] corrections caseworker, Jesse, has been helping him with housing resources, but that his plan will be to contact [address] on the day of discharge, in order to coordinate emergency correction utilizing the voucher program. CM reached out to his corrections caseworker today and left a message requesting a return call; her number is [phone]. Per report, he is now on room air. CM will continue to follow. Discharge Potential Discharge Needs: PCP F/U Appt Anticipated Barriers to Discharge: SDOH Patient/Family Education Needs: Review discharge instructions, discuss [facility] Me Three Transportation: RCT RCT Transportation: Private vechicle Plan: Terry will return to the community once he is medically stable. He will need to contact [address] for emergency correction on day of discharge, if permanent housing has not been secured by his community mental health social worker prior to discharge. He may benefit from new HH RN upon discharge. He will follow up with his PCP and discharge plan of care. CM will continue to follow. Social Determinants of Health Screening Will the Patient Participate in the Screening?: Unable to obtain Comments: Patient has some mild unreliability with history.
--- NOTE | 2025-07-18 16:46 | PGE_ITS ---
Date of Service Date of service: 07/18/25 Time of Service: 08:00 Assessment and Plan Assessment and plan (1) Acute hypoxic respiratory failure: Status: Acute Assessment and plan: Hypoxemic while flat in bed to SpO2 mid-80's Otherwise SpO2 88-92 on NC 1-2L More comfortable after thoracentesis Anticipating need for home O2 at discharge Repeat CXR Jul 16 evening Pulm update Jul 17: patient would benefit from repeat thoracentesis but at this time he defers Jul 18: repeat thoracentesis, 2L removed. Cytology reports are returning, equivocal. Will continue workup for non-malignant causes. 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 Jul 18 CXR with improvement. (3) Tumor lysis syndrome: Status: Acute Assessment and plan: -Dr Mae discussed case with Dr Infante, [facility] [place] operation manager on 07[place]12; she did not believe labs were clearly c/w TLS, recommended LDH, uric acid (if >4, allopurinol advised), and labs to r/o DIC -Elevated LDH 350. Uric acid 4.6, Allopurinol started 300 mg PO QHS Jul 16: Repeat LDH & uric acid in the AM. Jul 15: LDH and uric acid lower. Continue allopurinol. (4) Acute lactic acidosis: Status: Resolved Assessment and plan: -Severe lactic acidosis on presentation, improved with fluid resuscitation (9.1 >5.1) -Sepsis vs tumor lysis vs active malignancy -Antibiotics given in ED, discontinued (5) Sinus tachycardia: Status: Acute Assessment and plan: -Tachycardic in the 120's - 140's on prior ED visits -continues to remain tachycardic with HR 120s-130s at rest, up to 160s with movement -metoprolol 25 mg PO BID for rate control, increased to 37.5 BID on Jul 15 -echo ordered, waiting for rate control to perform Home medication list not available but previously he was on haldol, one dose given 07/12. Pharmacy performing med reconcilitation -Some improvement with PO ativan 1 mg one time dose given 07/12 Increased metoprolol to 37.5 BID Off telemetry, still monitoring SpO2 and HR Jul 17: improved, HR < 110 today. Continue medical management. (6) Lower extremity edema: Status: Chronic Assessment and plan: -Left significantly worse than right, concerning for VTE vs lymphatic obstruction -US BLE doppler performed 07/13, no DVT (7) Mediastinal lymphadenopathy: Status: Chronic Assessment and plan: -Noted on imaging back to March 2025, currently being [place] [facility] [place] probable [place] -Likely needing social support -Palliative care consult (8) Schizoaffective disorder: Assessment and plan: -Per medical record -Home medications not available - per patient he gets all of his meds from [facility], pharmacy performing med reconcilation (9) Diabetes: Assessment and plan: -history of T2DM, not currently on any medicaitons. A1C 4.9 performed 07/13 (10) Hypothyroidism: Assessment and plan: -Noted history, unclear if he is on any meds, waiting for med rec -TSH done in ED, unremarkable (11) Hypertension: Assessment and plan: -Noted history, unclear if he is on any meds, waiting for med rec -normotensive since admission, will continue to monitor (12) Hemorrhoids: Assessment and plan: -Patient reports that he defecates about once per week and has bleeding with defecation, has h/o hemorrhoids -Bowel regimen ordered -will continue to monitor for signs of active lower GI bleeding Subjective Subjective Interval history since last seen: Mr. Figueroa had repeat thoracentesis this morning with again nearly 2L removed. He is pleasant but expresses frustration at his extended hospitalization. Exam Narrative Exam Narrative: General: This is a pleasant, obese man in no distress HEENT: Normocephalic, atraumatic CV: RRR. BLE 2+ pitting edema to the knee Resp: Diminished bibasilar breath sounds, left worse than right. Dullness to percussion BLL. Thoracentesis site c/d/i. On room air Abd: NTND +NBS MSK: voluntary motion x4 Neuro: awake, alert, no focal deficits Objective Last Vital Signs Temp 37.3 C 07/18/25 13:09 Pulse 98 H 07/18/25 11:36 Resp 18 07/18/25 11:36 BP 104/73 07/18/25 11:36 Pulse Ox 92 07/18/25 11:36 VTE Prohylaxis Risk Level: Moderate/High Risk Contraindications: Active bleed/high bleed risk (thoracentesis likely in the morning) Prophylaxis: Mechanical Time Spent with Patient Time Spent with Patient: 35-49 minutes Time was spent: preparing to see the patient(eg.review tests), obtaining and/or reviewing separately otained hiistory, ordering medications,tests, procedures, referring, communicating with other health medicare contact specialist, indepentently interpreting results, counseling the patient and care coordination
[2025-07-18] MEDS: [UNRECOGNIZED DRUG - OTHER] 3 MG PO (20:43)
[2025-07-18] MEDS: Allopurinol 300 MG TAB PO (20:43)
[2025-07-18] MEDS: traZODone 100 MG TAB 200 MG PO (20:44)
[2025-07-19] VITALS (8 sets, daily range): BP systolic 87–110; BP diastolic 58–73; PULSE 89–113; RESP 18–22; TEMP 36–38.3; O2SAT 90–97
[2025-07-19] MEDS: Furosemide 40 MG/4 ML VIAL IVP ×2 (04:45→09:04)
--- NOTE | 2025-07-19 06:00 | DI.RAD_ITS ---
Exam(s) XR PORTABLE CHEST AP EXAM: XR PORTABLE CHEST AP CLINICAL HISTORY: post-thoracentesis, query effusion changes TECHNIQUE: 2D digital imaging was performed. COMPARISON: CR XR PORTABLE CHEST AP from 07/18/2025 FINDINGS: LUNGS: Suboptimal pulmonary inflation. Status post right thoracentesis. Slight decrease in size of right pleural effusion. Mild right basilar atelectasis. No pneumothorax. Trace left pleural effusion. The upper lobes are clear. HEART: Partially obscured by effusion. AORTA: Normal diameter. BONES: Unremarkable for age. Soft tissues: Unremarkable. IMPRESSION: Slight decrease in size of right pleural effusion status post thoracentesis. No pneumothorax. The preliminary [facility] report was reviewed. DATA REPOSITORY: RADIATION DOSE DELIVERED:
--- NOTE | 2025-07-19 07:05 | RESPIRATORY ---
Pt refusing the cpap for noc use. Bipap at bedside and was not in use for over 5 days. Bipap order complete and machine taken out.
--- NOTE | 2025-07-19 07:17 | PGE_ITS ---
Assessment and Plan Assessment and plan (1) Bilateral pleural effusion: Status: Acute (2) Acute hypoxic respiratory failure: Status: Acute (3) Mediastinal lymphadenopathy: Status: Chronic General Date Of Service Date of service: 07/18/25 Time of Service: 07:15 Requesting physician: Bolivar Dimas Reason for Consult: Pleural effusion Recommendations: Assessment: 1. Bilateral pleural effusions - [place] [facility] [place] Given underlying lymphoma and atypical cells in pleural fluid, malignant effusion is a concern. Cardiogenic effusions are also possible, although, echo was unremarkable. Fluid analysis not consistent with parapneumonic effusion. S/P left thoracentesis with 1.8 L removed on 07/13 and 1.6 L removed on 07/18. Pleural fluid analysis showed a borderline exudate (protein ratio > 0.5). LDH pleural fluid was only 177. Pleural fluid cytopathology showed atypical cells, flow cytometry pending. 2. Acute hypoxemic respiratory failure - improved post-thoracentesis. Intermittently on oxygen 3. Lymphoma - workup is ongoing. Recent bone marrow biopsy was suspicious for lymphoma. Had chest/abd/pelvic FDG avid lymph nodes on PET-CT in 06/2025. Pleural fluid flow cytometry is pending 4. Mediastinal lymphadenopathy - likely related to underlying lymphoma Recommendations - follow up on pleural fluid flow cytometry - continue IV diuresis - his social situation is very complicated. I suspect his pleural effusions will re-accumuate to some degree. Would not advise Pleural catheter placement, as I would be concerned for improper care of it. Can continue with serial thoracentesis should his respiratory status decline Discussed with Dr. Dimas Subjective Note Note: Patient is a 45 yo with a history of schizoaffective disorder and lymphoma who was admitted on 07/12/25 for worsening dyspnea and acute hypoxemic respiratory failure He was admitted for worsening dyspnea and LE swelling since 06/2025. CXR in the ED showed a large left pleural effusion. Was initially placed on BiPAP due to respiratory distress. Thoracentesis was completed 07/13 with 1.8 L removed from the left pleural space. Fluid analysis showed a borderline exudate. Repeat left thoracentesis was completed on 07/18 with 1.6 L [place] [facility] [place] noted moderate left and small right pleural effusions. Mutiple FDG avid lymph nodes were noted in the mediastinal, hilar, retroperitoneal, and iliac regions. He [place] [facility] [place], which showed abnormal lymphohistiocytic aggregates, suspicious for lymphoma. He has a history of ISATU, but has been intolerant to home NIV in the past. His dyspnea improved following thoracentesis yesterday. Denies chest pain or cough. ROS: 6 pt ROS negative except as above Sx: Tobacco use: none Alcohol use: none Objective Last Vital Signs Temp 36 C L 07/19/25 02:05 Pulse 89 07/19/25 02:05 Resp 18 07/19/25 02:05 BP 87/58 L 07/19/25 02:05 Pulse Ox 97 07/19/25 02:05 Results Medications Medications: Active Medications Generic Name Dose Route Start Last Admin Trade Name Freq PRN Reason Stop Dose Admin Acetaminophen 650 mg 07/14/25 12:16 07/18/25 12:09 Acetaminophen 325 Mg Tab PO 650 mg Q6H PRN PRN Administration Allopurinol 300 mg 07/13/25 20:00 07/18/25 20:43 Allopurinol 300 Mg Tab PO 300 mg HS GLORIA Administration Bisacodyl 10 mg 07/12/25 22:29 Bisacodyl 10 Mg Supp VA DAILY PRN PRN Docusate Sodium 100 mg 07/13/25 08:30 07/18/25 20:44 Docusate Sodium 100 Mg Cap PO Not Given BID GLORIA Enoxaparin Sodium 40 mg 07/13/25 09:50 07/18/25 09:26 Enoxaparin 40 Mg/0.4 Ml Syr SC 40 mg DAILY GLORIA Administration Fluoxetine HCl 40 mg 07/13/25 11:30 07/18/25 09:26 Fluoxetine 20 Mg Cap PO 40 mg DAILY GLORIA Administration Furosemide 40 mg 07/18/25 08:00 07/18/25 16:58 Furosemide 40 Mg/4 Ml Vial IVP 40 mg BID@0800,1600 GLORIA Administration Haloperidol 1 mg 07/13/25 11:31 07/17/25 01:33 Haloperidol 1 Mg Tab PO 1 mg TID PRN PRN Administration Metoprolol Tartrate 37.5 mg 07/15/25 20:00 07/18/25 20:44 Metoprolol 25 Mg Tab PO 37.5 mg BID GLORIA Administration Paliperidone 3 mg 07/13/25 20:00 07/18/25 20:43 Paliperidone E.R. 1.5 Mg Tab PO 3 mg HS GLORIA Administration Polyethylene Glycol 17 gm 07/13/25 08:30 07/18/25 20:44 Polyethylene Glycol 3350 17 Gm Packet PO Not Given BID GLORIA Sennosides 1 tab 07/12/25 22:29 07/17/25 01:33 Senna Tab PO 1 tab BID PRN PRN Administration Sodium Chloride 0 ml 07/12/25 16:47 07/18/25 20:45 Normal Saline Flush 10 Ml Syr IVP 10 ml PRN PRN Administration Trazodone HCl 200 mg 07/13/25 20:00 07/18/25 20:44 Trazodone 100 Mg Tab PO 200 mg HS GLORIA Administration Allergies bee venom protein (honey bee) Allergy (Severe, Verified 07/12/25 15:41) Anaphylaxsis hornet venom Allergy (Severe, Verified 07/12/25 15:41) Anaphylaxsis Labs 07/16/25 05:22 07/19/25 06:29 Labs: 07/13/25 08:30 Pleural - Left Body Fluid Culture - Preliminary 07/13/25 08:30 Pleural - Left Gram Stain - Final 07/12/25 16:28 Blood Blood Culture - Final NO GROWTH 120 HOURS 07/12/25 15:55 Blood Blood Culture - Final NO GROWTH 120 HOURS 07/13/25 08:30 Pleural - Left Anaerobic Culture - Preliminary Laboratory Tests Range/Units 07/12/25 07/12/25 07/12/25 15:55 16:00 16:28 WBC (4.4-10.8) 10^3/uL 4.79 RBC (4.36-5.78) 10^6/uL 3.95 L Hgb (13.5-17.5) g/dL 9.7 L Hct (40.0-50.0) % 30.8 L MCV (80-95) fL 78 L MCH (27.0-33.0) pg 24.6 L MCHC (32.0-36.0) % 31.5 L RDW (11.8-14.1) % 19.2 H Plt Count (130-400) 10^3/uL 243 MPV (8.0-11.0) fL 9.3 Immature Gran % % 4.2 Neutrophils % % 77.9 Band Neutrophils % % Lymphocytes % % 5.6 Atypical Lymphs % % Monocytes % % 11.7 Eosinophils % % 0.0 Basophils % % 0.6 Metamyelocytes % Myelocytes % Nucleated RBC % (0.0-0.3) % 0.0 Absolute Neutrophils (1.2-6.7) 10^3/uL 3.73 Absolute Lymphocytes (1.2-3.4) 10^3/uL 0.27 L Absolute Monocytes (0.1-0.8) 10^3/uL 0.56 Absolute Eosinophils (0.0-0.7) 10^3/uL 0.00 Absolute Basophils (0.0-0.2) 10^3/uL 0.03 RBC Morphology Polychromasia Hypochromasia Anisocytosis Microcytosis PT (9.1-11.1) sec 13.5 H INR (0.9-1.1) 1.4 H APTT (20.6-30.2) sec Fibrinogen (171-384) mg/dL D-Dimer (<500) ng/mlFEU VBG pH (7.31-7.41) 7.41 VBG pCO2 (41-51) mmHg 36 L VBG pO2 mmHg 50 VBG HCO3 (23-28) mmol/L 23 VBG Total CO2 (24-29) mmol/L 21 L VBG O2 Saturation % 84 VBG Base Excess (-2-3) mmol/L -2 VBG Lactate (<or=2.0) mmol/L 9.1 H* Sodium (136-145) mmol/L 133 L Potassium (3.5-5.1) mmol/L 4.0 Chloride (98-107) mmol/L 94 L Carbon Dioxide (20.0-31.0) mmol/L 22.4 Anion Gap (3-11) mmol/L 16.9 H BUN (9-23) mg/dL 17 Creatinine (0.73-1.18) mg/dL 0.88 Est GFR (CKD-EPI 2020) (mL/min/1.73m2) 93.11 Glucose (74-106) mg/dL 138 H Hemoglobin A1c (<5.7) % Uric Acid (3.7-9.2) mg/dL 4.6 Calcium (8.3-10.6) mg/dL 8.0 L Phosphorus (2.4-5.1) mg/dL Magnesium (1.6-2.6) mg/dL 1.6 Total Bilirubin (0.2-1.2) mg/dL 1.9 H AST (<34) U/L 49 H ALT (10-49) U/L 16 Alkaline Phosphatase (46-116) U/L 93 Lactate Dehydrogenase (120-246) U/L 350 H Creatine Kinase (46-171) U/L 28 L Troponin I (<54) ng/L < 3 NT-Pro-B Natriuret Pep (<300) pg/mL 114 Total Protein (5.7-8.2) g/dL 5.1 L Albumin (3.2-5.0) g/dL 3.3 TSH (0.55-4.78) uIU/mL 2.14 Urine Color (Yellow) Urine Clarity (Clear) Urine pH (5-8) Ur Specific [place] (1.005-1.025) Urine Protein (Neg-Trace) mg/dL Urine Ketones (Negative) mg/dL Urine Blood (Negative) Urine Nitrite (Negative) Urine Bilirubin (Negative) Urine Urobilinogen (Up to 0.2) mg/dL Ur Leukocyte Esterase (Negative) Urine RBC (0-2) HPF Urine WBC (0-5) HPF Ur Epithelial Cells (Negative) HPF Urine Crystals (Negative) HPF Urine Bacteria (Negative) HPF Urine Casts (Negative) LPF Urine Mucus (Negative) Urine Other (Negative) Ur Culture Indicated? Urine Glucose (Negative) mg/dL Fluid Type Fluid Source Fluid Color Fluid Clarity Fluid WBC (0) uL Fld Polynuclear WBCs % % Fluid Mononuclear Cell % Fluid Glucose (See Note) mg/dL Fluid Total Protein g/dL Fluid LDH U/L COVID-19 Source SARS-CoV-2 (PCR) (Negative) Influenza Type A (PCR) (Negative) Influenza Type B (PCR) (Negative) RSV (PCR) (Negative) Path Cons Comment Add-On Test Request ABO/Rh A Positive Antibody Screen NEGATIVE Range/Units 07/12/25 07/12/25 07/12/25 17:23 17:25 18:50 WBC (4.4-10.8) 10^3/uL RBC (4.36-5.78) 10^6/uL Hgb (13.5-17.5) g/dL Hct (40.0-50.0) % MCV (80-95) fL MCH (27.0-33.0) pg MCHC (32.0-36.0) % RDW (11.8-14.1) % Plt Count (130-400) 10^3/uL MPV (8.0-11.0) fL Immature Gran % % Neutrophils % % Band Neutrophils % % Lymphocytes % % Atypical Lymphs % % Monocytes % % Eosinophils % % Basophils % % Metamyelocytes % Myelocytes % Nucleated RBC % (0.0-0.3) % Absolute Neutrophils (1.2-6.7) 10^3/uL Absolute Lymphocytes (1.2-3.4) 10^3/uL Absolute Monocytes (0.1-0.8) 10^3/uL Absolute Eosinophils (0.0-0.7) 10^3/uL Absolute Basophils (0.0-0.2) 10^3/uL RBC Morphology Polychromasia Hypochromasia Anisocytosis Microcytosis PT (9.1-11.1) sec INR (0.9-1.1) APTT (20.6-30.2) sec Fibrinogen (171-384) mg/dL D-Dimer (<500) ng/mlFEU VBG pH (7.31-7.41) VBG pCO2 (41-51) mmHg VBG pO2 mmHg VBG HCO3 (23-28) mmol/L VBG Total CO2 (24-29) mmol/L VBG O2 Saturation % VBG Base Excess (-2-3) mmol/L VBG Lactate (<or=2.0) mmol/L 7.1 H* 5.4 H* Sodium (136-145) mmol/L Potassium (3.5-5.1) mmol/L Chloride (98-107) mmol/L Carbon Dioxide (20.0-31.0) mmol/L Anion Gap (3-11) mmol/L BUN (9-23) mg/dL Creatinine (0.73-1.18) mg/dL Est GFR (CKD-EPI 2020) (mL/min/1.73m2) Glucose (74-106) mg/dL Hemoglobin A1c (<5.7) % Uric Acid (3.7-9.2) mg/dL Calcium (8.3-10.6) mg/dL Phosphorus (2.4-5.1) mg/dL Magnesium (1.6-2.6) mg/dL Total Bilirubin (0.2-1.2) mg/dL AST (<34) U/L ALT (10-49) U/L Alkaline Phosphatase (46-116) U/L Lactate Dehydrogenase (120-246) U/L Creatine Kinase (46-171) U/L Troponin I (<54) ng/L 4 NT-Pro-B Natriuret Pep (<300) pg/mL Total Protein (5.7-8.2) g/dL Albumin (3.2-5.0) g/dL TSH (0.55-4.78) uIU/mL Urine Color (Yellow) Yellow Urine Clarity (Clear) Clear Urine pH (5-8) 6.0 Ur Specific [place] (1.005-1.025) <= 1.005 Urine Protein (Neg-Trace) mg/dL >=300 H Urine Ketones (Negative) mg/dL Negative Urine Blood (Negative) Trace-intact H Urine Nitrite (Negative) Negative Urine Bilirubin (Negative) Negative Urine Urobilinogen (Up to 0.2) mg/dL 1.0 H Ur Leukocyte Esterase (Negative) Negative Urine RBC (0-2) HPF 0-2 Urine WBC (0-5) HPF 0-2 Ur Epithelial Cells (Negative) HPF Rare Urine Crystals (Negative) HPF Negative Urine Bacteria (Negative) HPF Few Urine Casts (Negative) LPF 3-5 Fine Granular Urine Mucus (Negative) Negative Urine Other (Negative) Rare Transitional Ur Culture Indicated? No Urine Glucose (Negative) mg/dL Negative Fluid Type Fluid Source Fluid Color Fluid Clarity Fluid WBC (0) uL Fld Polynuclear WBCs % % Fluid Mononuclear Cell % Fluid Glucose (See Note) mg/dL Fluid Total Protein g/dL Fluid LDH U/L COVID-19 Source Nasopharynx SARS-CoV-2 (PCR) (Negative) Negative Influenza Type A (PCR) (Negative) Negative Influenza Type B (PCR) (Negative) Negative RSV (PCR) (Negative) Negative Path Cons Comment Add-On Test Request ABO/Rh Antibody Screen Range/Units 07/12/25 07/12/25 07/12/25 19:07 19:08 19:23 WBC (4.4-10.8) 10^3/uL RBC (4.36-5.78) 10^6/uL Hgb (13.5-17.5) g/dL Hct (40.0-50.0) % MCV (80-95) fL MCH (27.0-33.0) pg MCHC (32.0-36.0) % RDW (11.8-14.1) % Plt Count (130-400) 10^3/uL MPV (8.0-11.0) fL Immature Gran % % Neutrophils % % Band Neutrophils % % Lymphocytes % % Atypical Lymphs % % Monocytes % % Eosinophils % % Basophils % % Metamyelocytes % Myelocytes % Nucleated RBC % (0.0-0.3) % Absolute Neutrophils (1.2-6.7) 10^3/uL Absolute Lymphocytes (1.2-3.4) 10^3/uL Absolute Monocytes (0.1-0.8) 10^3/uL Absolute Eosinophils (0.0-0.7) 10^3/uL Absolute Basophils (0.0-0.2) 10^3/uL RBC Morphology Polychromasia Hypochromasia Anisocytosis Microcytosis PT (9.1-11.1) sec INR (0.9-1.1) APTT (20.6-30.2) sec 37.3 H Fibrinogen (171-384) mg/dL 355 D-Dimer (<500) ng/mlFEU > 7500 H VBG pH (7.31-7.41) VBG pCO2 (41-51) mmHg VBG pO2 mmHg VBG HCO3 (23-28) mmol/L VBG Total CO2 (24-29) mmol/L VBG O2 Saturation % VBG Base Excess (-2-3) mmol/L VBG Lactate (<or=2.0) mmol/L Sodium (136-145) mmol/L Potassium (3.5-5.1) mmol/L Chloride (98-107) mmol/L Carbon Dioxide (20.0-31.0) mmol/L Anion Gap (3-11) mmol/L BUN (9-23) mg/dL Creatinine (0.73-1.18) mg/dL Est GFR (CKD-EPI 2020) (mL/min/1.73m2) Glucose (74-106) mg/dL Hemoglobin A1c (<5.7) % Uric Acid (3.7-9.2) mg/dL Calcium (8.3-10.6) mg/dL Phosphorus (2.4-5.1) mg/dL Magnesium (1.6-2.6) mg/dL Total Bilirubin (0.2-1.2) mg/dL AST (<34) U/L ALT (10-49) U/L Alkaline Phosphatase (46-116) U/L Lactate Dehydrogenase (120-246) U/L Creatine Kinase (46-171) U/L Troponin I (<54) ng/L NT-Pro-B Natriuret Pep (<300) pg/mL Total Protein (5.7-8.2) g/dL Albumin (3.2-5.0) g/dL TSH (0.55-4.78) uIU/mL Urine Color (Yellow) Urine Clarity (Clear) Urine pH (5-8) Ur Specific [place] (1.005-1.025) Urine Protein (Neg-Trace) mg/dL Urine Ketones (Negative) mg/dL Urine Blood (Negative) Urine Nitrite (Negative) Urine Bilirubin (Negative) Urine Urobilinogen (Up to 0.2) mg/dL Ur Leukocyte Esterase (Negative) Urine RBC (0-2) HPF Urine WBC (0-5) HPF Ur Epithelial Cells (Negative) HPF Urine Crystals (Negative) HPF Urine Bacteria (Negative) HPF Urine Casts (Negative) LPF Urine Mucus (Negative) Urine Other (Negative) Ur Culture Indicated? Urine Glucose (Negative) mg/dL Fluid Type Fluid Source Fluid Color Fluid Clarity Fluid WBC (0) uL Fld Polynuclear WBCs % % Fluid Mononuclear Cell % Fluid Glucose (See Note) mg/dL Fluid Total Protein g/dL Fluid LDH U/L COVID-19 Source SARS-CoV-2 (PCR) (Negative) Influenza Type A (PCR) (Negative) Influenza Type B (PCR) (Negative) RSV (PCR) (Negative) Path Cons Comment Add-On Test Request DONE DONE ABO/Rh Antibody Screen Range/Units 07/12/25 07/13/25 07/13/25 21:04 05:52 08:30 WBC (4.4-10.8) 10^3/uL RBC (4.36-5.78) 10^6/uL Hgb (13.5-17.5) g/dL Hct (40.0-50.0) % MCV (80-95) fL MCH (27.0-33.0) pg MCHC (32.0-36.0) % RDW (11.8-14.1) % Plt Count (130-400) 10^3/uL MPV (8.0-11.0) fL Immature Gran % % Neutrophils % % Band Neutrophils % % Lymphocytes % % Atypical Lymphs % % Monocytes % % Eosinophils % % Basophils % % Metamyelocytes % Myelocytes % Nucleated RBC % (0.0-0.3) % Absolute Neutrophils (1.2-6.7) 10^3/uL Absolute Lymphocytes (1.2-3.4) 10^3/uL Absolute Monocytes (0.1-0.8) 10^3/uL Absolute Eosinophils (0.0-0.7) 10^3/uL Absolute Basophils (0.0-0.2) 10^3/uL RBC Morphology Polychromasia Hypochromasia Anisocytosis Microcytosis PT (9.1-11.1) sec INR (0.9-1.1) APTT (20.6-30.2) sec Fibrinogen (171-384) mg/dL D-Dimer (<500) ng/mlFEU VBG pH (7.31-7.41) VBG pCO2 (41-51) mmHg VBG pO2 mmHg VBG HCO3 (23-28) mmol/L VBG Total CO2 (24-29) mmol/L VBG O2 Saturation % VBG Base Excess (-2-3) mmol/L VBG Lactate (<or=2.0) mmol/L 5.1 H* Sodium (136-145) mmol/L Potassium (3.5-5.1) mmol/L Chloride (98-107) mmol/L Carbon Dioxide (20.0-31.0) mmol/L Anion Gap (3-11) mmol/L BUN (9-23) mg/dL Creatinine (0.73-1.18) mg/dL Est GFR (CKD-EPI 2020) (mL/min/1.73m2) Glucose (74-106) mg/dL Hemoglobin A1c (<5.7) % 4.9 Uric Acid (3.7-9.2) mg/dL Calcium (8.3-10.6) mg/dL Phosphorus (2.4-5.1) mg/dL 4.1 Magnesium (1.6-2.6) mg/dL Total Bilirubin (0.2-1.2) mg/dL AST (<34) U/L ALT (10-49) U/L Alkaline Phosphatase (46-116) U/L Lactate Dehydrogenase (120-246) U/L Creatine Kinase (46-171) U/L Troponin I (<54) ng/L NT-Pro-B Natriuret Pep (<300) pg/mL Total Protein (5.7-8.2) g/dL Albumin (3.2-5.0) g/dL TSH (0.55-4.78) uIU/mL Urine Color (Yellow) Urine Clarity (Clear) Urine pH (5-8) Ur Specific [place] (1.005-1.025) Urine Protein (Neg-Trace) mg/dL Urine Ketones (Negative) mg/dL Urine Blood (Negative) Urine Nitrite (Negative) Urine Bilirubin (Negative) Urine Urobilinogen (Up to 0.2) mg/dL Ur Leukocyte Esterase (Negative) Urine RBC (0-2) HPF Urine WBC (0-5) HPF Ur Epithelial Cells (Negative) HPF Urine Crystals (Negative) HPF Urine Bacteria (Negative) HPF Urine Casts (Negative) LPF Urine Mucus (Negative) Urine Other (Negative) Ur Culture Indicated? Urine Glucose (Negative) mg/dL Fluid Type Pleural Fluid Source Pleural Fluid Color Other Fluid Clarity Cloudy Fluid WBC (0) uL 470 Fld Polynuclear WBCs % % 19 Fluid Mononuclear Cell % 81 Fluid Glucose (See Note) mg/dL 94 Fluid Total Protein g/dL 2.6 Fluid LDH U/L 177 COVID-19 Source SARS-CoV-2 (PCR) (Negative) Influenza Type A (PCR) (Negative) Influenza Type B (PCR) (Negative) RSV (PCR) (Negative) Path Cons Comment SEE COMMENT Add-On Test Request ABO/Rh Antibody Screen Range/Units 07/14/25 07/15/25 07/16/25 05:30 05:53 05:22 WBC (4.4-10.8) 10^3/uL 3.32 L 3.14 L 3.40 L RBC (4.36-5.78) 10^6/uL 3.24 L 3.44 L 3.41 L Hgb (13.5-17.5) g/dL 8.0 L 8.8 L 8.7 L Hct (40.0-50.0) % 25.2 L 27.6 L 26.9 L MCV (80-95) fL 78 L 80 79 L MCH (27.0-33.0) pg 24.7 L 25.6 L 25.5 L MCHC (32.0-36.0) % 31.7 L 31.9 L 32.3 RDW (11.8-14.1) % 19.1 H 19.5 H 19.3 H Plt Count (130-400) 10^3/uL 194 218 203 MPV (8.0-11.0) fL 9.3 9.6 9.4 Immature Gran % % 0.0 7.0 5.0 Neutrophils % % 70.0 77.4 78.8 Band Neutrophils % % 5 Lymphocytes % % 4.0 7.3 6.8 Atypical Lymphs % % 4 Monocytes % % 13.0 8.3 9.1 Eosinophils % % 0.0 0.0 0.0 Basophils % % 0.0 0.0 0.3 Metamyelocytes % 3 Myelocytes % 1 Nucleated RBC % (0.0-0.3) % 0.0 0.0 0.0 Absolute Neutrophils (1.2-6.7) 10^3/uL 2.49 2.43 2.68 Absolute Lymphocytes (1.2-3.4) 10^3/uL 0.27 L 0.23 L 0.23 L Absolute Monocytes (0.1-0.8) 10^3/uL 0.43 0.26 0.31 Absolute Eosinophils (0.0-0.7) 10^3/uL 0.00 0.00 0.00 Absolute Basophils (0.0-0.2) 10^3/uL 0.00 0.00 0.01 RBC Morphology See Below Polychromasia Present Hypochromasia 1+ Anisocytosis 2+ Microcytosis 2+ PT (9.1-11.1) sec INR (0.9-1.1) APTT (20.6-30.2) sec Fibrinogen (171-384) mg/dL D-Dimer (<500) ng/mlFEU VBG pH (7.31-7.41) VBG pCO2 (41-51) mmHg VBG pO2 mmHg VBG HCO3 (23-28) mmol/L VBG Total CO2 (24-29) mmol/L VBG O2 Saturation % VBG Base Excess (-2-3) mmol/L VBG Lactate (<or=2.0) mmol/L Sodium (136-145) mmol/L 134 L 138 Potassium (3.5-5.1) mmol/L 4.0 4.9 Chloride (98-107) mmol/L 95 L 98 Carbon Dioxide (20.0-31.0) mmol/L 28.0 31.4 H Anion Gap (3-11) mmol/L 10.6 8.4 BUN (9-23) mg/dL 15 14 Creatinine (0.73-1.18) mg/dL 0.72 L 0.68 L Est GFR (CKD-EPI 2020) (mL/min/1.73m2) 117.37 125.37 Glucose (74-106) mg/dL 93 78 Hemoglobin A1c (<5.7) % Uric Acid (3.7-9.2) mg/dL Calcium (8.3-10.6) mg/dL 8.0 L 8.4 Phosphorus (2.4-5.1) mg/dL Magnesium (1.6-2.6) mg/dL 1.6 Total Bilirubin (0.2-1.2) mg/dL 1.4 H 1.4 H AST (<34) U/L 45 H 54 H ALT (10-49) U/L 14 16 Alkaline Phosphatase (46-116) U/L 78 83 Lactate Dehydrogenase (120-246) U/L Creatine Kinase (46-171) U/L Troponin I (<54) ng/L NT-Pro-B Natriuret Pep (<300) pg/mL Total Protein (5.7-8.2) g/dL 4.4 L 4.5 L Albumin (3.2-5.0) g/dL 2.9 L 2.9 L TSH (0.55-4.78) uIU/mL Urine Color (Yellow) Urine Clarity (Clear) Urine pH (5-8) Ur Specific [place] (1.005-1.025) Urine Protein (Neg-Trace) mg/dL Urine Ketones (Negative) mg/dL Urine Blood (Negative) Urine Nitrite (Negative) Urine Bilirubin (Negative) Urine Urobilinogen (Up to 0.2) mg/dL Ur Leukocyte Esterase (Negative) Urine RBC (0-2) HPF Urine WBC (0-5) HPF Ur Epithelial Cells (Negative) HPF Urine Crystals (Negative) HPF Urine Bacteria (Negative) HPF Urine Casts (Negative) LPF Urine Mucus (Negative) Urine Other (Negative) Ur Culture Indicated? Urine Glucose (Negative) mg/dL Fluid Type Fluid Source Fluid Color Fluid Clarity Fluid WBC (0) uL Fld Polynuclear WBCs % % Fluid Mononuclear Cell % Fluid Glucose (See Note) mg/dL Fluid Total Protein g/dL Fluid LDH U/L COVID-19 Source SARS-CoV-2 (PCR) (Negative) Influenza Type A (PCR) (Negative) Influenza Type B (PCR) (Negative) RSV (PCR) (Negative) Path Cons Comment Add-On Test Request ABO/Rh Antibody Screen Range/Units 07/17/25 06:20 WBC (4.4-10.8) 10^3/uL RBC (4.36-5.78) 10^6/uL Hgb (13.5-17.5) g/dL Hct (40.0-50.0) % MCV (80-95) fL MCH (27.0-33.0) pg MCHC (32.0-36.0) % RDW (11.8-14.1) % Plt Count (130-400) 10^3/uL MPV (8.0-11.0) fL Immature Gran % % Neutrophils % % Band Neutrophils % % Lymphocytes % % Atypical Lymphs % % Monocytes % % Eosinophils % % Basophils % % Metamyelocytes % Myelocytes % Nucleated RBC % (0.0-0.3) % Absolute Neutrophils (1.2-6.7) 10^3/uL Absolute Lymphocytes (1.2-3.4) 10^3/uL Absolute Monocytes (0.1-0.8) 10^3/uL Absolute Eosinophils (0.0-0.7) 10^3/uL Absolute Basophils (0.0-0.2) 10^3/uL RBC Morphology Polychromasia Hypochromasia Anisocytosis Microcytosis PT (9.1-11.1) sec INR (0.9-1.1) APTT (20.6-30.2) sec Fibrinogen (171-384) mg/dL D-Dimer (<500) ng/mlFEU VBG pH (7.31-7.41) VBG pCO2 (41-51) mmHg VBG pO2 mmHg VBG HCO3 (23-28) mmol/L VBG Total CO2 (24-29) mmol/L VBG O2 Saturation % VBG Base Excess (-2-3) mmol/L VBG Lactate (<or=2.0) mmol/L Sodium (136-145) mmol/L Potassium (3.5-5.1) mmol/L Chloride (98-107) mmol/L Carbon Dioxide (20.0-31.0) mmol/L Anion Gap (3-11) mmol/L BUN (9-23) mg/dL Creatinine (0.73-1.18) mg/dL Est GFR (CKD-EPI 2020) (mL/min/1.73m2) Glucose (74-106) mg/dL Hemoglobin A1c (<5.7) % Uric Acid (3.7-9.2) mg/dL 2.5 L Calcium (8.3-10.6) mg/dL Phosphorus (2.4-5.1) mg/dL Magnesium (1.6-2.6) mg/dL Total Bilirubin (0.2-1.2) mg/dL AST (<34) U/L ALT (10-49) U/L Alkaline Phosphatase (46-116) U/L Lactate Dehydrogenase (120-246) U/L 303 H Creatine Kinase (46-171) U/L Troponin I (<54) ng/L NT-Pro-B Natriuret Pep (<300) pg/mL Total Protein (5.7-8.2) g/dL Albumin (3.2-5.0) g/dL TSH (0.55-4.78) uIU/mL Urine Color (Yellow) Urine Clarity (Clear) Urine pH (5-8) Ur Specific [place] (1.005-1.025) Urine Protein (Neg-Trace) mg/dL Urine Ketones (Negative) mg/dL Urine Blood (Negative) Urine Nitrite (Negative) Urine Bilirubin (Negative) Urine Urobilinogen (Up to 0.2) mg/dL Ur Leukocyte Esterase (Negative) Urine RBC (0-2) HPF Urine WBC (0-5) HPF Ur Epithelial Cells (Negative) HPF Urine Crystals (Negative) HPF Urine Bacteria (Negative) HPF Urine Casts (Negative) LPF Urine Mucus (Negative) Urine Other (Negative) Ur Culture Indicated? Urine Glucose (Negative) mg/dL Fluid Type Fluid Source Fluid Color Fluid Clarity Fluid WBC (0) uL Fld Polynuclear WBCs % % Fluid Mononuclear Cell % Fluid Glucose (See Note) mg/dL Fluid Total Protein g/dL Fluid LDH U/L COVID-19 Source SARS-CoV-2 (PCR) (Negative) Influenza Type A (PCR) (Negative) Influenza Type B (PCR) (Negative) RSV (PCR) (Negative) Path Cons Comment Add-On Test Request ABO/Rh Antibody Screen Imaging Chest x-ray: report reviewed and image reviewed
[2025-07-19 07:18] LABS: Abs Immature Grans 0.23 10^3/uL (0.0-0.06); HCT 28.4 % (40.0-50.0); HGB 8.9 g/dL (13.5-17.5); MCH 25.5 pg (27.0-33.0); MCHC 31.3 % (32.0-36.0); MCV 81 fL (80-95); MPV 9.9 fL (8.0-11.0); Platelet Count 201 10^3/uL (130-400); RBC 3.49 10^6/uL (4.36-5.78); RDW 20.3 % (11.8-14.1); RDW-SD 58.5 fL; WBC 3.62 10^3/uL (4.4-10.8)
[2025-07-19 07:52] LABS: ALT 21 U/L (10-49); AST 61 U/L (<34); Albumin 3.0 g/dL (3.2-5.0); Alkaline Phosphatase 95 U/L (46-116); Anion Gap 12.8 mmol/L (3-11); BUN 20 mg/dL (9-23); Bilirubin, Total 1.1 mg/dL (0.2-1.2); CO2 28.6 mmol/L (20.0-31.0); Calcium 8.4 mg/dL (8.3-10.6); Chloride 98 mmol/L (98-107); Glucose 86 mg/dL (74-106); Potassium 4.0 mmol/L (3.5-5.1); Sodium 139 mmol/L (136-145); Total Protein 4.7 g/dL (5.7-8.2)
[2025-07-19 07:54] LABS: Magnesium 1.8 mg/dL (1.6-2.6)
--- NOTE | 2025-07-19 07:55 | DI.VRAD_ITS ---
PROCEDURE INFORMATION: Exam: XR Chest Exam date and time: 07/19/2025 6:12 AM Age: 45 years old Clinical indication: Other: Post-thoracentesis, query effusion changes TECHNIQUE: Imaging protocol: Radiologic exam of the chest. Views: 1 view. COMPARISON: CR XR PORTABLE CHEST AP 07/18/2025 7:43 AM FINDINGS: Lungs: Low lung volumes. Mild atelectasis at the lung bases. Pleural spaces: Small right pleural effusion has not significantly changed. No pneumothorax. Question of tiny left pleural effusion. Heart/Mediastinum: Unremarkable. No cardiomegaly. Bones/joints: Age related osseous changes. IMPRESSION: Stable mild atelectatic changes at the lung bases and small right pleural effusion. Dictated and Authenticated by: Meera Cordero MD. Orderin Wing Lutz MD
[2025-07-19 08:45] LABS: Anisocytosis 2+; Polychromasia Present
[2025-07-19] MEDS: Docusate Sodium 100 MG CAP PO ×2 (09:04→20:13)
[2025-07-19] MEDS: FLUoxetine 20 MG CAP 40 MG PO (09:04)
[2025-07-19] MEDS: Enoxaparin 40 MG/0.4 ML SYR SC (09:04)
[2025-07-19] MEDS: Metoprolol 25 MG TAB 37.5 MG PO ×2 (09:05→20:11)
--- NOTE | 2025-07-19 09:12 | PDOC.CMPRO ---
Date of service: 07/19/25 Time of Service: 09:12 Care Management Progress Note Progress Note Text Progress Note Text: Terry was reclining in bed when CM met with him. He had been dozing and did not fully engage with CM. CM noted that Terry was not wearing his nasal cannula in his nose and made the necessary adjustments. Terry was aware it was not positioned properly but did not explain why he did not fix it. Terry is nearing discharge readiness. He will likely require new home oxygen but does not have a place to stay. His plan is to call [employer] on the day of discharge to hopefully receive a hotel voucher. CM will again attempt to contact his manager community outreach tomorrow to discuss Terry's housing situation. Discharge Potential Discharge Needs: PCP F/U Appt Anticipated Barriers to Discharge: None Identified Patient/Family Education Needs: Review discharge instructions, discuss Ask Me Three Transportation: Private vehicle Plan: Terry will return to the community once he is medically stable. He will need to contact [facility] for emergency chcf on day of discharge, if permanent housing has not been secured by his manager community outreach prior to discharge. At this time Terry continues to require 1-2 L/min of nasal oxygen. He may benefit from new HH RN upon discharge. He will follow up with his PCP and discharge plan of care. CM will continue to follow. Social Determinants of Health Screening Will the Patient Participate in the Screening?: Unable to obtain Comments: Patient has some mild unreliability with history.
--- NOTE | 2025-07-19 11:18 | PT.INTREAT ---
PT Notes Visit Reasons: Failure to thrive Date: 07/19/2025 PRECAUTIONS: Fall. standard Activity as tolerated. SUBJECTIVE: Pt in recliner when approached for therapy this morning, pt agreed to participate with therapy intervention. OBJECTIVE: ? PAIN: denies VITALS: Monitored via telemetry Therapeutic Activities 54286: Direct one-on-one instruction in dynamic activities to improve functional performance. ?? BED MOBILITY/TRANSFERS? Rolling L/R: independent Supine-sit: ? independent? Sit-supine: ? ?independent ? Sit-stand: ? ?independent ? Stand-sit: ?? independent? Bed-Chair:? ?independent ? Chair-bed: independent Provided skilled cues and instruction on performance and technique throughout. Therapeutic procedures [id number]: Instruction in therapeutic exercises to develop strength and endurance, range of motion and flexibility. HEP instruction and review: Provided skilled instruction in proper exercise performance: Provided skilled manual cues to facilitate proper muscle recruitment and/or movement pattern: ? ? Access Code: [email or web address] URL: [email or web address] Date: 07/19/2025 Prepared by: Miguel Montano Exercises - Supine Gluteal Sets - 1 x daily - 7 x weekly - 3 sets - 10 reps - Supine Quad Set - 1 x daily - 7 x weekly - 3 sets - 10 reps - Supine Ankle Pumps - 1 x daily - 7 x weekly - 3 sets - 10 reps - Supine Heel Slides - 1 x daily - 7 x weekly - 3 sets - 10 reps - Seated Long Arc Quad - 1 x daily - 7 x weekly - 3 sets - 10 reps - Seated March - 1 x daily - 7 x weekly - 3 sets - 10 reps Patient Education - Check for Safety ? ASSESSMENT:?Pt provided with paper copy for HEP, pt reports understanding and will try to comply with HEP. PLAN: Continue with balance training, global strengthening and general conditioning for improved safety, mobility and activity tolerance until pt is ready for DC. TREATMENT CODE/TIME: [id number] 15mins (11:30-11:45am)
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
--- NOTE | 2025-07-19 16:37 | PGE_ITS ---
Date of Service Date of service: 07/19/25 Time of Service: 08:00 Assessment and Plan Assessment and plan (1) Acute hypoxic respiratory failure: Status: Acute Assessment and plan: Hypoxemic while flat in bed to SpO2 mid-80's Otherwise SpO2 88-92 on NC 1-2L More comfortable after thoracentesis Anticipating need for home O2 at discharge Repeat CXR Jul 16 evening Pulm update Jul 17: patient would benefit from repeat thoracentesis but at this time he defers Jul 18: repeat thoracentesis, 2L removed. Cytology reports are returning, equivocal. Will continue workup for non-malignant causes. Jul 19: anticipate ongoing care for re-accumulation of pleural effusions, challenging placement. Not an NIV candidate due to resistance in the past. Appreciate Dr Flanagan consult. (2) Pleural effusion on left: Status: Acute Assessment and plan: Jul [address] Flanagan, pulmonology, 2L out with moderate WBCs, no bacteria Pleural fluid protein, LDH, cytology, cultures, pathology pending Given recent lymphoma diagnosis, likely malignant effusion, also consider card iogenesis May need additional pleural drainage as fluid is likely to re-accumulate Echocardiogram done, suboptimal study, EF 60% Followed by [facility], currently being worked up for lymphoma, substantial m ediastinal and retroperitoneal lymphadenopathy VTE chemoprophylaxis held prior to thoracentesis, lovenox ordered (pt with high risk of VTE, Srikanth score 5) Continuing imaging to support decisions for additional thoracentesis. (3) Tumor lysis syndrome: Status: Acute Assessment and plan: -Dr Mae discussed case with Dr Infante, [facility] forder operator on 07/12; she did not believe labs were clearly c/w TLS, recommended LDH, uric acid (if >4, allopurinol advised), and labs to r/o DIC -Elevated LDH 350. Uric acid 4.6, Allopurinol started 300 mg PO QHS LDH and uric acid lower on Jul 17, will continue allopurinol Oncology followup for long term care phlebotomist care (4) Acute lactic acidosis: Status: Resolved Assessment and plan: -Severe lactic acidosis on presentation, improved with fluid resuscitation (9.1 >5.1) -Sepsis vs tumor lysis vs active malignancy -Antibiotics given in ED, discontinued (5) Sinus tachycardia: Status: Acute Assessment and plan: -Tachycardic in the 120's - 140's on prior ED visits -continues to remain tachycardic with HR 120s-130s at rest, up to 160s with mo vement -metoprolol 25 mg PO BID for rate control, increased to 37.5 BID on Jul 15 -echo ordered, waiting for rate control to perform Home medication list not available but previously he was on haldol, one dose given 07/12. Pharmacy performing med reconcilitation -Some improvement with PO ativan 1 mg one time dose given 07/12 Increased metoprolol to 37.5 BID Off telemetry, still monitoring SpO2 and HR Heart rates well below 120, largely within normal range (6) Lower extremity edema: Status: Chronic Assessment and plan: -Left significantly worse than right, concerning for VTE vs lymphatic obstruction -US BLE doppler performed 07/13, no DVT (7) Mediastinal lymphadenopathy: Status: Chronic Assessment and plan: -Noted on imaging back to March 2025, currently being worked up at [facility] for probable lymphoma -Likely needing social support -Palliative care consult (8) Schizoaffective disorder: Assessment and plan: -Per medical record -Home medications not available - per patient he gets all of his meds from [facility], pharmacy performing med reconcilation (9) Diabetes: Assessment and plan: -history of T2DM, not currently on any medicaitons. A1C 4.9 performed 07/13 (10) Hypothyroidism: Assessment and plan: -Noted history, unclear if he is on any meds, waiting for med rec -TSH done in ED, unremarkable (11) Hypertension: Assessment and plan: -Noted history, unclear if he is on any meds, waiting for med rec -normotensive since admission, will continue to monitor (12) Hemorrhoids: Assessment and plan: -Patient reports that he defecates about once per week and has bleeding with defecation, has h/o hemorrhoids -Bowel regimen ordered -will continue to monitor for signs of active lower GI bleeding Subjective Subjective Interval history since last seen: Mr. Figueroa is comfortable, ambulating in the hallway with staff. Exam Narrative Exam Narrative: General: This is a pleasant, obese man in no distress HEENT: Normocephalic, atraumatic CV: RRR. BLE 2+ pitting edema to the knee Resp: Diminished bibasilar breath sounds, left worse than right. Dullness to percussion BLL. Thoracentesis site c/d/i. On room air Abd: NTND +NBS MSK: voluntary motion x4 Neuro: awake, alert, no focal deficits Objective Last Vital Signs Temp 38.3 C H 07/19/25 10:24 Pulse 113 H 07/19/25 10:24 Resp 22 07/19/25 10:24 BP 110/73 07/19/25 10:24 Pulse Ox 94 07/19/25 10:24 Laboratory Results - last 24 hr 07/19/25 06:29 WBC 3.62 L RBC 3.49 L Hgb 8.9 L Hct 28.4 L MCV 81 MCH 25.5 L MCHC 31.3 L RDW 20.3 H Plt Count 201 MPV 9.9 Immature Gran % See Differential Neutrophils % 85.0 Band Neutrophils % 3 Lymphocytes % 4.0 Monocytes % 6.0 Eosinophils % 0.0 Basophils % 0.0 Metamyelocytes % 2 Nucleated RBC % 0.0 Absolute Neutrophils 3.19 Absolute Lymphocytes 0.14 L Absolute Monocytes 0.22 Absolute Eosinophils 0.00 Absolute Basophils 0.00 RBC Morphology See Below Polychromasia Present Anisocytosis 2+ Sodium 139 Potassium 4.0 Chloride 98 Carbon Dioxide 28.6 Anion Gap 12.8 H BUN 20 Creatinine 0.71 L Est GFR (CKD-EPI 2020) 119.27 Glucose 86 Calcium 8.4 Magnesium 1.8 Total Bilirubin 1.1 AST 61 H ALT 21 Alkaline Phosphatase 95 Total Protein 4.7 L Albumin 3.0 L VTE Prohylaxis Risk Level: Moderate/High Risk Contraindications: Active bleed/high bleed risk (thoracentesis likely in the morning) Prophylaxis: Mechanical Time Spent with Patient Time Spent with Patient: 25-34 minutes Time was spent: preparing to see the patient(eg.review tests), obtaining and/or reviewing separately otained hiistory, ordering medications,tests, procedures, referring, communicating with other health care associate, indepentently interpreting results, counseling the patient and care coordination
[2025-07-19] MEDS: Normal Saline Flush 10 ML SYR IVP (17:09)
[2025-07-19] MEDS: [UNRECOGNIZED DRUG - OTHER] 3 MG PO (20:11)
[2025-07-19] MEDS: traZODone 100 MG TAB 200 MG PO (20:12)
[2025-07-19] MEDS: Allopurinol 300 MG TAB PO (20:13)
[2025-07-19] MEDS: Polyethylene Glycol 3350 17 GM PACKET PO (20:13)
[2025-07-20] VITALS (12 sets, daily range): BP systolic 94–116; BP diastolic 47–93; PULSE 96–121; RESP 16–27; TEMP 35.7–38; O2SAT 80–96
--- NOTE | 2025-07-20 06:00 | DI.RAD_ITS ---
Exam(s) XR PORTABLE CHEST AP EXAM: XR PORTABLE CHEST AP CLINICAL HISTORY: status effusions TECHNIQUE: 2D digital imaging was performed of the chest. One image was obtained. An AP view was obtained. COMPARISON: CR,XR XR PORTABLE CHEST AP from 07/19/2025 FINDINGS: There are low lung volumes. MEDIASTINUM: Normal. HEART: Normal. PULMONARY VASCULATURE: Normal. LUNGS: The left lung is clear. Atelectatic changes are seen in the right lower lobe. PLEURAL SPACE: There is a persistent right pleural effusion. There is blunting of the left costophrenic angle suggesting a tiny left pleural effusion. There is no pneumothorax. BONE:Within normal limits for the patient's age. OTHER FINDINGS:Normal. IMPRESSION: 1. Stable small right pleural effusion and right basilar atelectasis. 2. The preliminary [facility] report was reviewed. DATA REPOSITORY: RADIATION DOSE DELIVERED:
[2025-07-20] MEDS: Acetaminophen 325 MG TAB 650 MG PO ×2 (06:09→15:46)
--- NOTE | 2025-07-20 07:48 | DI.[facility]_ITS ---
PROCEDURE INFORMATION: Exam: XR Chest Exam date and time: 07/20/2025 6:29 AM Age: 45 years old Clinical indication: Other: Status effusions TECHNIQUE: Imaging protocol: Radiologic exam of the chest. Views: 1 view. COMPARISON: CR XR PORTABLE CHEST AP 07/19/2025 6:12 AM FINDINGS: Limitations: Low lung volumes. Portable technique. Patient body habitus. Lungs: Low lung volumes, with vascular crowding. New mild perihilar interstitial infiltrates. Airspace opacity at right lung base. Pleural spaces: Small right pleural effusion. Heart/Mediastinum: Stable cardiomediastinal silhouette. Bones/joints: Unremarkable. IMPRESSION: 1. New interstitial edema. 2. Stable small right pleural effusion with subjacent atelectasis and/or pneumonic infiltrate at the right lung base. Dictated and Authenticated by: Erendira Figueroa MD. Orderin Wing Lutz MD
--- NOTE | 2025-07-20 07:56 | PGE_ITS ---
Assessment and Plan Assessment and plan (1) Acute hypoxic respiratory failure: Status: Acute (2) Bilateral pleural effusion: Status: Acute (3) Mediastinal lymphadenopathy: Status: Chronic (4) Severe obstructive sleep apnea: General Date Of Service Date of service: 07/20/25 Time of Service: 06:45 Requesting physician: Bolivar Dimas Reason for Consult: Pleural effusion Recommendations: Assessment: 1. Bilateral pleural effusions - present since his PET-CT in 06/2025 at [facility] [place]. Given underlying lymphoma and atypical cells in pleural fluid, malignant effusion is a concern. Cardiogenic effusions are also possible, although, echo was unremarkable. Fluid analysis not consistent with parapneumonic effusion. S/P left thoracentesis with 1.8 L removed on 07/13 and 1.6 L removed on 07/18. Pleural fluid analysis showed a borderline exudate (protein ratio > 0.5). LDH pleural fluid was only 177. Pleural fluid cytopathology showed atypical cells, flow cytometry pending. 2. Acute hypoxemic respiratory failure - improved post-thoracentesis. Intermittently on oxygen 3. Lymphoma - workup is ongoing. Recent bone marrow biopsy was suspicious for lymphoma. Had chest/abd/pelvic FDG avid lymph nodes on PET-CT in 06/2025. Pleural fluid flow cytometry is pending 4. Mediastinal lymphadenopathy - likely related to underlying lymphoma Recommendations - follow up on pleural fluid flow cytometry - continue IV diuresis, provided his Cr has remained stable. I/O not accurate due to incontinence - his social situation is complicated. His pleural effusions will likely re- accumuate to some degree. Would not advise Pleural catheter placement, as I would be concerned for improper care of it/infection risk. Can continue with serial thoracentesis should his respiratory status decline. CXR is stable and oxygen requirements have overall improved. No need for repeat thoracentesis at this time - will see in clinic in 2 weeks for re-evaluation Discussed with Dr. Dimas Subjective Note Note: Patient is a 45 yo with a history of schizoaffective disorder and lymphoma who was admitted on 07/12/25 for worsening dyspnea and acute hypoxemic respiratory failure He was admitted for worsening dyspnea and LE swelling since 06/2025. CXR in the ED showed a large left pleural effusion. Was initially placed on BiPAP due to respiratory distress. Thoracentesis was completed 07/13 with 1.8 L removed from the left pleural space. Fluid analysis showed a borderline exudate. Repeat left thoracentesis was completed on 07/18 with 1.6 L removed PET-CT at [facility] [place] 06/23/25 noted moderate left and small right pleural effusions. Mutiple FDG avid lymph nodes were noted in the mediastinal, hilar, retroperitoneal, and iliac regions. He underwent bone marrow biopsy at [facility] [place] on 07/05/25, which showed abnormal lymphohistiocytic aggregates, suspicious for lymphoma. He has a history of ISATU, but has been intolerant to home NIV in the past. He denies any complaints this AM. On room air during my examination. Denied chest pain or significant cough. ROS: 6 pt ROS negative except as above Sx: Tobacco use: none Alcohol use: none Exam Narrative Exam Narrative: General: alert, no acute distress Head: normocephalic ENT: no stridor, trachea midline CV: tachyardic, regular rhythm Respiratory: no wheezing, no crackles, no rhonchi, no prolonged expiration GI: abd soft, non-tender, non-distended Skin: no rashes Extremities: +2 edema, no digital clubbing Psych: flat affect Objective Last Vital Signs Temp 37.2 C 07/20/25 00:51 Pulse 103 H 07/20/25 00:51 Resp 19 07/20/25 00:51 BP 116/93 H 07/20/25 00:51 Pulse Ox 90 L 07/20/25 02:06 Laboratory Results - last 24 hr 07/19/25 06:29 WBC 3.62 L RBC 3.49 L Hgb 8.9 L Hct 28.4 L MCV 81 MCH 25.5 L MCHC 31.3 L RDW 20.3 H Plt Count 201 MPV 9.9 Immature Gran % See Differential Neutrophils % 85.0 Band Neutrophils % 3 Lymphocytes % 4.0 Monocytes % 6.0 Eosinophils % 0.0 Basophils % 0.0 Metamyelocytes % 2 Nucleated RBC % 0.0 Absolute Neutrophils 3.19 Absolute Lymphocytes 0.14 L Absolute Monocytes 0.22 Absolute Eosinophils 0.00 Absolute Basophils 0.00 RBC Morphology See Below Polychromasia Present Anisocytosis 2+ Results Medications Medications: Active Medications Generic Name Dose Route Start Last Admin Trade Name Freq PRN Reason Stop Dose Admin Acetaminophen 650 mg 07/14/25 12:16 07/18/25 12:09 Acetaminophen 325 Mg Tab PO 650 mg Q6H PRN PRN Administration Allopurinol 300 mg 07/13/25 20:00 07/19/25 20:13 Allopurinol 300 Mg Tab PO 300 mg HS GLORIA Administration Bisacodyl 10 mg 07/12/25 22:29 Bisacodyl 10 Mg Supp TX DAILY PRN PRN Docusate Sodium 100 mg 07/13/25 08:30 07/19/25 20:13 Docusate Sodium 100 Mg Cap PO 100 mg BID GLORIA Administration Enoxaparin Sodium 40 mg 07/13/25 09:50 07/19/25 09:04 Enoxaparin 40 Mg/0.4 Ml Syr SC 40 mg DAILY GLORIA Administration Fluoxetine HCl 40 mg 07/13/25 11:30 07/19/25 09:04 Fluoxetine 20 Mg Cap PO 40 mg DAILY GLORIA Administration Furosemide 40 mg 07/18/25 08:00 07/19/25 09:04 Furosemide 40 Mg/4 Ml Vial IVP 40 mg BID@0800,1600 GLORIA Administration Haloperidol 1 mg 07/13/25 11:31 07/17/25 01:33 Haloperidol 1 Mg Tab PO 1 mg TID PRN PRN Administration Metoprolol Tartrate 37.5 mg 07/15/25 20:00 07/19/25 20:11 Metoprolol 25 Mg Tab PO 37.5 mg BID GLORIA Administration Paliperidone 3 mg 07/13/25 20:00 07/19/25 20:11 Paliperidone E.R. 1.5 Mg Tab PO 3 mg HS GLORIA Administration Polyethylene Glycol 17 gm 07/13/25 08:30 07/19/25 20:13 Polyethylene Glycol 3350 17 Gm Packet PO 17 gm BID GLORIA Administration Sennosides 1 tab 07/12/25 22:29 07/17/25 01:33 Senna Tab PO 1 tab BID PRN PRN Administration Sodium Chloride 0 ml 07/12/25 16:47 07/19/25 17:09 Normal Saline Flush 10 Ml Syr IVP 40 ml PRN PRN Administration Trazodone HCl 200 mg 07/13/25 20:00 07/19/25 20:12 Trazodone 100 Mg Tab PO 200 mg HS GLORIA Administration Allergies bee venom protein (honey bee) Allergy (Severe, Verified 07/12/25 15:41) Anaphylaxsis hornet venom Allergy (Severe, Verified 07/12/25 15:41) Anaphylaxsis Labs 07/19/25 06:29 07/19/25 06:29 Labs: 07/13/25 08:30 Pleural - Left Body Fluid Culture - Final 07/13/25 08:30 Pleural - Left Gram Stain - Final 07/13/25 08:30 Pleural - Left Anaerobic Culture - Final 07/12/25 16:28 Blood Blood Culture - Final NO GROWTH 120 HOURS 07/12/25 15:55 Blood Blood Culture - Final NO GROWTH 120 HOURS Laboratory Tests Range/Units 07/12/25 07/12/25 07/12/25 15:55 16:00 16:28 WBC (4.4-10.8) 10^3/uL 4.79 RBC (4.36-5.78) 10^6/uL 3.95 L Hgb (13.5-17.5) g/dL 9.7 L Hct (40.0-50.0) % 30.8 L MCV (80-95) fL 78 L MCH (27.0-33.0) pg 24.6 L MCHC (32.0-36.0) % 31.5 L RDW (11.8-14.1) % 19.2 H Plt Count (130-400) 10^3/uL 243 MPV (8.0-11.0) fL 9.3 Immature Gran % % 4.2 Neutrophils % % 77.9 Band Neutrophils % % Lymphocytes % % 5.6 Atypical Lymphs % % Monocytes % % 11.7 Eosinophils % % 0.0 Basophils % % 0.6 Metamyelocytes % Myelocytes % Nucleated RBC % (0.0-0.3) % 0.0 Absolute Neutrophils (1.2-6.7) 10^3/uL 3.73 Absolute Lymphocytes (1.2-3.4) 10^3/uL 0.27 L Absolute Monocytes (0.1-0.8) 10^3/uL 0.56 Absolute Eosinophils (0.0-0.7) 10^3/uL 0.00 Absolute Basophils (0.0-0.2) 10^3/uL 0.03 RBC Morphology Polychromasia Hypochromasia Anisocytosis Microcytosis PT (9.1-11.1) sec 13.5 H INR (0.9-1.1) 1.4 H APTT (20.6-30.2) sec Fibrinogen (171-384) mg/dL D-Dimer (<500) ng/mlFEU VBG pH (7.31-7.41) 7.41 VBG pCO2 (41-51) mmHg 36 L VBG pO2 mmHg 50 VBG HCO3 (23-28) mmol/L 23 VBG Total CO2 (24-29) mmol/L 21 L VBG O2 Saturation % 84 VBG Base Excess (-2-3) mmol/L -2 VBG Lactate (<or=2.0) mmol/L 9.1 H* Sodium (136-145) mmol/L 133 L Potassium (3.5-5.1) mmol/L 4.0 Chloride (98-107) mmol/L 94 L Carbon Dioxide (20.0-31.0) mmol/L 22.4 Anion Gap (3-11) mmol/L 16.9 H BUN (9-23) mg/dL 17 Creatinine (0.73-1.18) mg/dL 0.88 Est GFR (CKD-EPI 2020) (mL/min/1.73m2) 93.11 Glucose (74-106) mg/dL 138 H Hemoglobin A1c (<5.7) % Uric Acid (3.7-9.2) mg/dL 4.6 Calcium (8.3-10.6) mg/dL 8.0 L Phosphorus (2.4-5.1) mg/dL Magnesium (1.6-2.6) mg/dL 1.6 Total Bilirubin (0.2-1.2) mg/dL 1.9 H AST (<34) U/L 49 H ALT (10-49) U/L 16 Alkaline Phosphatase (46-116) U/L 93 Lactate Dehydrogenase (120-246) U/L 350 H Creatine Kinase (46-171) U/L 28 L Troponin I (<54) ng/L < 3 NT-Pro-B Natriuret Pep (<300) pg/mL 114 Total Protein (5.7-8.2) g/dL 5.1 L Albumin (3.2-5.0) g/dL 3.3 TSH (0.55-4.78) uIU/mL 2.14 Urine Color (Yellow) Urine Clarity (Clear) Urine pH (5-8) Ur Specific [place] (1.005-1.025) Urine Protein (Neg-Trace) mg/dL Urine Ketones (Negative) mg/dL Urine Blood (Negative) Urine Nitrite (Negative) Urine Bilirubin (Negative) Urine Urobilinogen (Up to 0.2) mg/dL Ur Leukocyte Esterase (Negative) Urine RBC (0-2) HPF Urine WBC (0-5) HPF Ur Epithelial Cells (Negative) HPF Urine Crystals (Negative) HPF Urine Bacteria (Negative) HPF Urine Casts (Negative) LPF Urine Mucus (Negative) Urine Other (Negative) Ur Culture Indicated? Urine Glucose (Negative) mg/dL Fluid Type Fluid Source Fluid Color Fluid Clarity Fluid WBC (0) uL Fld Polynuclear WBCs % % Fluid Mononuclear Cell % Fluid Glucose (See Note) mg/dL Fluid Total Protein g/dL Fluid LDH U/L COVID-19 Source SARS-CoV-2 (PCR) (Negative) Influenza Type A (PCR) (Negative) Influenza Type B (PCR) (Negative) RSV (PCR) (Negative) Path Cons Comment Add-On Test Request ABO/Rh A Positive Antibody Screen NEGATIVE Range/Units 07/12/25 07/12/25 07/12/25 17:23 17:25 18:50 WBC (4.4-10.8) 10^3/uL RBC (4.36-5.78) 10^6/uL Hgb (13.5-17.5) g/dL Hct (40.0-50.0) % MCV (80-95) fL MCH (27.0-33.0) pg MCHC (32.0-36.0) % RDW (11.8-14.1) % Plt Count (130-400) 10^3/uL MPV (8.0-11.0) fL Immature Gran % % Neutrophils % % Band Neutrophils % % Lymphocytes % % Atypical Lymphs % % Monocytes % % Eosinophils % % Basophils % % Metamyelocytes % Myelocytes % Nucleated RBC % (0.0-0.3) % Absolute Neutrophils (1.2-6.7) 10^3/uL Absolute Lymphocytes (1.2-3.4) 10^3/uL Absolute Monocytes (0.1-0.8) 10^3/uL Absolute Eosinophils (0.0-0.7) 10^3/uL Absolute Basophils (0.0-0.2) 10^3/uL RBC Morphology Polychromasia Hypochromasia Anisocytosis Microcytosis PT (9.1-11.1) sec INR (0.9-1.1) APTT (20.6-30.2) sec Fibrinogen (171-384) mg/dL D-Dimer (<500) ng/mlFEU VBG pH (7.31-7.41) VBG pCO2 (41-51) mmHg VBG pO2 mmHg VBG HCO3 (23-28) mmol/L VBG Total CO2 (24-29) mmol/L VBG O2 Saturation % VBG Base Excess (-2-3) mmol/L VBG Lactate (<or=2.0) mmol/L 7.1 H* 5.4 H* Sodium (136-145) mmol/L Potassium (3.5-5.1) mmol/L Chloride (98-107) mmol/L Carbon Dioxide (20.0-31.0) mmol/L Anion Gap (3-11) mmol/L BUN (9-23) mg/dL Creatinine (0.73-1.18) mg/dL Est GFR (CKD-EPI 2020) (mL/min/1.73m2) Glucose (74-106) mg/dL Hemoglobin A1c (<5.7) % Uric Acid (3.7-9.2) mg/dL Calcium (8.3-10.6) mg/dL Phosphorus (2.4-5.1) mg/dL Magnesium (1.6-2.6) mg/dL Total Bilirubin (0.2-1.2) mg/dL AST (<34) U/L ALT (10-49) U/L Alkaline Phosphatase (46-116) U/L Lactate Dehydrogenase (120-246) U/L Creatine Kinase (46-171) U/L Troponin I (<54) ng/L 4 NT-Pro-B Natriuret Pep (<300) pg/mL Total Protein (5.7-8.2) g/dL Albumin (3.2-5.0) g/dL TSH (0.55-4.78) uIU/mL Urine Color (Yellow) Yellow Urine Clarity (Clear) Clear Urine pH (5-8) 6.0 Ur Specific [place] (1.005-1.025) <= 1.005 Urine Protein (Neg-Trace) mg/dL >=300 H Urine Ketones (Negative) mg/dL Negative Urine Blood (Negative) Trace-intact H Urine Nitrite (Negative) Negative Urine Bilirubin (Negative) Negative Urine Urobilinogen (Up to 0.2) mg/dL 1.0 H Ur Leukocyte Esterase (Negative) Negative Urine RBC (0-2) HPF 0-2 Urine WBC (0-5) HPF 0-2 Ur Epithelial Cells (Negative) HPF Rare Urine Crystals (Negative) HPF Negative Urine Bacteria (Negative) HPF Few Urine Casts (Negative) LPF 3-5 Fine Granular Urine Mucus (Negative) Negative Urine Other (Negative) Rare Transitional Ur Culture Indicated? No Urine Glucose (Negative) mg/dL Negative Fluid Type Fluid Source Fluid Color Fluid Clarity Fluid WBC (0) uL Fld Polynuclear WBCs % % Fluid Mononuclear Cell % Fluid Glucose (See Note) mg/dL Fluid Total Protein g/dL Fluid LDH U/L COVID-19 Source Nasopharynx SARS-CoV-2 (PCR) (Negative) Negative Influenza Type A (PCR) (Negative) Negative Influenza Type B (PCR) (Negative) Negative RSV (PCR) (Negative) Negative Path Cons Comment Add-On Test Request ABO/Rh Antibody Screen Range/Units 07/12/25 07/12/25 07/12/25 19:07 19:08 19:23 WBC (4.4-10.8) 10^3/uL RBC (4.36-5.78) 10^6/uL Hgb (13.5-17.5) g/dL Hct (40.0-50.0) % MCV (80-95) fL MCH (27.0-33.0) pg MCHC (32.0-36.0) % RDW (11.8-14.1) % Plt Count (130-400) 10^3/uL MPV (8.0-11.0) fL Immature Gran % % Neutrophils % % Band Neutrophils % % Lymphocytes % % Atypical Lymphs % % Monocytes % % Eosinophils % % Basophils % % Metamyelocytes % Myelocytes % Nucleated RBC % (0.0-0.3) % Absolute Neutrophils (1.2-6.7) 10^3/uL Absolute Lymphocytes (1.2-3.4) 10^3/uL Absolute Monocytes (0.1-0.8) 10^3/uL Absolute Eosinophils (0.0-0.7) 10^3/uL Absolute Basophils (0.0-0.2) 10^3/uL RBC Morphology Polychromasia Hypochromasia Anisocytosis Microcytosis PT (9.1-11.1) sec INR (0.9-1.1) APTT (20.6-30.2) sec 37.3 H Fibrinogen (171-384) mg/dL 355 D-Dimer (<500) ng/mlFEU > 7500 H VBG pH (7.31-7.41) VBG pCO2 (41-51) mmHg VBG pO2 mmHg VBG HCO3 (23-28) mmol/L VBG Total CO2 (24-29) mmol/L VBG O2 Saturation % VBG Base Excess (-2-3) mmol/L VBG Lactate (<or=2.0) mmol/L Sodium (136-145) mmol/L Potassium (3.5-5.1) mmol/L Chloride (98-107) mmol/L Carbon Dioxide (20.0-31.0) mmol/L Anion Gap (3-11) mmol/L BUN (9-23) mg/dL Creatinine (0.73-1.18) mg/dL Est GFR (CKD-EPI 2020) (mL/min/1.73m2) Glucose (74-106) mg/dL Hemoglobin A1c (<5.7) % Uric Acid (3.7-9.2) mg/dL Calcium (8.3-10.6) mg/dL Phosphorus (2.4-5.1) mg/dL Magnesium (1.6-2.6) mg/dL Total Bilirubin (0.2-1.2) mg/dL AST (<34) U/L ALT (10-49) U/L Alkaline Phosphatase (46-116) U/L Lactate Dehydrogenase (120-246) U/L Creatine Kinase (46-171) U/L Troponin I (<54) ng/L NT-Pro-B Natriuret Pep (<300) pg/mL Total Protein (5.7-8.2) g/dL Albumin (3.2-5.0) g/dL TSH (0.55-4.78) uIU/mL Urine Color (Yellow) Urine Clarity (Clear) Urine pH (5-8) Ur Specific [place] (1.005-1.025) Urine Protein (Neg-Trace) mg/dL Urine Ketones (Negative) mg/dL Urine Blood (Negative) Urine Nitrite (Negative) Urine Bilirubin (Negative) Urine Urobilinogen (Up to 0.2) mg/dL Ur Leukocyte Esterase (Negative) Urine RBC (0-2) HPF Urine WBC (0-5) HPF Ur Epithelial Cells (Negative) HPF Urine Crystals (Negative) HPF Urine Bacteria (Negative) HPF Urine Casts (Negative) LPF Urine Mucus (Negative) Urine Other (Negative) Ur Culture Indicated? Urine Glucose (Negative) mg/dL Fluid Type Fluid Source Fluid Color Fluid Clarity Fluid WBC (0) uL Fld Polynuclear WBCs % % Fluid Mononuclear Cell % Fluid Glucose (See Note) mg/dL Fluid Total Protein g/dL Fluid LDH U/L COVID-19 Source SARS-CoV-2 (PCR) (Negative) Influenza Type A (PCR) (Negative) Influenza Type B (PCR) (Negative) RSV (PCR) (Negative) Path Cons Comment Add-On Test Request DONE DONE ABO/Rh Antibody Screen Range/Units 07/12/25 07/13/25 07/13/25 21:04 05:52 08:30 WBC (4.4-10.8) 10^3/uL RBC (4.36-5.78) 10^6/uL Hgb (13.5-17.5) g/dL Hct (40.0-50.0) % MCV (80-95) fL MCH (27.0-33.0) pg MCHC (32.0-36.0) % RDW (11.8-14.1) % Plt Count (130-400) 10^3/uL MPV (8.0-11.0) fL Immature Gran % % Neutrophils % % Band Neutrophils % % Lymphocytes % % Atypical Lymphs % % Monocytes % % Eosinophils % % Basophils % % Metamyelocytes % Myelocytes % Nucleated RBC % (0.0-0.3) % Absolute Neutrophils (1.2-6.7) 10^3/uL Absolute Lymphocytes (1.2-3.4) 10^3/uL Absolute Monocytes (0.1-0.8) 10^3/uL Absolute Eosinophils (0.0-0.7) 10^3/uL Absolute Basophils (0.0-0.2) 10^3/uL RBC Morphology Polychromasia Hypochromasia Anisocytosis Microcytosis PT (9.1-11.1) sec INR (0.9-1.1) APTT (20.6-30.2) sec Fibrinogen (171-384) mg/dL D-Dimer (<500) ng/mlFEU VBG pH (7.31-7.41) VBG pCO2 (41-51) mmHg VBG pO2 mmHg VBG HCO3 (23-28) mmol/L VBG Total CO2 (24-29) mmol/L VBG O2 Saturation % VBG Base Excess (-2-3) mmol/L VBG Lactate (<or=2.0) mmol/L 5.1 H* Sodium (136-145) mmol/L Potassium (3.5-5.1) mmol/L Chloride (98-107) mmol/L Carbon Dioxide (20.0-31.0) mmol/L Anion Gap (3-11) mmol/L BUN (9-23) mg/dL Creatinine (0.73-1.18) mg/dL Est GFR (CKD-EPI 2020) (mL/min/1.73m2) Glucose (74-106) mg/dL Hemoglobin A1c (<5.7) % 4.9 Uric Acid (3.7-9.2) mg/dL Calcium (8.3-10.6) mg/dL Phosphorus (2.4-5.1) mg/dL 4.1 Magnesium (1.6-2.6) mg/dL Total Bilirubin (0.2-1.2) mg/dL AST (<34) U/L ALT (10-49) U/L Alkaline Phosphatase (46-116) U/L Lactate Dehydrogenase (120-246) U/L Creatine Kinase (46-171) U/L Troponin I (<54) ng/L NT-Pro-B Natriuret Pep (<300) pg/mL Total Protein (5.7-8.2) g/dL Albumin (3.2-5.0) g/dL TSH (0.55-4.78) uIU/mL Urine Color (Yellow) Urine Clarity (Clear) Urine pH (5-8) Ur Specific [place] (1.005-1.025) Urine Protein (Neg-Trace) mg/dL Urine Ketones (Negative) mg/dL Urine Blood (Negative) Urine Nitrite (Negative) Urine Bilirubin (Negative) Urine Urobilinogen (Up to 0.2) mg/dL Ur Leukocyte Esterase (Negative) Urine RBC (0-2) HPF Urine WBC (0-5) HPF Ur Epithelial Cells (Negative) HPF Urine Crystals (Negative) HPF Urine Bacteria (Negative) HPF Urine Casts (Negative) LPF Urine Mucus (Negative) Urine Other (Negative) Ur Culture Indicated? Urine Glucose (Negative) mg/dL Fluid Type Pleural Fluid Source Pleural Fluid Color Other Fluid Clarity Cloudy Fluid WBC (0) uL 470 Fld Polynuclear WBCs % % 19 Fluid Mononuclear Cell % 81 Fluid Glucose (See Note) mg/dL 94 Fluid Total Protein g/dL 2.6 Fluid LDH U/L 177 COVID-19 Source SARS-CoV-2 (PCR) (Negative) Influenza Type A (PCR) (Negative) Influenza Type B (PCR) (Negative) RSV (PCR) (Negative) Path Cons Comment SEE COMMENT Add-On Test Request ABO/Rh Antibody Screen Range/Units 07/14/25 07/15/25 07/16/25 05:30 05:53 05:22 WBC (4.4-10.8) 10^3/uL 3.32 L 3.14 L 3.40 L RBC (4.36-5.78) 10^6/uL 3.24 L 3.44 L 3.41 L Hgb (13.5-17.5) g/dL 8.0 L 8.8 L 8.7 L Hct (40.0-50.0) % 25.2 L 27.6 L 26.9 L MCV (80-95) fL 78 L 80 79 L MCH (27.0-33.0) pg 24.7 L 25.6 L 25.5 L MCHC (32.0-36.0) % 31.7 L 31.9 L 32.3 RDW (11.8-14.1) % 19.1 H 19.5 H 19.3 H Plt Count (130-400) 10^3/uL 194 218 203 MPV (8.0-11.0) fL 9.3 9.6 9.4 Immature Gran % % 0.0 7.0 5.0 Neutrophils % % 70.0 77.4 78.8 Band Neutrophils % % 5 Lymphocytes % % 4.0 7.3 6.8 Atypical Lymphs % % 4 Monocytes % % 13.0 8.3 9.1 Eosinophils % % 0.0 0.0 0.0 Basophils % % 0.0 0.0 0.3 Metamyelocytes % 3 Myelocytes % 1 Nucleated RBC % (0.0-0.3) % 0.0 0.0 0.0 Absolute Neutrophils (1.2-6.7) 10^3/uL 2.49 2.43 2.68 Absolute Lymphocytes (1.2-3.4) 10^3/uL 0.27 L 0.23 L 0.23 L Absolute Monocytes (0.1-0.8) 10^3/uL 0.43 0.26 0.31 Absolute Eosinophils (0.0-0.7) 10^3/uL 0.00 0.00 0.00 Absolute Basophils (0.0-0.2) 10^3/uL 0.00 0.00 0.01 RBC Morphology See Below Polychromasia Present Hypochromasia 1+ Anisocytosis 2+ Microcytosis 2+ PT (9.1-11.1) sec INR (0.9-1.1) APTT (20.6-30.2) sec Fibrinogen (171-384) mg/dL D-Dimer (<500) ng/mlFEU VBG pH (7.31-7.41) VBG pCO2 (41-51) mmHg VBG pO2 mmHg VBG HCO3 (23-28) mmol/L VBG Total CO2 (24-29) mmol/L VBG O2 Saturation % VBG Base Excess (-2-3) mmol/L VBG Lactate (<or=2.0) mmol/L Sodium (136-145) mmol/L 134 L 138 Potassium (3.5-5.1) mmol/L 4.0 4.9 Chloride (98-107) mmol/L 95 L 98 Carbon Dioxide (20.0-31.0) mmol/L 28.0 31.4 H Anion Gap (3-11) mmol/L 10.6 8.4 BUN (9-23) mg/dL 15 14 Creatinine (0.73-1.18) mg/dL 0.72 L 0.68 L Est GFR (CKD-EPI 2020) (mL/min/1.73m2) 117.37 125.37 Glucose (74-106) mg/dL 93 78 Hemoglobin A1c (<5.7) % Uric Acid (3.7-9.2) mg/dL Calcium (8.3-10.6) mg/dL 8.0 L 8.4 Phosphorus (2.4-5.1) mg/dL Magnesium (1.6-2.6) mg/dL 1.6 Total Bilirubin (0.2-1.2) mg/dL 1.4 H 1.4 H AST (<34) U/L 45 H 54 H ALT (10-49) U/L 14 16 Alkaline Phosphatase (46-116) U/L 78 83 Lactate Dehydrogenase (120-246) U/L Creatine Kinase (46-171) U/L Troponin I (<54) ng/L NT-Pro-B Natriuret Pep (<300) pg/mL Total Protein (5.7-8.2) g/dL 4.4 L 4.5 L Albumin (3.2-5.0) g/dL 2.9 L 2.9 L TSH (0.55-4.78) uIU/mL Urine Color (Yellow) Urine Clarity (Clear) Urine pH (5-8) Ur Specific [place] (1.005-1.025) Urine Protein (Neg-Trace) mg/dL Urine Ketones (Negative) mg/dL Urine Blood (Negative) Urine Nitrite (Negative) Urine Bilirubin (Negative) Urine Urobilinogen (Up to 0.2) mg/dL Ur Leukocyte Esterase (Negative) Urine RBC (0-2) HPF Urine WBC (0-5) HPF Ur Epithelial Cells (Negative) HPF Urine Crystals (Negative) HPF Urine Bacteria (Negative) HPF Urine Casts (Negative) LPF Urine Mucus (Negative) Urine Other (Negative) Ur Culture Indicated? Urine Glucose (Negative) mg/dL Fluid Type Fluid Source Fluid Color Fluid Clarity Fluid WBC (0) uL Fld Polynuclear WBCs % % Fluid Mononuclear Cell % Fluid Glucose (See Note) mg/dL Fluid Total Protein g/dL Fluid LDH U/L COVID-19 Source SARS-CoV-2 (PCR) (Negative) Influenza Type A (PCR) (Negative) Influenza Type B (PCR) (Negative) RSV (PCR) (Negative) Path Cons Comment Add-On Test Request ABO/Rh Antibody Screen Range/Units 07/17/25 07/19/25 06:20 06:29 WBC (4.4-10.8) 10^3/uL 3.62 L RBC (4.36-5.78) 10^6/uL 3.49 L Hgb (13.5-17.5) g/dL 8.9 L Hct (40.0-50.0) % 28.4 L MCV (80-95) fL 81 MCH (27.0-33.0) pg 25.5 L MCHC (32.0-36.0) % 31.3 L RDW (11.8-14.1) % 20.3 H Plt Count (130-400) 10^3/uL 201 MPV (8.0-11.0) fL 9.9 Immature Gran % % See Differential Neutrophils % % 85.0 Band Neutrophils % % 3 Lymphocytes % % 4.0 Atypical Lymphs % % Monocytes % % 6.0 Eosinophils % % 0.0 Basophils % % 0.0 Metamyelocytes % 2 Myelocytes % Nucleated RBC % (0.0-0.3) % 0.0 Absolute Neutrophils (1.2-6.7) 10^3/uL 3.19 Absolute Lymphocytes (1.2-3.4) 10^3/uL 0.14 L Absolute Monocytes (0.1-0.8) 10^3/uL 0.22 Absolute Eosinophils (0.0-0.7) 10^3/uL 0.00 Absolute Basophils (0.0-0.2) 10^3/uL 0.00 RBC Morphology See Below Polychromasia Present Hypochromasia Anisocytosis 2+ Microcytosis PT (9.1-11.1) sec INR (0.9-1.1) APTT (20.6-30.2) sec Fibrinogen (171-384) mg/dL D-Dimer (<500) ng/mlFEU VBG pH (7.31-7.41) VBG pCO2 (41-51) mmHg VBG pO2 mmHg VBG HCO3 (23-28) mmol/L VBG Total CO2 (24-29) mmol/L VBG O2 Saturation % VBG Base Excess (-2-3) mmol/L VBG Lactate (<or=2.0) mmol/L Sodium (136-145) mmol/L 139 Potassium (3.5-5.1) mmol/L 4.0 Chloride (98-107) mmol/L 98 Carbon Dioxide (20.0-31.0) mmol/L 28.6 Anion Gap (3-11) mmol/L 12.8 H BUN (9-23) mg/dL 20 Creatinine (0.73-1.18) mg/dL 0.71 L Est GFR (CKD-EPI 2020) (mL/min/1.73m2) 119.27 Glucose (74-106) mg/dL 86 Hemoglobin A1c (<5.7) % Uric Acid (3.7-9.2) mg/dL 2.5 L Calcium (8.3-10.6) mg/dL 8.4 Phosphorus (2.4-5.1) mg/dL Magnesium (1.6-2.6) mg/dL 1.8 Total Bilirubin (0.2-1.2) mg/dL 1.1 AST (<34) U/L 61 H ALT (10-49) U/L 21 Alkaline Phosphatase (46-116) U/L 95 Lactate Dehydrogenase (120-246) U/L 303 H Creatine Kinase (46-171) U/L Troponin I (<54) ng/L NT-Pro-B Natriuret Pep (<300) pg/mL Total Protein (5.7-8.2) g/dL 4.7 L Albumin (3.2-5.0) g/dL 3.0 L TSH (0.55-4.78) uIU/mL Urine Color (Yellow) Urine Clarity (Clear) Urine pH (5-8) Ur Specific [place] (1.005-1.025) Urine Protein (Neg-Trace) mg/dL Urine Ketones (Negative) mg/dL Urine Blood (Negative) Urine Nitrite (Negative) Urine Bilirubin (Negative) Urine Urobilinogen (Up to 0.2) mg/dL Ur Leukocyte Esterase (Negative) Urine RBC (0-2) HPF Urine WBC (0-5) HPF Ur Epithelial Cells (Negative) HPF Urine Crystals (Negative) HPF Urine Bacteria (Negative) HPF Urine Casts (Negative) LPF Urine Mucus (Negative) Urine Other (Negative) Ur Culture Indicated? Urine Glucose (Negative) mg/dL Fluid Type Fluid Source Fluid Color Fluid Clarity Fluid WBC (0) uL Fld Polynuclear WBCs % % Fluid Mononuclear Cell % Fluid Glucose (See Note) mg/dL Fluid Total Protein g/dL Fluid LDH U/L COVID-19 Source SARS-CoV-2 (PCR) (Negative) Influenza Type A (PCR) (Negative) Influenza Type B (PCR) (Negative) RSV (PCR) (Negative) Path Cons Comment Add-On Test Request ABO/Rh Antibody Screen Imaging Chest x-ray: report reviewed and image reviewed
[2025-07-20] MEDS: Docusate Sodium 100 MG CAP PO ×2 (08:17→20:59)
[2025-07-20] MEDS: Enoxaparin 40 MG/0.4 ML SYR SC (08:17)
[2025-07-20] MEDS: FLUoxetine 20 MG CAP 40 MG PO (08:17)
[2025-07-20] MEDS: Polyethylene Glycol 3350 17 GM PACKET PO ×2 (08:18→21:00)
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
[2025-07-20 09:23] LABS: Anion Gap 10.7 mmol/L (3-11); BUN 20 mg/dL (9-23); CO2 30.3 mmol/L (20.0-31.0); Calcium 7.6 mg/dL (8.3-10.6); Chloride 95 mmol/L (98-107); Glucose 88 mg/dL (74-106); Magnesium 1.6 mg/dL (1.6-2.6); Potassium 3.9 mmol/L (3.5-5.1); Sodium 136 mmol/L (136-145)
[2025-07-20 11:30] LABS: BE (Venous) 7 mmol/L (-2-3); HCO3 (Venous) 31 mmol/L (23-28); O2 Sat (Venous) 79 %; TCO2 (Venous) 29 mmol/L (24-29); pCO2 (Venous) 43 mmHg (41-51); pO2 (Venous) 46 mmHg
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
[2025-07-20 13:48] LABS: HCT 22.8 % (40.0-50.0); HGB 7.3 g/dL (13.5-17.5); MCH 25.5 pg (27.0-33.0); MCHC 32.0 % (32.0-36.0); MCV 80 fL (80-95); MPV 9.6 fL (8.0-11.0); Platelet Count 176 10^3/uL (130-400); RBC 2.86 10^6/uL (4.36-5.78); RDW 20.0 % (11.8-14.1); RDW-SD 57.0 fL; WBC 2.99 10^3/uL (4.4-10.8)
[2025-07-20] MEDS: LORazepam 1 MG TAB 2 MG PO (17:55)
--- NOTE | 2025-07-20 18:18 | DI.RAD_ITS ---
Exam(s) XR CHEST 2V PA LATERAL EXAM: XR CHEST 2V PA LATERAL CLINICAL HISTORY: status effusions TECHNIQUE: 2D digital imaging was performed. Two views. COMPARISON: CT CT CHEST PE ABD PELVIS W from 07/12/2025 CR,XR XR CHEST 2V PA LATERAL from 07/16/2025 CR XR PORTABLE CHEST AP from 07/18/2025 CR,XR XR PORTABLE CHEST AP from 07/19/2025 CR,XR XR PORTABLE CHEST AP from 07/20/2025 FINDINGS: Exam is limited by poor pulmonary inflation. HEART: Partially obscured by effusion. Aorta: Partially obscured PULMONARY VASCULATURE: Mostly obscured. MEDIASTINUM: Unremarkable. LUNGS: Streaky linear densities at the left lower lobe. PLEURAL SPACE: Stable size of small right pleural effusion. Tiny left pleural effusion is stable. No pneumothorax. BONE:Unremarkable for age. SOFT TISSUES: Unremarkable. IMPRESSION: Stable small right and tiny left pleural effusions. DATA REPOSITORY: RADIATION DOSE DELIVERED:
--- NOTE | 2025-07-20 19:34 | W.PM.PROGNOT ---
Date of Service Date of service: 07/20/25 Time of Service: 08:00 Assessment and Plan Assessment and plan (1) Acute hypoxic respiratory failure: Status: Acute Assessment and plan: Hypoxemic while flat in bed to SpO2 mid-80's Otherwise SpO2 88-92 on NC 1-2L More comfortable after thoracenteses Will need home O2, challenging with unstable housing Continue daily CXR Awaiting pleural fluid cytology et al Not an NIV candidate due to resistance in the past. Appreciate Dr Flanagan consult. (2) Bilateral pleural effusion: Status: Acute Assessment and plan: Jul [address] Flanagan, pulmonology, 2L out with moderate WBCs, no bacteria Jul 18 thoracentesis, again 2L out Cytology, cultures, pathology pending Given recent lymphoma diagnosis, likely malignant effusion, also consider cardiogenesis May need additional pleural drainage as fluid is likely to re-accumulate Echocardiogram done, suboptimal study, EF 60% [place] [facility] for [place], substantial mediastinal and retroperitoneal lymphadenopathy VTE chemoprophylaxis held prior to thoracentesis, lovenox ordered (pt with high risk of VTE, Srikanth score 5) Continuing imaging to support decisions for additional thoracentesis. (3) Schizoaffective disorder: Assessment and plan: -Per medical record Resumed home medications fluoxetine, haloperidol, paliperidone, trazodone One-time ativan PO given Jul 20 for , first episode, consider regimen adjustment if repeated (4) Mediastinal lymphadenopathy: Status: Chronic Assessment and plan: -Noted on imaging back to March 2025, currently being [place] [facility] [place] -Likely needing social support for oncology care -Palliative care consult (5) Tumor lysis syndrome: Status: Acute Assessment and plan: -Dr Mae discussed case with Dr Infante, [facility] granite polisher apprentice on 07/12; she did not believe labs were clearly c/w TLS, recommended LDH, uric acid (if >4, allopurinol advised), and labs to r/o DIC -Elevated LDH 350. Uric acid 4.6, Allopurinol started 300 mg PO QHS LDH and uric acid lower on Jul 17, will continue allopurinol Oncology followup for nursing home care (6) Acute lactic acidosis: Status: Resolved Assessment and plan: -Severe lactic acidosis on presentation, improved with fluid resuscitation (9.1 >5.1) -Sepsis vs tumor lysis vs active malignancy -Antibiotics given in ED, discontinued (7) Sinus tachycardia: Status: Resolved Assessment and plan: -Tachycardic in the 120's - 140's on prior ED visits -continues to remain tachycardic with HR 120s-130s at rest, up to 160s with movement -metoprolol 25 mg PO BID for rate control, increased to 37.5 BID on Jul 15 -echo ordered, waiting for rate control to perform Home medication list not available but previously he was on haldol, one dose given 07/12. Pharmacy performing med reconcilitation -Some improvement with PO ativan 1 mg one time dose given 07/12 Increased metoprolol to 37.5 BID Off telemetry, still monitoring SpO2 and HR Heart rates well below 120, largely within normal range (8) Lower extremity edema: Status: Chronic Assessment and plan: -Left significantly worse than right, concerning for VTE vs lymphatic obstruction -US BLE doppler performed 07/13, no DVT (9) Diabetes: Assessment and plan: -history of T2DM, not currently on any medicaitons. A1C 4.9 performed 07/13 (10) Hypothyroidism: Assessment and plan: -Noted history, unclear if he is on any meds, waiting for med rec -TSH done in ED, unremarkable (11) Hypertension: Assessment and plan: -Noted history, unclear if he is on any meds, waiting for med rec -normotensive since admission, will continue to monitor (12) Hemorrhoids: Assessment and plan: -Patient reports that he defecates about once per week and has bleeding with defecation, has h/o hemorrhoids -Bowel regimen ordered -will continue to monitor for signs of active lower GI bleeding Subjective Subjective Interval history since last seen: Mr. Figueroa is comfortable, ambulating. Anxiety after . Exam Narrative Exam Narrative: General: This is a pleasant, obese man in no distress HEENT: Normocephalic, atraumatic CV: RRR. BLE 2+ pitting edema to the knee Resp: Diminished bibasilar breath sounds, left worse than right. Dullness to percussion BLL. Thoracentesis site c/d/i. On room air Abd: NTND +NBS MSK: voluntary motion x4 Neuro: awake, alert, no focal deficits Objective Last Vital Signs Temp 37.1 C 07/20/25 18:36 Pulse 114 H 07/20/25 18:36 Resp 23 07/20/25 18:36 BP 107/73 07/20/25 18:36 Pulse Ox 92 07/20/25 18:36 Laboratory Results - last 24 hr 07/20/25 06:23 WBC 2.99 L RBC 2.86 L Hgb 7.3 L Hct 22.8 L MCV 80 MCH 25.5 L MCHC 32.0 RDW 20.0 H Plt Count 176 MPV 9.6 VBG pH 7.46 H VBG pCO2 43 VBG pO2 46 VBG HCO3 31 H VBG Total CO2 29 VBG O2 Saturation 79 VBG Base Excess 7 H Sodium 136 Potassium 3.9 Chloride 95 L Carbon Dioxide 30.3 Anion Gap 10.7 BUN 20 Creatinine 0.73 Est GFR (CKD-EPI 2020) 114.00 Glucose 88 Calcium 7.6 L Magnesium 1.6 VTE Prohylaxis Risk Level: Moderate/High Risk Contraindications: Active bleed/high bleed risk (thoracentesis likely in the morning) Prophylaxis: Mechanical Time Spent with Patient Time Spent with Patient: 25-34 minutes Time was spent: preparing to see the patient(eg.review tests), obtaining and/or reviewing separately otained hiistory, ordering medications,tests, procedures, referring, communicating with other health acute care physical therapist, indepentently interpreting results, counseling the patient and care coordination
[2025-07-20] MEDS: Allopurinol 300 MG TAB PO (20:59)
[2025-07-20] MEDS: [UNRECOGNIZED DRUG - OTHER] 3 MG PO (20:59)
[2025-07-20] MEDS: traZODone 100 MG TAB 200 MG PO (20:59)
[2025-07-20] MEDS: Metoprolol 25 MG TAB 37.5 MG PO (20:59)
[2025-07-21] VITALS (16 sets, daily range): BP systolic 99–115; BP diastolic 54–87; PULSE 100–121; RESP 16–28; TEMP 36.3–38.5; O2SAT 82–97
[2025-07-21] MEDS: Acetaminophen 325 MG TAB 650 MG PO ×2 (02:58→10:15)
[2025-07-21 07:16] LABS: ALT 29 U/L (10-49); AST 100 U/L (<34); Albumin 2.8 g/dL (3.2-5.0); Alkaline Phosphatase 110 U/L (46-116); Anion Gap 13.3 mmol/L (3-11); BUN 22 mg/dL (9-23); Bilirubin, Total 1.4 mg/dL (0.2-1.2); CO2 27.9 mmol/L (20.0-31.0); Calcium 8.1 mg/dL (8.3-10.6); Chloride 96 mmol/L (98-107); Glucose 82 mg/dL (74-106); Magnesium 1.7 mg/dL (1.6-2.6); Potassium 4.4 mmol/L (3.5-5.1); Sodium 137 mmol/L (136-145); Total Protein 4.5 g/dL (5.7-8.2)
[2025-07-21 07:45] LABS: HCT 25.0 % (40.0-50.0); HGB 7.7 g/dL (13.5-17.5); MCH 25.0 pg (27.0-33.0); MCHC 30.8 % (32.0-36.0); MCV 81 fL (80-95); MPV 10.0 fL (8.0-11.0); Platelet Count 163 10^3/uL (130-400); RBC 3.08 10^6/uL (4.36-5.78); RDW 20.8 % (11.8-14.1); RDW-SD 59.7 fL; WBC 3.08 10^3/uL (4.4-10.8)
[2025-07-21 07:46] LABS: Ferritin 2873 ng/mL (11-307)
[2025-07-21 08:09] LABS: Abs Immature Grans 0.00 10^3/uL (0.0-0.06); Anisocytosis 2+; Immature Grans % 0.0 %
[2025-07-21] MEDS: Docusate Sodium 100 MG CAP PO ×2 (08:19→20:06)
[2025-07-21] MEDS: FLUoxetine 20 MG CAP 40 MG PO (08:19)
[2025-07-21] MEDS: Metoprolol 25 MG TAB 37.5 MG PO ×2 (08:19→20:07)
[2025-07-21] MEDS: Polyethylene Glycol 3350 17 GM PACKET PO ×2 (08:20→20:07)
[2025-07-21] MEDS: Enoxaparin 40 MG/0.4 ML SYR SC (08:20)
[2025-07-21] MEDS: Furosemide 40 MG/4 ML VIAL IVP (08:22)
[2025-07-21 08:36] LABS: Iron 16 ug/dL (65-175)
[2025-07-21 08:37] LABS: Total Iron Binding Capacity 211 ug/dL (250-425); Transferrin Sat 8 % (20-55)
--- NOTE | 2025-07-21 10:24 | CMPROGNOTE_ITS ---
Date of service: 07/21/25 Time of Service: 10:24 Care Management Progress Note Progress Note Text Progress Note Text: Terry was sitting in his chair when CM met with him. He was minimally engaged, and appeared to have a difficult time staying awake during the c onversation. CM asked him if he would be able to make the call to [facility] today, which he was unable to answer. Terry's RN later stated that he appears to be hallucinating and she feels that he is declining at this time; provider was made aware. He has removed two IV's, which is unusual behavior. At this time, Terry is not able to engage in a phone call with [facility]. CM will continue to follow. Discharge Potential Discharge Needs: Consult Consult Services Needed: Pulmonary (may need new home O2) and PCP F/U Appt Anticipated Barriers to Discharge: Medical Status Patient/Family Education Needs: Review discharge instructions, discuss Ask Me Three Transportation: RCT Plan: Terry will return to the community once medically stable, possibly with new home O2 for HS. If permanent housing has not been secured by his community coordinator for high school prior to discharge, he will need to contact [facility] at , to reinstate his housing voucher per CHW at [facility]. He may benefit from new HH RN upon discharge and will be encouraged to follow up with his community supports and providers ([place]P, [facility] [place].) CM will continue to follow. Social Determinants of Health Screening Will the Patient Participate in the Screening?: Unable to obtain Comments: Patient has some mild unreliability with history.
--- NOTE | 2025-07-21 10:40 | W.PM.PROGNOT ---
Date of Service Date of service: 07/21/25 Time of Service: 10:41 Assessment and Plan Assessment and plan (1) Acute hypoxic respiratory failure: Status: Acute Assessment and plan: Hypoxemic while flat in bed to SpO2 mid-80's Otherwise SpO2 88-92 on NC 1-2L More comfortable after thoracenteses, but likely to reaccumulate. See below. Not an NIV candidate due to resistance in the past. Appreciate Dr Flanagan consult. Did not complete overnight O2 assessment 07/20, repeat (2) Bilateral pleural effusion: Status: Acute Assessment and plan: Jul [address] Flanagan, pulmonology, 2L out with moderate WBCs, no bacteria Jul 18 thoracentesis, again 2L out Pleural fluid cytology suspicious with atypical WBCs but not diagnostic, but c/w lymphoma related rather than CHF. Echocardiogram done, suboptimal study, EF 60%. Has LE edema but not clearly responding to diuresis, will cut back to oral torsemide Lymphoma, substantial mediastinal and retroperitoneal lymphadenopathy, Biopsy suggestive of Diffuse Large B-cell Lymphoma but not fully diagnostic. Effusions not changing on CXR. Consider repeat Thursday when Dr. Flanagan is back if Mr. Figueroa is still here. (3) Schizoaffective disorder: Assessment and plan: Chronic, also associated with mild cognitive impairment. Continued home medications fluoxetine, haloperidol, paliperidone, trazodone One-time ativan PO given Jul 20 for , try to avoid additional benzodiazepines. Getting some MS suppression and hallucinations, pulled IV, give IM haloperidol, get ABG. No signs of focal abnormality. (4) Tumor lysis syndrome: Status: Acute Assessment and plan: -Dr Mae discussed case with Dr Infante, [facility] product manager financial services on 07/12; she did not believe labs were clearly c/w TLS, recommended LDH, uric acid (if >4, allopurinol advised), and labs to r/o DIC -Elevated LDH 350. Uric acid 4.6, Allopurinol started 300 mg PO QHS LDH and uric acid lower on Jul 17, will continue allopurinol Oncology followup for assisted care (5) Acute lactic acidosis: Status: Resolved Assessment and plan: -Severe lactic acidosis on presentation, improved with fluid resuscitation (9.1 >5.1) -Sepsis vs tumor lysis vs active malignancy -Antibiotics given in ED, discontinued (6) Sinus tachycardia: Status: Resolved Assessment and plan: -He is chornically tachycardic as outpatient, but higher here -Worse anemia, lymphoma are likely cause. -metoprolol 25 mg PO BID for rate control, increased to 37.5 BID on Jul 15 (7) Lower extremity edema: Status: Chronic Assessment and plan: -Left significantly worse than right, concerning for VTE vs lymphatic obstruction -US BLE doppler performed 07/13, no DVT (8) Diabetes: Assessment and plan: In remission, A1C 4.9 performed 07/13 (though with worsening anemia (9) Hypothyroidism: Assessment and plan: -Noted history, no on lT4, TSH normal. (10) Hypertension: Assessment and plan: -Noted history, had been on BP meds for years but discontinued. -normotensive since admission, will continue to monitor (11) Hemorrhoids: Assessment and plan: -Patient reports that he defecates about once per week and has bleeding with defecation, has h/o hemorrhoids -Bowel regimen ordered -will continue to monitor for signs of active lower GI bleeding, no change. Discharge Planning Discharge Planning: Home when we can get oxygen at night, possibly 07/22. If he does not stabilize, can consider reaching out again for transfer to [facility] to start lymphoma treatment. Subjective Subjective Patient reports: no new complaints, tolerating a regular diet, voiding w/o difficulty and fever; denies diarrhea, nausea or vomiting Interval history since last seen: Events: Overnight oxymetry done, but he removed oxygen after 2 hours Today called by nurses that he was more confused, slow to respond, just after noon. He was A&O but slow in response, neurologic exam non-focal, vitals stable. He is hallicunating starting around 1pm He feels the same. He feels like his heart is going fast, but not in pain. Breathing is the same. No headache. Exam Narrative Exam Narrative: General: This is a pleasant, obese man in no distress, sitting up in chair, see below. HEENT: Normocephalic, atraumatic CV: RRR. BLE 2+ pitting edema to the knee Resp: Diminished bibasilar breath sounds, left worse than right. Dullness to percussion BLL. Thoracentesis site c/d/i. On room air Abd: NTND +NBS Neuro: awake, slightly somnolent but awakens, follows commands A&O x 3, but slow in responses, loses track of questions, CN intact, strength symmetric, no pronator drift. Some akasthesia-type movement at rest of arms/legs Objective Last Vital Signs Temp 38.5 C H 07/21/25 10:13 Pulse 110 H 07/21/25 10:13 Resp 24 07/21/25 10:13 BP 102/63 07/21/25 10:13 Pulse Ox 93 07/21/25 10:13 Laboratory Results - last 24 hr 07/20/25 07/21/25 06:23 06:40 WBC 2.99 L 3.08 L RBC 2.86 L 3.08 L Hgb 7.3 L 7.7 L Hct 22.8 L 25.0 L MCV 80 81 MCH 25.5 L 25.0 L MCHC 32.0 30.8 L RDW 20.0 H 20.8 H Plt Count 176 163 MPV 9.6 10.0 Immature Gran % 0.0 Neutrophils % 92.0 Band Neutrophils % 2 Lymphocytes % 4.0 Monocytes % 2.0 Eosinophils % 0.0 Basophils % 0.0 Nucleated RBC % 0.6 H Absolute Neutrophils 2.90 Absolute Lymphocytes 0.12 L Absolute Monocytes 0.06 L Absolute Eosinophils 0.00 Absolute Basophils 0.00 RBC Morphology See Below Anisocytosis 2+ VBG pH 7.46 H VBG pCO2 43 VBG pO2 46 VBG HCO3 31 H VBG Total CO2 29 VBG O2 Saturation 79 VBG Base Excess 7 H Sodium 137 Potassium 4.4 Chloride 96 L Carbon Dioxide 27.9 Anion Gap 13.3 H BUN 22 Creatinine 0.71 L Est GFR (CKD-EPI 2020) 119.27 Glucose 82 Calcium 8.1 L Phosphorus 3.9 Magnesium 1.7 Iron 16 L TIBC 211 L Transferrin % Sat 8 L Ferritin 2873 H Total Bilirubin 1.4 H AST 100 H ALT 29 Alkaline Phosphatase 110 Total Protein 4.5 L Albumin 2.8 L VTE Prohylaxis Risk Level: Moderate/High Risk Contraindications: Active bleed/high bleed risk (thoracentesis likely in the morning) Prophylaxis: Mechanical Time Spent with Patient Time Spent with Patient: >50 minutes Time was spent: preparing to see the patient(eg.review tests), obtaining and/or reviewing separately otained hiistory, ordering medications,tests, procedures, referring, communicating with other health vision care associate, indepentently interpreting results, counseling the patient and care coordination
--- NOTE | 2025-07-21 11:17 | W.PALPGNOTE ---
Date of service: 07/21/25 Time of Service: 11:17 Objective Last Vital Signs Temp 38.5 C H 07/21/25 10:13 Pulse 110 H 07/21/25 10:13 Resp 24 07/21/25 10:13 BP 102/63 07/21/25 10:13 Pulse Ox 93 07/21/25 10:13 Laboratory Results - last 24 hr 07/20/25 07/21/25 06:23 06:40 WBC 2.99 L 3.08 L RBC 2.86 L 3.08 L Hgb 7.3 L 7.7 L Hct 22.8 L 25.0 L MCV 80 81 MCH 25.5 L 25.0 L MCHC 32.0 30.8 L RDW 20.0 H 20.8 H Plt Count 176 163 MPV 9.6 10.0 Immature Gran % 0.0 Neutrophils % 92.0 Band Neutrophils % 2 Lymphocytes % 4.0 Monocytes % 2.0 Eosinophils % 0.0 Basophils % 0.0 Nucleated RBC % 0.6 H Absolute Neutrophils 2.90 Absolute Lymphocytes 0.12 L Absolute Monocytes 0.06 L Absolute Eosinophils 0.00 Absolute Basophils 0.00 RBC Morphology See Below Anisocytosis 2+ VBG pH 7.46 H VBG pCO2 43 VBG pO2 46 VBG HCO3 31 H VBG Total CO2 29 VBG O2 Saturation 79 VBG Base Excess 7 H Sodium 137 Potassium 4.4 Chloride 96 L Carbon Dioxide 27.9 Anion Gap 13.3 H BUN 22 Creatinine 0.71 L Est GFR (CKD-EPI 2020) 119.27 Glucose 82 Calcium 8.1 L Phosphorus 3.9 Magnesium 1.7 Iron 16 L TIBC 211 L Transferrin % Sat 8 L Ferritin 2873 H Total Bilirubin 1.4 H AST 100 H ALT 29 Alkaline Phosphatase 110 Total Protein 4.5 L Albumin 2.8 L
--- NOTE | 2025-07-21 12:18 | W.NUTRFU ---
Documented by User: Alexi Torres 07/21/25 12:43 Date of service: 07/21/25 Time of Service: 10:30 Nutrition Note NOTE: M. 6 ft. 4 in. 143.6 kg. 38.5 kg/m^2. Patient admitted with respiratory complications. Seen by Dietitian on 07/21/2025. Patient reports that breakfast was consumed, but he had trouble keeping it down due to constant nausea. Meal consumption has been recorded in the 50-100% range, though it may not all be kept down. The patient's weight has remained steady during the current stay, ranging from 140 kg on 07/21 to 143 kg on 07/16. More current data on weight is not available. Hgb was recorded low on 07/21 at 7.7 g/dL and has remained low during stay. Recommend iron repletion measures. Kitchen instructed to offer a chocolate boost or chocolate CIB nutrition supplement at meals. No NFPE was performed, but the patient appeared adequately nourished given current health. No nutrition dx. Will continue to monitor weight, meal consumption and retention, and meal satisfaction. Time Spent in Nutritional Counseling and Treatment: 5 min Documented by User: Andrea Esparza RDN 07/21/25 12:59 Nutrition Note NOTE: M. 6 ft. 4 in. 143.6 kg. 38.5 kg/m^2. Patient admitted with respiratory complications. Seen by Dietitian on 07/21/2025. Patient reports that breakfast was consumed, but he had trouble keeping it down due to constant nausea. Meal consumption has been recorded in the 50-100% range, though it may not all be kept down. The patient's weight has remained steady during the current stay, ranging from 140 kg on 07/21 to 143 kg on 07/16. More current data on weight is not available. Hgb was recorded low on 07/21 at 7.7 g/dL and has remained low during stay. Recommend iron repletion measures. Kitchen instructed to offer a chocolate boost or chocolate CIB nutrition supplement at meals. Patient low intake seems attributed at least in part to a degree of air hunger and nausea. Patient agreed to modification of some ieldnb-du-dish foods such as cutting up meats more finely and adding gravies/sauces as appropriate. Changed diet to regular diet with soft and bite sized textures to support healthier intake. No NFPE was performed today but will revisit when patient more comfortable. Nutrition Dx: Class II obesity related to prior overconsumption of kcals (although lately of concern) AEB by current BMI of 38.5 (with some edema fluid contributing currently). Will continue to monitor weight, meal consumption and retention, and meal satisfaction and acceptance/toleration of ONS.
[2025-07-21 12:23] LABS: Lab Add On Test DONE
[2025-07-21] MEDS: Haloperidol 1 MG TAB PO (13:35)
[2025-07-21 13:49] LABS: BE 3 mmol/L (-2-3); FIO2 21 %; FIO2L 0 L; HCO3 27 mmol/L (22-26)
[2025-07-21] MEDS: Haloperidol 5 MG/ML VIAL 1 MG IM (13:50)
[2025-07-21] MEDS: Allopurinol 300 MG TAB PO (20:06)
[2025-07-21] MEDS: traZODone 100 MG TAB 200 MG PO (20:06)
[2025-07-21] MEDS: [UNRECOGNIZED DRUG - OTHER] 3 MG PO (20:06)
--- NOTE | 2025-07-21 22:08 | RESPIRATORY ---
Addendum entered by Kwadwo Traylor 07/21/25 23:00: 2250: overnight pulse oximetry device found on table. pt. stated don't know how it happened. However pt. appeared to be grabbing and taking off oxygen tube and anything belongings around his wrist or hands when pt. wakes from naps. Pt. placed back on overnight pulse oximetry at 22:50. Original Note: 2135: overnight pulse oximetry test started. Initiated on room air Pt. desaturated to 86%, on 1L/min SpO2 was 88%, on 2L/min SpO2 was 91, and on 3L/min SpO2 maintained above 92%. SpO2 kept bounching low end 92% and high end 95% on 3l/min. O2 flow titration stopped at 21:45, Pt. reamined on 3l/min NC. Pt. and RN were informed about test.
[2025-07-22] VITALS (7 sets, daily range): BP systolic 106–126; BP diastolic 67–90; PULSE 104–131; RESP 16–36; TEMP 36.4–36.7; O2SAT 89–93
--- NOTE | 2025-07-22 | DI.RAD_ITS ---
Exam(s) XR CHEST 2V PA LATERAL EXAM: XR CHEST 2V PA LATERAL CLINICAL HISTORY: worse tachypnea, hypoxia, effusions TECHNIQUE: 2D digital imaging was performed of the chest. Three images were obtained. PA and lateral views were obtained. COMPARISON: CR XR PORTABLE CHEST AP from 07/18/2025 CR XR CHEST 2V PA LATERAL from 07/20/2025 FINDINGS: MEDIASTINUM: Normal. HEART: Heart size is obscured due to the poor inspiration and the pleural effusions. PULMONARY VASCULATURE: Normal. LUNGS: There are infiltrates seen in the lung bases bilaterally. There has been slight worsening of the infiltrate seen in the right lung base. This may reflect atelectasis, but pneumonia cannot be excluded. PLEURAL SPACE: The right pleural effusion persists and appears stable. There is a left pleural effusion which is small. BONE:Within normal limits for the patient's age. OTHER FINDINGS:Normal. IMPRESSION: 1. Worsening infiltrates particularly in the right lung base. 2. Bilateral pleural effusions. 3. The preliminary [facility] report was reviewed. DATA REPOSITORY: RADIATION DOSE DELIVERED:
[2025-07-22 06:43] LABS: Abs Immature Grans 0.21 10^3/uL (0.0-0.06); HCT 26.5 % (40.0-50.0); HGB 8.4 g/dL (13.5-17.5); Immature Grans % 4.8 %; MCH 25.5 pg (27.0-33.0); MCHC 31.7 % (32.0-36.0); MCV 80 fL (80-95); MPV 9.4 fL (8.0-11.0); Platelet Count 210 10^3/uL (130-400); RBC 3.30 10^6/uL (4.36-5.78); RDW 20.6 % (11.8-14.1); RDW-SD 59.6 fL; WBC 4.33 10^3/uL (4.4-10.8)
[2025-07-22 07:00] LABS: Anisocytosis 2+
[2025-07-22 07:07] LABS: ALT 27 U/L (10-49); AST 87 U/L (<34); Albumin 3.0 g/dL (3.2-5.0); Alkaline Phosphatase 115 U/L (46-116); Anion Gap 14.7 mmol/L (3-11); BUN 24 mg/dL (9-23); Bilirubin, Total 1.1 mg/dL (0.2-1.2); CO2 25.2 mmol/L (20.0-31.0); Calcium 8.3 mg/dL (8.3-10.6); Chloride 96 mmol/L (98-107); Glucose 95 mg/dL (74-106); Potassium 4.7 mmol/L (3.5-5.1); Sodium 136 mmol/L (136-145); Total Protein 4.8 g/dL (5.7-8.2)
[2025-07-22] MEDS: Metoprolol 25 MG TAB 37.5 MG PO ×2 (07:46→20:24)
[2025-07-22] MEDS: Docusate Sodium 100 MG CAP PO ×2 (07:46→20:25)
[2025-07-22] MEDS: Torsemide 20 MG TAB PO (07:46)
[2025-07-22] MEDS: FLUoxetine 20 MG CAP 40 MG PO (07:46)
[2025-07-22] MEDS: Enoxaparin 40 MG/0.4 ML SYR SC (07:47)
[2025-07-22] MEDS: Polyethylene Glycol 3350 17 GM PACKET PO (08:01)
--- NOTE | 2025-07-22 13:14 | DI.[facility]_ITS ---
PROCEDURE INFORMATION: Exam: XR Chest Exam date and time: 07/22/2025 12:04 PM Age: 45 years old Clinical indication: Tachypnea and other: Hypoxia TECHNIQUE: Imaging protocol: Radiologic exam of the chest. Views: 2 views. COMPARISON: CR XR CHEST 2V PA LATERAL 20/07/2025 18:14 FINDINGS: Lungs: Markedly low lung volumes. Bibasilar infiltrates with consolidation which have progressed since the prior study. Pleural spaces: Blunted costophrenic angles consistent with pleural effusions. Heart/Mediastinum: Unremarkable. No cardiomegaly. Bones/joints: Multilevel degenerative changes of the spine. IMPRESSION: Progressive bilateral pneumonia. Pleural effusions. Dictated and Authenticated by: Soraya Scales MD. Orderin Tami Han MD
[2025-07-22] MEDS: CEFEPIME 2 GM in Normal Saline 100 ML IVPB ×2 (15:31→23:37)
[2025-07-22] MEDS: Normal Saline Flush 10 ML SYR IVP ×2 (15:35→20:26)
--- NOTE | 2025-07-22 15:46 | W.PM.PROGNOT ---
Date of Service Date of service: 07/22/25 Time of Service: 15:46 Assessment and Plan Assessment and plan (1) Acute hypoxic respiratory failure: Status: Acute Assessment and plan: Hypoxemic while flat in bed to SpO2 mid-80's with some fluctuation, but needing more oxygen during the day today. 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 Doesn't tolerate NIV Treating Pneumonia as 07/22 CXR suggestive and tachypnea a little worse, see below. (2) Bilateral pleural effusion: Status: Acute Assessment and plan: Jul [address] Flanagan, pulmonology, 2L out with moderate WBCs, no bacteria. Jul 18 thoracentesis, again 2L out Pleural fluid cytology suspicious with atypical WBCs but not diagnostic, but c/w lymphoma related rather than CHF. Echocardiogram done, suboptimal study, EF 60%. Has LE edema but not clearly responding to diuresis, now on oral torsemide. See below re: leukemia/lymphoma (3) Hairy cell leukemia: Status: Acute Assessment and plan: Case reviewed with hematology fellow again today. 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 They agree he should start therapy, accepted for transfer pending bed under service of Dr. Edgar Urrutia consider steroids if worsening clincally before he is able to get to for full treatment. (4) Hospital-acquired pneumonia: Status: Acute Assessment and plan: With more oxygen requirement and tachypnea 07/22, CXR repeated and more suggestive of bilateal pneumonia. Will cover hospital acquired, though this may actually be his malignancy Repeat flu/covid/RSV screen. Check MRSA swab, if negative, I don't think we need to cover MRSA as this is not a focal or cavitary infiltrate, would stop vanco Continue cefepime and doxycycline. (5) Schizoaffective disorder: Assessment and plan: Chronic, also associated with mild cognitive impairment. Continued home medications fluoxetine, paliperidone, trazodone, and haloperidol prn One-time ativan PO given Jul 20 for , try to avoid additional benzodiazepines. (6) Tumor lysis syndrome: Status: Acute Assessment and plan: -Dr Mae discussed case with Dr Infante, [facility] [place] [employer] on 07/12; she did not believe labs were clearly c/w TLS, recommended LDH, uric acid (if >4, allopurinol advised), and labs to r/o DIC -Elevated LDH 350. Uric acid 4.6, Allopurinol started 300 mg PO QHS LDH and uric acid lower on Jul 17, continuing allopurinol (7) Acute lactic acidosis: Status: Resolved Assessment and plan: -Severe lactic acidosis on presentation, improved with fluid resuscitation (9.1 >5.1), related to leukemia (8) Sinus tachycardia: Status: Resolved Assessment and plan: -He is chornically tachycardic as outpatient, but higher here -Worse anemia, lymphoma are likely cause. -metoprolol increased from 25mg to 37.5 BID on Jul 15 (9) Diabetes: Assessment and plan: In remission, A1C 4.9 performed 07/13 (though with worsening anemia makes this less reliable). Blood sugars have not been >200. (10) Hypothyroidism: Assessment and plan: -Noted history, no on lT4, TSH normal. (11) Hemorrhoids: Assessment and plan: -Patient reports that he defecates about once per week and has bleeding with defecation, has h/o hemorrhoids -Bowel regimen ordered -will continue to monitor for signs of active lower GI bleeding, no change. Discharge Planning Discharge Planning: Accepted oncology pending bed, likely 07/23 Subjective Subjective Patient reports: shortness of breath; denies diarrhea, vomiting or fever Interval history since last seen: Events: Confusion, hallucintations 07/21 pm, improved with 1mg IM haloperidol Slept overnight, did not keep oxygen on continuously He denies pain when asked directly, answers direct questions, but repeats I want you to, I want you to...venue...venue Eating, but not a lot . Exam Narrative Exam Narrative: General: This is a pleasant, obese man in no distress, pale, clammy, lying in bed. HEENT: Normocephalic, atraumatic, MMM CV: RRR. BLE 1-2+ pitting edema to the knee Resp: Diminished bibasilar breath sounds, right more than left (dependant during exam). Dullness to percussion BLL. Thoracentesis site c/d/i. On 3L Abd: NTND +NBS Neuro: awake, follows commands, oriented to self/place, recognizes me by name, but has a hard time voicing words, perseverates on phrases as above. Neurologically some akasthesia but no focal deficits. No hallucinations now Objective Last Vital Signs Temp 36.7 C 07/22/25 15:16 Pulse 113 H 07/22/25 15:16 Resp 16 07/22/25 15:16 BP 122/79 07/22/25 15:16 Pulse Ox 92 07/22/25 15:16 Laboratory Results - last 24 hr 07/22/25 06:24 WBC 4.33 L RBC 3.30 L Hgb 8.4 L Hct 26.5 L MCV 80 MCH 25.5 L MCHC 31.7 L RDW 20.6 H Plt Count 210 MPV 9.4 Immature Gran % 4.8 Neutrophils % 83.4 Lymphocytes % 6.0 Monocytes % 5.8 Eosinophils % 0.0 Basophils % 0.0 Nucleated RBC % 0.0 Absolute Neutrophils 3.61 Absolute Lymphocytes 0.26 L Absolute Monocytes 0.25 Absolute Eosinophils 0.00 Absolute Basophils 0.00 RBC Morphology See Below Anisocytosis 2+ Sodium 136 Potassium 4.7 Chloride 96 L Carbon Dioxide 25.2 Anion Gap 14.7 H BUN 24 H Creatinine 0.66 L Est GFR (CKD-EPI 2020) 129.75 Glucose 95 Calcium 8.3 Total Bilirubin 1.1 AST 87 H ALT 27 Alkaline Phosphatase 115 Total Protein 4.8 L Albumin 3.0 L VTE Prohylaxis Risk Level: Moderate/High Risk Contraindications: Active bleed/high bleed risk (thoracentesis likely in the morning) Prophylaxis: Mechanical Time Spent with Patient Time Spent with Patient: >50 minutes Time was spent: preparing to see the patient(eg.review tests), obtaining and/or reviewing separately otained hiistory, ordering medications,tests, procedures, referring, communicating with other health rn urgent care, indepentently interpreting results, counseling the patient and care coordination
[2025-07-22] MEDS: VANCOMYCIN/WATER (PEG) 2 GM/400 ML BAG IVPB (16:19)
[2025-07-22 17:32] LABS: COVID-19 PCR Negative (Negative); RSV PCR Negative (Negative)
[2025-07-22 18:03] LABS: MRSA PCR Negative (Negative)
[2025-07-22] MEDS: DOXYCYCLINE 100 MG in Normal Saline 100 ML IVPB (20:24)
[2025-07-22] MEDS: [UNRECOGNIZED DRUG - OTHER] 3 MG PO (20:24)
[2025-07-22] MEDS: traZODone 100 MG TAB 200 MG PO (20:25)
[2025-07-22] MEDS: Allopurinol 300 MG TAB PO (20:25)
[2025-07-23] VITALS (8 sets, daily range): BP systolic 100–104; BP diastolic 61–70; PULSE 102–114; RESP 19–20; TEMP 36.4–36.5; O2SAT 72–96
[2025-07-23] MEDS: VANCOMYCIN/WATER (PEG) 1.5 GM/300 ML BAG IVPB (01:41)
[2025-07-23] MEDS: DOXYCYCLINE 100 MG in Normal Saline 100 ML IVPB (05:43)
[2025-07-23 07:54] LABS: Abs Immature Grans 0.30 10^3/uL (0.0-0.06); HCT 23.8 % (40.0-50.0); HGB 7.3 g/dL (13.5-17.5); MCH 24.6 pg (27.0-33.0); MCHC 30.7 % (32.0-36.0); MCV 80 fL (80-95); MPV 9.6 fL (8.0-11.0); Platelet Count 188 10^3/uL (130-400); RBC 2.97 10^6/uL (4.36-5.78); RDW 21.0 % (11.8-14.1); RDW-SD 61.1 fL; WBC 3.95 10^3/uL (4.4-10.8)
[2025-07-23 07:56] LABS: Anisocytosis 2+
[2025-07-23] MEDS: CEFEPIME 2 GM in Normal Saline 100 ML IVPB (08:02)
[2025-07-23] MEDS: Polyethylene Glycol 3350 17 GM PACKET PO (08:03)
[2025-07-23] MEDS: Docusate Sodium 100 MG CAP PO (08:11)
[2025-07-23] MEDS: Torsemide 20 MG TAB PO (08:11)
[2025-07-23] MEDS: Enoxaparin 40 MG/0.4 ML SYR SC (08:11)
[2025-07-23] MEDS: FLUoxetine 20 MG CAP 40 MG PO (08:11)
[2025-07-23] MEDS: Metoprolol 25 MG TAB 37.5 MG PO (08:12)
--- NOTE | 2025-07-23 11:33 | DSE_ITS ---
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 of long head of biceps brachii of right shoulder (Acute) Medical History Sinusitis Right arm pain Chronic cough Keloid scar Tinea cruris Hemorrhoids Hypothyroidism GERD (gastroesophageal reflux disease) DDD (degenerative disc disease) Hypertension Testicular pain, left Rectal bleeding Thrombocytopenia Schizoaffective disorder Hyperlipidemia History of gastric polyp Developmental delay, mild Chronic low back pain Morbid obesity Diabetes Shortness of breath Severe obstructive sleep apnea Subclinical hypothyroidism Surgical History H/O endoscopy Social History Smoking/Tobacco Use Status: Never Smoking risk assessment performed?: Yes Alcohol Intake: never Drug use: Never Household members: family Housing: other Number of Children: 0 current occupation: Unemployed What type of physical activity do you participate in: walking, independent ambulation and bicycling Do you feel safe at home: Yes Do you feel safe in your relationship?: Yes Time Spent with Patient Time Spent with Patient: <45 minutes Time was spent: preparing to see the patient(eg.review tests), obtaining and/or reviewing separately otained hiistory, ordering medications,tests, procedures, referring, communicating with other health client care specialist, indepentently interpreting results, counseling the patient and care coordination
--- NOTE | 2025-07-23 12:18 | NUR.NOTE ---
Nursing Note: pt being transfered to [facility] at 12:30pm via ambulance pt remains alert to self pale On oxygen 3L NC pt being sent with HL in place RT wrist wrapped with sayra Report give to Zeina RN at 12:12pm pt offered no complaints packet sent with the pt
--- NOTE | 2025-07-23 15:47 | CMDISCH_ITS ---
Date of service: 07/23/25 Time of Service: 15:47 LACE Index Scoring Tool Questions: Length of Stay (in days): 7 - 13 Was the patient admitted via the E.D.?: Yes Comorbidities: Any Tumor E.D. Visits: 2 Answers: Total Score: 12 Risk of Readmission: High Risk Care Management Discharge Plan Reason for Hospitalization: Failure to thrive Discharge Plan: Terry was transferred to [facility] today for further care. He transported via EMS, coordinated by RN supervisor building maintenance. He will follow up with his PCP, apartment community manager, and his discharge plan of care. He was agreeable to this plan. Patient/Family Education Needs: Review discharge instructions and limitations, discussion of self care needs including ask me three. Services Needed at Discharge: Transportation (EMS)
== END 2025-07-23 12:55 | disposition short-term general hospital (02) | DRG 840 ==
LOC: ER 20:54 → ICU 07-13 06:50 → MS 07-16 20:42 → ICU 07-16 20:47
PROVIDERS: Internal Medicine Pulmonary Disease; Admitting Provider Family Medicine; Emergency Provider Emergency Medicine; PCP Student in an Organized Health Care Education/Training Program; Responsible Provider Family Medicine; Visit Provider Family Medicine
DX: C91.40 Hairy cell leukemia not having achieved remission (principal); J18.9 Pneumonia, unspecified organism; J96.01 Acute respiratory failure with hypoxia; E87.21 Acute metabolic acidosis; J98.11 Atelectasis; J91.0 Malignant pleural effusion; Z59.01 Sheltered homelessness; R00.0 Tachycardia, unspecified; R59.0 Localized enlarged lymph nodes; F25.9 Schizoaffective disorder, unspecified; E11.9 Type 2 diabetes mellitus without complications; I10 Essential (primary) hypertension; E03.9 Hypothyroidism, unspecified; G47.33 Obstructive sleep apnea (adult) (pediatric); Y95 Nosocomial condition; D50.9 Iron deficiency anemia, unspecified; R05.3 Chronic cough; G89.29 Other chronic pain; M54.50 Low back pain, unspecified; D69.6 Thrombocytopenia, unspecified; Z68.38 Body mass index [BMI] 38.0-38.9, adult; E66.01 Morbid (severe) obesity due to excess calories; E80.6 Other disorders of bilirubin metabolism; M79.89 Other specified soft tissue disorders; R29.6 Repeated falls; R79.1 Abnormal coagulation profile; F41.9 Anxiety disorder, unspecified; R60.1 Generalized edema; Z79.899 Other long term (current) drug therapy
CPT/HCPCS: 32555 ×2; 76604; 00123; 36415; 71275; 74177; 80048; 80053; 82550; 82805; 85027; 85384; 86850; 86900; 86901; 87040; 87116; 87206; 87637; 87641; 93005; 93308; 93971; 96365; 96366; 96368; 97116; 97161; 97530; 99291; C8929; J1650; 36600; 71045; 71046; 81003; 81015; 81373; 82728; 83036; 83540; 83550; 83605; 83615; 83735; 83880; 84100; 84157; 84238; 84443; 84484; 84550; 85025; 85379; 85610; 85730; 87070; 87075; 87205; 88104; 89051; 93010; 93970; 94660; 94760; 94762; 99222; 99231; 99232; 99233; 99238; G0378; J0692; J1630; J1631; J1938; J3373; J3490